=== PATIENT | female | born 1950 | race Caucasian/White ===

== ENCOUNTER 2020-02-28 17:50 | Emergency (ER) | payer MEDICARE, SELFPAY ==
[2020-02-28 18:06] VITALS: BP 105/68; BP 92/70; PULSE 104; PULSE 94; RESP 16; TEMP 37.1; O2SAT 96; O2SAT 97; BMI 28.8
--- NOTE | 2020-02-28 18:33 | CT_ITS ---
EXAMINATION: CT ABDOMEN AND PELVIS WITHOUT CONTRAST CLINICAL INFORMATION: Upper abdominal pain, question etiology. COMPARISON: Abdominal ultrasound 12/02/2014 TECHNIQUE: Multidetector volumetric imaging was performed from the superior aspect of the liver through the pubic symphysis. Sagittal and coronal reformatted images were obtained on the technologist's workstation. This CT examination was performed using dose optimization techniques as appropriate, variously including the following: *Automated exposure control *Adjustment of mA and/or kV according to patient size (this includes techniques or standardized protocols for targeted exams where dose is matched to indication/reason for exam; i.e. extremities or head) *Use of iterative reconstruction technique DLP: 596 mGy-cm FINDINGS: LUNG BASES: Minimal atelectasis in lung bases. LIVER, GALLBLADDER, AND BILIARY TREE: The liver is normal in size, shape, and attenuation. No focal hepatic lesion or biliary ductal dilatation is present. The gallbladder is unremarkable with no evidence of radiopaque gallstones, gallbladder wall thickening, or obvious pericholecystic inflammatory changes. PANCREAS: Unremarkable. SPLEEN: Unremarkable. ADRENAL GLANDS: Unremarkable. KIDNEYS AND URETERS: There is renal cortical thinning in both kidneys. There is a nonobstructing 4 mm calculus in the midpole of the left kidney. No hydronephrosis. BLADDER: The bladder is decompressed which limits evaluation. GASTROINTESTINAL TRACT: Small hiatal hernia. No bowel obstruction. Appendix is normal. No pericolonic inflammatory change. ABDOMINAL WALL: No significant hernia is appreciated. LYMPH NODES: Normal. VASCULAR: Mild atherosclerotic disease in the abdominal aorta. PELVIC VISCERA: The uterus and adnexa are unremarkable. OSSEOUS STRUCTURES: Grade 1 anterolisthesis of L5 on S1. CT/CT abdomen pelvis wo con IMPRESSION: 1. No acute abnormality in the abdomen or pelvis. 2. Nonobstructing 4 mm calculus in the midpole of the left kidney. Mild renal cortical atrophy. 3. Small hiatal hernia. 4. Grade 1 anterolisthesis of L5 on S1.
--- NOTE | 2020-02-28 18:39 | ED.GENADULT ---
HPI - General Adult General Chief complaint: General Medical Stated complaint: ams lethargic Time Seen by Provider: 02/28/20 18:16 Source: patient and EMS Mode of arrival: EMS Limitations: no limitations History of Present Illness HPI narrative: patient feeling weak lethargic for last 4- 5 days unable to eat or drink much complaining of upper abdominal pain whenever she eats associated with nausea vomited 1 time. Patient denied prior history of similar pain in the past. No fever no abdominal distension normal bowel movement Related Data Home Medications Medication Instructions Recorded Confirmed Lasix 20 mg PO 02/28/20 Previous Rx's Medication Instructions Recorded omeprazole 40 mg PO DAILY 28 Days #28 cap 02/28/20 sucralfate [Carafate] 1 g PO BID #60 tab 02/28/20 Allergies Allergy/AdvReac Type Severity Reaction Status Date / Time Sulfa (Sulfonamide Allergy Unknown UNKNOWN, Unverified 01/20/20 15:12 Antibiotics) rash [SULFA (SULFONAMIDE ANTIBIOTICS)] PMFSH Past Medical History Medical History (Updated 02/28/20 @ 23:34 by Adrian Barron MD) HTN (hypertension) Hypothyroid Social History Social History Alcohol intake: never Smoking Status: Never smoker Smoked in Last 30 Days: No Use of substances other than those prescribed or required for medical reasons: No Advance Directives: No Advance Directives Information Provided: Yes Physical Exam Vital Signs: Vital Signs: Vital Signs Temp Pulse Resp BP Pulse Ox 02/28/20 23:08 97.8 F 73 16 110/56 L 97 02/28/20 21:53 98.1 F 69 20 120/53 L 99 02/28/20 19:45 68 18 137/61 99 02/28/20 18:06 98.8 F 94 16 105/68 97 Body Mass Index 28.8 Course Course Course Narrative: patient has stable labs no signs of significant dehydration CT scan abdomen negative for any acute pathology patient taking p.o. fluids will discharge home Medical Decision Making Lab Data Result diagrams: 02/28/20 19:35 02/28/20 19:35 Labs: Lab Results 02/28/20 02/28/20 Range/Units 19:35 19:35 WBC 10.2 (4.8-10.8) X10*3/uL RBC 4.16 L (4.20-5.50) X10*6/uL Hgb 12.9 (12.0-16.0) g/dl Hct 37.9 (37-47) % MCV 91.1 (80-98) fL MCH 31.0 (27.0-33.0) pg MCHC 34.0 (31.0-35.0) g/dl RDW 14.7 (11.0-16.0) % Plt Count 239 (160-400) X10*3/uL MPV 9.1 L (9.4-12.3) fL Immature Gran % (Auto) 0.4 (0.0-0.4) % Neut % (Auto) 84.8 H (45-73) % Lymph % (Auto) 8.9 L (20-40) % [place] % (Auto) 5.1 (2-11) % Eos % (Auto) 0.6 (0-4) % Baso % (Auto) 0.2 (0-2) % Lymph # (Auto) 0.9 L (1.2-4.9) X10*3/uL [place] # (Auto) 0.5 (0.1-1.2) X10*3/uL Eos # (Auto) 0.1 (0.0-0.4) X10*3/uL Baso # (Auto) 0.0 (0.0-0.2) X10*3/uL Abs Immat Gran (auto) 0.04 H (0.00-0.03) X10*3/uL Absolute Neuts (auto) 8.7 H (2.0-8.3) X10*3/uL Absolute Nucleated RBC 0.000 (0.0-0.012) X10*3/uL Nucleated RBC % (auto) 0.0 (0.0-0.2) /100WBC Sodium 135 (135-145) mmol/L Potassium 3.8 (3.3-5.1) mmol/l Chloride 104 (96-108) mmol/L Carbon Dioxide 18 L (22-29) mmol/L Anion Gap 17 (12-20) BUN 10 (9-16) mg/dL Creatinine 1.01 (0.5-1.4) mg/dL Estim Creat Clear Calc 42.9 Estimated GFR 54 Random Glucose 98 (60-115) mg/dL Calcium 8.0 L (8.4-10.2) mg/dL Total Bilirubin 0.5 (0.0-1.0) mg/dL AST 8 (5-31) U/L ALT < 6 (0-31) U/L Alkaline Phosphatase 70 (39-117) U/L Total Protein 6.3 L (6.5-8.0) g/dL Albumin 3.0 L (3.5-5.0) g/dL Lipase 15 (8-78) U/L Discharge Plan Discharge Clinical Impression: Gastritis Qualifiers: Gastritis type: unspecified gastritis Chronicity: acute Gastritis bleeding: without bleeding Qualified Code(s): K29.00 - Acute gastritis without bleeding Patient Disposition: Home, Self-Care Instructions: Gastritis (ED) Additional Instructions: drink plenty of fluids and take medication as prescribed Prescriptions: New omeprazole 40 mg capsule,delayed release(DR/EC) 40 mg PO DAILY 28 Days Qty: 28 RF: 0 sucralfate [Carafate] 1 gram tablet 1 g PO BID Qty: 60 RF: 0 No Action Lasix 20 mg PO RF: 0 Interventions: ED Discharge Assessment Last Done: 02/28/20 23:48
[2020-02-28] MEDS: ondansetron HCL 4 MG/2 ML VIAL IVPUSH (19:38)
[2020-02-28 19:39] LABS: MANUAL DIFF FLAG NO
[2020-02-28] MEDS: Famotidine/PF 20 MG/2 ML VIAL IVPUSH (19:39)
[2020-02-28 19:41] LABS: Basophils Percent Auto 0.2 % (0-2); Eosinophils Absolute Auto 0.1 X10*3/uL (0.0-0.4); Eosinophils Percent Auto 0.6 % (0-4); Hematocrit 37.9 % (37-47); Hemoglobin 12.9 g/dl (12.0-16.0); Imm Gran Abs Auto 0.04 X10*3/uL (0.00-0.03); Imm Gran Pct Auto 0.4 % (0.0-0.4); Lymphocytes Absolute Auto 0.9 X10*3/uL (1.2-4.9); Lymphocytes Percent Auto 8.9 % (20-40); Mean Corpuscular Volume 91.1 fL (80-98); Mean Platelet Volume 9.1 fL (9.4-12.3); Monocytes Absolute Auto 0.5 X10*3/uL (0.1-1.2); Monocytes Percent Auto 5.1 % (2-11); Neutrophils Absolute Auto 8.7 X10*3/uL (2.0-8.3); Neutrophils Percent Auto 84.8 % (45-73); Platelet Count 239 X10*3/uL (160-400); Red Blood Count 4.16 X10*6/uL (4.20-5.50); Red Cell Distribution Width 14.7 % (11.0-16.0); White Blood Count 10.2 X10*3/uL (4.8-10.8)
[2020-02-28] MEDS: 0.9 % Sodium Chloride 1,000 ML 999 ML IVCONT (19:42)
[2020-02-28 19:45] VITALS: BP 137/61; PULSE 68; RESP 18; O2SAT 99
[2020-02-28 20:03] LABS: Alanine Aminotransferase < 6 U/L (0-31); Alkaline Phosphatase 70 U/L (39-117); Anion Gap 17 (12-20); Aspartate Amino Transferase 8 U/L (5-31); Bilirubin Total 0.5 mg/dL (0.0-1.0); Blood Urea Nitrogen 10 mg/dL (9-16); Carbon Dioxide 18 mmol/L (22-29); Chloride 104 mmol/L (96-108); Creatinine Clr Calc Pharmacy 42.9; Estimated Glomerular Filt Rate 54; Glucose Random 98 mg/dL (60-115); Lipase 15 U/L (8-78); Potassium 3.8 mmol/l (3.3-5.1); Sodium 135 mmol/L (135-145); Total Protein 6.3 g/dL (6.5-8.0)
[2020-02-28 21:53] VITALS: BP 120/53; PULSE 69; RESP 20; TEMP 36.7; O2SAT 99
--- NOTE | 2020-02-28 22:59 | PC.NURSE ---
pt unable to give a urine sample. pt has been given gingerale and greta with no n/v/d.
[2020-02-28 23:08] VITALS: BP 110/56; PULSE 73; RESP 16; TEMP 36.6; O2SAT 97
--- NOTE | 2020-02-29 00:02 | PC.NURSE ---
calling pt home phone and no answer. pt states they are asleep. pt doesnt remember any other phone numbers
--- NOTE | 2020-02-29 04:25 | PC.NURSE ---
PT LEFT WITH EMS.
== END 2020-02-29 01:07 | disposition home or self-care (01) ==
PROVIDERS: Emergency Provider Internal Medicine; PCP Internal Medicine
DX: K29.00 Acute gastritis without bleeding (principal); R10.13 Epigastric pain; R11.2 Nausea with vomiting, unspecified; Z79.899 Other long term (current) drug therapy
CPT/HCPCS: 36415; 74176; 80053; 83690; 85025; 96361; 96374; 96375; 99284; J2405

== ENCOUNTER 2020-03-22 15:41 | Inpatient (IN) | payer MEDICARE, SELFPAY ==
[2020-03-22 15:52] VITALS: BP 103/62; BP 124/70; PULSE 100; PULSE 110; RESP 18; TEMP 36.6; O2SAT 97; O2SAT 99; BMI 25.8
--- NOTE | 2020-03-22 16:13 | ECG_ITS ---
Test Reason : FALL Blood Pressure : / mmHG Vent. Rate : 103 BPM Atrial Rate : 103 BPM P-R Int : 154 ms QRS Dur : 076 ms QT Int : 390 ms P-R-T Axes : 057 -53 159 degrees QTc Int : 510 ms Sinus tachycardia Left axis deviation ST & T wave abnormality, consider anterolateral ischemia ST depression in Inferior leads Abnormal ECG When compared with ECG of 30-MAY-2019 22:55, Heart rate has increased ST more depressed Inferior leads Anterolateral leads Referred By: Jesika King Electronically Signed By:LMIA NGUYỄN MD
--- NOTE | 2020-03-22 16:13 | XR_ITS ---
EXAMINATION: XR CHEST CLINICAL INFORMATION: Syncope. COMPARISON: 05/30/2019 chest radiograph. TECHNIQUE: Frontal view of the chest was obtained. FINDINGS: Mild linear markings are seen in the left lower lung. The left upper lung field and right lung are clear. The heart and mediastinal structures are unremarkable. Mild superior thoracic dextro scoliosis is noted. XR/XR chest 1V IMPRESSION: Mild linear atelectasis versus scarring in the left lower lung. No CHF or pneumonia.
--- NOTE | 2020-03-22 16:13 | CT_ITS ---
EXAMINATION: CT HEAD WITHOUT CONTRAST CLINICAL INFORMATION: Syncope COMPARISON: MRI brain 05/31/2019, CT head 03/27/2015 TECHNIQUE: Contiguous axial imaging was performed from the skull base to vertex without intravenous administration of contrast. Coronal and sagittal reformatted images are performed at the CT scanner This CT examination was performed using dose optimization techniques as appropriate, variously including the following: *Automated exposure control *Adjustment of mA and/or kV according to patient size (this includes techniques or standardized protocols for targeted exams where dose is matched to indication/reason for exam; i.e. extremities or head) *Use of iterative reconstruction technique DLP: 671 mGy-cm FINDINGS: There is no evidence of acute intracranial hemorrhage or acute territorial infarction. There are small lacunar infarcts in the bilateral basal ganglia. No abnormal mass effect or midline shift is seen. Elder to white matter differentiation is well preserved. No extra-axial fluid collections are identified. There is atrophy with prominence of the ventricles and the sulci and hypodensity of the periventricular white matter due to chronic small vessel ischemic disease. There are vascular calcifications of the internal carotid arteries bilaterally. The osseous structures and soft tissues are normal. The mastoid air cells and visualized portions of the paranasal sinuses are well aerated. CT/CT head/brain wo con IMPRESSION: No acute intracranial pathology.
--- NOTE | 2020-03-22 16:29 | ED.FEMALEGU ---
HPI - Female Genitourinary General Chief complaint: Urogenital-Female Stated complaint: failure to thrive Time Seen by Provider: 03/22/20 16:13 Source: patient and EMS Mode of arrival: EMS Limitations: no limitations History of Present Illness HPI Narrative: 68-year-old female brought in by ambulance initial triage nurse stated that the patient had frequency urination with blood in the urine, patient stated that she fell and lost consciousness remained on the floor for 3 hours and family found the patient on the floor that is why they called the ambulance and patient brought into the hospital, Patient's story: Patient lost consciousness fell on the floor remained for 3 hours positive head injury, patient did recall full story of falling, patient now is awake and oriented, complaining of no pain or headache. Patient also was complaining of frequency urination and blood in the urine. Related Data Home Medications Medication Instructions Recorded Confirmed furosemide 20 mg PO DAILY 02/28/20 03/22/20 Previous Rx's Medication Instructions Recorded omeprazole 40 mg PO DAILY 28 Days #28 cap 02/28/20 sucralfate [Carafate] 1 g PO BID #60 tab 02/28/20 Allergies Allergy/AdvReac Type Severity Reaction Status Date / Time Sulfa (Sulfonamide Allergy Unknown UNKNOWN, Unverified 01/20/20 15:12 Antibiotics) rash [SULFA (SULFONAMIDE ANTIBIOTICS)] Review of Systems Review of Systems: All other systems are reviewed and are negative Constitutional: Reports as per HPI and Reports no additional constitutional complaints Eyes: Reports as per HPI and Reports no additional eye complaints Reports system reviewed and no additional complaints, except as documented Cardiovascular: Reports as per HPI and Reports no additional cardiovascular complaints Respiratory: Reports as per HPI and Reports no additional respiratory complaints Gastrointestinal: Reports as per HPI and Reports no additional gastrointestinal complaints Genitourinary: Reports no additional female genitourinary complaints Musculoskeletal: Reports no additional musculoskeletal complaints Skin/Breast: Reports system reviewed and no additional complaints, except as docu Psychiatric: Reports no additional psychiatric complaints Endocrine: Reports no additional endocrine complaints Hematologic/Lymphatic: Reports no additional hematologic/lymphatic complaints Allergic/Immunologic: Reports no additional allergic/immunologic complaints Reports system reviewed and no additional complaints, except as documented and Reports Abnormal speech present PMFSH Past Medical History Medical History (Updated 03/22/20 @ 21:34 by Jake Black MD) HTN (hypertension) Hypothyroid Social History Social History Alcohol intake: never Smoking Status: Never smoker Use of substances other than those prescribed or required for medical reasons: No Advance Directives: No Advance Directives Information Provided: Yes Physical Exam Vital Signs: Vital Signs: Last Vital Signs Temp 97.8 F 03/22/20 15:52 Pulse 96 03/23/20 00:54 Resp 16 03/23/20 00:54 BP 123/55 L 03/23/20 00:54 Pulse Ox 99 03/23/20 00:54 Body Mass Index 25.8 Vital signs have been reviewed as normal and appeared to be correct. Blood pressure normal. Heart rate rapid. Respiration rate normal. Temperature normal. Oxygen saturation normal. Appearance: Alert. Oriented X3. No acute distress. Head: Normal external exam. Normocephalic. Atraumatic. No Herrera signs noted. No raccoon eyes noted Eyes: PERRLA. EOMI. Conjunctiva and sclera normal. Eyelids normal. ENT: EAC normal. TM's Normal. Pharynx normal. Uvula midline. Moist mucous membranes. No trismus noted. No drooling noted. No muffled voice noted. Neck: Normal inspection. Neck supple. FROM. No adenopathy. Thyroid Normal. No meningeal signs. No neck mass noted. CVS: Normal heart rate and rhythm. Heart sound normal. No murmurs noted. Pulses normal throughout. Respiratory: No respiratory distress. Painless inspiration. Breath sounds normal. No wheezes/rales/rhonchi noted. Chest nontender. No accessory muscle usage noted or decreased air movement noted. Abdomen: Soft and nontender. Bowel sounds normal in all 4 quadrants. No distention noted. No organomegaly noted. No visible injury noted. Back: No CVA tenderness. Full range of motion noted. Skin: Skin warm and dry. Normal skin color. Normal skin turgor. No rashes/lesions/lacerations noted. Extremities: No lower extremity edema. Extremities exhibit normal range of motion. Extremities nontender. Neuro: Oriented X 3. No motor deficit. No sensory deficit. Reflexes normal. MDM - Female Genitourinary MDM Narrative Medical decision making narrative: Assessment and plan. A 70 years old female brought in by ambulance after was found on the floor by family for unknown time patient reported maybe hours, patient do not recall the whole story falling down. 1. ST depression in the lateral leads on the EKG, was unremarkable troponin patient declined chest pain, however patient is complaining of vague left-sided abdominal pain which found nonsignificant on the physical exam. The case discussed with Dr. Garcia manager utilities on-call who recommended to admit the patient for serial troponin trend an echocardiogram as an inpatient in the a.m. 2. Neuro exam is intact and head CT is unremarkable. 3. Hypokalemia will replete potassium. 4. Patient also had concern of vaginal bleed had a CT of the abdomen pelvis 2 weeks ago for that purpose and was unremarkable. While the admitting will obtain OB consult as an inpatient. Await for UA Lab Data Result diagrams: 03/22/20 16:37 03/22/20 18:27 Labs: Lab Results 03/22/20 03/22/20 03/22/20 Range/Units 16:37 16:37 16:37 WBC 11.0 H (4.8-10.8) X10*3/uL RBC 4.50 (4.20-5.50) X10*6/uL Hgb 13.5 (12.0-16.0) g/dl Hct 39.6 (37-47) % MCV 88.0 (80-98) fL MCH 30.0 (27.0-33.0) pg MCHC 34.1 (31.0-35.0) g/dl RDW 15.5 (11.0-16.0) % Plt Count 235 (160-400) X10*3/uL MPV 9.4 (9.4-12.3) fL Immature Gran % (Auto) 0.5 H (0.0-0.4) % Neut % (Auto) 82.7 H (45-73) % Lymph % (Auto) 10.6 L (20-40) % [place] % (Auto) 5.0 (2-11) % Eos % (Auto) 0.9 (0-4) % Baso % (Auto) 0.3 (0-2) % Lymph # (Auto) 1.2 (1.2-4.9) X10*3/uL [place] # (Auto) 0.6 (0.1-1.2) X10*3/uL Eos # (Auto) 0.1 (0.0-0.4) X10*3/uL Baso # (Auto) 0.0 (0.0-0.2) X10*3/uL Abs Immat Gran (auto) 0.06 H (0.00-0.03) X10*3/uL Absolute Neuts (auto) 9.1 H (2.0-8.3) X10*3/uL Absolute Nucleated RBC 0.000 (0.0-0.012) X10*3/uL Nucleated RBC % (auto) 0.0 (0.0-0.2) /100WBC Sodium Cancelled Potassium Cancelled Chloride Cancelled Carbon Dioxide Cancelled Anion Gap Cancelled BUN Cancelled Creatinine Cancelled Estim Creat Clear Calc Cancelled Estimated GFR Cancelled Random Glucose Cancelled Lactic Acid (0.5-2.0) mmol/L Lactic Acid Fup @ 2Hr (0.5-2.0) mmol/L Calcium Cancelled Total Bilirubin Cancelled Direct Bilirubin Cancelled AST Cancelled ALT Cancelled Alkaline Phosphatase Cancelled Total Creatine Kinase Cancelled Troponin I High Sens 5.1 (<3.5-17.0) ng/L B-Natriuretic Peptide 11 (<100) pg/mL Total Protein Cancelled Albumin Cancelled Lipase Cancelled COVID-19 ([facility]) (Negative) COVID-19 Clin Com 03/22/20 03/22/20 03/22/20 Range/Units 16:45 16:55 17:45 WBC (4.8-10.8) X10*3/uL RBC (4.20-5.50) X10*6/uL Hgb (12.0-16.0) g/dl Hct (37-47) % MCV (80-98) fL MCH (27.0-33.0) pg MCHC (31.0-35.0) g/dl RDW (11.0-16.0) % Plt Count (160-400) X10*3/uL MPV (9.4-12.3) fL Immature Gran % (Auto) (0.0-0.4) % Neut % (Auto) (45-73) % Lymph % (Auto) (20-40) % [place] % (Auto) (2-11) % Eos % (Auto) (0-4) % Baso % (Auto) (0-2) % Lymph # (Auto) (1.2-4.9) X10*3/uL [place] # (Auto) (0.1-1.2) X10*3/uL Eos # (Auto) (0.0-0.4) X10*3/uL Baso # (Auto) (0.0-0.2) X10*3/uL Abs Immat Gran (auto) (0.00-0.03) X10*3/uL Absolute Neuts (auto) (2.0-8.3) X10*3/uL Absolute Nucleated RBC (0.0-0.012) X10*3/uL Nucleated RBC % (auto) (0.0-0.2) /100WBC Sodium Cancelled Potassium Cancelled Chloride Cancelled Carbon Dioxide Cancelled Anion Gap Cancelled BUN Cancelled Creatinine Cancelled Estim Creat Clear Calc Cancelled Estimated GFR Cancelled Random Glucose Cancelled Lactic Acid 2.1 H* (0.5-2.0) mmol/L Lactic Acid Fup @ 2Hr (0.5-2.0) mmol/L Calcium Cancelled Total Bilirubin Cancelled Direct Bilirubin Cancelled AST Cancelled ALT Cancelled Alkaline Phosphatase Cancelled Total Creatine Kinase Cancelled Troponin I High Sens (<3.5-17.0) ng/L B-Natriuretic Peptide (<100) pg/mL Total Protein Cancelled Albumin Cancelled Lipase Cancelled COVID-19 ([facility]) Negative (Negative) COVID-19 Clin Com See Note 03/22/20 03/22/20 03/22/20 Range/Units 18:27 21:43 21:43 WBC (4.8-10.8) X10*3/uL RBC (4.20-5.50) X10*6/uL Hgb (12.0-16.0) g/dl Hct (37-47) % MCV (80-98) fL MCH (27.0-33.0) pg MCHC (31.0-35.0) g/dl RDW (11.0-16.0) % Plt Count (160-400) X10*3/uL MPV (9.4-12.3) fL Immature Gran % (Auto) (0.0-0.4) % Neut % (Auto) (45-73) % Lymph % (Auto) (20-40) % [place] % (Auto) (2-11) % Eos % (Auto) (0-4) % Baso % (Auto) (0-2) % Lymph # (Auto) (1.2-4.9) X10*3/uL [place] # (Auto) (0.1-1.2) X10*3/uL Eos # (Auto) (0.0-0.4) X10*3/uL Baso # (Auto) (0.0-0.2) X10*3/uL Abs Immat Gran (auto) (0.00-0.03) X10*3/uL Absolute Neuts (auto) (2.0-8.3) X10*3/uL Absolute Nucleated RBC (0.0-0.012) X10*3/uL Nucleated RBC % (auto) (0.0-0.2) /100WBC Sodium 136 Potassium 2.9 L D Chloride 99 Carbon Dioxide 21 L Anion Gap 19 BUN 13 Creatinine 0.93 Estim Creat Clear Calc 46.2 Estimated GFR 59 Random Glucose 102 Lactic Acid (0.5-2.0) mmol/L Lactic Acid Fup @ 2Hr 3.1 H* (0.5-2.0) mmol/L Calcium 8.6 D Total Bilirubin 1.2 H Direct Bilirubin 0.8 H AST 12 D ALT 6 Alkaline Phosphatase 91 D Total Creatine Kinase 23 L Troponin I High Sens 6.1 (<3.5-17.0) ng/L B-Natriuretic Peptide (<100) pg/mL Total Protein 7.3 Albumin 3.5 Lipase COVID-19 ([facility]) (Negative) COVID-19 Clin Com Imaging Data Chest x-ray: Radiologist's impression: Mild linear atelectasis versus scarring in the left lower lung. No CHF or pneumona. CT scan - head: Radiologist's impression: No acute intracranial pathology. ECG Data Interpretation: Sinus tachycardia at 103 beats per minutes, normal interval, left axis deviation, ST depression in V3, V4, V5, V6. Discharge Plan Discharge Clinical Impression: Hypokalemia Syncope Qualifiers: Syncope type: unspecified Qualified Code(s): R55 - Syncope and collapse Patient Disposition: Admitted As Inpatient
[2020-03-22 16:46] LABS: MANUAL DIFF FLAG NO
[2020-03-22 16:48] LABS: Basophils Percent Auto 0.3 % (0-2); Eosinophils Absolute Auto 0.1 X10*3/uL (0.0-0.4); Eosinophils Percent Auto 0.9 % (0-4); Hematocrit 39.6 % (37-47); Hemoglobin 13.5 g/dl (12.0-16.0); Imm Gran Abs Auto 0.06 X10*3/uL (0.00-0.03); Imm Gran Pct Auto 0.5 % (0.0-0.4); Lymphocytes Absolute Auto 1.2 X10*3/uL (1.2-4.9); Lymphocytes Percent Auto 10.6 % (20-40); Mean Corpuscular HGB Conc 34.1 g/dl (31.0-35.0); Mean Platelet Volume 9.4 fL (9.4-12.3); Monocytes Absolute Auto 0.6 X10*3/uL (0.1-1.2); Neutrophils Absolute Auto 9.1 X10*3/uL (2.0-8.3); Neutrophils Percent Auto 82.7 % (45-73); Platelet Count 235 X10*3/uL (160-400); Red Cell Distribution Width 15.5 % (11.0-16.0)
[2020-03-22] MEDS: 0.9 % Sodium Chloride 500 ML 999 ML IVCONT ×2 (16:51→21:34)
[2020-03-22 16:52] VITALS: BP 108/62; PULSE 107
[2020-03-22 16:53] VITALS: BP 109/68; PULSE 103
[2020-03-22 17:23] LABS: B Type Natriuretic Peptide 11 pg/mL (<100); Troponin-I High Sensitivity 5.1 ng/L (<3.5-17.0)
[2020-03-22 17:25] LABS: COVID-19 Test Negative (Negative); IDNOW Serial# 9DD0AD1C
[2020-03-22 17:48] LABS: Lactic Acid 2.1 mmol/L (0.5-2.0)
[2020-03-22 18:51] LABS: Reflex Lactate? Lactic Acid Added
[2020-03-22 19:19] LABS: Alanine Aminotransferase 6 U/L (0-31); Albumin Level 3.5 g/dL (3.5-5.0); Alkaline Phosphatase 91 U/L (39-117); Anion Gap 19 (12-20); Aspartate Amino Transferase 12 U/L (5-31); Bilirubin Direct 0.8 mg/dL (0.0-0.5); Bilirubin Total 1.2 mg/dL (0.0-1.0); Blood Urea Nitrogen 13 mg/dL (9-16); Calcium 8.6 mg/dL (8.4-10.2); Carbon Dioxide 21 mmol/L (22-29); Chloride 99 mmol/L (96-108); Creatinine Clr Calc Pharmacy 46.2; Estimated Glomerular Filt Rate 59; Glucose Random 102 mg/dL (60-115); Potassium 2.9 mmol/l (3.3-5.1); Sodium 136 mmol/L (135-145); Total Protein 7.3 g/dL (6.5-8.0)
[2020-03-22] MEDS: Potassium Chloride Packet 20 MEQ PACKET PO (20:20)
[2020-03-22] MEDS: Potassium Chloride/H20 10 MEQ/100 ML PIGGYBACK 100 MEQ IV (20:20)
[2020-03-22 20:51] VITALS: BP 113/80; PULSE 89; RESP 18; O2SAT 99
--- NOTE | 2020-03-22 21:20 | P.HPHOSP_ITS ---
History of Present Illness Date of Service: 03/22/20 Chief Complaint: syncope 70 y/o female who presented from home s/p syncope. Event is not very clear and patient is a very poor historian. AAOx2 at the time of evaluation (name and place but not age). Patient reports that loss conciusness at her house yesterday but is not clear about any symptoms prior or after the event. Denies any chest pain, SOB, nausea, vomiting, diarrhea or fever. On presentation patient's vitals are stable, mildly tachycardic, EKG showing sinus tachycardia with anterolateral ST depression and T wave inversion, prolonged QTc 510, K of 2.9, lactate of 2.1. CT head negative. Patient was given KCL IV by Ed attending and decision for ad mission was given. Patient was seen and examine at the bedside, ROS as above otherwise negative. P hysical exam positive for: AAOx2, xerosis of the skin, vitals stable now, no neurologic deficits identified on exam. I reviewed patient's records which shows patient has had multiple admissions in the past for syncope in which the circumstances are unclear. Last admission was on May of current year, work up during that admission unremarkable. Past medical history: Dementia, depression, hypothyroidism, hypertension, syncope Past surgical history: None Toxic habits: Smoker, Alcohol abuse, no hx of IVDA Review of Systems Neurologic: Reports other (syncope) [facility] Medical History HTN (hypertension) Hypothyroid Functional capacity: independent ambulation Family history: reviewed and not pertinent Social History Alcohol intake: never Smoking Status: Never smoker Use of substances other than those prescribed or required for medical reasons: No Advance Directives: No Advance Directives Information Provided: Yes Meds Allergies Allergy/AdvReac Type Severity Reaction Status Date / Time Sulfa (Sulfonamide Allergy Unknown UNKNOWN, Unverified 01/20/20 15:12 Antibiotics) rash [SULFA (SULFONAMIDE ANTIBIOTICS)] Home Medications Medication Instructions Recorded Confirmed Type furosemide 20 mg PO DAILY 02/28/20 03/22/20 History Physical Exam Vital Signs and Narrative: Vital Signs: Last Vital Signs Temp 97.8 F 03/22/20 15:52 Pulse 89 03/22/20 20:51 Resp 18 03/22/20 20:51 BP 113/80 03/22/20 20:51 Pulse Ox 99 03/22/20 20:51 Body Mass Index 25.8 Const: General: cooperative, comfortable and no acute distress Orientation/consciousness: oriented to person and oriented to place HENMT: Head: Yes normal to inspection Eyes: General: appearance normal, both eyes and all related structures Neck: Yes normal visual inspection Chest: Chest palpation & inspection: normal inspection of the chest Resp: Effort & Inspection: normal respiratory effort Cardio: Jugular venous distension: no JVD Rate: regular rate Rhythm: regular rhythm Heart sounds: S1 normal heart sound present and S2 normal heart sound present GI: Inspection: Yes normal to inspection Skin: General skin exam: other (xerosis) Neuro: General: oriented to person and oriented to place Extrem: General: Yes normal to inspection Results Labs CBC and Chem 7: 03/22/20 16:37 03/22/20 18:27 Labs: Laboratory Results - last 24 hr 03/22/20 03/22/20 03/22/20 16:37 16:37 16:37 MCV 88.0 MCH 30.0 MCHC 34.1 RDW 15.5 Plt Count 235 MPV 9.4 Immature Gran % (Auto) 0.5 H Neut % (Auto) 82.7 H Lymph % (Auto) 10.6 L [place] % (Auto) 5.0 Eos % (Auto) 0.9 Baso % (Auto) 0.3 Lymph # (Auto) 1.2 [place] # (Auto) 0.6 Eos # (Auto) 0.1 Baso # (Auto) 0.0 Abs Immat Gran (auto) 0.06 H Absolute Neuts (auto) 9.1 H Absolute Nucleated RBC 0.000 Nucleated RBC % (auto) 0.0 Anion Gap Cancelled Estim Creat Clear Calc Cancelled Estimated GFR Cancelled Random Glucose Cancelled Lactic Acid Calcium Cancelled Total Bilirubin Cancelled Direct Bilirubin Cancelled AST Cancelled ALT Cancelled Alkaline Phosphatase Cancelled Total Creatine Kinase Cancelled Troponin I High Sens 5.1 B-Natriuretic Peptide 11 Total Protein Cancelled Albumin Cancelled Lipase Cancelled COVID-19 (D[facility]NELL) COVID-19 Clin Com 03/22/20 03/22/20 03/22/20 16:45 16:55 17:45 MCV MCH MCHC RDW Plt Count MPV Immature Gran % (Auto) Neut % (Auto) Lymph % (Auto) [place] % (Auto) Eos % (Auto) Baso % (Auto) Lymph # (Auto) [place] # (Auto) Eos # (Auto) Baso # (Auto) Abs Immat Gran (auto) Absolute Neuts (auto) Absolute Nucleated RBC Nucleated RBC % (auto) Anion Gap Cancelled Estim Creat Clear Calc Cancelled Estimated GFR Cancelled Random Glucose Cancelled Lactic Acid 2.1 H* Calcium Cancelled Total Bilirubin Cancelled Direct Bilirubin Cancelled AST Cancelled ALT Cancelled Alkaline Phosphatase Cancelled Total Creatine Kinase Cancelled Troponin I High Sens B-Natriuretic Peptide Total Protein Cancelled Albumin Cancelled Lipase Cancelled COVID-19 (DARNELL) Negative COVID-19 Clin Com See Note 03/22/20 18:27 MCV MCH MCHC RDW Plt Count MPV Immature Gran % (Auto) Neut % (Auto) Lymph % (Auto) [place] % (Auto) Eos % (Auto) Baso % (Auto) Lymph # (Auto) [place] # (Auto) Eos # (Auto) Baso # (Auto) Abs Immat Gran (auto) Absolute Neuts (auto) Absolute Nucleated RBC Nucleated RBC % (auto) Anion Gap 19 Estim Creat Clear Calc 46.2 Estimated GFR 59 Random Glucose 102 Lactic Acid Calcium 8.6 D Total Bilirubin 1.2 H Direct Bilirubin 0.8 H AST 12 D ALT 6 Alkaline Phosphatase 91 D Total Creatine Kinase 23 L Troponin I High Sens B-Natriuretic Peptide Total Protein 7.3 Albumin 3.5 Lipase COVID-19 (DARNELL) COVID-19 Clin Com Imaging Radiologist's Impressions: Impressions Chest X-Ray 03/22/20 16:13 IMPRESSION: Mild linear atelectasis versus scarring in the left lower lung. No CHF or pneumonia. Head CT 03/22/20 16:13 IMPRESSION: No acute intracranial pathology. Assessment and Plan (1) Syncope: Qualifiers: Syncope type: unspecified Qualified Code(s): R55 - Syncope and collapse Status: Acute cardiogenic vs neurogenic Tele monitor as of now CT head negative EKG showing T wave inversion in anterolateral leads with ST depression. Initial troponin negative and patient asymptomatic Follow up second troponin STAT Monitor vitals closely Neurology consult in the am Cardiology consult in the am (2) Hypokalemia: Status: Acute 2.9 on presentation s/p supplementation in the ED Follow up repeat BMP now STAT Prolongation of QTC of 510 likely due to hypokalemia 1 g of Mag to be given now as well (3) HTN (hypertension): Status: Acute Hold BP meds for now given borderline BP likely due to dehydration (4) Hypothyroid: Status: Acute not on meds at present per reconciliation
--- NOTE | 2020-03-22 21:44 | PC.NURSE ---
pt wanted to lay back and once she did she began to vomit. labs being drawn at this time.
[2020-03-22] MEDS: Magnesium Sulfate/D5W 1 GM/100 ML PIGGYBACK IV (22:00)
[2020-03-22 22:40] LABS: Troponin-I High Sensitivity 6.1 ng/L (<3.5-17.0)
--- NOTE | 2020-03-22 22:44 | PC.NURSE ---
lactic 3.1 reported to covering rn and provider
[2020-03-22 22:45] LABS: ~Lactic Acid-LAB USE ONLY 3.1 mmol/L (0.5-2.0)
[2020-03-22 23:47] LABS: Reflex Lactate? 2 Y
[2020-03-23] VITALS (8 sets, daily range): BP systolic 123–147; BP diastolic 52–95; PULSE 72–109; RESP 15–20; TEMP 36.4–36.7; O2SAT 96–99
--- NOTE | 2020-03-23 | ECG_ITS ---
Test Reason : SYNCOPE Blood Pressure : / mmHG Vent. Rate : 095 BPM Atrial Rate : 095 BPM P-R Int : 164 ms QRS Dur : 076 ms QT Int : 358 ms P-R-T Axes : 057 -31 206 degrees QTc Int : 449 ms Normal sinus rhythm Left axis deviation Inferior infarct (cited on or before 22-MAR-2020) ST & T wave abnormality, consider anterolateral ischemia Abnormal ECG When compared with ECG of 22-MAR-2020 16:46, ST more depressed Anterolateral leads Referred By: Geraldo Osborne Electronically Signed By:LIMA NGUYỄN MD
--- NOTE | 2020-03-23 01:15 | PC.NURSE ---
PT CLEANED FOR BROWN VOMIT AND EUNICE CARE. PT BUTTOCKS IS RED, OLD BLOOD NOTED WITH CLOTS PRESENT. PT VITALS STABLE, NEEDS MET, BARRIOR CREAM APPLIED TO BUTTOCKS. PT HAS RECEIVED IVF AND VITALS ARE STABLE AT THIS TIME.
--- NOTE | 2020-03-23 03:44 | PC.NURSE ---
LACTIC DRAWN LATE DUE TO CODE GOING ON IN ANOTHER ROOM. BEING DRAWN AT THIS TIME.
[2020-03-23 04:18] LABS: ~Lactic Acid-LAB USE ONLY 1.3 mmol/L (0.5-2.0)
--- NOTE | 2020-03-23 05:18 | PC.NURSE ---
pt repositioned and pad checked for scant bleeding. pad at this time is still usable no clots seen and no active bleeding seen.
--- NOTE | 2020-03-23 07:29 | PC.NURSE ---
REPORT FROM EZEQUIEL LIND PT IS COMFORTABLY, WAITING FOR ADMISSION
--- NOTE | 2020-03-23 10:15 | PC.NURSE ---
mastic man at bedside for consult
--- NOTE | 2020-03-23 10:39 | PC.NURSE ---
PT REPOSITIONED, FOR COMFORT, FAIR AMOUNT OF BRIGHT RED BLEEDING NOTED
[2020-03-23] MEDS: Sucralfate 1 GM TABLET PO ×2 (10:46→21:32)
--- NOTE | 2020-03-23 10:50 | PC.NURSE ---
[place] [facility] [place]
--- NOTE | 2020-03-23 11:10 | PM.CNCAR ---
History of Present Illness History of Present Illness Date of Consult: March 23, 2020 Chief complaint: syncope Narrative: This is a cardiology consultation regarding an abnormal EKG. Patient herself does not seem to be a good historian. Not entirely clear if she has any significant dementia. According to the H and P and per the ER doctor, she had loss of consciousness event S today but denied any chest pain. However when I questioned her she states that she was having chest pain yesterday starting in the morning. Around 14:00 or so she had a dizzy episode and probably passed out but details are not very clear. This then led to the hospitalization. EKG was abnormal with ST-T changes but her potassium was also low at 2.9. Otherwise patient denies any previous cardiac issues. Currently, she denies any chest pain. Per the nurse taking care of the patient, she has been having vaginal bleeding since she came to the ER. Review of Systems Review of Systems: Cardiac- positive for chest pain. Positive for syncopal episodes. Negative for shortness of breath or palpitations. Yes all other systems are reviewed and are negative Neurologic: Reports other (syncope) [facility] Past Medical History Medical History Dementia HTN (hypertension) Hypothyroid Functional capacity: independent ambulation Family History Pertinent family history: Patient not able to give any clear history about family. Family history: reviewed and not pertinent Social History Social History Alcohol intake: never Smoking Status: Never smoker Use of substances other than those prescribed or required for medical reasons: No Advance Directives: No Advance Directives Information Provided: Yes Meds Allergies Allergy/AdvReac Type Severity Reaction Status Date / Time Sulfa (Sulfonamide Allergy Unknown UNKNOWN, Unverified 01/20/20 15:12 Antibiotics) rash [SULFA (SULFONAMIDE ANTIBIOTICS)] Home Medications Medication Instructions Recorded Confirmed Type furosemide 20 mg PO DAILY 02/28/20 03/22/20 History Physical Exam Vital Signs: Vital Signs: Last Vital Signs Temp 97.9 F 03/23/20 10:14 Pulse 85 03/23/20 10:14 Resp 16 03/23/20 10:14 BP 125/95 H 03/23/20 10:14 Pulse Ox 99 03/23/20 03:51 Body Mass Index 25.8 Comfortable, no distress No pallor, icterus or cyanosis HEENT -unremarkable JVD- normal Cardiac- normal heart sounds, no murmurs, gallops or rubs, normal PMI Respiratory-normal breath sounds bilaterally, no crackles, no wheeze Abdomen- soft, nontender Neuro- alert and oriented Lower extremities- no significant edema, warm well perfused Results Labs and Meds Result diagrams: 03/22/20 16:37 03/22/20 18:27 Lab results: Laboratory Results - last 24 hr 03/22/20 03/22/20 03/22/20 16:37 16:37 16:37 WBC 11.0 H RBC 4.50 Hgb 13.5 Hct 39.6 MCV 88.0 MCH 30.0 MCHC 34.1 RDW 15.5 Plt Count 235 MPV 9.4 Immature Gran % (Auto) 0.5 H Neut % (Auto) 82.7 H Lymph % (Auto) 10.6 L [place] % (Auto) 5.0 Eos % (Auto) 0.9 Baso % (Auto) 0.3 Lymph # (Auto) 1.2 [place] # (Auto) 0.6 Eos # (Auto) 0.1 Baso # (Auto) 0.0 Abs Immat Gran (auto) 0.06 H Absolute Neuts (auto) 9.1 H Absolute Nucleated RBC 0.000 Nucleated RBC % (auto) 0.0 Sodium Cancelled Potassium Cancelled Chloride Cancelled Carbon Dioxide Cancelled Anion Gap Cancelled BUN Cancelled Creatinine Cancelled Estim Creat Clear Calc Cancelled Estimated GFR Cancelled Random Glucose Cancelled Lactic Acid Lactic Acid Fup @ 2Hr Lactic Acid Fup @ 4Hr Calcium Cancelled Total Bilirubin Cancelled Direct Bilirubin Cancelled AST Cancelled ALT Cancelled Alkaline Phosphatase Cancelled Total Creatine Kinase Cancelled Troponin I High Sens 5.1 B-Natriuretic Peptide 11 Total Protein Cancelled Albumin Cancelled Lipase Cancelled COVID-19 (DARNELL) COVID-19 Clin Com 03/22/20 03/22/20 03/22/20 16:45 16:55 17:45 WBC RBC Hgb Hct MCV MCH MCHC RDW Plt Count MPV Immature Gran % (Auto) Neut % (Auto) Lymph % (Auto) [place] % (Auto) Eos % (Auto) Baso % (Auto) Lymph # (Auto) [place] # (Auto) Eos # (Auto) Baso # (Auto) Abs Immat Gran (auto) Absolute Neuts (auto) Absolute Nucleated RBC Nucleated RBC % (auto) Sodium Cancelled Potassium Cancelled Chloride Cancelled Carbon Dioxide Cancelled Anion Gap Cancelled BUN Cancelled Creatinine Cancelled Estim Creat Clear Calc Cancelled Estimated GFR Cancelled Random Glucose Cancelled Lactic Acid 2.1 H* Lactic Acid Fup @ 2Hr Lactic Acid Fup @ 4Hr Calcium Cancelled Total Bilirubin Cancelled Direct Bilirubin Cancelled AST Cancelled ALT Cancelled Alkaline Phosphatase Cancelled Total Creatine Kinase Cancelled Troponin I High Sens B-Natriuretic Peptide Total Protein Cancelled Albumin Cancelled Lipase Cancelled COVID-19 (D[facility]NELL) [facility] See Note 03/22/20 03/22/20 03/22/20 18:27 21:43 21:43 WBC RBC Hgb Hct MCV MCH MCHC RDW Plt Count MPV Immature Gran % (Auto) Neut % (Auto) Lymph % (Auto) [place] % (Auto) Eos % (Auto) Baso % (Auto) Lymph # (Auto) [place] # (Auto) Eos # (Auto) Baso # (Auto) Abs Immat Gran (auto) Absolute Neuts (auto) Absolute Nucleated RBC Nucleated RBC % (auto) Sodium 136 Potassium 2.9 L D Chloride 99 Carbon Dioxide 21 L Anion Gap 19 BUN 13 Creatinine 0.93 Estim Creat Clear Calc 46.2 Estimated GFR 59 Random Glucose 102 Lactic Acid Lactic Acid Fup @ 2Hr 3.1 H* Lactic Acid Fup @ 4Hr Calcium 8.6 D Total Bilirubin 1.2 H Direct Bilirubin 0.8 H AST 12 D ALT 6 Alkaline Phosphatase 91 D Total Creatine Kinase 23 L Troponin I High Sens 6.1 B-Natriuretic Peptide Total Protein 7.3 Albumin 3.5 Lipase COVID-19 (DARNELL) COVID-Finalta 03/23/20 03:58 WBC RBC Hgb Hct MCV MCH MCHC RDW Plt Count MPV Immature Gran % (Auto) Neut % (Auto) Lymph % (Auto) [place] % (Auto) Eos % (Auto) Baso % (Auto) Lymph # (Auto) [place] # (Auto) Eos # (Auto) Baso # (Auto) Abs Immat Gran (auto) Absolute Neuts (auto) Absolute Nucleated RBC Nucleated RBC % (auto) Sodium Potassium Chloride Carbon Dioxide Anion Gap BUN Creatinine Estim Creat Clear Calc Estimated GFR Random Glucose Lactic Acid Lactic Acid Fup @ 2Hr Lactic Acid Fup @ 4Hr 1.3 Calcium Total Bilirubin Direct Bilirubin AST ALT Alkaline Phosphatase Total Creatine Kinase Troponin I High Sens B-Natriuretic Peptide Total Protein Albumin Lipase COVID-19 (DARNELL) COVID-19 Clin Com Assessment and Plan (1) Abnormal EKG: Status: Acute (2) Syncope and collapse: Status: Acute (3) Precordial chest pain: Status: Acute (4) Hypokalemia: Status: Acute (5) Dementia: Status: Acute Her EKG appears ischemic in nature but her potassium is also low on arrival. We need to replete her potassium and then repeat EKG. Need to get an echocardiogram for LV function assessment and wall motion. She is having vaginal bleeding and hence will need to look into that as well. Once the full clinical picture is clear, then can plan on ischemia workup. Procedures Abscess I/D Date of Service: 03/23/20
--- NOTE | 2020-03-23 11:29 | US_ITS ---
EXAMINATION: US PELVIS CLINICAL INFORMATION: 70-year-old female with history of vaginal bleeding. COMPARISON: Pelvic ultrasound from 12/04/2014. TECHNIQUE: Ultrasound of the pelvis is performed using both transabdominal and transvaginal transducers along with Doppler. Transvaginal imaging is performed due to inadequate visualization transabdominally. FINDINGS: Uterus: The anteverted uterus measures approximately 9 cm long, 4.2 cm AP and 5 cm transverse (cervix to fundus longitudinal measurement). The endometrium measures up to approximately 2 cm in maximum AP thickness, compared to 1.6 cm on 12/04/2014. There appears to be mucosal thickening of the endocervix, as well. A subserosal leiomyoma of the anterior right lower uterine body measures 2 x 1.2 x 1.9 cm. Adnexa: Neither ovary is identified. No adnexal mass. No pelvic free fluid. US/US pelvic complete IMPRESSION: The endometrium is chronically thickened. On these transabdominal images, the endometrium measures up to 2 cm maximum AP dimension, compared to 1.6 cm on 12/04/2014. In a postmenopausal female, the diagnosis of exclusion for endometrial thickening is endometrial carcinoma. There appears to be mucosal thickening of the endocervix, as well. No adnexal mass or pelvic free fluid.
--- NOTE | 2020-03-23 12:19 | PM.GYNCN ---
RADIOLOGICAL EQUIPMENT SPECIALIST - CN: HPI Data of Consult Consult date: 03/23/20 Requesting Physician: Jake Black MD Primary Care Provider: Unknown Physician Consult Narrative Narrative: Yessenia Villalta is a 70 year old female who presented to emergency room because of syncopal attack and is complaining of vaginal bleeding over the last few days patient has dementia very difficult historian. cc:: CC: Jake Black MD Meds Allergies Allergy/AdvReac Type Severity Reaction Status Date / Time Sulfa (Sulfonamide Allergy Unknown UNKNOWN, Unverified 01/20/20 15:12 Antibiotics) rash [SULFA (SULFONAMIDE ANTIBIOTICS)] Home Medications Medication Instructions Recorded Confirmed Type furosemide 20 mg PO DAILY 02/28/20 03/22/20 History RADIOLOGICAL EQUIPMENT SPECIALIST - Results Labs CBC & Chem 7: 03/22/20 16:37 03/22/20 18:27 Labs: Short CBC 03/22/20 Range/Units 16:37 WBC 11.0 H (4.8-10.8) X10*3/uL Hgb 13.5 (12.0-16.0) g/dl Hct 39.6 (37-47) % Plt Count 235 (160-400) X10*3/uL BMP 03/22/20 03/22/20 03/22/20 16:37 17:45 18:27 Sodium Cancelled Cancelled 136 Potassium Cancelled Cancelled 2.9 L D Chloride Cancelled Cancelled 99 Carbon Dioxide Cancelled Cancelled 21 L BUN Cancelled Cancelled 13 Creatinine Cancelled Cancelled 0.93 Calcium Cancelled Cancelled 8.6 D Cardiac Enzymes 03/22/20 03/22/20 03/22/20 Range/Units 16:37 17:45 18:27 Total Creatine Kinase Cancelled Cancelled 23 L Liver Function 03/22/20 03/22/20 03/22/20 Range/Units 16:37 17:45 18:27 Total Bilirubin Cancelled Cancelled 1.2 H Direct Bilirubin Cancelled Cancelled 0.8 H AST Cancelled Cancelled 12 D ALT Cancelled Cancelled 6 Alkaline Phosphatase Cancelled Cancelled 91 D Albumin Cancelled Cancelled 3.5 Assessment and Plan (1) Postmenopausal bleeding: Status: Acute Discussed with the patient the differential diagnosis of post menopausal bleeding including but not limited to, endometrial hyperplasia, cancer, polyps and other causes; recommended ultrasound to measure the endometrial stripe; discussed with the patient that if the endometrial thickness is 4 mm or less the negative predictive value of endometrial pathology is 99%, otherwise If endometrial thickness is more than 4 mm will proceed with endometrial sampling versus hysteroscopy D&C polypectomy depending on the ultrasound findings. If the bleeding becomes more active and patient drops her H&H will consider D&C. Plan discussed with Dr. Osborne
--- NOTE | 2020-03-23 12:33 | PC.NURSE ---
VOMITING STOMACH CONTENTS
[2020-03-23 13:16] LABS: Anion Gap 19 (12-20); Blood Urea Nitrogen 12 mg/dL (9-16); Calcium 8.4 mg/dL (8.4-10.2); Carbon Dioxide 20 mmol/L (22-29); Chloride 100 mmol/L (96-108); Creatinine Clr Calc Pharmacy 48.2; Estimated Glomerular Filt Rate > 60; Glucose Random 109 mg/dL (60-115); Potassium 2.9 mmol/l (3.3-5.1); Sodium 136 mmol/L (135-145)
[2020-03-23 13:38] LABS: MANUAL DIFF FLAG NO
[2020-03-23 13:42] LABS: Basophils Percent Auto 0.2 % (0-2); Eosinophils Absolute Auto 0.1 X10*3/uL (0.0-0.4); Eosinophils Percent Auto 0.5 % (0-4); Hematocrit 34.5 % (37-47); Imm Gran Abs Auto 0.04 X10*3/uL (0.00-0.03); Imm Gran Pct Auto 0.4 % (0.0-0.4); Lymphocytes Percent Auto 8.9 % (20-40); Mean Corpuscular HGB Conc 34.8 g/dl (31.0-35.0); Mean Corpuscular Hemoglobin 30.8 pg (27.0-33.0); Mean Corpuscular Volume 88.7 fL (80-98); Mean Platelet Volume 9.2 fL (9.4-12.3); Monocytes Absolute Auto 0.4 X10*3/uL (0.1-1.2); Monocytes Percent Auto 3.9 % (2-11); Neutrophils Absolute Auto 9.7 X10*3/uL (2.0-8.3); Neutrophils Percent Auto 86.1 % (45-73); Platelet Count 216 X10*3/uL (160-400); Red Blood Count 3.89 X10*6/uL (4.20-5.50); Red Cell Distribution Width 15.7 % (11.0-16.0); White Blood Count 11.3 X10*3/uL (4.8-10.8)
[2020-03-23] MEDS: Heparin Sodium,Porcine 5,000 UNIT/ML VIAL 5000 UNIT SUBCUT ×2 (14:05→21:32)
[2020-03-23] MEDS: Potassium Chloride/H20 10 MEQ/100 ML PIGGYBACK 100 MEQ IV ×5 (14:06→21:32)
[2020-03-23] MEDS: 0.9 % Sodium Chloride Flush 3 ML SYRINGE IVFLUSH ×2 (14:06→15:36)
[2020-03-23 14:28] LABS: Anion Gap 21 (12-20); Blood Urea Nitrogen 13 mg/dL (9-16); Calcium 8.3 mg/dL (8.4-10.2); Carbon Dioxide 18 mmol/L (22-29); Chloride 101 mmol/L (96-108); Creatinine Clr Calc Pharmacy 50.5; Estimated Glomerular Filt Rate > 60; Glucose Random 101 mg/dL (60-115); Potassium 2.9 mmol/l (3.3-5.1); Sodium 137 mmol/L (135-145)
[2020-03-23 15:28] LABS: Alanine Aminotransferase < 6 U/L (0-31); Albumin Level 3.3 g/dL (3.5-5.0); Alkaline Phosphatase 86 U/L (39-117); Aspartate Amino Transferase 10 U/L (5-31); Bilirubin Direct 0.7 mg/dL (0.0-0.5); Bilirubin Total 1.2 mg/dL (0.0-1.0); Magnesium 2.2 mg/dL (1.6-2.6); Total Protein 6.9 g/dL (6.5-8.0)
--- NOTE | 2020-03-23 16:44 | HO.PM.IMPN ---
Subjective Subjective Date of Service: 03/23/20 Interval History: Poor appetite, vaginal bleeding, abnormal EKG, hypokalemia. dm with behavioural changes Review of Systems Patient is poor historian, but when I saw the patient patient denying chest pain Answers few simple questions says she has poor appetite. Also noted to have small vaginal bleeding episode this morning. Physical Exam Vital Signs: Vital Signs: Last Vital Signs Temp 97.6 F 03/23/20 15:15 Pulse 72 03/23/20 15:15 Resp 20 03/23/20 15:15 BP 125/95 H 03/23/20 10:14 Pulse Ox 98 03/23/20 15:15 Body Mass Index 25.8 Physical exam: Cvs: rrr, [id number] , no murmur res: clear to auscultation ,no rhonchii or wheezing abd: no rebound or guarding ,nt, bs present. ext pulses present , no cyanosis neuro: nonfocal. Objective Data Current Medications Generic Name Dose Route Start Last Admin Trade Name Freq PRN Reason Stop Dose Admin Bupropion HCl 150 mg 03/24/20 09:00 Bupropion Hcl Xl 150 Mg Tab.Er.24h PO DAILY [facility] Gabapentin 300 mg 03/23/20 21:00 Gabapentin 300 Mg Capsule PO TID [facility] Heparin Sodium (Porcine) 5,000 unit 03/23/20 14:00 03/23/20 14:05 Heparin Sodium,Porcine 5,000 Unit/Ml Vial SUBCUT 5,000 unit Q8H [facility] Administration Potassium Chloride 10 meq in 100 mls @ 100 mls/hr 03/23/20 14:45 03/23/20 16:37 IV 03/23/20 18:44 100 mls/hr Q1H [facility] Infusion Levothyroxine Sodium 25 mcg 03/24/20 06:00 Levothyroxine Sodium 25 Mcg Tablet PO DAILY@0600 [facility] Omeprazole 40 mg 03/23/20 06:30 03/23/20 10:48 Omeprazole 40 Mg Capsule.Dr PO Not Given DAILY@0630 [facility] Potassium Chloride 40 meq 03/24/20 09:00 Potassium Chloride Packet 20 Meq Packet PO DAILY [facility] Potassium Chloride 40 meq 03/24/20 09:00 Potassium Chloride Packet 20 Meq Packet PO DAILY [facility] Risperidone 0.5 mg 03/24/20 09:00 Risperidone 0.5 Mg Tablet PO DAILY [facility] Sodium Chloride 3 ml 03/23/20 13:02 03/23/20 15:36 0.9 % Sodium Chloride Flush 3 Ml Syringe IVFLUSH 3 ml QSHIFT [facility] Administration Sucralfate 1 gm 03/23/20 09:00 03/23/20 10:46 Sucralfate 1 Gm Tablet PO 1 gm BID [facility] Administration Labs CBC & Chem 7: 03/23/20 13:17 03/24/20 05:20 Assessment and Plan (1) Syncope: Status: Acute (2) Abnormal EKG: Status: Acute (3) Dementia: Status: Acute (4) Hypothyroid: Status: Acute (5) HTN (hypertension): Status: Acute (6) Hypokalemia: Status: Acute Assessment and Plan: 1. ? syncope : cardiogenic vs neurogenic Tele monitor as of now CT head negative EKG showing T wave inversion in anterolateral leads with ST depression troponin negative and patient denies chest pain, also spoke to her son who said patient does not have any cardiac history or any complaint of chest pain. ? unclear about syncope issue as per her AID and son . Cardio evaluation noted -? Patient does not have any cardiac history, ? T-wave inversions as described above, tropes negative, echo pending 2 Hypokalemia: Recheck BMP 2.9 Repleted Will follow BMP in the evening also given magnesium and repeated levels -2.2 3 HTN (hypertension): Hold BP meds for now given borderline BP likely due to dehydration 4 Hypothyroid: added levothyroxine. 5. Dementia: Will continue risperidone, bupropion
--- NOTE | 2020-03-23 16:56 | PM.NEUROCN ---
History of Present Illness Data of Consult Service Date: 03/23/20 Primary Care Provider: Unknown Physician 70 years old woman who I was asked to see for syncope. She said that she was here because of dizziness. Otherwise she stated that she was living in [place] and was driving but I was unable to confirm these facts. She was not sure what had happened. Apparently witnesses account was not available. She was not in any distress and not complaining of any pain. She denied any cold or flu-like illness. Review of Systems Review of Systems: Difficult to confirm review of system as she was a poor historian. Neurologic: Reports other (syncope) [facility] Past Medical History Medical History (Updated 03/23/20 @ 17:02 by Danny He MD) Dementia HTN (hypertension) Hypothyroid Psoriasis Functional capacity: independent ambulation Family History Family history: reviewed and not pertinent Social History Social History Household Members: Spouse and Children Housing: House Alcohol intake: never Smoking Status: Never smoker Meds Allergies Allergy/AdvReac Type Severity Reaction Status Date / Time Sulfa (Sulfonamide Allergy Unknown Rash Verified 03/23/20 13:30 Antibiotics) [SULFA (SULFONAMIDE ANTIBIOTICS)] Penicillins Allergy Rash Verified 03/23/20 13:32 Home Medications Medication Instructions Recorded Confirmed Type furosemide 20 mg PO DAILY 02/28/20 03/22/20 History bupropion HCl 150 mg PO QAM 03/23/20 03/23/20 History gabapentin 300 mg PO TID 03/23/20 03/23/20 History levothyroxine 25 mcg PO DAILY 03/23/20 03/23/20 History risperidone 0.5 mg PO DAILY 03/23/20 03/23/20 History Physical Exam Vital Signs: Vital Signs: Last Vital Signs Temp 97.6 F 03/23/20 15:15 Pulse 72 03/23/20 15:15 Resp 20 03/23/20 15:15 BP 125/95 H 03/23/20 10:14 Pulse Ox 98 03/23/20 15:15 Body Mass Index 25.8 Alert and awake with normal attention, she was speaking slowly but able to answer simple questions and follow simple commands. She did not know the details of what had happened. Pupils were round reactive to light. External ocular muscles were intact. Gaze was full dose tear was slightly widened. Face was symmetrical. There was diffuse maculopapular rash on her face. There was no obvious focal arm or leg weakness. Plantars were flat. She was able to move extremities freely. Her past medical history apparently included dementia Results Labs CBC & Chem 7: 03/23/20 13:17 03/23/20 13:17 Labs: Short CBC 03/23/20 03/23/20 Range/Units 13:17 13:17 WBC 11.3 H (4.8-10.8) X10*3/uL Hgb 12.0 Cancelled (12.0-16.0) g/dl Hct 34.5 L Cancelled (37-47) % Plt Count 216 (160-400) X10*3/uL BMP 03/22/20 03/22/20 03/22/20 16:37 17:45 18:27 Sodium Cancelled Cancelled 136 Potassium Cancelled Cancelled 2.9 L D Chloride Cancelled Cancelled 99 Carbon Dioxide Cancelled Cancelled 21 L BUN Cancelled Cancelled 13 Creatinine Cancelled Cancelled 0.93 Calcium Cancelled Cancelled 8.6 D 03/23/20 03/23/20 12:19 13:17 Sodium 136 137 Potassium 2.9 L 2.9 L Chloride 100 101 Carbon Dioxide 20 L 18 L BUN 12 13 Creatinine 0.89 0.85 Calcium 8.4 8.3 L Cardiac Enzymes 03/22/20 03/22/20 03/22/20 Range/Units 16:37 17:45 18:27 Total Creatine Kinase Cancelled Cancelled 23 L Liver Function 03/22/20 03/22/20 03/22/20 Range/Units 16:37 17:45 18:27 Total Bilirubin Cancelled Cancelled 1.2 H Direct Bilirubin Cancelled Cancelled 0.8 H AST Cancelled Cancelled 12 D ALT Cancelled Cancelled 6 Alkaline Phosphatase Cancelled Cancelled 91 D Albumin Cancelled Cancelled 3.5 03/23/20 Range/Units 13:17 Total Bilirubin 1.2 H Direct Bilirubin 0.7 H AST 10 ALT < 6 Alkaline Phosphatase 86 Albumin 3.3 L Assessment and Plan (1) Syncope: Qualifiers: Syncope type: unspecified Qualified Code(s): R55 - Syncope and collapse Status: Acute 70 years old woman with reported syncopal episode. In this age group new multiple possibilities including seizure disorder. There was no obvious sign of infection but her potassium level was low that might have contributed to weakness or falling. In any case I noticed that the syncope was listed as previous medical history to. If that is the case, an EEG is recommended to rule out seizure disorder. 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 At this time no specific medicine is recommended for this. (3) Rash: Status: Acute Etiology of facial rash is unclear. If not clear, I would recommend ruling out scabies. Procedures Abscess I/D Date of Service: 03/23/20
--- NOTE | 2020-03-23 18:33 | PC.NURSE ---
Addendum entered by Tammy Webber RN 03/23/20 18:55: BACK FROM US. PO ORAL 40 MEQ POTASSIUM GIVEN UNSCHEDULED PER MD. Original Note: OFF UNIT TO US
[2020-03-23] MEDS: Potassium Chloride Packet 20 MEQ PACKET 40 MEQ PO (19:00)
--- NOTE | 2020-03-23 19:10 | PC.NURSE ---
PT VOMITTED UP ALL PO POTASSIUM THAT WAS JUST GIVEN. MD NOTIFIED VIA [employer], AWAITING RESPONSE. ONCOMING RN NOTIFIED.
[2020-03-23] MEDS: Gabapentin 300 MG CAPSULE PO (21:32)
[2020-03-23 22:02] LABS: Potassium 4.1 mmol/l (3.3-5.1)
[2020-03-24] VITALS (7 sets, daily range): BP systolic 99–145; BP diastolic 44–79; PULSE 82–98; RESP 16–20; TEMP 36.1–36.7; O2SAT 94–100
[2020-03-24] MEDS: 0.9 % Sodium Chloride Flush 3 ML SYRINGE IVFLUSH ×3 (00:10→16:42)
[2020-03-24] MEDS: Heparin Sodium,Porcine 5,000 UNIT/ML VIAL 5000 UNIT SUBCUT ×3 (05:40→20:57)
[2020-03-24] MEDS: Omeprazole 40 MG CAPSULE.DR PO (05:41)
[2020-03-24] MEDS: Levothyroxine Sodium 25 MCG TABLET PO (05:41)
[2020-03-24 06:47] LABS: Anion Gap 18 (12-20); Blood Urea Nitrogen 12 mg/dL (9-16); Calcium 7.9 mg/dL (8.4-10.2); Carbon Dioxide 17 mmol/L (22-29); Chloride 106 mmol/L (96-108); Creatinine Clr Calc Pharmacy 51.7; Estimated Glomerular Filt Rate > 60; Glucose Random 96 mg/dL (60-115); Sodium 137 mmol/L (135-145)
--- NOTE | 2020-03-24 08:43 | ECG_ITS ---
Test Reason : ST CHANGES Blood Pressure : / mmHG Vent. Rate : 081 BPM Atrial Rate : 081 BPM P-R Int : 156 ms QRS Dur : 080 ms QT Int : 442 ms P-R-T Axes : 045 -14 221 degrees QTc Int : 513 ms Normal sinus rhythm Inferior infarct (cited on or before 23-MAR-2020) ST now depressed in Inferior leads Anterolateral leads Abnormal ECG When compared with ECG of 23-MAR-2020 13:42, T wave inversion less evident in Lateral leads QT has lengthened Referred By: Geraldo Osborne Electronically Signed By:LIMA NGUYỄN MD
[2020-03-24] MEDS: Potassium Chloride Packet 20 MEQ PACKET 40 MEQ PO (09:55)
[2020-03-24] MEDS: Sucralfate 1 GM TABLET PO ×2 (10:01→20:57)
[2020-03-24] MEDS: buPROPion HCl XL 150 MG TAB.ER.24H PO (10:02)
[2020-03-24] MEDS: Gabapentin 300 MG CAPSULE PO ×3 (10:02→20:57)
[2020-03-24] MEDS: risperiDONE 0.5 MG TABLET PO (10:03)
--- NOTE | 2020-03-24 10:18 | P.PNCA_ITS ---
Subjective Subjective Interval history: Patient does not have any chest pain other specific cardiac symptoms. Review of Systems Review of Systems Cardiac- No anginal-type symptoms or shortness of breath or palpitations or dizzy spells. Yes all other systems are reviewed and are negative Reports other (syncope) Physical Exam Vital Signs: Last Vital Signs Temp 97.9 F 03/23/20 10:14 Pulse 85 03/23/20 10:14 Resp 16 03/23/20 10:14 BP 125/95 H 03/23/20 10:14 Pulse Ox 99 03/23/20 03:51 Body Mass Index 25.8 Comfortable, no distress No pallor, icterus or cyanosis HEENT -unremarkable JVD- normal Cardiac- normal heart sounds, no murmurs, gallops or rubs, normal PMI Respiratory-normal breath sounds bilaterally, no crackles, no wheeze Abdomen- soft, nontender Neuro- alert and oriented Lower extremities- no significant edema, warm well perfused Results Labs and Meds Result diagrams: 03/23/20 13:17 03/24/20 05:20 Lab results: Laboratory Results - last 24 hr 03/23/20 03/23/20 03/23/20 12:19 13:17 13:17 WBC 11.3 H RBC 3.89 L Hgb 12.0 Hct 34.5 L MCV 88.7 MCH 30.8 MCHC 34.8 RDW 15.7 Plt Count 216 MPV 9.2 L Immature Gran % (Auto) 0.4 Neut % (Auto) 86.1 H Lymph % (Auto) 8.9 L [place] % (Auto) 3.9 Eos % (Auto) 0.5 Baso % (Auto) 0.2 Lymph # (Auto) 1.0 L [place] # (Auto) 0.4 Eos # (Auto) 0.1 Baso # (Auto) 0.0 Abs Immat Gran (auto) 0.04 H Absolute Neuts (auto) 9.7 H Absolute Nucleated RBC 0.000 Nucleated RBC % (auto) 0.0 Sodium 136 137 Potassium 2.9 L 2.9 L Chloride 100 101 Carbon Dioxide 20 L 18 L Anion Gap 19 21 H BUN 12 13 Creatinine 0.89 0.85 Estim Creat Clear Calc 48.2 50.5 Estimated GFR > 60 > 60 Random Glucose 109 101 Calcium 8.4 8.3 L Magnesium 2.2 Total Bilirubin 1.2 H Direct Bilirubin 0.7 H AST 10 ALT < 6 Alkaline Phosphatase 86 Total Protein 6.9 Albumin 3.3 L Blood Type Antibody Screen 03/23/20 03/23/20 03/23/20 13:17 13:17 21:15 WBC RBC Hgb Cancelled Hct Cancelled MCV MCH MCHC RDW Plt Count MPV Immature Gran % (Auto) Neut % (Auto) Lymph % (Auto) [place] % (Auto) Eos % (Auto) Baso % (Auto) Lymph # (Auto) [place] # (Auto) Eos # (Auto) Baso # (Auto) Abs Immat Gran (auto) Absolute Neuts (auto) Absolute Nucleated RBC Nucleated RBC % (auto) Sodium Potassium 4.1 D Chloride Carbon Dioxide Anion Gap BUN Creatinine Estim Creat Clear Calc Estimated GFR Random Glucose Calcium Magnesium Total Bilirubin Direct Bilirubin AST ALT Alkaline Phosphatase Total Protein Albumin Blood Type A Positive Antibody Screen NEGATIVE 03/24/20 05:20 WBC RBC Hgb Hct MCV MCH MCHC RDW Plt Count MPV Immature Gran % (Auto) Neut % (Auto) Lymph % (Auto) [place] % (Auto) Eos % (Auto) Baso % (Auto) Lymph # (Auto) [place] # (Auto) Eos # (Auto) Baso # (Auto) Abs Immat Gran (auto) Absolute Neuts (auto) Absolute Nucleated RBC Nucleated RBC % (auto) Sodium 137 Potassium 4.0 Chloride 106 Carbon Dioxide 17 L Anion Gap 18 BUN 12 Creatinine 0.83 Estim Creat Clear Calc 51.7 Estimated GFR > 60 Random Glucose 96 Calcium 7.9 L Magnesium Total Bilirubin Direct Bilirubin AST ALT Alkaline Phosphatase Total Protein Albumin Blood Type Antibody Screen Progress Note: A&P Assessment and plan (1) Abnormal EKG: Status: Acute (2) Syncope and collapse: Status: Acute (3) Precordial chest pain: Status: Acute (4) Hypokalemia: Status: Acute (5) Dementia: Status: Acute Assessment and Plan: Potassium has been corrected. Repeat EKG still shows ST-T changes. She could have underlying CAD. However, she also has dementia. Continues to have some vaginal bleeding as well. She is not a candidate for ischemia workup. Can treat for empiric CAD with beta-blockers and statins. Aspirin when able and when the bleeding resolved. Echocardiogram for LV function assessment. Fall Risk Details Current Medications: Current Medications Generic Name Dose Route Start Last Admin Trade Name Freq PRN Reason Stop Dose Admin Bupropion HCl 150 mg 03/24/20 09:00 03/24/20 10:02 Bupropion Hcl Xl 150 Mg Tab.Er.24h PO 150 mg DAILY [facility] Administration Gabapentin 300 mg 03/23/20 21:00 03/24/20 10:02 Gabapentin 300 Mg Capsule PO 300 mg TID [facility] Administration Heparin Sodium (Porcine) 5,000 unit 03/23/20 14:00 03/24/20 05:40 Heparin Sodium,Porcine 5,000 Unit/Ml Vial SUBCUT 5,000 unit Q8H [place] Administration Levothyroxine Sodium 25 mcg 03/24/20 06:00 03/24/20 05:41 Levothyroxine Sodium 25 Mcg Tablet PO 25 mcg DAILY@0600 [facility] Administration Omeprazole 40 mg 03/23/20 06:30 03/24/20 05:41 Omeprazole 40 Mg Capsule.Dr PO 40 mg DAILY@0630 [facility] Administration Potassium Chloride 40 meq 03/24/20 09:00 03/24/20 09:55 Potassium Chloride Packet 20 Meq Packet PO 40 meq DAILY [facility] Administration Potassium Chloride 40 meq 03/24/20 09:00 03/24/20 10:00 Potassium Chloride Packet 20 Meq Packet PO Not Given DAILY [facility] Potassium Chloride 40 meq 03/24/20 09:00 03/24/20 10:00 Potassium Chloride Packet 20 Meq Packet PO Not Given DAILY [facility] Risperidone 0.5 mg 03/24/20 09:00 03/24/20 10:03 Risperidone 0.5 Mg Tablet PO 0.5 mg DAILY [facility] Administration Sodium Chloride 3 ml 03/23/20 13:02 03/24/20 09:56 0.9 % Sodium Chloride Flush 3 Ml Syringe IVFLUSH 3 ml QSHIFT [place] Administration Sucralfate 1 gm 03/23/20 09:00 03/24/20 10:01 Sucralfate 1 Gm Tablet PO 1 gm BID [facility] Administration Time Spent With Patient Time: Total time spent is greater than 50% in coordination of care (as documented) at patient's floor/unit and/or counseling patient: Time with patient: 15 - 24 minutes Procedures Abscess I/D Date of Service: 03/24/20
--- NOTE | 2020-03-24 11:30 | MHC.CLN ---
RE: CONSULT PT WITH POOR PO AND FRAGILE SKIN WILL START ENSURE BID TO INCREASE KCALS FOLLOWING
--- NOTE | 2020-03-24 12:20 | MHC.CM.PN ---
met with p[t who lives with her and son physical therapy is receommending str t/c placed to son message left crao [phone]
--- NOTE | 2020-03-24 12:48 | P.PNIM_ITS ---
Subjective Subjective Date of Service: 03/24/20 Interval History: Dementia with behavioral changes, hypokalemia, but nonbleeding,? Question of syncope which was unclear Review of Systems Patient could say only few questions could not endorse any chest pain or shortness of breath, we encouraged her to eat Physical Exam Vital Signs: Vital Signs: Last Vital Signs Temp 97.2 F 03/24/20 10:55 Pulse 98 03/24/20 11:17 Resp 20 03/24/20 10:55 BP 99/53 L 03/24/20 11:17 Pulse Ox 97 03/24/20 11:17 Body Mass Index 25.8 Physical exam: Cvs: rrr, [id number] , no murmur res: clear to auscultation ,no rhonchii or wheezing abd: no rebound or guarding ,nt, bs present. ext pulses present , no cyanosis neuro: nonfocal. psych : seems dementia , behaviour changes skin:? facial rash -thought to be xerosis ,? unclear etiology Objective Data Current Medications Generic Name Dose Route Start Last Admin Trade Name Lena PRN Reason Stop Dose Admin Bupropion HCl 150 mg 03/24/20 09:00 03/24/20 10:02 Bupropion Hcl Xl 150 Mg Tab.Er.24h PO 150 mg DAILY [facility] Administration Gabapentin 300 mg 03/23/20 21:00 03/24/20 10:02 Gabapentin 300 Mg Capsule PO 300 mg TID [facility] Administration Heparin Sodium (Porcine) 5,000 unit 03/23/20 14:00 03/24/20 05:40 Heparin Sodium,Porcine 5,000 Unit/Ml Vial SUBCUT 5,000 unit Q8H [facility] Administration Levothyroxine Sodium 25 mcg 03/24/20 06:00 03/24/20 05:41 Levothyroxine Sodium 25 Mcg Tablet PO 25 mcg DAILY@0600 [facility] Administration Omeprazole 40 mg 03/23/20 06:30 03/24/20 05:41 Omeprazole 40 Mg Capsule.Dr PO 40 mg DAILY@0630 [facility] Administration Potassium Chloride 40 meq 03/24/20 09:00 03/24/20 09:55 Potassium Chloride Packet 20 Meq Packet PO 40 meq DAILY [facility] Administration Potassium Chloride 40 meq 03/24/20 09:00 03/24/20 10:00 Potassium Chloride Packet 20 Meq Packet PO Not Given DAILY [facility] Potassium Chloride 40 meq 03/24/20 09:00 03/24/20 10:00 Potassium Chloride Packet 20 Meq Packet PO Not Given DAILY [facility] Risperidone 0.5 mg 03/24/20 09:00 03/24/20 10:03 Risperidone 0.5 Mg Tablet PO 0.5 mg DAILY [facility] Administration Sodium Chloride 3 ml 03/23/20 13:02 03/24/20 09:56 0.9 % Sodium Chloride Flush 3 Ml Syringe IVFLUSH 3 ml QSHIFT [place] Administration Sucralfate 1 gm 03/23/20 09:00 03/24/20 10:01 Sucralfate 1 Gm Tablet PO 1 gm BID [facility] Administration Labs CBC & Chem 7: 03/23/20 13:17 03/24/20 05:20 Microbiology Microbiology Results: Microbiology 03/22/20 16:54 Blood - Arterial Blood Culture - Preliminary No growth after 24 hours. 03/22/20 16:45 Blood - Arterial Blood Culture - Preliminary No growth after 24 hours. Assessment and Plan (1) Hypokalemia: Status: Acute (2) Abnormal EKG: Status: Acute (3) Postmenopausal bleeding: Status: Acute (4) Syncope: Status: Acute (5) Dementia: Status: Acute (6) Hypothyroid: Status: Acute (7) HTN (hypertension): Status: Acute Assessment and Plan: 1. ? syncope : cardiogenic vs neurogenic Tele monitor as of now CT head negative EKG showing T wave inversion in anterolateral leads with ST depression troponin negative and patient denies chest pain, also spoke to her son who said patient does not have any cardiac history or any complaint of chest pain. ? unclear about syncope issue as per her AID and son -they said she did not pass out but was generlaly weak. neuro -saw the patient : recomended EEg Cardio evaluation noted -? Patient does not have any cardiac history, ? T-wave inversions as described above, tropes negative, echo pending 2 Hypokalemia: Recheck BMP 2.9 Repleted-improved to 4.1 potassium was today QTC is also Discussed with cardio:Repeat EKG still shows ST-T changes. She could have underlying CAD. However, she also has dementia. Continues to have some vaginal bleeding as well. She is not a candidate for ischemia workup. Can treat for empiric CAD with beta-blockers and statins. Aspirin when able and when the bleeding resolved. Echocardiogram for LV function assessment. Will add statin, blood pressure borderline we will hold off on beta-blockers for today and started once improves. will check with hazardous substances engineer if asa small dose can be added also. 3 HTN (hypertension): Hold BP meds for now given borderline BP likely due to dehydration 4 Hypothyroid: added levothyroxine. 5. Dementia: Will continue risperidone, bupropion. 6. Vaginal bleeding: no further episode of bleeding Pelvic ultrasound-transabdominal images, the endometrium measures up to 2 cm maximum AP dimension, compared to 1.6 cm. Mental Health Worker follow up-may need outpatient workup.
--- NOTE | 2020-03-24 13:02 | CA_ITS ---
Transthoracic Echocardiogram Patient (Last, First, Middle): Yessenia Villalta, Gender: Female Date of : 1950 Age: 70 Procedure Date: 03/24/2020 Procedure Type: Transthoracic [place] [facility] [place]: 154.94 cm Weight: 61.69 kg BSA: 1.60 m2 Heart Rate: bpm BP: 125 / 95 mmHg Pbx Inspector: Referring MD: Jake Black MD Symptoms: syncope Study Quality: Fair ECG Rhythm: Sinus Conclusions: - The left ventricular systolic function is hyperdynamic. The visually estimated ejection fraction is >70%. - No obvious valvular pathology seen on this study. Findings Left Ventricle Normal left ventricular cavity size. There is normal left ventricular wall thickness. The left ventricular systolic function is hyperdynamic. The visually estimated ejection fraction is >70%. There is no evidence of regional wall motion abnormalities. There is no dynamic left ventricular outflow tract obstruction. E/E prime ratio is between 8 and 15 consistent with indeterminate filling pressures. Evidence suggests grade I (mild) diastolic dysfunction. Right Ventricle Normal right ventricular cavity size. There is mildly decreased right ventricular systolic function. Atria The left atrium is normal in size. The right atrium was not well visualized. Aortic Valve There is mild calcification of the aortic valve. There is no aortic valve stenosis. There is no aortic valve regurgitation. Mitral Valve The mitral valve appears normal. There is trace mitral valve regurgitation. There is no mitral valve stenosis. Pulmonic Valve The pulmonic valve was not well visualized. Tricuspid Valve The tricuspid valve was not well visualized. There is trace tricuspid valve regurgitation. The pulmonary artery systolic pressure is normal. Great Vessels The aortic annulus, sinuses of valsalva, and asc aorta are normal in size. Venous The inferior vena cava is normal in size and collapses greater than 50% with inspiration. Pericardium/Pleural There is no evidence of pericardial effusion. Prior Study Comparison No prior study available for comparison. Recommendations, Care & Conclusions No obvious valvular pathology seen on this study. Measurements 2D Linear Measurements RVIDd: 2.58 RVIDd Index: 1.61 IVSd: 0.98 0.6-0.9/0.6-1.0 cm LVIDd: 3.71 3.9-5.3/4.2-5.9 cm LVIDd Index: 2.32 2.4-3.2/2.2-3.1 cm/m2 LVIDs: 2.88 2.0-3.6 cm LVPWd: 1.35 0.7-1.1 cm Ao Root: 2.60 2.1-3.5 cm LA Diam: 3.40 2.7-3.8/3.0-4.0 cm LAIDs Index: 2.13 1.5-2.3 cm/m2 LV Mass: 175.49 67-162/88-224 g LV Mass Index: 109.68 43-95/49-115 g/m2 LVOT Diam: 1.80 3.0+(-)1.3 cm Mitral Valve MV Pk E: 0.58 MV PK A: 0.74 MV Decel Time: 176.00 E/A: 0.80 E'Lateral: 6.09 E'Medial: 4.24 E/E' Med: 13.70 E/E' Lat: 9.50 PHT: 52.00 MVA PHT: 4.23 Decel Chambers: 3.30 Aortic Valve AoV Pk Yemi: 1.51 AoV Mn Yemi: 0.99 AoV VTI: 0.24 AoV Pk Grad: 9.00 Aov Mn Grad: 5.00 RAMONA Cont.VTI: 1.88 LVOT LVOT Pk Yemi: 1.03 LVOT Mn Yemi: 0.70 LVOT VTI: 0.18 LVOT Pk Grad: 4.00 LVOT Mn Grad: 2.00 LVOT Diam: 1.80 LVOT Area: 2.54 Diastolic Function MV Pk E: 0.58 MV Pk A: 0.74 E/A: 0.80 E'Medial: 4.24 E/E' Med: 13.70 E' Laterial: 6.09 E/E' Lat: 9.50 Tricuspid Valve RA Press: 3.00 Great Vessels Aorta Ao Root-2D: 2.60 2.0-3.7 cm Ao Asc: 2.60 2.1-3.4 cm Updated in Other Vendor System with Status of Final Reese Garcia MD electronically signed on 03/24/2020 4:36:47 PM with status of Final
--- NOTE | 2020-03-24 14:15 | P.PNOB_ITS ---
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7 H AST 10 ALT < 6 Alkaline Phosphatase 86 Total Protein 6.9 Albumin 3.3 L Blood Type A Positive Antibody Screen NEGATIVE 03/24/20 05:20 Sodium 137 Potassium 4.0 Chloride 106 Carbon Dioxide 17 L Anion Gap 18 BUN 12 Creatinine 0.83 Estim Creat Clear Calc 51.7 Estimated GFR > 60 Random Glucose 96 Calcium 7.9 L Magnesium Total Bilirubin Direct Bilirubin AST ALT Alkaline Phosphatase Total Protein Albumin Blood Type Antibody Screen [facility] - A/P (1) Hypokalemia: Status: Acute (2) Abnormal EKG: Status: Acute (3) Postmenopausal bleeding: Status: Acute Assessment and Plan: Patient would need endometrial biopsy to rule out endometrial pathology including hyperplasia and cancer. Will ask from the immigration case manager on the floor to set up an appointment through the office for endometrial biopsy in minor surgery is an outpatient (4) Syncope: Status: Acute (5) Dementia: Status: Acute (6) Hypothyroid: Status: Acute (7) HTN (hypertension): Status: Acute Time Spent With Patient Time: Total time spent is greater than 50% in coordination of care (as documented) at patient's floor/unit and/or counseling patient: Time with patient: less than 15 minutes
--- NOTE | 2020-03-24 14:16 | EEG_ITS ---
This is a 16-channel EEG with an EKG lead. The patient is reported awake, confused, and drowsy during the tracing. Background EEG rhythm is mixed theta, beta, low amplitude with no obvious asymmetry or paroxysmal tendency. During later part of the tracing, there was 1 possible left temporal sharp waves followed by slowing. Photic stimulation does not produce any significant abnormality. Hyperventilation was not performed. Cardiac lead does not reveal any significant abnormality. IMPRESSION: This EEG revealed 1 possible left temporal sharp waves suggestive of possible underlying tendency for seizure disorder. I recommend clinical correlation seizure disorder is suspected. I would recommend treatment. In case of doubtful diagnosis, further EEG evaluation is recommended. MD NICKY Cooney/ARVIND / [phone]
--- NOTE | 2020-03-24 15:52 | W.PM.IDCN ---
History of Present Illness Data of Consult Service Date: 03/24/20 Requesting physician: Geraldo Osborne Primary Care Provider: Unknown Physician HPI Reason for consult: rash face She presents with weakness and vaginal bleeding She has not been taking care of herself apparently and has matted hair She has no fever or chills She has papular rash face Review of Systems Review of Systems: Yes Unobtainable due to mental status Neurologic: Reports other (syncope) [facility] Past Medical History Medical History Dementia HTN (hypertension) Hypothyroid Psoriasis Functional capacity: independent ambulation Family History Family history: reviewed and not pertinent Social History Social History Household Members: Unknown / Unable to assess Housing: Unknown / Unable to assess Alcohol intake: never Smoking Status: Never smoker service: No Meds Allergies Allergy/AdvReac Type Severity Reaction Status Date / Time Sulfa (Sulfonamide Allergy Unknown Rash Verified 03/23/20 13:30 Antibiotics) [SULFA (SULFONAMIDE ANTIBIOTICS)] Penicillins Allergy Rash Verified 03/23/20 13:32 Home Medications Medication Instructions Recorded Confirmed Type furosemide 20 mg PO DAILY 02/28/20 03/22/20 History bupropion HCl 150 mg PO QAM 03/23/20 03/23/20 History gabapentin 300 mg PO TID 03/23/20 03/23/20 History levothyroxine 25 mcg PO DAILY 03/23/20 03/23/20 History risperidone 0.5 mg PO DAILY 03/23/20 03/23/20 History Physical Exam Vital Signs: Vital Signs: Last Vital Signs Temp 97.2 F 03/24/20 10:55 Pulse 98 03/24/20 11:17 Resp 20 03/24/20 10:55 BP 99/53 L 03/24/20 11:17 Pulse Ox 97 03/24/20 11:17 Body Mass Index 25.8 Const: General: no acute distress Eyes: General: appearance normal, both eyes and all related structures Resp: Effort & Inspection: normal respiratory effort Cardio: Rate: regular rate Rhythm: regular rhythm GI: Inspection: Yes normal to inspection : General: Yes no CVA tenderness Back/Spine/Pelvis: Back: no CVA tenderness Skin: Other: facial erythema and pustular areas Assessment and Plan (1) Rash: Problem details: Facial rash Seems consistent with folliculitis Status: Acute Would give po Doxycycline one week Westcort cream to face Results Labs CBC & Chem 7: 03/25/20 06:15 03/25/20 06:15 Labs: BMP 03/23/20 03/24/20 21:15 05:20 Sodium 137 Potassium 4.1 D 4.0 Chloride 106 Carbon Dioxide 17 L BUN 12 Creatinine 0.83 Calcium 7.9 L Microbiology Microbiology Results: Microbiology 03/22/20 16:54 Blood - Arterial Blood Culture - Preliminary No growth after 24 hours. 03/22/20 16:45 Blood - Arterial Blood Culture - Preliminary No growth after 24 hours.
--- NOTE | 2020-03-24 15:54 | MHC.CM.PN ---
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 NEHA informed by his office that they will obtain more information from MD on Friday and then call t/w with an appointment.
--- NOTE | 2020-03-24 17:16 | PC.NURSE ---
Shift eval 7a-3p: Patient alert, vague. Cardio following patient, potassium improved. Tolerated diet - ate majority of meals. No N/V. EKG repeated today, viewed by cardio. PT/OT eval done. Held all potassium supplements per Dr Dylon Villarreal 4.1. Echo done today. Results pending. Initial plan to do bedside biopse of endometrium w/ Dr Abbott, but instead plan to do outpatient - made case management aware. Son, healthcare proxy made aware as well about plan of care. Psych initially consulted r/t outbursts, but then patient calmed down through day and psych consult put on hold per Dr Osborne. Plan for discharge tomorrow per Dr Osborne pending electrolyte labs improving.
[2020-03-24] MEDS: Atorvastatin Calcium 40 MG TABLET PO (20:57)
[2020-03-25 02:38] VITALS: BP 108/51; PULSE 75; RESP 16; TEMP 36.2; O2SAT 100
[2020-03-25] MEDS: 0.9 % Sodium Chloride Flush 3 ML SYRINGE IVFLUSH ×4 (02:43→20:52)
[2020-03-25] MEDS: Heparin Sodium,Porcine 5,000 UNIT/ML VIAL 5000 UNIT SUBCUT ×3 (07:10→20:52)
[2020-03-25] MEDS: Levothyroxine Sodium 25 MCG TABLET PO (07:10)
[2020-03-25] MEDS: Omeprazole 40 MG CAPSULE.DR PO (07:10)
[2020-03-25 07:26] VITALS: BP 126/57; PULSE 83; RESP 18; TEMP 36.4; O2SAT 95
[2020-03-25 07:41] LABS: Hematocrit 29.8 % (37-47); Hemoglobin 10.1 g/dl (12.0-16.0); Mean Corpuscular HGB Conc 33.9 g/dl (31.0-35.0); Mean Corpuscular Hemoglobin 30.1 pg (27.0-33.0); Mean Corpuscular Volume 88.7 fL (80-98); Mean Platelet Volume 9.8 fL (9.4-12.3); Platelet Count 162 X10*3/uL (160-400); Red Blood Count 3.36 X10*6/uL (4.20-5.50); Red Cell Distribution Width 15.9 % (11.0-16.0); White Blood Count 7.3 X10*3/uL (4.8-10.8)
[2020-03-25 08:09] LABS: Anion Gap 12 (12-20); Blood Urea Nitrogen 9 mg/dL (9-16); Calcium 8.2 mg/dL (8.4-10.2); Carbon Dioxide 24 mmol/L (22-29); Chloride 102 mmol/L (96-108); Creatinine Clr Calc Pharmacy 51.7; Estimated Glomerular Filt Rate > 60; Glucose Random 85 mg/dL (60-115); Potassium 3.5 mmol/l (3.3-5.1); Sodium 134 mmol/L (135-145)
[2020-03-25] MEDS: Sucralfate 1 GM TABLET PO ×2 (08:18→20:52)
[2020-03-25] MEDS: risperiDONE 0.5 MG TABLET PO (08:18)
[2020-03-25] MEDS: Gabapentin 300 MG CAPSULE PO ×3 (08:19→20:52)
[2020-03-25] MEDS: buPROPion HCl XL 150 MG TAB.ER.24H PO (08:19)
[2020-03-25] MEDS: Aspirin Enteric Coated 81 MG TABLET.DR PO (08:19)
--- NOTE | 2020-03-25 09:45 | HO.PM.IMPN ---
Subjective Subjective Date of Service: 03/25/20 Interval History: Seen in f/u for vaginal bleeding. Small amount of bleeding reported overnight. Non at moment Gen: no fever Resp: no sob, no cough CV: no chest pain GI/: No n/v, no abd pain, vag bleeding Neuro: gen confusion--chronic Physical Exam Vital Signs: Vital Signs: Last Vital Signs Temp 97.6 F 03/25/20 07:26 Pulse 83 03/25/20 07:26 Resp 18 03/25/20 07:26 BP 126/57 L 03/25/20 07:26 Pulse Ox 95 03/25/20 07:26 Body Mass Index 25.8 General: AO to self, no acute distress Resp: CTA bilateral CVS: S1,S2,RRR GI: +BS, NT, no distention : deffered Skin: No rash Neuro: motor grossly intact Psych: flat affect Objective Data Current Medications Generic Name Dose Route Start Last Admin Trade Name Freq PRN Reason Stop Dose Admin Aspirin 81 mg 03/25/20 09:00 03/25/20 08:19 Aspirin Enteric Coated 81 Mg Tablet. PO 81 mg DAILY [place] Administration Atorvastatin Calcium 40 mg 03/24/20 21:00 03/24/20 20:57 Atorvastatin Calcium 40 Mg Tablet PO 40 mg BEDTIME [place] Administration Bupropion HCl 150 mg 03/24/20 09:00 03/25/20 08:19 Bupropion Hcl Xl 150 Mg Tab.Er.24h PO 150 mg DAILY [place] Administration Doxycycline Hyclate 100 mg 03/24/20 18:00 03/25/20 07:10 Doxycycline Hyclate 100 Mg Tablet PO 100 mg Q12H [place] Administration Gabapentin 300 mg 03/23/20 21:00 03/25/20 08:19 Gabapentin 300 Mg Capsule PO 300 mg TID [place] Administration Heparin Sodium (Porcine) 5,000 unit 03/23/20 14:00 03/25/20 07:10 Heparin Sodium,Porcine 5,000 Unit/Ml Vial SUBCUT 5,000 unit Q8H [place] Administration Levothyroxine Sodium 25 mcg 03/24/20 06:00 03/25/20 07:10 Levothyroxine Sodium 25 Mcg Tablet PO 25 mcg DAILY@0600 [place] Administration Omeprazole 40 mg 03/23/20 06:30 03/25/20 07:10 Omeprazole 40 Mg Capsule. PO 40 mg DAILY@0630 [place] Administration Risperidone 0.5 mg 03/24/20 09:00 03/25/20 08:18 Risperidone 0.5 Mg Tablet PO 0.5 mg DAILY [place] Administration Sodium Chloride 3 ml 03/23/20 13:02 03/25/20 08:23 0.9 % Sodium Chloride Flush 3 Ml Syringe IVFLUSH 3 ml QSHIFT [place] Administration Sucralfate 1 gm 03/23/20 09:00 03/25/20 08:18 Sucralfate 1 Gm Tablet PO 1 gm BID [place] Administration Labs CBC & Chem 7: 03/25/20 06:15 03/25/20 06:15 Microbiology Microbiology Results: Microbiology 03/22/20 16:54 Blood - Arterial Blood Culture - Preliminary No growth after 48 hours. 03/22/20 16:45 Blood - Arterial Blood Culture - Preliminary No growth after 48 hours. Assessment and Plan (1) Hypokalemia: Status: Acute (2) Abnormal EKG: Status: Acute (3) Postmenopausal bleeding: Status: Acute (4) Syncope: Status: Acute (5) Dementia: Status: Acute (6) Hypothyroid: Status: Acute (7) HTN (hypertension): Status: Acute Assessment and Plan: 70/F w/ dementia, HTN, hypothyroidism here with postmenopausal vaginal bleeding and syncope 1. Syncope--circumstance not clear and no clear evidence that she passed out. W/u including ECGm CT, trop, echo, cardiac monitoring no arrtythmia, no further testing at this time. Underlying cardiac disease cannot be ruled out, BB, ASA when Bleeding issue resolved 2 Hypokalemia: Corrected now 3.5 3 HTN (hypertension): continue meds 4 Hypothyroid: continue levothyroxine. 5. Dementia: Will continue risperidone, bupropion. 6. Vaginal bleeding/acute blood loss anemia: Bleeeding has decreased considerably, US shows endometrial thickening and will need biopsy on outpatient basis and will follow up with [facility] REPA[employer] 7. Foliculitis of the face--PO Doxy x 1 week PT recommends STR, will discuss with CM
[2020-03-25 11:17] VITALS: BP 111/57; PULSE 85; RESP 18; TEMP 36.7; O2SAT 98
[2020-03-25 15:17] VITALS: BP 127/56; PULSE 81; RESP 18; TEMP 36.7; O2SAT 96
[2020-03-25 20:00] VITALS: BP 94/46; PULSE 91; RESP 20; TEMP 36.6; O2SAT 98
[2020-03-25] MEDS: Atorvastatin Calcium 40 MG TABLET PO (20:52)
[2020-03-26] VITALS (7 sets, daily range): BP systolic 96–114; BP diastolic 48–59; PULSE 72–97; RESP 18–19; TEMP 36.2–36.9; O2SAT 97–100
[2020-03-26] MEDS: Heparin Sodium,Porcine 5,000 UNIT/ML VIAL 5000 UNIT SUBCUT ×2 (05:54→22:04)
[2020-03-26] MEDS: Levothyroxine Sodium 25 MCG TABLET PO (05:55)
[2020-03-26] MEDS: Omeprazole 40 MG CAPSULE.DR PO (05:55)
[2020-03-26] MEDS: risperiDONE 0.5 MG TABLET PO (08:33)
[2020-03-26] MEDS: buPROPion HCl XL 150 MG TAB.ER.24H PO (08:33)
[2020-03-26] MEDS: Sucralfate 1 GM TABLET PO ×2 (08:33→21:12)
[2020-03-26] MEDS: 0.9 % Sodium Chloride Flush 3 ML SYRINGE IVFLUSH ×3 (08:33→22:36)
[2020-03-26] MEDS: Gabapentin 300 MG CAPSULE PO ×3 (08:33→21:12)
[2020-03-26] MEDS: Aspirin Enteric Coated 81 MG TABLET.DR PO (08:33)
--- NOTE | 2020-03-26 10:03 | P.PNIM_ITS ---
Subjective Subjective Date of Service: 03/26/20 Interval History: Seen in f/u for vaginal bleeding. Small amount of bleeding reported this morning Gen: no fever Resp: no sob, no cough CV: no chest pain GI/: No n/v, no abd pain, vag bleeding Neuro: gen confusion--chronic Review of Systems Patient could say only few questions could not endorse any chest pain or shortness of breath, we encouraged her to eat Neurologic Neurologic: Reports other (syncope) Physical Exam Vital Signs: Vital Signs: Last Vital Signs Temp 98.0 F 03/26/20 07:14 Pulse 82 03/26/20 07:14 Resp 18 03/26/20 07:14 BP 110/59 L 03/26/20 07:14 Pulse Ox 98 03/26/20 07:14 Body Mass Index 25.8 Objective Data Current Medications Generic Name Dose Route Start Last Admin Trade Name Freq PRN Reason Stop Dose Admin Aspirin 81 mg 03/25/20 09:00 03/26/20 08:33 Aspirin Enteric Coated 81 Mg Tablet. PO 81 mg DAILY [place] Administration Atorvastatin Calcium 40 mg 03/24/20 21:00 03/25/20 20:52 Atorvastatin Calcium 40 Mg Tablet PO 40 mg BEDTIME [place] Administration Bupropion HCl 150 mg 03/24/20 09:00 03/26/20 08:33 Bupropion Hcl Xl 150 Mg Tab.Er.24h PO 150 mg DAILY [place] Administration Doxycycline Hyclate 100 mg 03/24/20 18:00 03/26/20 05:55 Doxycycline Hyclate 100 Mg Tablet PO 100 mg Q12H [place] Administration Gabapentin 300 mg 03/23/20 21:00 03/26/20 08:33 Gabapentin 300 Mg Capsule PO 300 mg TID [place] Administration Heparin Sodium (Porcine) 5,000 unit 03/23/20 14:00 03/26/20 05:54 Heparin Sodium,Porcine 5,000 Unit/Ml Vial SUBCUT 5,000 unit Q8H [place] Administration Levothyroxine Sodium 25 mcg 03/24/20 06:00 03/26/20 05:55 Levothyroxine Sodium 25 Mcg Tablet PO 25 mcg DAILY@0600 [place] Administration Omeprazole 40 mg 03/23/20 06:30 03/26/20 05:55 Omeprazole 40 Mg Capsule. PO 40 mg DAILY@0630 [place] Administration Risperidone 0.5 mg 03/24/20 09:00 03/26/20 08:33 Risperidone 0.5 Mg Tablet PO 0.5 mg DAILY [place] Administration Sodium Chloride 3 ml 03/23/20 13:02 03/26/20 08:33 0.9 % Sodium Chloride Flush 3 Ml Syringe IVFLUSH 3 ml QSHIFT [place] Administration Sucralfate 1 gm 03/23/20 09:00 03/26/20 08:33 Sucralfate 1 Gm Tablet PO 1 gm BID [place] Administration Labs CBC & Chem 7: 03/25/20 06:15 03/25/20 06:15 Microbiology Microbiology Results: Microbiology 03/22/20 16:54 Blood - Arterial Blood Culture - Preliminary No growth after 48 hours. 03/22/20 16:45 Blood - Arterial Blood Culture - Preliminary No growth after 48 hours. Assessment and Plan (1) Hypokalemia: Status: Acute (2) Abnormal EKG: Status: Acute (3) Postmenopausal bleeding: Status: Acute (4) Syncope: Status: Acute (5) Dementia: Status: Acute (6) Hypothyroid: Status: Acute (7) HTN (hypertension): Status: Acute Assessment and Plan: 70/F w/ dementia, HTN, hypothyroidism here with postmenopausal vaginal bleeding and syncope 1. Syncope--circumstance not clear and no clear evidence that she passed out. W/u including ECGm CT, trop, echo, cardiac monitoring no arrtythmia, no further testing at this time. Underlying cardiac disease cannot be ruled out, BB, ASA when Bleeding issue resolved 2 Hypokalemia: Corrected now 3.5 3 HTN (hypertension): continue meds 4 Hypothyroid: continue levothyroxine. 5. Dementia: Will continue risperidone, bupropion. 6. Vaginal bleeding/acute blood loss anemia: Bleeeding has decreased considerably, US shows endometrial thickening and will need biopsy on outpatient basis and will follow up with [facility] CANDLE [facility]OLDER 7. Foliculitis of the face--PO Doxy x 1 week PT recommends STR, will discuss with CM
[2020-03-26] MEDS: Atorvastatin Calcium 40 MG TABLET PO (21:12)
[2020-03-27] VITALS: BP 103/63; PULSE 78; RESP 19; TEMP 36.5; O2SAT 96
--- NOTE | 2020-03-27 | ECG_ITS ---
Test Reason : CHECK QTC Blood Pressure : / mmHG Vent. 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
[2020-03-27 04:00] VITALS: BP 119/71; PULSE 78; RESP 19; TEMP 36.7; O2SAT 97
[2020-03-27] MEDS: Heparin Sodium,Porcine 5,000 UNIT/ML VIAL 5000 UNIT SUBCUT ×2 (05:39→14:55)
[2020-03-27] MEDS: Omeprazole 40 MG CAPSULE.DR PO (05:39)
[2020-03-27] MEDS: Levothyroxine Sodium 25 MCG TABLET PO (05:39)
[2020-03-27 06:59] VITALS: BP 109/50; PULSE 82; RESP 18; TEMP 36.1; O2SAT 100
[2020-03-27] MEDS: risperiDONE 0.5 MG TABLET PO (08:09)
[2020-03-27] MEDS: buPROPion HCl XL 150 MG TAB.ER.24H PO (08:09)
[2020-03-27] MEDS: Sucralfate 1 GM TABLET PO (08:09)
[2020-03-27] MEDS: Aspirin Enteric Coated 81 MG TABLET.DR PO (08:09)
[2020-03-27] MEDS: Furosemide 20 MG TABLET PO (08:09)
[2020-03-27] MEDS: Gabapentin 300 MG CAPSULE PO ×2 (08:09→14:56)
[2020-03-27] MEDS: 0.9 % Sodium Chloride Flush 3 ML SYRINGE IVFLUSH ×2 (08:10→14:56)
[2020-03-27 11:17] VITALS: BP 109/49; PULSE 80; RESP 18; TEMP 36; O2SAT 99
--- NOTE | 2020-03-27 11:47 | MHC.CM.PN ---
Per MD rounds, pt medically cleared for D/C today. Pt. unable to participate in PT eval. No skill for STR. Daughter hesitant to place [facility]/Hospice for mother. Dr. Silverman called daughter today. Daughter is refusing [facility]Hospice for mother. Daughter wants mother placed at [facility] or [facility](no beds) so PCP Dr. Forrester can follow her. Cost at [facility] prohibitive for family. Daughter to meet with [facility] finance dept at 9am tomorrow to complete paperwork for [employer]( frail elder waiver).
--- NOTE | 2020-03-27 12:37 | MHC.CM.PN ---
Met with pt., however pt's dementia prohibits much information. Per chart, PT recommends STR for pt. pER MD ROUNDS, Pt to be D/C today. No beds avaiable at [facility], [facility], or [facility]. Attemped to call Patrick ( and HCP), but no answer. Referrals placed at [facility], [facility] and [facility]. MD aware. Will continue to attempt to contact Patrick. Will continue to follow for D/C needs.
--- NOTE | 2020-03-27 13:24 | HO.PM.IMPN ---
Subjective Subjective Date of Service: 03/27/20 Interval History: Seen in f/u for vaginal bleeding. No major bleeding Gen: no fever Resp: no sob, no cough CV: no chest pain GI/: No n/v, no abd pain, vag bleeding Neuro: gen confusion--chronic Physical Exam Vital Signs: Vital Signs: Last Vital Signs Temp 96.8 F 03/27/20 11:17 Pulse 80 03/27/20 11:17 Resp 18 03/27/20 11:17 BP 109/49 L 03/27/20 11:17 Pulse Ox 99 03/27/20 11:17 Body Mass Index 25.8 General: AO X 2, no acute distress Resp: CTA bilateral CVS: S1,S2,RRR GI: +BS, NT, no distention Skin: red rash in face consistent with foliculitis Neuro: motor grossly intact Psych: appropriate affect Objective Data Current Medications Generic Name Dose Route Start Last Admin Trade Name Freq PRN Reason Stop Dose Admin Aspirin 81 mg 03/25/20 09:00 03/27/20 08:09 Aspirin Enteric Coated 81 Mg Tablet.Dr PO 81 mg DAILY [place] Administration Atorvastatin Calcium 40 mg 03/24/20 21:00 03/26/20 21:12 Atorvastatin Calcium 40 Mg Tablet PO 40 mg BEDTIME [place] Administration Bupropion HCl 150 mg 03/24/20 09:00 03/27/20 08:09 Bupropion Hcl Xl 150 Mg Tab.Er.24h PO 150 mg DAILY [place] Administration Doxycycline Hyclate 100 mg 03/24/20 18:00 03/27/20 05:39 Doxycycline Hyclate 100 Mg Tablet PO 100 mg Q12H [place] Administration Furosemide 20 mg 03/27/20 09:00 03/27/20 08:09 Furosemide 20 Mg Tablet PO 20 mg DAILY [place] Administration Protocol Gabapentin 300 mg 03/23/20 21:00 03/27/20 08:09 Gabapentin 300 Mg Capsule PO 300 mg TID [place] Administration Heparin Sodium (Porcine) 5,000 unit 03/23/20 14:00 03/27/20 05:39 Heparin Sodium,Porcine 5,000 Unit/Ml Vial SUBCUT 5,000 unit Q8H [place] Administration Levothyroxine Sodium 25 mcg 03/24/20 06:00 03/27/20 05:39 Levothyroxine Sodium 25 Mcg Tablet PO 25 mcg DAILY@0600 [place] Administration Omeprazole 40 mg 03/23/20 06:30 03/27/20 05:39 Omeprazole 40 Mg Capsule.Dr PO 40 mg DAILY@0630 [place] Administration Risperidone 0.5 mg 03/24/20 09:00 03/27/20 08:09 Risperidone 0.5 Mg Tablet PO 0.5 mg DAILY [place] Administration Sodium Chloride 3 ml 03/23/20 13:02 03/27/20 08:10 0.9 % Sodium Chloride Flush 3 Ml Syringe IVFLUSH 3 ml QSHIFT [place] Administration Sucralfate 1 gm 03/23/20 09:00 03/27/20 08:09 Sucralfate 1 Gm Tablet PO 1 gm BID [place] Administration Labs CBC & Chem 7: 03/25/20 06:15 03/25/20 06:15 Microbiology Microbiology Results: Microbiology 03/22/20 16:54 Blood - Arterial Blood Culture - Preliminary No growth after 48 hours. 03/22/20 16:45 Blood - Arterial Blood Culture - Preliminary No growth after 48 hours. Assessment and Plan (1) Hypokalemia: Status: Acute (2) Abnormal EKG: Status: Acute (3) Postmenopausal bleeding: Status: Acute (4) Syncope: Status: Acute (5) Dementia: Status: Acute (6) Hypothyroid: Status: Acute (7) HTN (hypertension): Status: Acute Assessment and Plan: 70/F w/ dementia, HTN, hypothyroidism here with postmenopausal vaginal bleeding and syncope 1. Syncope--circumstance not clear and no clear evidence that she passed out. W/u including ECGm CT, trop, echo, cardiac monitoring no arrtythmia, no further testing at this time. Underlying cardiac disease cannot be ruled out, BB, ASA when Bleeding issue resolved 2 Hypokalemia: Corrected now 3.5 3 HTN (hypertension): continue meds 4 Hypothyroid: continue levothyroxine. 5. Dementia: Will continue risperidone, bupropion. 6. Vaginal bleeding/acute blood loss anemia: Bleeeding has decreased considerably, US shows endometrial thickening and will need biopsy on outpatient basis and will follow up with [employer]ELOPER 7. Foliculitis of the face--PO Doxy x 1 week PT recommends STR,
--- NOTE | 2020-03-27 13:32 | PM.DS ---
DS: Providers Provider Date of admission: 03/22/20 21:18 Primary care physician: Unknown Physician Consults: 03/22/20 21:18 Consult to Neurology Routine Consulting Provider: Neurology Nadira sánchez [facility] Reason for consultation: syncope Has provider been notified: No 03/23/20 07:33 Consult to Cardiology Routine Consulting Provider: Reese Garcia Reason for consultation: SYNCOPE Has provider been notified: No Consult to Neurology Routine Consulting Provider: Neurology Nadira sánchez [facility] Reason for consultation: Syncope Has provider been notified: No 03/23/20 11:29 Consult to Obstetrics / Gynecology Routine Consulting Provider: Brent Abbott Reason for consultation: vaginal bleeding Has provider been notified: No 03/23/20 13:02 Consult to Cardiology Routine Consulting Provider: [facility] Reason for consultation: syncope Has provider been notified: No 03/24/20 09:26 Consult to Psychiatry Routine Consulting Provider: Diamond Noe Reason for consultation: dementia /behavioural changes-having intermittent behaviour bursts Has provider been notified: No 03/24/20 12:55 Consult to Infectious Diseases Routine Consulting Provider: Vee Laws Reason for consultation: facial rash DS: Diagnosis Discharge Diagnosis (1) Hypokalemia: Status: Acute (2) Abnormal EKG: Status: Acute (3) Postmenopausal bleeding: Status: Acute (4) Syncope: Status: Acute (5) Dementia: Status: Acute (6) Hypothyroid: Status: Acute (7) HTN (hypertension): Status: Acute DS: Medications Discharge Medications Home Medications: Home Medications Medication Instructions Recorded Confirmed furosemide 20 mg PO DAILY 02/28/20 03/22/20 bupropion HCl 150 mg PO QAM 03/23/20 03/23/20 gabapentin 300 mg PO TID 03/23/20 03/23/20 levothyroxine 25 mcg PO DAILY 03/23/20 03/23/20 risperidone 0.5 mg PO DAILY 03/23/20 03/23/20 Previous Rx's Medication Instructions Recorded omeprazole 40 mg PO DAILY 28 Days #28 cap 02/28/20 sucralfate [Carafate] 1 g PO BID #60 tab 02/28/20 DS: Summary Hospital Course Hospital Course: Patient presented from home syncope of unclear circumstances and with reported blood in the urine that turned out to be vaginal bleeding. She was admitted to cardiac telemetry floor. CT head showed no acute finding. ECG showed some ST-T changes. She was evaluated by cardiology and deemed not candidate for further investigaton. She did not have arrythmia on quality assurance monitor final. She an echocardiogram showed EF of > 70 and no wall motion abnormalities. She was also seen by Neurology and EEG was subsequently done today. She has not have seizure. She had hyokalemia that has been corrected. Vaginal bleeding was investigated with ultrasound and shows endometrial thickening and will need biopsy on outpatient basis and will follow up with [facility]VIEW[facility] (Dr. Abbott). She has chronic foliculitis of the face, evaluated by Dr. Laws from ID and recommends Doxycyline for 1 week, she has 3 more days to go. Time Spent with Patient Time attestation: Total time spent providing and/or coordinating discharge services: Physical Exam Vital Signs: Vital Signs: Last Vital Signs Temp 96.8 F 03/27/20 11:17 Pulse 80 03/27/20 11:17 Resp 18 03/27/20 11:17 BP 109/49 L 03/27/20 11:17 Pulse Ox 99 03/27/20 11:17 Body Mass Index 25.8 General: AO X 2, no acute distress Resp: CTA bilateral CVS: S1,S2,RRR GI: +BS, NT, no distention Skin: foliculitis rash on face Neuro: motor grossly intact Psych: appropriate affect DS: Data Data Completed and Pending Labs on day of discharge: 03/22/20 16:13 ECG 12 lead EKG Stat EKG Documentation DIRECTED CT head/brain wo con Stat XR chest 1V Stat 03/22/20 16:14 Vital Signs, Orthostatic NOW 03/22/20 16:15 0.9 % Sodium Chloride [Ns] 500 ml IVCONT 999 mls/hr 03/22/20 16:37 B Type Natriuretic Peptide Stat Complete Blood Count Auto Diff Stat Troponin-I High Sensitivity Stat 03/22/20 16:45 Lactic Acid Stat 03/22/20 16:55 COVID-19 ID NOW ([place]) Stat 03/22/20 18:12 Consult Rx Perform Med Rec 1 each MISCELLANE ONCE PRN 03/22/20 18:27 Basic Metabolic Panel Stat CK [Creatine Kinase Total] Stat Liver Panel Stat 03/22/20 19:30 Potassium Chloride Packet [Klor-Con Packet] 20 meq PO ONCE ONE Potassium Chloride/H20 10 meq in 100 ml IV ONCE 03/22/20 21:14 Transfer Order Routine 03/22/20 21:26 0.9 % Sodium Chloride [Ns] 500 ml IVCONT 999 mls/hr 03/22/20 21:36 Magnesium Sulfate/D5W 1 gm in 100 ml IV ONCE 03/22/20 21:43 Troponin-I High Sensitivity Stat ~Lactic Acid-LAB USE ONLY Stat 03/22/20 23:47 ~Lactic Acid-LAB USE ONLY Stat 03/23/20 ECG 12 lead EKG Urgent 03/23/20 Breakfast Cardiac Diet 03/23/20 11:29 US pelvic complete Urgent 03/23/20 12:19 Basic Metabolic Panel Stat 03/23/20 13:02 Potassium Chloride/H20 10 meq in 100 ml IV ONCE 03/23/20 13:02 Cont. Telemetry w/Vital Sign limit Q4HR 03/23/20 13:17 Type and Screen Stat Basic Metabolic Panel Routine Complete Blood Count Auto Diff Routine Liver Panel Routine Magnesium Routine 03/23/20 14:45 Potassium Chloride/H20 10 meq in 100 ml IV Q1H 03/23/20 15:11 Add Laboratory Test Urgent 03/23/20 21:15 Potassium Routine 03/24/20 05:20 Basic Metabolic Panel DAILY 03/24/20 08:43 ECG 12 lead EKG Routine 03/24/20 08:44 EKG Documentation DIRECTED 03/24/20 09:00 Potassium Chloride Packet [Klor-Con Packet] 40 meq PO DAILY Potassium Chloride Packet [Klor-Con Packet] 40 meq PO DAILY Potassium Chloride Packet [Klor-Con Packet] 40 meq PO DAILY 03/24/20 13:02 CA echo transthoracic complete Routine 03/25/20 06:15 Basic Metabolic Panel DAILY@0600 Complete Blood Count no Diff DAILY@0600 03/26/20 18:01 Transfer Order Routine Laboratory Last Values WBC 7.3 X10*3/uL (4.8-10.8) 03/25/20 06:15 RBC 3.36 X10*6/uL (4.20-5.50) L 03/25/20 06:15 Hgb 10.1 g/dl (12.0-16.0) L 03/25/20 06:15 Hct 29.8 % (37-47) L 03/25/20 06:15 MCV 88.7 fL (80-98) 03/25/20 06:15 MCH 30.1 pg (27.0-33.0) 03/25/20 06:15 MCHC 33.9 g/dl (31.0-35.0) 03/25/20 06:15 RDW 15.9 % (11.0-16.0) 03/25/20 06:15 Plt Count 162 X10*3/uL (160-400) 03/25/20 06:15 MPV 9.8 fL (9.4-12.3) 03/25/20 06:15 Immature Gran % (Auto) 0.4 % (0.0-0.4) 03/23/20 13:17 Neut % (Auto) 86.1 % (45-73) H 03/23/20 13:17 Lymph % (Auto) 8.9 % (20-40) L 03/23/20 13:17 [place] % (Auto) 3.9 % (2-11) 03/23/20 13:17 Eos % (Auto) 0.5 % (0-4) 03/23/20 13:17 Baso % (Auto) 0.2 % (0-2) 03/23/20 13:17 Lymph # (Auto) 1.0 X10*3/uL (1.2-4.9) L 03/23/20 13:17 [place] # (Auto) 0.4 X10*3/uL (0.1-1.2) 03/23/20 13:17 Eos # (Auto) 0.1 X10*3/uL (0.0-0.4) 03/23/20 13:17 Baso # (Auto) 0.0 X10*3/uL (0.0-0.2) 03/23/20 13:17 Abs Immat Gran (auto) 0.04 X10*3/uL (0.00-0.03) H 03/23/20 13:17 Absolute Neuts (auto) 9.7 X10*3/uL (2.0-8.3) H 03/23/20 13:17 Absolute Nucleated RBC 0.000 X10*3/uL (0.0-0.012) 03/25/20 06:15 Nucleated RBC % (auto) 0.0 /100WBC (0.0-0.2) 03/25/20 06:15 Sodium 134 mmol/L (135-145) L 03/25/20 06:15 Potassium 3.5 mmol/l (3.3-5.1) 03/25/20 06:15 Chloride 102 mmol/L (96-108) 03/25/20 06:15 Carbon Dioxide 24 mmol/L (22-29) 03/25/20 06:15 Anion Gap 12 (12-20) 03/25/20 06:15 BUN 9 mg/dL (9-16) 03/25/20 06:15 Creatinine 0.83 mg/dL (0.5-1.4) 03/25/20 06:15 Estim Creat Clear Calc 51.7 03/25/20 06:15 Estimated GFR > 60 03/25/20 06:15 Random Glucose 85 mg/dL (60-115) 03/25/20 06:15 Lactic Acid 2.1 mmol/L (0.5-2.0) H* 03/22/20 16:45 Lactic Acid Fup @ 2Hr 3.1 mmol/L (0.5-2.0) H* 03/22/20 21:43 Lactic Acid Fup @ 4Hr 1.3 mmol/L (0.5-2.0) 03/23/20 03:58 Calcium 8.2 mg/dL (8.4-10.2) L 03/25/20 06:15 Magnesium 2.2 mg/dL (1.6-2.6) 03/23/20 13:17 Total Bilirubin 1.2 mg/dL (0.0-1.0) H 03/23/20 13:17 Direct Bilirubin 0.7 mg/dL (0.0-0.5) H 03/23/20 13:17 AST 10 U/L (5-31) 03/23/20 13:17 ALT < 6 U/L (0-31) 03/23/20 13:17 Alkaline Phosphatase 86 U/L (39-117) 03/23/20 13:17 Total Creatine Kinase 23 U/L (26-140) L 03/22/20 18:27 Troponin I High Sens 6.1 ng/L (<3.5-17.0) 03/22/20 21:43 B-Natriuretic Peptide 11 pg/mL (<100) 03/22/20 16:37 Total Protein 6.9 g/dL (6.5-8.0) 03/23/20 13:17 Albumin 3.3 g/dL (3.5-5.0) L 03/23/20 13:17 Lipase Cancelled 03/22/20 17:45 COVID-19 (DARNELL) Negative (Negative) 03/22/20 16:55 COVID-19 Clin Com See Note 03/22/20 16:55 Blood Type A Positive 03/23/20 13:17 Antibody Screen NEGATIVE 03/23/20 13:17 Preliminary micro results at discharge 03/22/20 16:54 Blood Culture - Preliminary Blood - Arterial No growth after 48 hours. 03/22/20 16:45 Blood Culture - Preliminary Blood - Arterial No growth after 48 hours. Discharge Plan Discharge Anticipated Discharge Date/Time: 03/25/20 09:39 Patient Disposition: Xfer SNF Referrals: [facility] [Outside] Mayra Ramos MD [Physician] - Physician,Unknown [Primary Care Provider] - Discharge Medications: New doxycycline hyclate 100 mg Tablet 100 mg PO Q12H Qty: 6 RF: 0 Continued furosemide 20 mg Tablet 20 mg PO DAILY RF: 0 omeprazole 40 mg capsule,delayed release(DR/EC) 40 mg PO DAILY 28 Days Qty: 28 RF: 0 sucralfate [Carafate] 1 gram tablet 1 g PO BID Qty: 60 RF: 0 levothyroxine 25 mcg Tablet 25 mcg PO DAILY RF: 0 gabapentin 300 mg Capsule 300 mg PO TID RF: 0 risperidone 0.5 mg Tablet 0.5 mg PO DAILY RF: 0 bupropion HCl 150 mg Tablet Extended Release 24 Hr 150 mg PO QAM RF: 0 Discharge Orders: Discharge Order (Routine); Ordered 03/27/20 Ordered By: Steve Richardson Diet: advance to usual diet Activity on Discharge: As tolerated Discharge Date/Time: 03/27/20 18:07 Visit Report Forms: Patient Portal Discharge page Care Plan Goals: Figure out cause of vaginal bleeding Health Concerns: Ongoing vaginal bleeding Plan of Treatment: Follow up with Dr. Abbott for further evaluation of vaginal bleeding
--- NOTE | 2020-03-27 14:47 | MHC.CM.PN ---
Deborah sánchez [place] willing to accept patient. Contacted son, Awais ([phone]), who is agreeable to placement. PCP Mayra Antoine. Awaiting rapid COVID. Will then book transportation
[2020-03-27 15:15] VITALS: BP 102/54; PULSE 82; RESP 18; TEMP 36.2; O2SAT 98
[2020-03-27 15:18] LABS: COVID-19 Test Negative (Negative); IDNOW Serial# 9DD0AD1C
--- NOTE | 2020-03-27 16:45 | MHC.CM.PN ---
Pt d/c to [facility]. Ambulance to transport at 6pm. Family aware
== END 2020-03-27 18:07 | disposition skilled nursing facility (03) | DRG 760 ==
LOC: HO.ED 03-23 07:29 → HO.IMC 03-23 10:51 → HO.S3 03-26 19:56
PROVIDERS: Internal Medicine; Admitting Provider Internal Medicine; Emergency Provider Emergency Medicine; Visit Provider Internal Medicine
DX: N95.0 Postmenopausal bleeding (principal); D62 Acute posthemorrhagic anemia; F03.90 Unspecified dementia, unspecified severity, without behavioral disturbance, psychotic disturbance, mood disturbance, and anxiety; I10 Essential (primary) hypertension; L73.9 Follicular disorder, unspecified; E03.9 Hypothyroidism, unspecified; E87.6 Hypokalemia; R94.31 Abnormal electrocardiogram [ECG] [EKG]; Z20.828 Contact with and (suspected) exposure to other viral communicable diseases; Z88.0 Allergy status to penicillin; Z88.2 Allergy status to sulfonamides; Z79.890 Hormone replacement therapy; Z79.899 Other long term (current) drug therapy
CPT/HCPCS: 36415; 70450; 71045; 76856; 80048; 80076; 82550; 83605; 83690; 83735; 83880; 84132; 84484; 85025; 85027; 86850; 86900; 86901; 87040; 87635; 93005; 93306; 95816; 96365; 97162; 99285; J3475

== ENCOUNTER 2021-03-12 12:55 | Inpatient (IN) | payer MEDICARE, OTHER, SELFPAY ==
--- NOTE | ~2021-03-12 | CT_ITS ---
EXAM: CT scan of the chest, abdomen, and pelvis. INDICATION: Trauma COMPARISON: Pelvic ultrasound 03/23/2020, CT abdomen pelvis 02/28/[address] 05/31/2019 TECHNIQUE: Multidetector helical imaging of the chest, abdomen, and pelvis was obtained from the thoracic inlet through the pubic symphysis. Coronal and sagittal reformatted images that were obtained were also reviewed. DLP: 778 mGy-cm FINDINGS: CHEST: Central airways are patent. Lungs are well aerated. Mild emphysematous changes are noted. Mild dependent atelectasis bilaterally. Stable 4 mm pulmonary nodule the left lung base. No new suspicious pulmonary nodules. No pleural effusion or pneumothorax. The heart is normal in size. Coronary artery calcifications are present. There is no pericardial effusion. Normal caliber thoracic aorta. No gross mediastinal lymphadenopathy. No enlarged axillary lymph nodes. ABDOMEN/PELVIS: The liver is normal in size but demonstrates diffusely decreased attenuation suggesting hepatic steatosis. The gallbladder is normal in appearance. The pancreas and spleen are unremarkable. There is mild hypertrophy of the adrenal glands. Stable 4 mm nonobstructing left renal calculus. No right-sided renal calculi. No hydronephrosis bilaterally. Normal caliber loops of small and large bowel. Normal caliber abdominal aorta. The bladder is normal in appearance. There appears to be thickening of the endometrium, poorly visualized. No gross free pelvic fluid. Shotty bilateral inguinal lymph nodes. OSSEOUS STRUCTURES [id number] diffuse degenerative changes of the thoracolumbar spine. Old mild compression deformity of the T12 vertebral body. Moderate anterolisthesis of L5 on S1 secondary to bilateral L5 pars defects. Similar approximately 1 cm peripherally calcified structure within the manubrium, nonspecific. CT/CT abdomen pelvis wo con IMPRESSION: 1. No CT evidence for acute abnormality within the chest, abdomen or pelvis. 2. Stable 4 mm pulmonary nodule. 3. Diffusely decreased liver attenuation suggesting hepatic steatosis. 4. Stable 4 mm left renal calculus. This CT examination was performed using dose optimization techniques as appropriate, variously including the following: *Automated exposure control *Adjustment of mA and/or kV according to patient size (this includes techniques or standardized protocols for targeted exams where dose is matched to indication/reason for exam; i.e. extremities or head) *Use of iterative reconstruction technique
--- NOTE | ~2021-03-12 | CT_ITS ---
EXAMINATION: CT CERVICAL SPINE WITHOUT CONTRAST CLINICAL INFORMATION: Trauma COMPARISON: None TECHNIQUE: Axial images through the cervical spine without contrast. Sagittal and coronal reconstructions on the technologist workstation were performed. This CT examination was performed using dose optimization techniques as appropriate, variously including the following: *Automated exposure control *Adjustment of mA and/or kV according to patient size (this includes techniques or standardized protocols for targeted exams where dose is matched to indication/reason for exam; i.e. extremities or head) *Use of iterative reconstruction technique DLP: 350 mGy-cm FINDINGS: Exam is limited due to motion. There is curvature of the mid cervical spine to the left and lower cervical and upper thoracic spine to the right. There is mild 2 mm posterior subluxation of C5 with respect to C4 and C6. This may be due to facet arthritis. Bone alignment is otherwise normal. No fracture or dislocation is seen. There is multilevel degenerative spondylosis and degenerative disc disease from C3-C3-C4 to C6-C7. There is bilateral multilevel facet arthritis. There is soft tissue ossification posterior to the C5 spinous process likely related to old trauma. Prevertebral soft tissues are normal. Visualized lung apices are clear. CT/CT cervical spine wo con IMPRESSION: Limited exam due to motion. Mild scoliosis and degenerative changes. No fracture seen.
--- NOTE | ~2021-03-12 | CT_ITS ---
EXAMINATION: CT HEAD WITHOUT CONTRAST CLINICAL INFORMATION: Mental status change COMPARISON: Previous head CT March 2020 TECHNIQUE: Contiguous axial imaging was performed from the skull base to vertex without intravenous administration of contrast. This CT examination was performed using dose optimization techniques as appropriate, variously including the following: *Automated exposure control *Adjustment of mA and/or kV according to patient size (this includes techniques or standardized protocols for targeted exams where dose is matched to indication/reason for exam; i.e. extremities or head) *Use of iterative reconstruction technique DLP: 664 mGy-cm FINDINGS: There is no evidence of an extra-axial collection. There is no evidence of intra-axial or extra-axial hemorrhage. The ventricles and extra-axial CSF spaces are prominent suggestive of mild generalized atrophy. There is nonspecific periventricular white matter disease. There are old bilateral basal ganglia lacunar infarcts. No mass, mass effect or acute infarct is seen. Review of bone windows is normal. Paranasal sinuses and mastoid air cells and middle ears are clear. CT/CT head/brain wo con IMPRESSION: Generalized atrophy and nonspecific periventricular white matter disease. Old bilateral basal ganglia lacunar infarcts. No acute findings.
--- NOTE | 2021-03-12 13:23 | ECG_ITS ---
Test Reason : failure to thrive Blood Pressure : / mmHG Vent. Rate : 127 BPM Atrial Rate : 113 BPM P-R Int : 142 ms QRS Dur : 064 ms QT Int : 362 ms P-R-T Axes : 066 031 068 degrees QTc Int : 526 ms Poor data quality Sinus tachycardia Nonspecific ST and T wave abnormality Abnormal ECG ST less depressed in Anterolateral leads Heart rate has increased Referred By: Alecia Pelayo Electronically Signed By:LIMA NGUYỄN MD
--- NOTE | 2021-03-12 13:58 | ED_ITS ---
HPI - Altered Mental Status General Chief Complaint: Failure to Thrive Stated Complaint: FAILURE TO THRIVE Time Seen by Provider: 03/12/21 13:13 History of Present Illness HPI narrative: Patient 71-year-old female long history of ETOH. Found at home. Unable to care for self. Leaning to 1 side. Cover with stool. Unable to move well. Patient being sent in for failure to thrive. Patient denies any chest pain or diaphoresis. No cough and no congestion. Patient lives with elderly which has been recently hospitalized. Patient unable to give detailed history. History is obtained via EMS and from nursing. Question being sent in also for a decubital ulcer. No fever reported by EMS Related Data Home Medications Medication Instructions Recorded Confirmed bupropion HCl 150 mg 24 hr tablet, 150 mg PO QAM 03/23/20 03/23/20 extended release gabapentin 300 mg capsule 300 mg PO TID 03/23/20 03/12/21 risperidone 0.5 mg tablet 0.5 mg PO DAILY 03/23/20 03/12/21 aspirin 81 mg tablet,delayed 81 mg PO DAILY 03/12/21 03/12/21 release bupropion HCl 150 mg 24 hr tablet, 150 mg PO QAM 03/12/21 03/12/21 extended release famotidine 20 mg tablet 20 mg PO BID 03/12/21 03/12/21 Allergies Allergy/AdvReac Type Severity Reaction Status Date / Time Sulfa (Sulfonamide Allergy Unknown Rash Verified 03/23/20 13:30 Antibiotics) [SULFA (SULFONAMIDE ANTIBIOTICS)] Penicillins Allergy Rash Verified 03/23/20 13:32 Review of Systems Review of Systems: Unable to obtain full review systems secondary to patient's condition [facility] Past Medical History Attestation statement: The following information was validated with the patient. Medical History Dementia HTN (hypertension) Hypothyroid Psoriasis Rash Social History Social History Household Members: Unknown / Unable to assess Household Members Other:: and son Awais Housing: Unknown / Unable to assess Do you presently have visiting nurse or other home services: Yes (nurse comes once a week) Unable to assess alcohol history related to: Unknown Alcohol intake: current Alcohol intake frequency: 3 or more drinks per day Alcohol type: wine Patient Tobacco Use Status: Current everyday Tobacco user Use of substances other than those prescribed or required for medical reasons: Yes Substance Use Type: Crack/Cocaine, Heroin and Marijuana Advance Directives: No Advance Directives Information Provided: No service: No Physical Exam Vital Signs: Vital Signs: Last Vital Signs Temp 97.8 F 03/12/21 16:39 Pulse 121 H 03/12/21 16:39 Resp 24 H 03/12/21 16:39 BP 129/100 H 03/12/21 16:39 Pulse Ox 99 03/12/21 14:04 Body Mass Index 19.1 Extremely frail-appearing female looks older than stated age leaning to 1 side totally contracted. Appearance: Alert. Oriented to self and place. But not to time. No acute distress. Eyes: Pupils equal, round and reactive to light. ENT: Pharynx normal. Mucous membrane was dry. There is no malocclusion noted. Neck: Normal inspection. Neck supple. No lymph nodes noted. No crepitus. Trachea was midline. There is no mass palpable. CVS: Normal heart rate and rhythm. Pulses normal. Normal S1 and S2 Respiratory: Diminished breath sounds bilaterally Abdomen: Soft and nontender. No rigidity. No distention. good BS x4 Skin: Multiple decubiti eye ulcer noted to the back. Worse on the left side. Two of the ulcers contain a granulomatous base. Erythematous surrounding. With maggots crawling out of it. Extremities: Contracted cover with feces. Multiple ulcers also noted in bilateral feet. Or erythematous. Broken skin. A few with larger than others. There is positive pressure ulcers in the upper back as well. Please see nursing documentation and nursing photographs Neuro: Oriented self and place. Contracted. No sensory deficit.. No slurred speech MDM - Altered Mental Status MDM Narrative Medical decision making narrative: Patient completely unsafe to be at home with significant ulcers all throughout the entire body. Maggots in her lower back compression ulcers. Patient cultures obtained. Will start antibiotic form. Coverage. Electrolytes are pending. 30 cc/kilos IV fluid started the patient on a slightly elevated lactate. Will repeat after the bolus of fluid. CT scan of the head C-spine chest abdomen pelvis were negative for acute trauma. No acute finding. Patient's ABG showed significant respiratory alkalosis all acute. Tox screen is still pending. Patient's case discussed with the hospitalist team for admission. Medical Records Attestation: I reviewed the patient's medical records. Lab Data Attestation: I reviewed the patient's lab results. Result diagrams: 03/12/21 14:24 03/12/21 14:24 Labs: Lab Results 03/12/21 03/12/21 03/12/21 Range/Units 14:24 14:24 14:25 WBC 12.0 H (4.8-10.8) X10*3/uL RBC 4.66 (4.20-5.50) X10*6/uL Hgb 13.8 (12.0-16.0) g/dl Hct 39.8 (37.0-47.0) % MCV 85.4 (80.0-98.0) fL MCH 29.6 (27.0-33.0) pg MCHC 34.7 (31.0-35.0) g/dl RDW 12.1 (11.0-16.0) % Plt Count 631 H (160-400) X10*3/uL MPV 8.5 L (9.4-12.3) fL Immature Gran % (Auto) 0.4 (0.0-0.4) % Neut % (Auto) 76.9 H (45-73) % Lymph % (Auto) 15.2 L (20-40) % [place] % (Auto) 6.1 (2-11) % Eos % (Auto) 1.2 (0-4) % Baso % (Auto) 0.2 (0-2) % Lymph # (Auto) 1.8 (1.2-4.9) X10*3/uL [place] # (Auto) 0.7 (0.1-1.2) X10*3/uL Eos # (Auto) 0.2 (0.0-0.4) X10*3/uL Baso # (Auto) 0.0 (0.0-0.2) X10*3/uL Abs Immat Gran (auto) 0.05 H (0.00-0.03) X10*3/uL Absolute Neuts (auto) 9.2 H (2.0-8.3) x10*3/uL Absolute Nucleated RBC 0.000 (0.0-0.012) X10*3/uL Nucleated RBC % (auto) 0.0 (0.0-0.2) /100WBC O2 Saturation % ABG pH at Pt Temp (7.35-7.45) ABG pH (Temp Correct) (7.35-7.45) ABG pCO2 at Pt Temp (32-45) mmHg ABG pCO2 (Temp Corrct (32-45) mmHg ABG pO2 at Pt Temp (83-108) mmHg ABG pO2 (Temp Correct (83-108) ABG HCO3 (22-26) mmol/L ABG Base Excess (Actual) mmol/L POC Glucose (60-115) mg/dL Lactic Acid 3.1 H* (0.5-2.0) mmol/L TSH Cancelled Urine Color Urine Appearance Urine pH (5.0-8.0) Ur Specific [place] (1.005-1.025) Urine Protein (NEG-TRACE) MG/DL Urine Glucose (UA) (NEG) MG/DL Urine Ketones (NEG) MG/DL Urine Blood (NEG) Urine Nitrite (NEG) Ur Leukocyte Esterase (NEG) Urine Opiates Screen (Not Detect) Urine Fentanyl Screen (Not Detect) Ur Barbiturates Screen (Not Detect) Ur Phencyclidine Scrn (Not Detect) Ur Amphetamines Screen (Not Detect) U Benzodiazepines Scrn (Not Detect) Urine Cocaine Screen (Not Detect) U Marijuana (THC) Screen (Not Detect) Ethyl Alcohol mg/dL COVID-19 (DARNELL) (Negative) COVID-19 Clin Com 03/12/21 03/12/21 03/12/21 Range/Units 14:25 14:43 15:16 WBC (4.8-10.8) X10*3/uL RBC (4.20-5.50) X10*6/uL Hgb (12.0-16.0) g/dl Hct (37.0-47.0) % MCV (80.0-98.0) fL MCH (27.0-33.0) pg MCHC (31.0-35.0) g/dl RDW (11.0-16.0) % Plt Count (160-400) X10*3/uL MPV (9.4-12.3) fL Immature Gran % (Auto) (0.0-0.4) % Neut % (Auto) (45-73) % Lymph % (Auto) (20-40) % [place] % (Auto) (2-11) % Eos % (Auto) (0-4) % Baso % (Auto) (0-2) % Lymph # (Auto) (1.2-4.9) X10*3/uL [place] # (Auto) (0.1-1.2) X10*3/uL Eos # (Auto) (0.0-0.4) X10*3/uL Baso # (Auto) (0.0-0.2) X10*3/uL Abs Immat Gran (auto) (0.00-0.03) X10*3/uL Absolute Neuts (auto) (2.0-8.3) x10*3/uL Absolute Nucleated RBC (0.0-0.012) X10*3/uL Nucleated RBC % (auto) (0.0-0.2) /100WBC O2 Saturation 99.0 % ABG pH at Pt Temp 7.71 H* (7.35-7.45) ABG pH (Temp Correct) 7.72 H* (7.35-7.45) ABG pCO2 at Pt Temp 11 L* (32-45) mmHg ABG pCO2 (Temp Corrct 11 L* (32-45) mmHg ABG pO2 at Pt Temp 143 H (83-108) mmHg ABG pO2 (Temp Correct 140 H (83-108) ABG HCO3 14 L (22-26) mmol/L ABG Base Excess (Actual) -1.0 mmol/L POC Glucose 96 (60-115) mg/dL Lactic Acid (0.5-2.0) mmol/L TSH Urine Color Urine Appearance Urine pH (5.0-8.0) Ur Specific [place] (1.005-1.025) Urine Protein (NEG-TRACE) MG/DL Urine Glucose (UA) (NEG) MG/DL Urine Ketones (NEG) MG/DL Urine Blood (NEG) Urine Nitrite (NEG) Ur Leukocyte Esterase (NEG) Urine Opiates Screen (Not Detect) Urine Fentanyl Screen (Not Detect) Ur Barbiturates Screen (Not Detect) Ur Phencyclidine Scrn (Not Detect) Ur Amphetamines Screen (Not Detect) U Benzodiazepines Scrn (Not Detect) Urine Cocaine Screen (Not Detect) U Marijuana (THC) Screen (Not Detect) Ethyl Alcohol mg/dL COVID-19 (DARNELL) Negative (Negative) COVID-19 Clin Com See Note 03/12/21 03/12/21 03/12/21 Range/Units 16:27 16:27 16:33 WBC (4.8-10.8) X10*3/uL RBC (4.20-5.50) X10*6/uL Hgb (12.0-16.0) g/dl Hct (37.0-47.0) % MCV (80.0-98.0) fL MCH (27.0-33.0) pg MCHC (31.0-35.0) g/dl RDW (11.0-16.0) % Plt Count (160-400) X10*3/uL MPV (9.4-12.3) fL Immature Gran % (Auto) (0.0-0.4) % Neut % (Auto) (45-73) % Lymph % (Auto) (20-40) % [place] % (Auto) (2-11) % Eos % (Auto) (0-4) % Baso % (Auto) (0-2) % Lymph # (Auto) (1.2-4.9) X10*3/uL [place] # (Auto) (0.1-1.2) X10*3/uL Eos # (Auto) (0.0-0.4) X10*3/uL Baso # (Auto) (0.0-0.2) X10*3/uL Abs Immat Gran (auto) (0.00-0.03) X10*3/uL Absolute Neuts (auto) (2.0-8.3) x10*3/uL Absolute Nucleated RBC (0.0-0.012) X10*3/uL Nucleated RBC % (auto) (0.0-0.2) /100WBC O2 Saturation % ABG pH at Pt Temp (7.35-7.45) ABG pH (Temp Correct) (7.35-7.45) ABG pCO2 at Pt Temp (32-45) mmHg ABG pCO2 (Temp Corrct (32-45) mmHg ABG pO2 at Pt Temp (83-108) mmHg ABG pO2 (Temp Correct (83-108) ABG HCO3 (22-26) mmol/L ABG Base Excess (Actual) mmol/L POC Glucose (60-115) mg/dL Lactic Acid (0.5-2.0) mmol/L TSH Urine Color YELLOW Urine Appearance CLEAR Urine pH 8.5 H (5.0-8.0) Ur Specific [place] 1.010 (1.005-1.025) Urine Protein TRACE (NEG-TRACE) MG/DL Urine Glucose (UA) NEG (NEG) MG/DL Urine Ketones 40 (NEG) MG/DL Urine Blood TRACE (NEG) Urine Nitrite NEG (NEG) Ur Leukocyte Esterase 3+ H (NEG) Urine Opiates Screen Not Detected (Not Detect) Urine Fentanyl Screen Not Detected (Not Detect) Ur Barbiturates Screen Not Detected (Not Detect) Ur Phencyclidine Scrn Not Detected (Not Detect) Ur Amphetamines Screen Not Detected (Not Detect) U Benzodiazepines Scrn Not Detected (Not Detect) Urine Cocaine Screen Not Detected (Not Detect) U Marijuana (THC) Screen Not Detected (Not Detect) Ethyl Alcohol < 10 mg/dL COVID-19 (DARNELL) (Negative) COVID-19 Clin Com Critical Care Time Critical Care Time Critical Care Time: Yes Total Critical Care Time: 40 Attestation: I have personally provided 40 minutes of critical care time exclus dyan of time spent on separately billable procedures. Time includes review of lab data, radiology results, discussion with consultants, and monitoring for potential decompensation. Interventions were performed as documented above Discharge Plan Discharge Clinical Impression: Adult failure to thrive, Decubital ulcer, Acute dehydration Patient Disposition: Admitted As Inpatient
[2021-03-12 14:04] VITALS: BP 107/58; BP 120/78; PULSE 110; PULSE 117; RESP 20; TEMP 36.4; O2SAT 99; BMI 19.1
[2021-03-12] MEDS: 0.9 % Sodium Chloride 500 ML 999 ML IV (14:26)
[2021-03-12 14:30] LABS: MANUAL DIFF FLAG NO
[2021-03-12 14:36] LABS: Basophils Percent Auto 0.2 % (0-2); Eosinophils Absolute Auto 0.2 X10*3/uL (0.0-0.4); Eosinophils Percent Auto 1.2 % (0-4); Hematocrit 39.8 % (37.0-47.0); Hemoglobin 13.8 g/dl (12.0-16.0); Imm Gran Abs Auto 0.05 X10*3/uL (0.00-0.03); Imm Gran Pct Auto 0.4 % (0.0-0.4); Lymphocytes Absolute Auto 1.8 X10*3/uL (1.2-4.9); Lymphocytes Percent Auto 15.2 % (20-40); Mean Corpuscular HGB Conc 34.7 g/dl (31.0-35.0); Mean Corpuscular Hemoglobin 29.6 pg (27.0-33.0); Mean Corpuscular Volume 85.4 fL (80.0-98.0); Mean Platelet Volume 8.5 fL (9.4-12.3); Monocytes Absolute Auto 0.7 X10*3/uL (0.1-1.2); Monocytes Percent Auto 6.1 % (2-11); Neutrophils Absolute Auto 9.2 x10*3/uL (2.0-8.3); Neutrophils Percent Auto 76.9 % (45-73); Platelet Count 631 X10*3/uL (160-400); Red Blood Count 4.66 X10*6/uL (4.20-5.50); Red Cell Distribution Width 12.1 % (11.0-16.0)
[2021-03-12 14:43] LABS: Lactic Acid 3.1 mmol/L (0.5-2.0)
[2021-03-12 14:47] LABS: Glucose, Whole Blood 96 mg/dL (60-115)
[2021-03-12 15:00] LABS: COVID-19 Test Negative (Negative)
--- NOTE | 2021-03-12 15:20 | PHA.MEDREC ---
Pharmacy Consult ? Medication Reconciliation Pharmacy has completed the medication reconciliation. Spoke to Valentina- pts daughter in law, she said that pt did have medications at home, but said pt has dementia and would spit them out.
[2021-03-12 15:22] LABS: ABG HCO3 14 mmol/L (22-26); ABG pCO2 11 mmHg (32-45); ABG pCO2 TC 11 mmHg (32-45); ABG pH 7.71 (7.35-7.45); ABG pH TC 7.72 (7.35-7.45); ABG pO2 143 mmHg (83-108); ABG pO2 TC 140 (83-108)
[2021-03-12 15:24] VITALS: O2SAT 99
--- NOTE | 2021-03-12 15:48 | PC.NURSE ---
PT WOUNDS pt from home where she was found laying in diarrhea - pt reported she has not eaten for several days or drank anything other than wine. pt reports drinking 3bottles of wine a day. pt contracted and stiff reporting pain all over, covered in wounds. wound to L coccyx several wounds to R buttocks - some appears to be old scarring others newer scarring R heel open wound covered with a sponge bandae, R great toe pressure injury pts back is blanching red - covered with barrier cream L top of foot and toes have open wounds
[2021-03-12 16:29] LABS: Reflex Lactate? Lactic Acid Added
[2021-03-12] MEDS: SODIUM CHLORIDE 1377 ML IV (16:37)
[2021-03-12 16:39] VITALS: BP 129/100; PULSE 121; RESP 24; TEMP 36.6
[2021-03-12 16:47] LABS: Appearance Urine CLEAR; Color Urine YELLOW; Glucose Urine UA NEG (NEG); Leukocyte Esterase Urine 3+ (NEG); Nitrite Urine NEG (NEG); PH 8.5 (5.0-8.0); UACC Culture Trigger YES; Urine Blood TRACE (NEG); Urine Ketones 40 MG/DL (NEG); Urine Protein TRACE MG/DL (NEG-TRACE)
[2021-03-12 16:51] LABS: Amphetamine Screen Urine Not Detected (Not Detect); Barbiturates, Urine Not Detected (Not Detect); Benzodiazepines Screen Urine Not Detected (Not Detect); Cannabinoid Screen Urine Not Detected (Not Detect); Cocaine Screen Urine Not Detected (Not Detect); Fentanyl, urine Not Detected (Not Detect); Opiate Screen Urine Not Detected (Not Detect); Phencyclidine Screen Urine Not Detected (Not Detect)
[2021-03-12 16:52] LABS: Ethanol < 10 mg/dL
[2021-03-12 17:00] LABS: Alanine Aminotransferase < 6 U/L (0-31); Albumin Level 3.6 g/dL (3.5-5.0); Alkaline Phosphatase 66 U/L (39-117); Anion Gap 24 (12-20); Aspartate Amino Transferase 9 U/L (5-31); Bilirubin Direct 0.3 mg/dL (0.0-0.5); Bilirubin Total 0.9 mg/dL (0.0-1.0); Blood Urea Nitrogen 10 mg/dL (9-16); Calcium 10.2 mg/dL (8.4-10.2); Carbon Dioxide 13 mmol/L (22-29); Chloride 102 mmol/L (96-108); Creatinine Clr Calc Pharmacy 43.7; Estimated Glomerular Filt Rate > 60; Glucose Random 116 mg/dL (60-115); Magnesium 1.9 mg/dL (1.6-2.6); Potassium 3.8 mmol/L (3.3-5.1); Sodium 135 mmol/L (135-145); Total Protein 7.2 g/dL (6.5-8.0)
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
[2021-03-12] MEDS: cefTRIAXone sodium 1 GM in 0.9 % Sodium Chloride 50 ML IV (17:10)
[2021-03-12 17:16] LABS: TSH reflex Free T4 2.42 uIU/mL (0.32-4.0)
[2021-03-12 17:47] VITALS: BP 145/58; PULSE 104; RESP 18
[2021-03-12 18:08] LABS: RBC Urine 0 /HPF (0); UACC CULT YES
[2021-03-12 18:09] LABS: Amorphous Sediment Urine 2+ /LPF; Triple Phosphate Crystal Urine 4+ /LPF
[2021-03-12] MEDS: Enoxaparin Sodium 40 MG/0.4 ML SYRINGE SUBCUT (18:32)
[2021-03-12 18:40] LABS: ~Lactic Acid-LAB USE ONLY 3.3 mmol/L (0.5-2.0)
[2021-03-12 19:13] LABS: Folate 5.2 ng/mL (> or = 4.0); Vitamin B12 208 pg/mL (200-900)
[2021-03-12] MEDS: Dextrose 5 % and 0.45 % NaCl 1,000 ML 150 ML IVCONT (20:22)
[2021-03-12 20:26] LABS: Reflex Lactate? 2 Y
[2021-03-12] MEDS: Docusate Sodium 100 MG CAPSULE PO (22:23)
[2021-03-12 22:24] LABS: Glucose, Whole Blood 136 mg/dL (60-115)
--- NOTE | 2021-03-12 22:57 | PC.NURSE ---
pt moved into a hospital bed for comfort. pillows used to offset pressure from pts back and pillow placed between her legs to remove pressure from her feet. pt taking PO water and lucy juanita well. she is alert to person and month. pt believes it is 1947 and her son is still 18 years old. pt also believes her is at home (he is in the hopsital and pts son is in his 30's.) pt is otherwise pleasant, rings appropriately but does yell out with slight movement and adjustment.
[2021-03-12 23:25] VITALS: BP 119/62; PULSE 112; RESP 18; O2SAT 96
[2021-03-13 00:18] VITALS: BP 123/46; PULSE 100; RESP 19; O2SAT 96
[2021-03-13] MEDS: Dextrose 5 % and 0.45 % NaCl 1,000 ML 150 ML IVCONT ×2 (03:24→18:10)
[2021-03-13 04:17] VITALS: BP 113/48; PULSE 87; RESP 16; O2SAT 95
--- NOTE | 2021-03-13 08:29 | PC.NURSE ---
rn to rn given to ratna pt aware of plan of care for admission to hosp.
[2021-03-13 08:39] VITALS: BP 110/54; PULSE 85; RESP 14; TEMP 36.6; O2SAT 97
[2021-03-13 09:37] VITALS: BP 102/50; PULSE 102; RESP 18; TEMP 36.1; O2SAT 100
--- NOTE | 2021-03-13 09:53 | MHC.CM.PN ---
CASE MANAGEMENT NAME ON WHITE BOARD AND THIS OCCUPATIONAL MEDICINE SPECIALIST INTRODUCED SELF. WHEN ASKED, PATIENT STATES THAT SHE FEELS SAFE HERE AND IS HAPPY THAT SHE IS GETTING CLEANED UP. SHE DOES ASK THAT NOBODY TOUCH HER HAIR. PATIENT KNOWS THAT THIS OCCUPATIONAL MEDICINE SPECIALIST WILL RETURN AT A LATER TIME DURING DAY. HCP IS ON FILE; HOWEVER PRIMARY AGENT IS INCAPABLE OF MAKING ANY HEALTHCARE DECISIONS FOR PATIENT AND SECOND AGENT IS CURRENTLY INCARCERATED. CASE MANAGEMENT FOLLOWING FOR [facility] [employer] CONTACT. CASE DISCUSSED WITH WASTE P[employer]ER HAMMERMILL OPERATOR. IMM 03/13 IN ROOM ALONG WITH CONTACT CARD FOR THIS OCCUPATIONAL MEDICINE SPECIALIST. ATTEMPTS WILL BE MADE TO FURTHER DISCUSS WITH PATIENT
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
--- NOTE | 2021-03-13 11:33 | PC.NURSE ---
Skin/Wound assessment completed today. Patient has scabs and scratches from scabies on upper and lower back and left hip. Also has Stage 2 pressure ulcers to coccyx, right buttocks and right heel. Triad applied to pressure ulcers and covered with foam dressings. Patient also has fungal redness under bilateral breast-thin layer of Triad applied under bilateral breast. Lotion applied to back and hips. Patient has contracted legs and arms with limited range of motion in right arm. Patient has lice in hair which is severely matted.
--- NOTE | 2021-03-13 11:47 | MHC.CM.PN ---
THIS INSTRUMENT OPERATOR MET WITH PATIENT TO ASSESS FOR POSSIBLE ABILITY TO ASSIGN A HCP AGENT. PATIENT TELLS THIS INSTRUMENT OPERATOR I FORGOT TO TELL YOU; 2.5 TIMES T/W ASKED 2.5 TIMES WHAT? PATIENT STATES 14 . PATIENT THEN BEGINS REPEATING YES, YES, YES . ATTEMPTS AT CONVERSATION NOT SUCCESSFUL AT THIS TIME. RN HAS INFORMATION FROM [facility] CONTACT, JAIRO BYRNES (WHO IS ALSO PATIENT'S SPOUSE'S CONTACT ) @ [phone] X [phone]. JAIRO WILL FOLLOW UP WITH CASE MANAGEMENT
[2021-03-13 11:49] VITALS: BP 125/56; PULSE 129; RESP 18; TEMP 36.1; O2SAT 100
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
[2021-03-13 13:49] VITALS: BMI 19.1
--- NOTE | 2021-03-13 13:53 | P.EN_ITS ---
Event Note Date of Service: 03/13/21 Event Note: The patient has extensively entangled (matted) hair with lice, nit s dirt that will make not permit effective treatment of lice unless cut, it's in fact medically necessary to cut the hair in order to render appropriate medical care at this time, in her limited capacity she has voiced desire for hair to be cut
--- NOTE | 2021-03-13 13:59 | MHC.CLN ---
RE: CONSULT PT IS SEVERELY MALNOURISHED PT EXPERIENCED SIGNIFICANT 26% WT LOSS X 1 YEAR PT APPEARS CACHEXIC AND HAS SEVERE MUSCLE WASTING OF THE TEMPLES PT IS AT INCREASED NUTRITION RISK R/T THREE STAGE II PRESSURE INJURIES RECOMMEND ENSURE SUPPLEMENT TID TO PROVIDE 1050 KCALS AND 60 GRAMS PROTEIN MONITOR PO INTAKE CLOSELY MONITOR SUPPLEMENT ACCEPTANCE
--- NOTE | 2021-03-13 15:45 | MHC.CM.PN ---
CALL TO HCP [facility] INDUSTRIAL TECHNOLOGY TEACHER, HYDRAULIC JACK OPERATOR OSBALDO VALDEZ @ [phone] REQUEST WAS MADE FOR PERMISSION TO TRIM/CUT PATIENT'S HAIR IN ORDER TO EFFECTIVELY TREAT THE PATIENT. IT WAS EXPLAINED THAT ATTEMPTS TO UNTANGLE HAIR HAVE A POTENTIAL TO CAUSE HARM TO THE PATIENT. HYDRAULIC JACK OPERATOR MADE TWO ATTEMPTS TO CONTACT [facility] (WHO IS INCARCERATED) WITH NO SUCCESS. HYDRAULIC JACK OPERATOR WILL VISIT YEN TOMORROW (03/13/2021) AND NOTIFY YEN OF PLAN TO TREAT
[2021-03-13] MEDS: Permethrin 5 % Cream 60 GM TUBE 1 APPL TOPICAL (16:00)
--- NOTE | 2021-03-13 16:30 | PC.NURSE ---
permetherin cream applied with assistance of clinical coordinater. hair cut with cc assistance. ok to cut per md, prepress manager aware. patient states she feels comfortable with mats removed. cream applied to scalp and body. live lice noted to head with large amount of debris present. hair washed prior to permetherin treatment.
--- NOTE | 2021-03-13 16:56 | MHC.SL.SWA ---
Speech Pathologist Impression: Oral Phase Dysphagia Risk of Aspiration Due to: Dysphasia Diet Status: Liquid Consistency and Strategies for Safe Swallow: Liquid Intake Recommendation: Thin Liquid Intake Strategies: Small Sips No Straws Solid Food Consistency: Dietary Recommendations: Grnd/Mech Altered (NDD2) Additional Modifications to Solid Foods: Oral Medication Intake: Crushed with Puree Compensatory Strategies and Precautions to be Taken for Safe Swallow: Supervision While Eating and Drinking for Safe Swallow: Total Supervision (1:1) Foods to Avoid: Note: Pt. unable to sit at 90 deg. Elevate upper body to level that is tolerated (+45 Deg) during meals. Swallowing Recommended Treatments: Recommendation for Speech: Inpatient Speech Therapy Comment: Follow Pt. to reassess swallow, diet safety, possible advancement of diet Frequency/Duration: Date Range for Service Req: Timeline to reassess: Mimeograph Operator Clinican/Clinical Fellow: No Supervisory Statement: I have reviewed and agree with the student/clinical fellow's documentation: Speech Language Pathologist: Valentina Anderson M.A., CCC-PRODUCTION PLANNER
[2021-03-13 17:23] VITALS: BP 144/66; PULSE 102; RESP 20; TEMP 36.6; O2SAT 100
[2021-03-13] MEDS: 0.9 % Sodium Chloride Flush 3 ML SYRINGE IVFLUSH (18:10)
[2021-03-13] MEDS: Enoxaparin Sodium 40 MG/0.4 ML SYRINGE SUBCUT (18:11)
[2021-03-13] MEDS: cefTRIAXone sodium 1 GM in 0.9 % Sodium Chloride 50 ML IV (18:11)
[2021-03-14] VITALS: BP 153/68; PULSE 113; RESP 18; TEMP 36.6; O2SAT 100
[2021-03-14 04:00] VITALS: BP 154/75; PULSE 101; RESP 18; TEMP 37.1; O2SAT 100
[2021-03-14 07:44] VITALS: BP 157/62; PULSE 116; RESP 17; TEMP 36.6; O2SAT 98
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
[2021-03-14 11:22] VITALS: BP 114/69; PULSE 112; RESP 16; TEMP 36.3; O2SAT 98
[2021-03-14] MEDS: Famotidine 20 MG TABLET PO ×2 (11:23→21:48)
[2021-03-14] MEDS: risperiDONE 0.5 MG TABLET PO (11:23)
[2021-03-14] MEDS: buPROPion HCl XL 150 MG TAB.ER.24H PO (11:24)
--- NOTE | 2021-03-14 14:35 | MHC.SL.DTX ---
Dysphagia Diet modifications: Last documented Solid diet consistencies: Grnd/Mech Altered (NDD2) Last documented Liquid consistency: Thin Last documented Medication Administration: crushed in puree Changes made to current diet?: Yes: Downgrade to NDD1 PUREED solids Liquid Consistency and Strategies: Liquid Intake Recommendation: Thin Compensatory Strategies for Safe Swallow: Small Sips No Straws Compensatory Strategies for Safe Swallow(b): Sitting Upright (90 deg) No Straw Liquids from Cup Small Bites and Sips Alternate Liquids/Solids Solid Food Consistency: Dietary Recommendations: Pureed (NDD1) Oral Medication Intake: Crushed with Puree Strategies and Precautions to be Taken for Safe Swallow: Sitting Upright (90 deg) No Straw Liquids from Cup Small Bites and Sips Alternate Liquids/Solids Supervision While Eating and/Drinking: Total Assistance Foods to Avoid: Note: Pt. unable to sit at 90 deg. Elevate upper body to level that is tolerated (+45 Deg) during meals. Swallowing Recommended Treatments: Compens. Strategy Educat. Level of Impact on: Daily activities: Severe Interpersonal interactions: Community: Severe Prognosis for Improvement: Fair Recommendation for Speech: Inpatient Speech Therapy Comment: 03/14: Pt demonstrated significant oral phase dysphagia given a trial of a small ground piece of cracker moistened in puree. Pt demonstrated an anterior, disorganized mastication pattern that was ineffective in managing the bolus. Pt demonstrated a significantly improved oral phase with the intake of pureed solids. Updated with RN re: recommendation to downgrade to NDD1 PUREED solids. Diet updated in [place] by this A/C TECH. Continue with THIN liquids via tsp/cup sips (NO STRAWS), medications crushed in puree, and aspiration precautions. A/C TECH will continue to follow pt to determine the safest and least restrictive diet consistency. Timber Selector Clinican/Clinical Fellow: No Supervisory Statement: I have reviewed and agree with the student/clinical fellow's documentation: N/A Speech Language Pathologist: Charlee Sin M.A., CCC-A/C TECH
[2021-03-14 15:13] VITALS: BP 113/56; PULSE 107; RESP 14; TEMP 37.1; O2SAT 100
[2021-03-14] MEDS: cefTRIAXone sodium 1 GM in 0.9 % Sodium Chloride 50 ML IV (17:11)
[2021-03-14] MEDS: Gabapentin 300 MG CAPSULE PO ×2 (17:12→21:48)
[2021-03-14] MEDS: Enoxaparin Sodium 40 MG/0.4 ML SYRINGE SUBCUT (19:36)
[2021-03-14 20:00] VITALS: BP 122/53; PULSE 94; RESP 14; TEMP 36.4; O2SAT 100
[2021-03-14] MEDS: Docusate Sodium 100 MG CAPSULE PO (21:48)
[2021-03-15] VITALS: BP 116/55; PULSE 96; RESP 17; TEMP 36.4; O2SAT 99
[2021-03-15] MEDS: Dextrose 5 % and 0.45 % NaCl 1,000 ML 150 ML IVCONT ×4 (00:31→15:43)
[2021-03-15 03:20] VITALS: BP 134/61; PULSE 98; RESP 17; TEMP 36.5; O2SAT 96
[2021-03-15 07:19] VITALS: BP 121/60; PULSE 86; RESP 18; TEMP 36.1; O2SAT 100
[2021-03-15] MEDS: Gabapentin 300 MG CAPSULE PO ×3 (09:26→20:00)
[2021-03-15] MEDS: risperiDONE 0.5 MG TABLET PO (09:26)
[2021-03-15] MEDS: buPROPion HCl XL 150 MG TAB.ER.24H PO (09:27)
[2021-03-15] MEDS: Docusate Sodium 100 MG CAPSULE PO ×2 (09:27→20:00)
[2021-03-15] MEDS: Aspirin Enteric Coated 81 MG TABLET.DR PO (09:27)
[2021-03-15] MEDS: Famotidine 20 MG TABLET PO ×2 (09:27→20:00)
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
[2021-03-15 11:49] VITALS: BP 111/52; PULSE 93; RESP 18; TEMP 36.1; O2SAT 100
--- NOTE | 2021-03-15 14:15 | MHC.CLN ---
Addendum entered by Annamarie Best, JOSE 03/15/21 14:22: agree with provider's assessment below Original Note: F/U PT IS AT INCREASED NUTRITION RISK R/T THREE STAGE II PRESSURE INJURIES PT'S DIET WAS DOWNGRADED TO PUREED (NDD1) PO INTAKE DOCUMENTED 50% X 3 MEALS PT RECEIVING ENSURE SUPPLEMENT TID TO PROVIDE 1050 KCALS AND 60 GRAMS PROTEIN MONITOR PO INTAKE CLOSELY
--- NOTE | 2021-03-15 14:18 | MHC.SL.SWA ---
Speech Pathologist Impression: Oral Phase Dysphagia Risk of Aspiration Due to: Dysphasia Diet Status: Liquid Consistency and Strategies for Safe Swallow: Liquid Intake Recommendation: Thin Liquid Intake Strategies: Small Sips No Straws Solid Food Consistency: Dietary Recommendations: Pureed (NDD1) Additional Modifications to Solid Foods: Oral Medication Intake: Crushed with Puree Compensatory Strategies and Precautions to be Taken for Safe Swallow: Sitting Upright (90 deg) No Straw Liquids from Cup Small Bites and Sips Alternate Liquids/Solids Supervision While Eating and Drinking for Safe Swallow: Total Assistance Foods to Avoid: Note: Pt. unable to sit at 90 deg. Elevate upper body to level that is tolerated (+45 Deg) during meals. Swallowing Recommended Treatments: Compens. Strategy Educat. Recommendation for Speech: Inpatient Speech Therapy Comment: 03/15: Pt demonstrating significant improvement in general orientation, communication this morning. Pt was responsive in conversation, oriented to self, home, circumstances prior to hospitalization. Pt unable to name this hospital, with context clues, able to ID her current location. Pt downgraded to Puree diet 03/14, due to delayed oral phase of swallow. Pt reported eating eggs and sausage puree this morning for breakfast. On trial of cup sip liquid, pt was able to transport cup, have adequate lip closure, took small sip with sufficient swallow, no signs of aspiration. Pt self fed and took puree from spoon, mild delay in oral phase, laryngeal phase WNL. Pt reports that she has had dentures in the past, no dentures currently. Continue on current diet consistencies, re-eval for advancement daily. Frequency/Duration: Date Range for Service Req: Timeline to reassess: Electronics Processing Supervisor Clinican/Clinical Fellow: No Supervisory Statement: I have reviewed and agree with the student/clinical fellow's documentation: N/A Speech Language Pathologist: Charlee Sin M.A., CCC-CLERICAL MANAGER
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
[2021-03-15] MEDS: cefTRIAXone sodium 1 GM in 0.9 % Sodium Chloride 50 ML IV (15:44)
[2021-03-15 16:00] VITALS: BP 127/60; PULSE 92; RESP 16; TEMP 36.1; O2SAT 100
[2021-03-15] MEDS: Enoxaparin Sodium 40 MG/0.4 ML SYRINGE SUBCUT (17:35)
[2021-03-15 19:32] VITALS: BP 139/60; PULSE 98; RESP 16; TEMP 36.7; O2SAT 100
[2021-03-16] VITALS: BP 136/63; PULSE 77; RESP 17; TEMP 36.3; O2SAT 98
[2021-03-16 04:00] VITALS: BP 118/51; PULSE 93; RESP 17; TEMP 36.1; O2SAT 99
[2021-03-16 08:00] VITALS: BP 130/63; PULSE 89; RESP 18; TEMP 36.4; O2SAT 99
[2021-03-16] MEDS: Aspirin Enteric Coated 81 MG TABLET.DR PO (09:12)
[2021-03-16] MEDS: Famotidine 20 MG TABLET PO ×2 (09:12→20:16)
[2021-03-16] MEDS: Gabapentin 300 MG CAPSULE PO ×3 (09:12→20:16)
[2021-03-16] MEDS: buPROPion HCl XL 150 MG TAB.ER.24H PO (09:12)
[2021-03-16] MEDS: risperiDONE 0.5 MG TABLET PO (09:12)
[2021-03-16] MEDS: Docusate Sodium 100 MG CAPSULE PO ×2 (09:12→20:16)
[2021-03-16] MEDS: 0.9 % Sodium Chloride Flush 3 ML SYRINGE IVFLUSH ×2 (09:13→16:50)
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
--- NOTE | 2021-03-16 10:41 | MHC.SLORD ---
Speech Language Pathology Order Status: AUTOMOBILE WASHER STEAM arrived to pt's room as she initially stated she wanted PO intake but then pt requested to lay flat due to leg discomfort. This AUTOMOBILE WASHER STEAM explained aspiration precautions and pt was notified that she could not safely eat/drink while laying flat. Pt then stated she would rather lay flat. This AUTOMOBILE WASHER STEAM re-positioned pt's bed per her wishes. Continue with current diet consistency of NDD1 PUREED solids with THIN liquids. AUTOMOBILE WASHER STEAM will continue to follow pt.
[2021-03-16 12:00] VITALS: BP 138/60; PULSE 104; RESP 18; TEMP 36.2; O2SAT 100
--- NOTE | 2021-03-16 13:47 | MHC.CLN ---
F/U DIET=PUREE WITH THIN LIQUIDS. VARIABLE INTAKE, 0-100%. CONTINUE TO FOLLOW DIET CONSISTENCY THROUGH MEDICAL SCHEDULER. PATIENT WITH THREE STAGE II WOUNDS. CONTINUE ENSURE TID. CONTINUE TO FOLLOW INTAKE AND DIET CONSISTENCY.
[2021-03-16 15:15] VITALS: BP 121/58; PULSE 100; RESP 14; TEMP 36.6; O2SAT 98
[2021-03-16] MEDS: cefTRIAXone sodium 1 GM in 0.9 % Sodium Chloride 50 ML IV (16:49)
[2021-03-16] MEDS: Enoxaparin Sodium 40 MG/0.4 ML SYRINGE SUBCUT (17:27)
[2021-03-16 19:24] VITALS: BP 141/62; PULSE 112; RESP 16; TEMP 36.3; O2SAT 98
[2021-03-17] VITALS: BP 120/58; PULSE 101; RESP 16; TEMP 36.7; O2SAT 98
[2021-03-17] MEDS: 0.9 % Sodium Chloride Flush 3 ML SYRINGE IVFLUSH ×2 (01:45→15:52)
[2021-03-17 04:00] VITALS: BP 152/64; PULSE 70; RESP 16; TEMP 36.8; O2SAT 98
[2021-03-17 08:00] VITALS: BP 143/65; PULSE 92; RESP 18; TEMP 36.9; O2SAT 97
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
[2021-03-17] MEDS: risperiDONE 0.5 MG TABLET PO (09:19)
[2021-03-17] MEDS: Aspirin Enteric Coated 81 MG TABLET.DR PO (09:19)
[2021-03-17] MEDS: buPROPion HCl XL 150 MG TAB.ER.24H PO (09:19)
[2021-03-17] MEDS: Famotidine 20 MG TABLET PO ×2 (09:19→20:10)
[2021-03-17] MEDS: Gabapentin 300 MG CAPSULE PO ×3 (09:20→20:10)
[2021-03-17 11:54] VITALS: BP 122/58; PULSE 96; RESP 18; TEMP 36; O2SAT 98
[2021-03-17] MEDS: cefTRIAXone sodium 1 GM in 0.9 % Sodium Chloride 50 ML IV (15:47)
[2021-03-17 15:59] VITALS: BP 133/56; PULSE 95; RESP 17; TEMP 37.1; O2SAT 100
[2021-03-17] MEDS: Enoxaparin Sodium 40 MG/0.4 ML SYRINGE SUBCUT (18:43)
[2021-03-17 19:50] VITALS: BP 118/48; PULSE 98; RESP 17; TEMP 36.3; O2SAT 97
[2021-03-17] MEDS: Docusate Sodium 100 MG CAPSULE PO (20:10)
[2021-03-18] VITALS: BP 126/54; PULSE 90; TEMP 36.7; O2SAT 98
[2021-03-18] MEDS: 0.9 % Sodium Chloride Flush 3 ML SYRINGE IVFLUSH ×4 (00:36→22:21)
[2021-03-18 04:00] VITALS: BP 92/60; PULSE 70; RESP 18; TEMP 37.1; O2SAT 98
[2021-03-18 08:00] VITALS: BP 110/45; PULSE 87; RESP 18; TEMP 36.4; O2SAT 98
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
[2021-03-18] MEDS: buPROPion HCl XL 150 MG TAB.ER.24H PO (09:41)
[2021-03-18] MEDS: risperiDONE 0.5 MG TABLET PO (09:41)
[2021-03-18] MEDS: Famotidine 20 MG TABLET PO ×2 (09:42→22:21)
[2021-03-18] MEDS: Docusate Sodium 100 MG CAPSULE PO ×2 (09:42→22:21)
[2021-03-18] MEDS: Gabapentin 300 MG CAPSULE PO ×3 (09:42→22:21)
[2021-03-18] MEDS: Aspirin Enteric Coated 81 MG TABLET.DR PO (09:42)
[2021-03-18 11:52] VITALS: BP 111/47; PULSE 95; RESP 18; TEMP 36.3; O2SAT 96
[2021-03-18] MEDS: cefTRIAXone sodium 1 GM in 0.9 % Sodium Chloride 50 ML IV (14:56)
[2021-03-18 15:41] VITALS: BP 103/52; PULSE 98; RESP 17; TEMP 36.6; O2SAT 98
[2021-03-18] MEDS: Enoxaparin Sodium 40 MG/0.4 ML SYRINGE SUBCUT (17:23)
[2021-03-18 19:51] VITALS: BP 109/50; PULSE 104; RESP 17; TEMP 37.6; O2SAT 97
[2021-03-19] VITALS: BP 122/49; PULSE 92; RESP 16; TEMP 36.2; O2SAT 98
[2021-03-19 04:00] VITALS: BP 114/52; PULSE 88; RESP 16; TEMP 36.4; O2SAT 97
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
[2021-03-19 08:00] VITALS: BP 128/60; PULSE 89; RESP 18; TEMP 36.6; O2SAT 98
[2021-03-19] MEDS: Aspirin Enteric Coated 81 MG TABLET.DR PO (10:27)
[2021-03-19] MEDS: Famotidine 20 MG TABLET PO ×2 (10:27→20:55)
[2021-03-19] MEDS: Gabapentin 300 MG CAPSULE PO ×3 (10:27→20:55)
[2021-03-19] MEDS: Docusate Sodium 100 MG CAPSULE PO ×2 (10:27→20:55)
[2021-03-19] MEDS: buPROPion HCl XL 150 MG TAB.ER.24H PO (10:27)
[2021-03-19] MEDS: risperiDONE 0.5 MG TABLET PO (10:27)
[2021-03-19] MEDS: 0.9 % Sodium Chloride Flush 3 ML SYRINGE IVFLUSH ×3 (10:27→20:56)
--- NOTE | 2021-03-19 11:23 | MHC.CLN ---
F/U INTAKE APPEARS GOOD WITH MOST MEALS 50-100%. DIET=PUREED WITH ENSURE TID. ENSURE PROVIDES 1050 KCAL AND 48 G PROTEIN. CONTINUE CURRENT DIET AND SUPPLEMENT.
[2021-03-19 11:48] VITALS: BP 131/56; PULSE 94; RESP 18; TEMP 36.6; O2SAT 99
--- NOTE | 2021-03-19 14:50 | MHC.SLORD ---
Speech Language Pathology Order Status: Attempted to see Pt this a.m., nursing was doing wound care and Pt was unavailable for treatment. Will re-attempt tomorrow a.m.
[2021-03-19 15:52] VITALS: BP 141/64; PULSE 100; RESP 17; TEMP 37.2; O2SAT 98
[2021-03-19] MEDS: cefTRIAXone sodium 1 GM in 0.9 % Sodium Chloride 50 ML IV (16:06)
[2021-03-19] MEDS: Enoxaparin Sodium 40 MG/0.4 ML SYRINGE SUBCUT (17:49)
[2021-03-19 19:43] VITALS: BP 139/48; PULSE 92; RESP 17; TEMP 36.2; O2SAT 99
[2021-03-20] VITALS (7 sets, daily range): BP systolic 95–141; BP diastolic 44–63; PULSE 88–99; RESP 16–18; TEMP 36.2–37.1; O2SAT 94–99
[2021-03-20] MEDS: Aspirin Enteric Coated 81 MG TABLET.DR PO (07:57)
[2021-03-20] MEDS: Docusate Sodium 100 MG CAPSULE PO ×2 (07:57→21:22)
[2021-03-20] MEDS: Famotidine 20 MG TABLET PO ×2 (07:57→21:22)
[2021-03-20] MEDS: Gabapentin 300 MG CAPSULE PO ×3 (07:57→21:22)
[2021-03-20] MEDS: buPROPion HCl XL 150 MG TAB.ER.24H PO (07:58)
[2021-03-20] MEDS: 0.9 % Sodium Chloride Flush 3 ML SYRINGE IVFLUSH ×3 (07:58→21:23)
--- NOTE | 2021-03-20 08:51 | MHC.CM.PN ---
DC plan is to snf when the opportunity presents. cm to cont. to follow.
[2021-03-20] MEDS: risperiDONE 0.5 MG TABLET PO (09:54)
[2021-03-20] MEDS: Acetaminophen 325 MG TABLET 650 MG PO (10:18)
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
[2021-03-20] MEDS: cefTRIAXone sodium 1 GM in 0.9 % Sodium Chloride 50 ML IV (15:39)
--- NOTE | 2021-03-20 15:59 | MHC.SL.SWA ---
Speech Pathologist Impression: Oral Phase Dysphagia Risk of Aspiration Due to: Dysphasia Diet Status: Liquid Consistency and Strategies for Safe Swallow: Liquid Intake Recommendation: Thin Liquid Intake Strategies: Small Sips No Straws Solid Food Consistency: Dietary Recommendations: Pureed (NDD1) Additional Modifications to Solid Foods: Oral Medication Intake: Crushed with Puree Compensatory Strategies and Precautions to be Taken for Safe Swallow: Sitting Upright (90 deg) Liquids from Spoon Alternate Liquids/Solids Supervision While Eating and Drinking for Safe Swallow: Total Supervision (1:1) Foods to Avoid: Swallowing Recommended Treatments: Compens. Strategy Educat. Recommendation for Speech: Inpatient Speech Therapy Comment: 03/20: On trials today, pt independently took small sips from cup with no clinical signs of aspiration, and self fed small amount of puree by spoon under close supervision of PROPERTY OFFICER. Additionally Pt took small amount of softened solid in puree. Pt initiated with maladaptive anterior mastication, but then used rotational chew. Recommend continue to asses management of more advanced solid before advancing diet. Frequency/Duration: Date Range for Service Req: Timeline to reassess: Delinquent Tax Collector Clinican/Clinical Fellow: No Supervisory Statement: I have reviewed and agree with the student/clinical fellow's documentation: N/A Speech Language Pathologist: Valentina Anderson M.A., CCC-PROPERTY OFFICER
[2021-03-20] MEDS: Enoxaparin Sodium 40 MG/0.4 ML SYRINGE SUBCUT (18:22)
[2021-03-21 03:42] VITALS: BP 120/54; PULSE 97; RESP 16; TEMP 36.9; O2SAT 99
[2021-03-21 08:00] VITALS: BP 109/49; PULSE 95; RESP 17; TEMP 36.3; O2SAT 97
[2021-03-21] MEDS: 0.9 % Sodium Chloride Flush 3 ML SYRINGE IVFLUSH ×3 (08:00→23:14)
[2021-03-21] MEDS: buPROPion HCl XL 150 MG TAB.ER.24H PO (08:00)
[2021-03-21] MEDS: Docusate Sodium 100 MG CAPSULE PO ×2 (08:00→23:12)
[2021-03-21] MEDS: Gabapentin 300 MG CAPSULE PO ×3 (08:01→23:12)
[2021-03-21] MEDS: Aspirin Enteric Coated 81 MG TABLET.DR PO (08:01)
[2021-03-21] MEDS: Famotidine 20 MG TABLET PO ×2 (08:01→23:12)
[2021-03-21] MEDS: risperiDONE 0.5 MG TABLET PO (08:01)
--- NOTE | 2021-03-21 10:32 | MHC.SL.DTX ---
Dysphagia Diet modifications: Last documented Solid diet consistencies: Pureed (NDD1) Last documented Liquid consistency: Thin Last documented Medication Administration: crushed in puree Changes made to current diet?: No Liquid Consistency and Strategies: Liquid Intake Recommendation: Thin Compensatory Strategies for Safe Swallow: Small Sips No Straws Compensatory Strategies for Safe Swallow(b): Sitting Upright (90 deg) Liquids from Spoon Alternate Liquids/Solids Solid Food Consistency: Dietary Recommendations: Pureed (NDD1) Additional Modifications to Solids: Oral Medication Intake: Crushed with Puree Strategies and Precautions to be Taken for Safe Swallow: Sitting Upright (90 deg) Liquids from Spoon Alternate Liquids/Solids Supervision While Eating and/Drinking: Total Supervision (1:1) Swallowing Recommended Treatments: Compens. Strategy Educat. Level of Impact on: Daily activities: Severe Community: Severe Prognosis for Improvement: Fair Recommendation for Speech: D/C from as of 03/21. Due to sparse dentition in poor condition resulting in difficulty with bolus management, PUREED solids continue to be recommended. Pt not appropriate for an advancement in her diet consistency at this time. ST is no longer warranted; pt to be discharged from this date. Continue with current diet consistency of NDD1 PUREED solids and THIN liquids. RN notified. Please re-refer if indicated. [employer] Clinican/Clinical Fellow: No Supervisory Statement: I have reviewed and agree with the student/clinical fellow's documentation: N/A Speech Language Pathologist: Charlee Sin M.A., CCC-CONTROLS ENGINEER
--- NOTE | 2021-03-21 11:36 | MHC.CM.PN ---
COMPLETED GUARDIANSHIP FORMS ARE NOW WITH [employer]. AT TIME OF THIS NOTE, NO HEARING DATE HAS BEEN SCHEDULED. NO REFERRALS PLACED AND EFFORTS WILL BE MADE TO PLACE PATIENT WITH SPOUSE IN SAME FACILITY. CASE MANAGEMENT CONTINUING TO FOLLOW
[2021-03-21 12:00] VITALS: BP 108/53; PULSE 99; RESP 16; TEMP 36.8; O2SAT 99
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
--- NOTE | 2021-03-21 12:23 | MHC.CLN ---
F/U INTAKE APPEARS GOOD WITH MOST MEALS 50-100%. DIET=PUREED WITH ENSURE TID. ENSURE PROVIDES 1050 KCAL AND 39 G PROTEIN. SKIN: CONTINUES WITH STAGE II WOUNDS TO RIGHT HEEL, RIGHT BUTTOCK, COCCYX. CONTINUE CURRENT DIET AND SUPPLEMENT.
[2021-03-21] MEDS: Permethrin 5 % Cream 60 GM TUBE 1 APPL TOPICAL (13:53)
[2021-03-21 15:33] VITALS: BP 116/48; PULSE 98; RESP 18; TEMP 36.3; O2SAT 98
[2021-03-21] MEDS: Enoxaparin Sodium 40 MG/0.4 ML SYRINGE SUBCUT (16:40)
[2021-03-21 18:53] VITALS: BP 105/47; PULSE 96; RESP 20; TEMP 36.5; O2SAT 98
[2021-03-22] VITALS (7 sets, daily range): BP systolic 98–131; BP diastolic 50–65; PULSE 94–102; RESP 16–18; TEMP 36.1–37.2; O2SAT 96–99
[2021-03-22] MEDS: Gabapentin 300 MG CAPSULE PO ×3 (09:27→21:49)
[2021-03-22] MEDS: Docusate Sodium 100 MG CAPSULE PO ×2 (09:27→21:49)
[2021-03-22] MEDS: Aspirin Enteric Coated 81 MG TABLET.DR PO (09:27)
[2021-03-22] MEDS: buPROPion HCl XL 150 MG TAB.ER.24H PO (09:27)
[2021-03-22] MEDS: 0.9 % Sodium Chloride Flush 3 ML SYRINGE IVFLUSH ×3 (09:27→21:50)
[2021-03-22] MEDS: Famotidine 20 MG TABLET PO ×2 (09:27→21:49)
[2021-03-22] MEDS: risperiDONE 0.5 MG TABLET PO (09:28)
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
[2021-03-22] MEDS: Acetaminophen 325 MG TABLET 650 MG PO (12:42)
[2021-03-22 12:55] LABS: Creatinine Clr Calc Pharmacy 47.8; Estimated Glomerular Filt Rate > 60
--- NOTE | 2021-03-22 15:40 | MHC.CM.PN ---
COMPLETED CLINICIAN'S AFFIDAVIT TO COMPETENCY AND TREATMENT UPLOADED INTO [employer] AND COPY PLACED ON CHART. ORIGINAL LEFT AT [facility] [place] [facility]OB[facility] DESK FOR ARLENE TOLENTINO. REPRODUCTION ARTIST MADE AWARE.
[2021-03-22] MEDS: Enoxaparin Sodium 40 MG/0.4 ML SYRINGE SUBCUT (17:49)
[2021-03-23] VITALS: BP 122/63; PULSE 93; RESP 16; TEMP 37.1; O2SAT 98
[2021-03-23 03:13] VITALS: BP 132/73; PULSE 103; RESP 15; TEMP 37.1; O2SAT 98
[2021-03-23 07:53] VITALS: BP 100/52; PULSE 97; RESP 16; TEMP 36.2; O2SAT 98
[2021-03-23] MEDS: Gabapentin 300 MG CAPSULE PO ×3 (10:30→21:31)
[2021-03-23] MEDS: buPROPion HCl XL 150 MG TAB.ER.24H PO (10:30)
[2021-03-23] MEDS: Aspirin Enteric Coated 81 MG TABLET.DR PO (10:30)
[2021-03-23] MEDS: risperiDONE 0.5 MG TABLET PO (10:30)
[2021-03-23] MEDS: Famotidine 20 MG TABLET PO ×2 (10:30→21:31)
[2021-03-23] MEDS: 0.9 % Sodium Chloride Flush 3 ML SYRINGE IVFLUSH ×2 (10:31→14:33)
[2021-03-23] MEDS: Acetaminophen 325 MG TABLET 650 MG PO (10:53)
[2021-03-23 11:53] VITALS: BP 111/55; PULSE 91; RESP 16; TEMP 36.1; O2SAT 97
--- NOTE | 2021-03-23 13:05 | P.CDIC_ITS ---
CDI Concurrent Query Documentation Clarification: PHYSICIAN'S DOCUMENTATION REQUEST Date of Query: 03/23/21 1306 Patient Name: Yessenia Villalta Admit Date: 03/12/21 Dear Doctor, A review of the medical record indicates additional documentation may be indicated. Please review below and update the documentation accordingly. Clinical Indicators: Risk Factors/Clinical Indicators/Treatments Per H&P 03/12/21: Decub ulcer--wound consult, frequent turning and appropriate bed Seen by wound nurse 03/19/21 Based on the above, could you please provide, in the Progress Notes, further information regarding the ulcer/wound: * Location of the ulcer/wound, including laterality *Source: National Pressure Ulcer Advisory Panel (NPUAP) Use of terms such as suspected, likely, concern for, or probable (associated with a specific diagnosis that is being evaluated, monitored, or treated as if it exists) are acceptable and can be coded in the inpatient setting, when documented at the time of discharge. Thank you, Divya Montes RN Extension: [phone] Please use your independent medical judgment in providing your response. THIS QUERY IS PART OF THE PERMANENT MEDICAL RECORD Provider Response: Other Other Diagnosis: Right heel pressure ulcer Left coccyx wound
--- NOTE | 2021-03-23 13:13 | MHC.CLN ---
F/U CONTINUES WITH AVERAGE INTAKE AT MEALS APPROXIMATELY 50%. DIET=PUREED WITH ENSURE TID. ENSURE PROVIDES 1050 KCAL AND 39 G PROTEIN. SKIN: CONTINUES WITH STAGE II WOUNDS TO RIGHT HEEL, RIGHT BUTTOCK, COCCYX. CONTINUE CURRENT DIET AND SUPPLEMENT.
--- NOTE | 2021-03-23 13:59 | MHC.CM.PN ---
EMR REVIEWED, PT NO LONGER [facility] INPT LEVEL OF CARE, PT UNABLE TO RETURN HOME D/T NOT BEING ABLE TO CARE FOR SELF AND [facility] ATTY'S HAVE PETITIONED THE COURT ON 03/20/21 FOR TEMPORARY GUARDIANSHIP/CONSERVATORSHIP. ANTIC D/C PLAN WILL ULTIMATELY BE TO LTC ONCE PT HAS LTC PAYOR. CM MET W/PT WHO REPORTS SHE'S FEELING BETTER SINCE BEING ADMITTED, PT REPORTS HER CARE PROVIDER EVELYN INGRAM WAS OVERWHELMED AND SHE DID THE BEST SHE COULD, PT STATES, IT DOESN'T MEAN SHE DOESN'T STILL LOVE ME. PT ALSO REPORTS EVELYN HAS COME IN TO VISIT WHICH PT APPEARS HAPPY ABOUT.
[2021-03-23 15:21] VITALS: BP 110/52; PULSE 88; RESP 14; TEMP 36.3; O2SAT 95
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
[2021-03-23] MEDS: Enoxaparin Sodium 40 MG/0.4 ML SYRINGE SUBCUT (18:30)
[2021-03-23 19:28] VITALS: BP 150/91; PULSE 102; RESP 18; TEMP 36.4; O2SAT 97
[2021-03-23] MEDS: Docusate Sodium 100 MG CAPSULE PO (21:31)
[2021-03-24] VITALS (7 sets, daily range): BP systolic 99–122; BP diastolic 47–69; PULSE 82–103; RESP 16–19; TEMP 35.5–37.2; O2SAT 95–98
[2021-03-24] MEDS: 0.9 % Sodium Chloride Flush 3 ML SYRINGE IVFLUSH ×4 (00:16→21:00)
[2021-03-24] MEDS: risperiDONE 0.5 MG TABLET PO (08:51)
[2021-03-24] MEDS: Famotidine 20 MG TABLET PO ×2 (08:51→21:00)
[2021-03-24] MEDS: Gabapentin 300 MG CAPSULE PO ×3 (08:51→21:00)
[2021-03-24] MEDS: Aspirin Enteric Coated 81 MG TABLET.DR PO (08:51)
[2021-03-24] MEDS: Acetaminophen 325 MG TABLET 650 MG PO (08:51)
[2021-03-24] MEDS: buPROPion HCl XL 150 MG TAB.ER.24H PO (08:51)
[2021-03-24] MEDS: Docusate Sodium 100 MG CAPSULE PO ×2 (08:52→21:00)
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
[2021-03-24] MEDS: Enoxaparin Sodium 40 MG/0.4 ML SYRINGE SUBCUT (17:46)
[2021-03-25 04:00] VITALS: BP 102/47; PULSE 93; RESP 18; TEMP 36.2; O2SAT 97
[2021-03-25 07:04] VITALS: BP 104/58; PULSE 96; RESP 20; TEMP 36; O2SAT 97
[2021-03-25] MEDS: Famotidine 20 MG TABLET PO ×2 (09:07→20:49)
[2021-03-25] MEDS: Aspirin Enteric Coated 81 MG TABLET.DR PO (09:07)
[2021-03-25] MEDS: buPROPion HCl XL 150 MG TAB.ER.24H PO (09:07)
[2021-03-25] MEDS: 0.9 % Sodium Chloride Flush 3 ML SYRINGE IVFLUSH ×3 (09:07→22:47)
[2021-03-25] MEDS: risperiDONE 0.5 MG TABLET PO (09:07)
[2021-03-25] MEDS: Gabapentin 300 MG CAPSULE PO ×3 (09:07→20:49)
[2021-03-25] MEDS: Docusate Sodium 100 MG CAPSULE PO ×2 (09:07→20:49)
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
[2021-03-25 11:58] VITALS: BP 106/48; PULSE 95; RESP 20; TEMP 36.4; O2SAT 97
[2021-03-25 15:13] VITALS: BP 104/60; PULSE 84; RESP 15; TEMP 36.6; O2SAT 97
[2021-03-25] MEDS: Enoxaparin Sodium 40 MG/0.4 ML SYRINGE SUBCUT (18:30)
[2021-03-25 19:20] VITALS: BP 113/50; PULSE 97; RESP 18; TEMP 36.3; O2SAT 98
[2021-03-25 23:46] VITALS: BP 128/57; PULSE 88; TEMP 36.3; O2SAT 93
[2021-03-26 03:36] VITALS: BP 123/54; PULSE 93; RESP 18; TEMP 36.6; O2SAT 95
[2021-03-26 07:33] VITALS: BP 103/57; PULSE 93; RESP 18; TEMP 36.1; O2SAT 97
[2021-03-26] MEDS: Famotidine 20 MG TABLET PO ×2 (08:14→20:03)
[2021-03-26] MEDS: Docusate Sodium 100 MG CAPSULE PO ×2 (08:14→20:03)
[2021-03-26] MEDS: risperiDONE 0.5 MG TABLET PO (08:14)
[2021-03-26] MEDS: Gabapentin 300 MG CAPSULE PO ×3 (08:14→20:03)
[2021-03-26] MEDS: Aspirin Enteric Coated 81 MG TABLET.DR PO (08:14)
[2021-03-26] MEDS: buPROPion HCl XL 150 MG TAB.ER.24H PO (08:14)
[2021-03-26] MEDS: 0.9 % Sodium Chloride Flush 3 ML SYRINGE IVFLUSH ×3 (08:15→23:51)
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
--- NOTE | 2021-03-26 09:40 | MHC.CLN ---
F/U CONTINUES WITH STAGE II WOUNDS TO RIGHT HEEL, RIGHT BUTTOCK, COCCYX. INTAKE AT MEALS VARIABLE, WITH MOST 50-100%. ACCEPTS ENSURE SUPPLEMENT. SUPPLEMENT PROVIDES 1050 KCAL, 39 G PROTEIN. CONTINUE CURRENT DIET AND SUPPLEMENT. RD TO FOLLOW WEEKLY.
[2021-03-26 11:49] VITALS: BP 103/61; PULSE 93; RESP 18; TEMP 36.1; O2SAT 97
[2021-03-26 16:09] VITALS: BP 130/60; PULSE 96; RESP 18; TEMP 36.6; O2SAT 94
[2021-03-26] MEDS: Enoxaparin Sodium 40 MG/0.4 ML SYRINGE SUBCUT (17:30)
[2021-03-26 20:00] VITALS: BP 119/52; PULSE 91; RESP 18; TEMP 36.7; O2SAT 97
[2021-03-26 23:53] VITALS: BP 127/58; PULSE 89; RESP 18; TEMP 36.3; O2SAT 97
[2021-03-27 04:00] VITALS: BP 97/53; PULSE 51; RESP 16; TEMP 36.6; O2SAT 95
[2021-03-27 07:34] VITALS: BP 121/58; PULSE 90; RESP 18; TEMP 36.5; O2SAT 97
[2021-03-27] MEDS: Docusate Sodium 100 MG CAPSULE PO ×2 (10:00→19:38)
[2021-03-27] MEDS: buPROPion HCl XL 150 MG TAB.ER.24H PO (10:00)
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
[2021-03-27] MEDS: risperiDONE 0.5 MG TABLET PO (10:01)
[2021-03-27] MEDS: Famotidine 20 MG TABLET PO ×2 (10:01→19:38)
[2021-03-27] MEDS: Aspirin Enteric Coated 81 MG TABLET.DR PO (10:01)
[2021-03-27] MEDS: Gabapentin 300 MG CAPSULE PO ×3 (10:01→19:38)
[2021-03-27] MEDS: 0.9 % Sodium Chloride Flush 3 ML SYRINGE IVFLUSH ×3 (10:02→19:39)
[2021-03-27 11:46] VITALS: BP 112/55; PULSE 91; RESP 20; TEMP 36.6; O2SAT 96
--- NOTE | 2021-03-27 15:03 | MHC.CM.PN ---
OF THIS NOTE, HEARING DATE FOR GUARDIANSHIP MAY BE OBTAINED THIS WEEK. CASE MANAGEMENT FOLLOWING FOR EVENTUAL PLACEMENT AND WILL UPDATE ONCE COURT DATE IS SECURED
[2021-03-27 15:41] VITALS: BP 123/58; PULSE 85; RESP 16; TEMP 36.4; O2SAT 97
[2021-03-27] MEDS: Enoxaparin Sodium 40 MG/0.4 ML SYRINGE SUBCUT (17:14)
[2021-03-27] MEDS: Melatonin 3 MG TABLET 6 MG PO (19:38)
[2021-03-27 20:00] VITALS: BP 121/56; PULSE 86; RESP 18; TEMP 36.2; O2SAT 95
[2021-03-27 23:42] VITALS: BP 124/58; PULSE 87; RESP 18; TEMP 36.4; O2SAT 98
[2021-03-28 04:00] VITALS: BP 155/57; PULSE 93; RESP 18; TEMP 36.4; O2SAT 97
[2021-03-28 07:17] VITALS: BP 114/59; PULSE 85; RESP 20; TEMP 36.5; O2SAT 100
[2021-03-28] MEDS: risperiDONE 0.5 MG TABLET PO (08:44)
[2021-03-28] MEDS: Docusate Sodium 100 MG CAPSULE PO ×2 (08:44→19:43)
[2021-03-28] MEDS: Aspirin Enteric Coated 81 MG TABLET.DR PO (08:44)
[2021-03-28] MEDS: buPROPion HCl XL 150 MG TAB.ER.24H PO (08:44)
[2021-03-28] MEDS: Gabapentin 300 MG CAPSULE PO ×3 (08:44→19:43)
[2021-03-28] MEDS: 0.9 % Sodium Chloride Flush 3 ML SYRINGE IVFLUSH ×3 (08:44→19:44)
[2021-03-28] MEDS: Famotidine 20 MG TABLET PO ×2 (08:45→19:43)
[2021-03-28 11:23] VITALS: BP 130/60; PULSE 87; RESP 16; TEMP 36.9; O2SAT 97
--- NOTE | 2021-03-28 12:28 | MHC.CM.PN ---
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
[2021-03-28 16:00] VITALS: BP 112/52; PULSE 76; TEMP 36.4; O2SAT 96
[2021-03-28] MEDS: Enoxaparin Sodium 40 MG/0.4 ML SYRINGE SUBCUT (17:43)
[2021-03-28] MEDS: Melatonin 3 MG TABLET 6 MG PO (19:43)
[2021-03-28] MEDS: Acetaminophen 325 MG TABLET 650 MG PO (19:43)
[2021-03-28 23:17] VITALS: BP 117/54; PULSE 89; RESP 16; TEMP 36.7; O2SAT 97
[2021-03-29 03:54] VITALS: BP 102/42; PULSE 87; RESP 16; TEMP 37; O2SAT 97
[2021-03-29 07:27] VITALS: BP 102/48; PULSE 88; RESP 18; TEMP 36.9; O2SAT 94
[2021-03-29] MEDS: 0.9 % Sodium Chloride Flush 3 ML SYRINGE IVFLUSH ×3 (07:57→19:24)
[2021-03-29] MEDS: Gabapentin 300 MG CAPSULE PO ×3 (07:57→19:23)
[2021-03-29] MEDS: buPROPion HCl XL 150 MG TAB.ER.24H PO (07:57)
[2021-03-29] MEDS: risperiDONE 0.5 MG TABLET PO (07:57)
[2021-03-29] MEDS: Aspirin Enteric Coated 81 MG TABLET.DR PO (07:57)
[2021-03-29] MEDS: Famotidine 20 MG TABLET PO ×2 (07:57→19:24)
[2021-03-29] MEDS: Docusate Sodium 100 MG CAPSULE PO ×2 (07:57→19:23)
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
[2021-03-29 11:55] VITALS: BP 118/55; PULSE 91; RESP 17; TEMP 36.2; O2SAT 97
[2021-03-29 15:13] VITALS: BP 105/40; PULSE 97; RESP 16; TEMP 37; O2SAT 96
[2021-03-29] MEDS: Enoxaparin Sodium 40 MG/0.4 ML SYRINGE SUBCUT (17:12)
[2021-03-29] MEDS: Melatonin 3 MG TABLET 6 MG PO (19:24)
[2021-03-29 19:36] VITALS: BP 134/52; PULSE 100; RESP 14; TEMP 36.9; O2SAT 98
[2021-03-29 23:46] VITALS: BP 107/55; PULSE 99; RESP 16; TEMP 36.2; O2SAT 98
[2021-03-30 08:00] VITALS: BP 128/69; PULSE 90; RESP 18; TEMP 36; O2SAT 99
[2021-03-30] MEDS: 0.9 % Sodium Chloride Flush 3 ML SYRINGE IVFLUSH ×3 (09:08→23:52)
[2021-03-30] MEDS: Gabapentin 300 MG CAPSULE PO ×3 (09:08→20:21)
[2021-03-30] MEDS: buPROPion HCl XL 150 MG TAB.ER.24H PO (09:08)
[2021-03-30] MEDS: risperiDONE 0.5 MG TABLET PO (09:09)
[2021-03-30] MEDS: Docusate Sodium 100 MG CAPSULE PO ×2 (09:09→20:20)
[2021-03-30] MEDS: Famotidine 20 MG TABLET PO ×2 (09:09→20:20)
[2021-03-30] MEDS: Aspirin Enteric Coated 81 MG TABLET.DR PO (09:09)
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
[2021-03-30 15:29] VITALS: BP 125/58; PULSE 101; RESP 18; TEMP 36.6; O2SAT 97
--- NOTE | 2021-03-30 16:17 | MHC.CM.PN ---
MOTION FOR SHORT ORDER OF NOTICE SERVED TO PATIENT HEARING TO BE HELD APR 06, 2021 @ 11:00 INFO WRITTEN ON WHITE BOARD
[2021-03-30] MEDS: Enoxaparin Sodium 40 MG/0.4 ML SYRINGE SUBCUT (17:44)
[2021-03-30 23:34] VITALS: BP 109/51; PULSE 90; RESP 19; TEMP 36.2; O2SAT 98
[2021-03-31 08:00] VITALS: BP 106/53; PULSE 85; RESP 18; TEMP 36.1; O2SAT 97
[2021-03-31] MEDS: 0.9 % Sodium Chloride Flush 3 ML SYRINGE IVFLUSH ×3 (08:10→20:25)
[2021-03-31] MEDS: Docusate Sodium 100 MG CAPSULE PO ×2 (08:13→20:25)
[2021-03-31] MEDS: Aspirin Enteric Coated 81 MG TABLET.DR PO (08:13)
[2021-03-31] MEDS: risperiDONE 0.5 MG TABLET PO (08:13)
[2021-03-31] MEDS: buPROPion HCl XL 150 MG TAB.ER.24H PO (08:13)
[2021-03-31] MEDS: Gabapentin 300 MG CAPSULE PO ×3 (08:13→20:25)
[2021-03-31] MEDS: Famotidine 20 MG TABLET PO ×2 (08:13→20:25)
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
[2021-03-31 15:37] VITALS: BP 102/47; PULSE 93; RESP 17; TEMP 36.4; O2SAT 98
[2021-03-31] MEDS: Enoxaparin Sodium 40 MG/0.4 ML SYRINGE SUBCUT (17:45)
[2021-03-31 23:19] VITALS: BP 104/47; PULSE 81; RESP 18; TEMP 35.6; O2SAT 96
[2021-04-01] MEDS: Gabapentin 300 MG CAPSULE PO ×3 (07:55→20:01)
[2021-04-01] MEDS: Docusate Sodium 100 MG CAPSULE PO ×2 (07:55→20:01)
[2021-04-01] MEDS: Famotidine 20 MG TABLET PO ×2 (07:55→20:01)
[2021-04-01] MEDS: Aspirin Enteric Coated 81 MG TABLET.DR PO (07:56)
[2021-04-01] MEDS: buPROPion HCl XL 150 MG TAB.ER.24H PO (07:56)
[2021-04-01] MEDS: Acetaminophen 325 MG TABLET 650 MG PO (07:56)
[2021-04-01] MEDS: risperiDONE 0.5 MG TABLET PO (07:56)
[2021-04-01 08:00] VITALS: BP 106/53; PULSE 82; RESP 18; TEMP 36.1; O2SAT 100
[2021-04-01] MEDS: 0.9 % Sodium Chloride Flush 3 ML SYRINGE IVFLUSH ×3 (08:00→20:02)
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
[2021-04-01 15:25] VITALS: BP 128/60; PULSE 84; RESP 17; TEMP 36.6; O2SAT 98
[2021-04-01] MEDS: Enoxaparin Sodium 40 MG/0.4 ML SYRINGE SUBCUT (17:35)
[2021-04-01 23:34] VITALS: BP 129/63; PULSE 90; RESP 16; TEMP 36.1; O2SAT 98
[2021-04-02 07:30] VITALS: BP 115/56; PULSE 79; RESP 18; TEMP 36.2; O2SAT 100
[2021-04-02] MEDS: Aspirin Enteric Coated 81 MG TABLET.DR PO (08:17)
[2021-04-02] MEDS: Docusate Sodium 100 MG CAPSULE PO ×2 (08:17→20:17)
[2021-04-02] MEDS: risperiDONE 0.5 MG TABLET PO (08:17)
[2021-04-02] MEDS: buPROPion HCl XL 150 MG TAB.ER.24H PO (08:17)
[2021-04-02] MEDS: Famotidine 20 MG TABLET PO ×2 (08:17→20:17)
[2021-04-02] MEDS: Gabapentin 300 MG CAPSULE PO ×3 (08:17→20:17)
[2021-04-02] MEDS: 0.9 % Sodium Chloride Flush 3 ML SYRINGE IVFLUSH ×3 (08:18→23:30)
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
[2021-04-02 15:12] VITALS: BP 110/55; PULSE 76; RESP 18; TEMP 36.4; O2SAT 96
[2021-04-02] MEDS: Enoxaparin Sodium 40 MG/0.4 ML SYRINGE SUBCUT (16:16)
[2021-04-02] MEDS: Melatonin 3 MG TABLET 6 MG PO (20:17)
[2021-04-02 23:52] VITALS: BP 123/60; PULSE 88; RESP 16; TEMP 36.6; O2SAT 100
[2021-04-03 07:09] VITALS: BP 107/57; PULSE 88; RESP 18; TEMP 36; O2SAT 98
[2021-04-03] MEDS: Famotidine 20 MG TABLET PO ×2 (08:10→19:57)
[2021-04-03] MEDS: buPROPion HCl XL 150 MG TAB.ER.24H PO (08:10)
[2021-04-03] MEDS: Aspirin Enteric Coated 81 MG TABLET.DR PO (08:10)
[2021-04-03] MEDS: Docusate Sodium 100 MG CAPSULE PO ×2 (08:10→19:57)
[2021-04-03] MEDS: risperiDONE 0.5 MG TABLET PO (08:11)
[2021-04-03] MEDS: Gabapentin 300 MG CAPSULE PO ×3 (08:11→19:57)
[2021-04-03] MEDS: 0.9 % Sodium Chloride Flush 3 ML SYRINGE IVFLUSH ×3 (08:12→19:57)
--- NOTE | 2021-04-03 09:16 | PC.NURSE ---
Skin/Wound assessment completed today. Patient had pressure ulcer to left knee which is now healed. Patient has stage 2 pressure ulcers to bilateral buttocks, right are still opened but healing left are almost healed. Triad applied covered with foam dressing. Scabbing on body from scabies almost all gone.
--- NOTE | 2021-04-03 11:54 | MHC.CM.PN ---
CALL TO DIANA GUEVARA TO DISCUSS CHOICES FOR PLACEMENT. GOAL WOULD BE TO BE ABLE TO PLACE PATIENT WITH HER SPOUSE AND TO A PLACE THAT IS LOCAL TO [place]. ASSISTANT SPA DIRECTOR IS AGREEABLE TO SNF REFERRALS, NOW PLACED. [facility] FOLLOWING AND WILL PROVIDE UPDATES.
[2021-04-03 15:07] VITALS: BP 133/75; PULSE 90; RESP 18; TEMP 36.5; O2SAT 99
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
[2021-04-03] MEDS: Enoxaparin Sodium 40 MG/0.4 ML SYRINGE SUBCUT (18:14)
[2021-04-03] MEDS: Melatonin 3 MG TABLET 6 MG PO (19:57)
[2021-04-03 23:27] VITALS: BP 111/57; PULSE 89; RESP 17; TEMP 36.9; O2SAT 95
[2021-04-04 07:12] VITALS: BP 133/59; PULSE 89; RESP 18; TEMP 36.7; O2SAT 99
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
[2021-04-04] MEDS: Famotidine 20 MG TABLET PO ×2 (08:11→20:24)
[2021-04-04] MEDS: buPROPion HCl XL 150 MG TAB.ER.24H PO (08:12)
[2021-04-04] MEDS: Gabapentin 300 MG CAPSULE PO ×3 (08:12→20:24)
[2021-04-04] MEDS: Aspirin Enteric Coated 81 MG TABLET.DR PO (08:12)
[2021-04-04] MEDS: Docusate Sodium 100 MG CAPSULE PO ×2 (08:12→20:24)
[2021-04-04] MEDS: risperiDONE 0.5 MG TABLET PO (08:13)
[2021-04-04] MEDS: 0.9 % Sodium Chloride Flush 3 ML SYRINGE IVFLUSH ×3 (08:13→20:24)
--- NOTE | 2021-04-04 10:17 | MHC.IC ---
DISCUSSED WITH RN. PT HAS BEEN TREATED X 2 AND RASH IS IMPROVING. OK TO DISCONTINUE ISOLATION.
[2021-04-04 15:25] VITALS: BP 117/56; PULSE 93; RESP 16; TEMP 37; O2SAT 98
[2021-04-04] MEDS: Enoxaparin Sodium 40 MG/0.4 ML SYRINGE SUBCUT (17:40)
[2021-04-04 23:34] VITALS: BP 122/57; PULSE 96; RESP 17; TEMP 37; O2SAT 99
[2021-04-05 07:28] VITALS: BP 112/50; PULSE 90; RESP 18; TEMP 36; O2SAT 96
[2021-04-05] MEDS: buPROPion HCl XL 150 MG TAB.ER.24H PO (07:49)
[2021-04-05] MEDS: Docusate Sodium 100 MG CAPSULE PO ×2 (07:49→19:32)
[2021-04-05] MEDS: Famotidine 20 MG TABLET PO ×2 (07:49→19:29)
[2021-04-05] MEDS: 0.9 % Sodium Chloride Flush 3 ML SYRINGE IVFLUSH ×2 (07:49→15:26)
[2021-04-05] MEDS: Aspirin Enteric Coated 81 MG TABLET.DR PO (07:49)
[2021-04-05] MEDS: Gabapentin 300 MG CAPSULE PO ×3 (07:49→19:29)
[2021-04-05] MEDS: risperiDONE 0.5 MG TABLET PO (07:49)
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
--- NOTE | 2021-04-05 11:14 | MHC.CM.PN ---
[facility] referrals updated. [facility] no bed. Kelley Workman, and Matt love
[2021-04-05 15:40] VITALS: BP 114/51; PULSE 85; RESP 16; TEMP 36.3; O2SAT 99
[2021-04-05] MEDS: Enoxaparin Sodium 40 MG/0.4 ML SYRINGE SUBCUT (17:15)
[2021-04-05 23:21] VITALS: BP 141/63; PULSE 87; RESP 18; TEMP 36.3; O2SAT 98
[2021-04-06 08:00] VITALS: BP 119/55; PULSE 93; RESP 17; TEMP 36.4; O2SAT 95
[2021-04-06] MEDS: Famotidine 20 MG TABLET PO ×2 (09:11→21:01)
[2021-04-06] MEDS: Docusate Sodium 100 MG CAPSULE PO ×2 (09:11→21:01)
[2021-04-06] MEDS: Aspirin Enteric Coated 81 MG TABLET.DR PO (09:11)
[2021-04-06] MEDS: buPROPion HCl XL 150 MG TAB.ER.24H PO (09:11)
[2021-04-06] MEDS: risperiDONE 0.5 MG TABLET PO (09:11)
[2021-04-06] MEDS: Gabapentin 300 MG CAPSULE PO ×3 (09:11→21:01)
--- NOTE | 2021-04-06 09:50 | MHC.CLN ---
Addendum entered by Lydia Velazco RD 04/06/21 10:19: CHANGED FREQUENCY OF SUPPLEMENT TO BID FROM TID. PROVIDES 700 KCAL, 26 G PROTEIN. Original Note: F/U CONTINUES WITH STAGE II WOUNDS TO RIGHT HEEL AND RIGHT BUTTOCK. REDNESS (STAGE I) TO COCCYX PER WOUND ASSESSMENT. INTAKE AT MEALS VARIABLE, WITH MOST 25-100%. USUALLY ACCEPTS ENSURE SUPPLEMENT, BUT HAS SOME IN ROOM THAT HAS NOT CONSUMED. SUPPLEMENT TID PROVIDES 1050 KCAL, 39 G PROTEIN. CONSIDER ALTERNATIVE SUPPLEMENT IF DOES NOT TAKE. CONTINUE CURRENT DIET AND SUPPLEMENT. RD TO FOLLOW WEEKLY.
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
--- NOTE | 2021-04-06 14:12 | MHC.CM.PN ---
Addendum entered by Ansley Braxton 04/06/21 14:39: [facility] WILL REVIEW [employer] PAPERS PRIOR TO ACCEPTING. ONCE THESE ARE MADE AVAILABLE TO CASE MANAGEMENT, THEY WILL BE UPLOADED TO FACILITY Original Note: COURT HEARING TODAY WITH NO OBJECTIONS. CURRENTLY AWAITING DOCUMENTS. [facility] UPDATED (ONLY FOLLOWING FACILITY AT THIS TIME)
[2021-04-06 15:44] VITALS: BP 115/58; PULSE 87; RESP 16; TEMP 36.4; O2SAT 97
[2021-04-06] MEDS: Enoxaparin Sodium 40 MG/0.4 ML SYRINGE SUBCUT (18:51)
[2021-04-06 23:31] VITALS: BP 111/59; PULSE 85; RESP 16; TEMP 36.7; O2SAT 97
[2021-04-07 07:02] VITALS: BP 117/58; PULSE 87; RESP 14; TEMP 36.2; O2SAT 97
[2021-04-07] MEDS: buPROPion HCl XL 150 MG TAB.ER.24H PO (08:13)
[2021-04-07] MEDS: Famotidine 20 MG TABLET PO ×2 (08:13→19:48)
[2021-04-07] MEDS: Gabapentin 300 MG CAPSULE PO ×3 (08:13→19:48)
[2021-04-07] MEDS: risperiDONE 0.5 MG TABLET PO (08:13)
[2021-04-07] MEDS: Docusate Sodium 100 MG CAPSULE PO ×2 (08:13→19:48)
[2021-04-07] MEDS: Aspirin Enteric Coated 81 MG TABLET.DR PO (08:13)
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
[2021-04-07 15:07] VITALS: BP 118/56; PULSE 96; RESP 18; TEMP 36.2; O2SAT 97
[2021-04-07] MEDS: Enoxaparin Sodium 40 MG/0.4 ML SYRINGE SUBCUT (17:02)
[2021-04-07] MEDS: Melatonin 3 MG TABLET 6 MG PO (19:48)
[2021-04-07 23:31] VITALS: BP 143/65; PULSE 92; RESP 16; TEMP 36.4; O2SAT 98
[2021-04-08 07:03] VITALS: BP 137/63; PULSE 91; RESP 18; TEMP 36.2; O2SAT 98
[2021-04-08] MEDS: buPROPion HCl XL 150 MG TAB.ER.24H PO (07:58)
[2021-04-08] MEDS: Aspirin Enteric Coated 81 MG TABLET.DR PO (07:58)
[2021-04-08] MEDS: Gabapentin 300 MG CAPSULE PO ×3 (07:58→21:05)
[2021-04-08] MEDS: Acetaminophen 325 MG TABLET 650 MG PO (07:58)
[2021-04-08] MEDS: Docusate Sodium 100 MG CAPSULE PO ×2 (07:58→21:05)
[2021-04-08] MEDS: risperiDONE 0.5 MG TABLET PO (07:59)
[2021-04-08] MEDS: Famotidine 20 MG TABLET PO ×2 (07:59→21:05)
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
[2021-04-08 15:14] VITALS: BP 105/45; PULSE 67; RESP 18; TEMP 37; O2SAT 96
[2021-04-08] MEDS: Enoxaparin Sodium 40 MG/0.4 ML SYRINGE SUBCUT (17:56)
[2021-04-08 23:15] VITALS: BP 117/58; PULSE 96; RESP 18; TEMP 36.6; O2SAT 99
[2021-04-09 07:15] VITALS: BP 106/55; PULSE 99; RESP 18; TEMP 36.3; O2SAT 96
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
[2021-04-09] MEDS: buPROPion HCl XL 150 MG TAB.ER.24H PO (09:11)
[2021-04-09] MEDS: Famotidine 20 MG TABLET PO ×2 (09:11→20:39)
[2021-04-09] MEDS: Gabapentin 300 MG CAPSULE PO ×3 (09:11→20:39)
[2021-04-09] MEDS: Aspirin Enteric Coated 81 MG TABLET.DR PO (09:12)
[2021-04-09] MEDS: Docusate Sodium 100 MG CAPSULE PO ×2 (09:12→20:39)
[2021-04-09] MEDS: risperiDONE 0.5 MG TABLET PO (09:12)
[2021-04-09] MEDS: Acetaminophen 325 MG TABLET 650 MG PO ×2 (09:15→19:08)
[2021-04-09 15:20] VITALS: BP 105/61; PULSE 105; RESP 18; TEMP 36.4; O2SAT 95
[2021-04-09] MEDS: Enoxaparin Sodium 40 MG/0.4 ML SYRINGE SUBCUT (18:16)
[2021-04-09 23:39] VITALS: BP 105/44; PULSE 70; RESP 17; TEMP 36.9; O2SAT 97
[2021-04-10 07:16] VITALS: BP 138/65; PULSE 93; RESP 18; TEMP 36.4; O2SAT 98
[2021-04-10] MEDS: buPROPion HCl XL 150 MG TAB.ER.24H PO (08:16)
[2021-04-10] MEDS: Famotidine 20 MG TABLET PO ×2 (08:16→20:19)
[2021-04-10] MEDS: Docusate Sodium 100 MG CAPSULE PO ×2 (08:16→20:19)
[2021-04-10] MEDS: Gabapentin 300 MG CAPSULE PO ×3 (08:17→20:19)
[2021-04-10] MEDS: Aspirin Enteric Coated 81 MG TABLET.DR PO (08:17)
[2021-04-10] MEDS: risperiDONE 0.5 MG TABLET PO (08:17)
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
--- NOTE | 2021-04-10 14:20 | MHC.CM.PN ---
CASE MANAGEMENT AWAITING COURT DOCUMENTS TO UPLOAD TO [facility]. WILL UPDATE WITH PROGRESS
[2021-04-10 15:49] VITALS: BP 121/62; PULSE 105; RESP 18; TEMP 36.8; O2SAT 100
--- NOTE | 2021-04-10 16:30 | MHC.CM.PN ---
GUARDIANSHIP/CONSERVATORSHIP FORMS RECEIVED AND UPLOADED INTO [employer]. REQUEST TO [facility] TO REVIEW FOR POSSIBLE BED OFFER
[2021-04-10] MEDS: Enoxaparin Sodium 40 MG/0.4 ML SYRINGE SUBCUT (17:43)
[2021-04-10 23:38] VITALS: BP 110/52; PULSE 95; RESP 18; TEMP 36.7; O2SAT 98
[2021-04-11 07:25] VITALS: BP 114/53; PULSE 93; RESP 18; TEMP 36.1; O2SAT 98
[2021-04-11] MEDS: buPROPion HCl XL 150 MG TAB.ER.24H PO (08:18)
[2021-04-11] MEDS: Docusate Sodium 100 MG CAPSULE PO ×2 (08:18→19:47)
[2021-04-11] MEDS: Aspirin Enteric Coated 81 MG TABLET.DR PO (08:18)
[2021-04-11] MEDS: Gabapentin 300 MG CAPSULE PO ×3 (08:18→19:47)
[2021-04-11] MEDS: risperiDONE 0.5 MG TABLET PO (08:18)
[2021-04-11] MEDS: Famotidine 20 MG TABLET PO ×2 (08:19→19:47)
--- NOTE | 2021-04-11 09:02 | PC.NURSE ---
Skin/Wound assessment completed today. Patient has stage 2 pressure wounds to sacrum, right heel and left lateral knee. The left lateral knee is almost healed and the right heel is looking much better. The sacrum wound beds are pink with granulation. Looking much better than when patient first came in- no yellow or slough present. Triad applied to all wounds and covered with foam. Scabs on body from scabies and scratches are almost all gone. Patient's skin has improved greatly from admission.
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
[2021-04-11 15:20] VITALS: BP 128/69; PULSE 105; RESP 16; TEMP 36.2; O2SAT 98
[2021-04-11] MEDS: Enoxaparin Sodium 40 MG/0.4 ML SYRINGE SUBCUT (18:22)
[2021-04-11] MEDS: Melatonin 3 MG TABLET 6 MG PO (19:47)
[2021-04-11] MEDS: Acetaminophen 325 MG TABLET 650 MG PO (19:47)
[2021-04-12] VITALS: BP 104/54; PULSE 87; RESP 16; TEMP 36.7; O2SAT 98
[2021-04-12 07:16] VITALS: BP 105/54; PULSE 99; RESP 18; TEMP 36.7; O2SAT 99
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
--- NOTE | 2021-04-12 09:39 | MHC.CM.PN ---
Addendum entered by Ansley Braxton 04/12/21 11:27: PATIENT WILL BE VACCINATED HERE AT [facility] ON 2020 BETWEEN [id number]. PATIENT, RN, UNIT, AND SALES CONTRACT ADMINISTRATOR MADE AWARE. EMERGENCY ROOM NURSE WILL ALSO BE MADE AWARE. PLEASE SEE QR CODE IN GREEN FOLDER ON PATIENT'S CHART. Original Note: CALL TO EMERGENCY ROOM NURSE/GUARDIAN DIANA NI ([phone]) SHE HAS NO OBJECTIONS TO PATIENT RECEIVING COVID VACCINATIONS, LONG PATIENT IS AGREEABLE. PATIENT AWARE OF THE COVID PANDEMIC AND AGREES THAT SHE WOULD LIKE TO BE VACCINATED.
[2021-04-12] MEDS: Famotidine 20 MG TABLET PO ×2 (09:57→19:53)
[2021-04-12] MEDS: risperiDONE 0.5 MG TABLET PO (09:57)
[2021-04-12] MEDS: buPROPion HCl XL 150 MG TAB.ER.24H PO (09:57)
[2021-04-12] MEDS: Docusate Sodium 100 MG CAPSULE PO ×2 (09:57→19:53)
[2021-04-12] MEDS: Gabapentin 300 MG CAPSULE PO ×3 (09:58→19:53)
[2021-04-12] MEDS: Aspirin Enteric Coated 81 MG TABLET.DR PO (09:58)
[2021-04-12 15:05] VITALS: BP 134/62; PULSE 93; RESP 18; TEMP 36.4; O2SAT 99
--- NOTE | 2021-04-12 15:06 | MHC.CM.PN ---
FACE SHEET AND COURT DOCUMENTS FAXED TO [facility] [facility] AT [phone]. REQUEST IS FOR ASSISTANCE WITH LTC APPLICATION. [facility] AND [facility] MADE AWARE
[2021-04-12] MEDS: Acetaminophen 325 MG TABLET 650 MG PO (15:25)
[2021-04-12] MEDS: Enoxaparin Sodium 40 MG/0.4 ML SYRINGE SUBCUT (17:51)
[2021-04-12 23:36] VITALS: BP 119/47; PULSE 98; RESP 17; TEMP 36.8; O2SAT 99
[2021-04-13 07:13] VITALS: BP 121/71; PULSE 100; RESP 18; TEMP 36.6; O2SAT 99
[2021-04-13] MEDS: buPROPion HCl XL 150 MG TAB.ER.24H PO (10:09)
[2021-04-13] MEDS: risperiDONE 0.5 MG TABLET PO (10:09)
[2021-04-13] MEDS: Docusate Sodium 100 MG CAPSULE PO (10:09)
[2021-04-13] MEDS: Aspirin Enteric Coated 81 MG TABLET.DR PO (10:09)
[2021-04-13] MEDS: Famotidine 20 MG TABLET PO ×2 (10:09→21:29)
[2021-04-13] MEDS: Gabapentin 300 MG CAPSULE PO ×3 (10:09→21:29)
[2021-04-13] MEDS: Acetaminophen 325 MG TABLET 650 MG PO (10:14)
--- NOTE | 2021-04-13 13:15 | MHC.CLN ---
F/U CONTINUES WITH STAGE II WOUNDS TO RIGHT HEEL, RIGHT BUTTOCK AND COCCYX STAGE II. INTAKE AT MEALS VARIABLE, WITH 100%. DIET=REGULAR, PUREE. SUPPLEMENT ENSURE BID TO PROVIDE 700 KCAL, 26 G PROTEIN. CONTINUE CURRENT DIET AND SUPPLEMENT. RD TO FOLLOW WEEKLY.
[2021-04-13 15:58] VITALS: BP 117/56; PULSE 83; RESP 16; TEMP 36; O2SAT 97
[2021-04-13] MEDS: Enoxaparin Sodium 40 MG/0.4 ML SYRINGE SUBCUT (18:25)
[2021-04-14] VITALS: BP 122/59; PULSE 70; RESP 16; TEMP 36.1; O2SAT 98
[2021-04-14 07:40] VITALS: BP 128/55; PULSE 87; RESP 18; TEMP 36.2; O2SAT 100
[2021-04-14] MEDS: Gabapentin 300 MG CAPSULE PO ×3 (08:50→20:34)
[2021-04-14] MEDS: Aspirin Enteric Coated 81 MG TABLET.DR PO (08:50)
[2021-04-14] MEDS: Famotidine 20 MG TABLET PO ×2 (08:50→20:34)
[2021-04-14] MEDS: Docusate Sodium 100 MG CAPSULE PO ×2 (08:50→20:34)
[2021-04-14] MEDS: buPROPion HCl XL 150 MG TAB.ER.24H PO (08:50)
[2021-04-14] MEDS: risperiDONE 0.5 MG TABLET PO (08:50)
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
[2021-04-14 15:20] VITALS: BP 99/63; PULSE 96; RESP 16; TEMP 36.7; O2SAT 99
[2021-04-14] MEDS: Enoxaparin Sodium 40 MG/0.4 ML SYRINGE SUBCUT (18:45)
[2021-04-14 23:17] VITALS: BP 116/56; PULSE 98; RESP 18; TEMP 36; O2SAT 100
[2021-04-15 08:00] VITALS: BP 124/58; PULSE 102; RESP 18; TEMP 36.2; O2SAT 98
[2021-04-15] MEDS: risperiDONE 0.5 MG TABLET PO (08:09)
[2021-04-15] MEDS: Gabapentin 300 MG CAPSULE PO ×3 (08:09→19:45)
[2021-04-15] MEDS: Acetaminophen 325 MG TABLET 650 MG PO (08:10)
[2021-04-15] MEDS: Aspirin Enteric Coated 81 MG TABLET.DR PO (08:10)
[2021-04-15] MEDS: Docusate Sodium 100 MG CAPSULE PO ×2 (08:10→19:45)
[2021-04-15] MEDS: buPROPion HCl XL 150 MG TAB.ER.24H PO (08:10)
[2021-04-15] MEDS: Famotidine 20 MG TABLET PO ×2 (08:10→19:45)
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
[2021-04-15 15:11] VITALS: BP 111/57; PULSE 97; RESP 18; TEMP 36.2; O2SAT 97
[2021-04-15] MEDS: Enoxaparin Sodium 40 MG/0.4 ML SYRINGE SUBCUT (17:46)
[2021-04-15 23:33] VITALS: BP 127/60; PULSE 98; RESP 16; TEMP 36.5; O2SAT 97
[2021-04-16 07:19] VITALS: BP 117/56; PULSE 94; RESP 18; TEMP 36.2; O2SAT 97
[2021-04-16] MEDS: Famotidine 20 MG TABLET PO ×2 (08:20→21:21)
[2021-04-16] MEDS: risperiDONE 0.5 MG TABLET PO (08:20)
[2021-04-16] MEDS: Docusate Sodium 100 MG CAPSULE PO ×2 (08:20→21:21)
[2021-04-16] MEDS: Gabapentin 300 MG CAPSULE PO ×3 (08:20→21:21)
[2021-04-16] MEDS: Aspirin Enteric Coated 81 MG TABLET.DR PO (08:20)
[2021-04-16] MEDS: buPROPion HCl XL 150 MG TAB.ER.24H PO (08:20)
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
--- NOTE | 2021-04-16 11:48 | PC.NURSE ---
Wound assessment completed. Patient has 2 small pressure ulcers to left buttock. Wounds she had previously on right buttocks, right heel, left knee and scabs to back are all healed. Heelbos are placed on both feet and pillow between knees. Patient is turned and repositioned q 2 h.
[2021-04-16 15:20] VITALS: BP 136/64; PULSE 90; RESP 17; TEMP 36.3; O2SAT 96
[2021-04-16] MEDS: Enoxaparin Sodium 40 MG/0.4 ML SYRINGE SUBCUT (17:51)
[2021-04-16] MEDS: Acetaminophen 325 MG TABLET 650 MG PO (21:21)
[2021-04-16] MEDS: Melatonin 3 MG TABLET 6 MG PO (21:21)
[2021-04-16 23:52] VITALS: BP 110/52; PULSE 85; RESP 18; TEMP 36.1; O2SAT 97
[2021-04-17 07:19] VITALS: BP 111/55; PULSE 91; RESP 17; TEMP 36.1; O2SAT 98
[2021-04-17] MEDS: Docusate Sodium 100 MG CAPSULE PO ×2 (09:59→19:55)
[2021-04-17] MEDS: Gabapentin 300 MG CAPSULE PO ×3 (09:59→19:55)
[2021-04-17] MEDS: risperiDONE 0.5 MG TABLET PO (10:00)
[2021-04-17] MEDS: Famotidine 20 MG TABLET PO ×2 (10:00→19:55)
[2021-04-17] MEDS: Aspirin Enteric Coated 81 MG TABLET.DR PO (10:00)
[2021-04-17] MEDS: buPROPion HCl XL 150 MG TAB.ER.24H PO (10:00)
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
[2021-04-17 15:29] VITALS: BP 115/57; PULSE 88; RESP 16; TEMP 36.4; O2SAT 99
[2021-04-17] MEDS: Enoxaparin Sodium 40 MG/0.4 ML SYRINGE SUBCUT (17:53)
[2021-04-18] VITALS: BP 138/74; PULSE 96; RESP 18; TEMP 36.6; O2SAT 96
[2021-04-18 07:47] VITALS: BP 109/55; PULSE 97; RESP 17; TEMP 36.1; O2SAT 100
[2021-04-18] MEDS: Famotidine 20 MG TABLET PO ×2 (09:36→19:57)
[2021-04-18] MEDS: buPROPion HCl XL 150 MG TAB.ER.24H PO (09:36)
[2021-04-18] MEDS: risperiDONE 0.5 MG TABLET PO (09:36)
[2021-04-18] MEDS: Docusate Sodium 100 MG CAPSULE PO ×2 (09:36→19:57)
[2021-04-18] MEDS: Gabapentin 300 MG CAPSULE PO ×3 (09:36→19:57)
[2021-04-18] MEDS: Aspirin Enteric Coated 81 MG TABLET.DR PO (09:37)
--- NOTE | 2021-04-18 11:24 | MHC.CM.PN ---
LTC remains the goal for dc; CM Administration is involved with financial barriers(needs [facility]) to dc. CM will follow.
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
[2021-04-18 15:28] VITALS: BP 122/67; PULSE 106; RESP 16; TEMP 37.3; O2SAT 97
[2021-04-18] MEDS: Enoxaparin Sodium 40 MG/0.4 ML SYRINGE SUBCUT (19:56)
[2021-04-18 23:21] VITALS: BP 124/58; PULSE 106; RESP 18; TEMP 37.2; O2SAT 98
[2021-04-19 07:16] VITALS: BP 100/52; PULSE 102; RESP 17; TEMP 36.5; O2SAT 98
[2021-04-19] MEDS: buPROPion HCl XL 150 MG TAB.ER.24H PO (09:32)
[2021-04-19] MEDS: Famotidine 20 MG TABLET PO ×2 (09:32→20:41)
[2021-04-19] MEDS: Gabapentin 300 MG CAPSULE PO ×3 (09:33→20:41)
[2021-04-19] MEDS: Docusate Sodium 100 MG CAPSULE PO ×2 (09:33→20:41)
[2021-04-19] MEDS: risperiDONE 0.5 MG TABLET PO (09:33)
[2021-04-19] MEDS: Aspirin Enteric Coated 81 MG TABLET.DR PO (09:33)
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
[2021-04-19 15:23] VITALS: BP 102/46; PULSE 99; RESP 18; TEMP 38.3; O2SAT 99
[2021-04-19] MEDS: Acetaminophen 325 MG TABLET 650 MG PO (16:17)
[2021-04-19 17:07] LABS: Hematocrit 30.7 % (37.0-47.0); Hemoglobin 10.2 g/dl (12.0-16.0); Mean Corpuscular HGB Conc 33.2 g/dl (31.0-35.0); Mean Corpuscular Hemoglobin 30.7 pg (27.0-33.0); Mean Corpuscular Volume 92.5 fL (80.0-98.0); Mean Platelet Volume 8.8 fL (9.4-12.3); Platelet Count 281 X10*3/uL (160-400); Red Blood Count 3.32 X10*6/uL (4.20-5.50); Red Cell Distribution Width 15.8 % (11.0-16.0); White Blood Count 10.6 X10*3/uL (4.8-10.8)
[2021-04-19 17:29] LABS: Anion Gap 15 (12-20); Blood Urea Nitrogen 17 mg/dL (9-16); Calcium 9.3 mg/dL (8.4-10.2); Carbon Dioxide 23 mmol/L (22-29); Chloride 101 mmol/L (96-108); Creatinine Clr Calc Pharmacy 32.6; Estimated Glomerular Filt Rate 48; Glucose Random 148 mg/dL (60-115); Potassium 4.3 mmol/L (3.3-5.1); Sodium 135 mmol/L (135-145)
[2021-04-19] MEDS: 0.9 % Sodium Chloride 1,000 ML 100 ML IVCONT (17:51)
[2021-04-19 17:57] LABS: Adenovirus PCR Not Detected (Not Detect.); Bordetella parapertussis PCR Not Detected (Not Detect.); Bordetella pertussis PCR Not Detected (Not Detect.); Chlamydia pneumoniae PCR Not Detected (Not Detect.); Coronavirus 229E PCR Not Detected (Not Detect.); Coronavirus HKU1 PCR Not Detected (Not Detect.); Coronavirus NL63 PCR Not Detected (Not Detect.); Coronavirus OC43 PCR Not Detected (Not Detect.); Human metapneumovirus PCR Not Detected (Not Detect.); Influenza A PCR Not Detected (Not Detect.); Influenza B PCR Not Detected (Not Detect.); Mycoplasma pneumoniae PCR Not Detected (Not Detect.); Parainfluenza 1 PCR Not Detected (Not Detect.); Parainfluenza 2 PCR Not Detected (Not Detect.); Parainfluenza 3 PCR Not Detected (Not Detect.); Parainfluenza 4 PCR Not Detected (Not Detect.); RSV PCR Not Detected (Not Detect.); Rhino/Enterovirus PCR Not Detected (Not Detect.); SARS-CoV-2 PCR Not Detected (Not Detect.)
[2021-04-19 18:01] LABS: Appearance Urine HAZY; Color Urine YELLOW; Glucose Urine UA NEG (NEG); Leukocyte Esterase Urine 3+ (NEG); Nitrite Urine POS (NEG); Specific Gravity - Urine 1.015 (1.005-1.025); Urine Blood 3+ (NEG); Urine Ketones NEG (NEG); Urine Protein 1+ MG/DL (NEG-TRACE)
[2021-04-19 18:09] LABS: Bacteria Urine 2+ /LPF; Squamous Epithelial Cell Urine 1+ /LPF; WBC Urine 50-75 /HPF (0-4)
[2021-04-19] MEDS: Enoxaparin Sodium 40 MG/0.4 ML SYRINGE SUBCUT (18:35)
[2021-04-19 18:49] LABS: Lactic Acid 2.9 mmol/L (0.5-2.0)
[2021-04-19] MEDS: SODIUM CHLORIDE 1377 ML IV (19:28)
[2021-04-19 20:13] LABS: Reflex Lactate? Lactic Acid Added
[2021-04-19] MEDS: cefTRIAXone sodium 1 GM in 0.9 % Sodium Chloride 50 ML IV (20:41)
[2021-04-19 20:46] LABS: ~Lactic Acid-LAB USE ONLY 0.7 mmol/L (0.5-2.0)
[2021-04-20] VITALS: BP 100/45; PULSE 106; RESP 18; TEMP 38.4; O2SAT 99
[2021-04-20] MEDS: Acetaminophen 325 MG TABLET 650 MG PO ×2 (01:49→18:07)
[2021-04-20 04:01] VITALS: BP 98/50; PULSE 97; RESP 16; TEMP 37.1; O2SAT 95
[2021-04-20] MEDS: 0.9 % Sodium Chloride 1,000 ML 100 ML IVCONT ×3 (04:22→22:32)
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
[2021-04-20 08:00] VITALS: BP 118/58; PULSE 91; RESP 17; TEMP 37.4; O2SAT 95
[2021-04-20] MEDS: Docusate Sodium 100 MG CAPSULE PO ×2 (10:34→19:39)
[2021-04-20] MEDS: Aspirin Enteric Coated 81 MG TABLET.DR PO (10:34)
[2021-04-20] MEDS: Gabapentin 300 MG CAPSULE PO ×3 (10:34→19:39)
[2021-04-20] MEDS: risperiDONE 0.5 MG TABLET PO (10:34)
[2021-04-20] MEDS: Famotidine 20 MG TABLET PO ×2 (10:35→19:39)
[2021-04-20] MEDS: buPROPion HCl XL 150 MG TAB.ER.24H PO (10:35)
--- NOTE | 2021-04-20 14:09 | MHC.CLN ---
F/U TWO SMALL STAGE II WOUNDS TO LEFT BUTTOCK. OTHER WOUNDS HEALED. INTAKE AT MEALS VARIABLE, 25-100%. DIET=REGULAR, PUREE. SUPPLEMENT ENSURE BID TO PROVIDE 700 KCAL, 26 G PROTEIN. CONTINUE CURRENT DIET AND SUPPLEMENT. RD TO FOLLOW WEEKLY.
[2021-04-20 15:10] VITALS: BP 107/73; PULSE 95; RESP 17; TEMP 37.1; O2SAT 96
[2021-04-20] MEDS: Enoxaparin Sodium 40 MG/0.4 ML SYRINGE SUBCUT (18:08)
[2021-04-20] MEDS: cefTRIAXone sodium 1 GM in 0.9 % Sodium Chloride 50 ML IV (18:13)
[2021-04-20 23:32] VITALS: BP 139/64; PULSE 93; RESP 18; TEMP 36.8; O2SAT 99
[2021-04-21 06:58] VITALS: BP 118/58; PULSE 92; RESP 18; TEMP 37.1; O2SAT 97
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
[2021-04-21] MEDS: buPROPion HCl XL 150 MG TAB.ER.24H PO (12:07)
[2021-04-21] MEDS: Aspirin Enteric Coated 81 MG TABLET.DR PO (12:07)
[2021-04-21] MEDS: risperiDONE 0.5 MG TABLET PO (12:07)
[2021-04-21] MEDS: Docusate Sodium 100 MG CAPSULE PO ×2 (12:07→23:07)
[2021-04-21] MEDS: Gabapentin 300 MG CAPSULE PO ×2 (12:07→23:07)
[2021-04-21] MEDS: Famotidine 20 MG TABLET PO ×2 (12:07→23:07)
[2021-04-21] MEDS: 0.9 % Sodium Chloride 1,000 ML 100 ML IVCONT ×2 (12:07→23:06)
[2021-04-21 14:52] VITALS: BP 143/61; PULSE 106; RESP 16; TEMP 36.3; O2SAT 97
[2021-04-21] MEDS: 0.9 % Sodium Chloride Flush 3 ML SYRINGE IVFLUSH (17:11)
[2021-04-21] MEDS: cefTRIAXone sodium 1 GM in 0.9 % Sodium Chloride 50 ML IV (18:11)
[2021-04-21] MEDS: Enoxaparin Sodium 40 MG/0.4 ML SYRINGE SUBCUT (18:12)
[2021-04-21] MEDS: Melatonin 3 MG TABLET 6 MG PO (23:07)
[2021-04-21] MEDS: Acetaminophen 325 MG TABLET 650 MG PO (23:07)
[2021-04-21 23:24] VITALS: BP 142/65; PULSE 87; RESP 18; TEMP 37.1; O2SAT 100
[2021-04-22 07:31] VITALS: BP 149/66; PULSE 82; RESP 18; TEMP 36.3; O2SAT 99
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
[2021-04-22 08:22] LABS: Anion Gap 11 (12-20); Blood Urea Nitrogen 5 mg/dL (9-16); Calcium 8.9 mg/dL (8.4-10.2); Carbon Dioxide 23 mmol/L (22-29); Chloride 112 mmol/L (96-108); Creatinine Clr Calc Pharmacy 54.1; Estimated Glomerular Filt Rate > 60; Glucose Random 113 mg/dL (60-115); Potassium 3.4 mmol/L (3.3-5.1); Sodium 143 mmol/L (135-145)
[2021-04-22] MEDS: risperiDONE 0.5 MG TABLET PO (08:32)
[2021-04-22] MEDS: Aspirin Enteric Coated 81 MG TABLET.DR PO (08:32)
[2021-04-22] MEDS: Famotidine 20 MG TABLET PO ×2 (08:32→20:17)
[2021-04-22] MEDS: Docusate Sodium 100 MG CAPSULE PO ×2 (08:32→20:16)
[2021-04-22] MEDS: Gabapentin 300 MG CAPSULE PO ×3 (08:32→20:17)
[2021-04-22] MEDS: buPROPion HCl XL 150 MG TAB.ER.24H PO (08:32)
[2021-04-22] MEDS: 0.9 % Sodium Chloride 1,000 ML 100 ML IVCONT (11:55)
--- NOTE | 2021-04-22 15:33 | MHC.CM.PN ---
PLAN IS FOR COVID VACCINE TOMORROW NECESSARY PAPERWORK IS ON CHART
[2021-04-22 15:51] VITALS: BP 144/60; PULSE 69; RESP 19; TEMP 37.1; O2SAT 98
[2021-04-22] MEDS: Enoxaparin Sodium 40 MG/0.4 ML SYRINGE SUBCUT (18:22)
[2021-04-22] MEDS: cefTRIAXone sodium 1 GM in 0.9 % Sodium Chloride 50 ML IV (18:22)
[2021-04-22 23:47] VITALS: BP 133/62; PULSE 89; RESP 18; TEMP 36.8; O2SAT 100
[2021-04-23] MEDS: Gabapentin 300 MG CAPSULE PO ×3 (07:35→20:49)
[2021-04-23] MEDS: Famotidine 20 MG TABLET PO ×2 (07:35→20:49)
[2021-04-23] MEDS: Aspirin Enteric Coated 81 MG TABLET.DR PO (07:35)
[2021-04-23] MEDS: buPROPion HCl XL 150 MG TAB.ER.24H PO (07:36)
[2021-04-23] MEDS: risperiDONE 0.5 MG TABLET PO (07:36)
[2021-04-23] MEDS: Docusate Sodium 100 MG CAPSULE PO ×2 (07:36→20:49)
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
[2021-04-23] MEDS: 0.9 % Sodium Chloride Flush 3 ML SYRINGE IVFLUSH ×3 (07:53→20:49)
[2021-04-23 08:00] VITALS: BP 143/94; PULSE 109; RESP 18; TEMP 36.6; O2SAT 98
--- NOTE | 2021-04-23 12:19 | PC.NURSE ---
[facility] of Public Health ([facility]) her to give Covid Vaccine. Received Pfizer. Second dose is due May 21 2021. If still inpatient please call [phone] to set up time for vaccine. If patient discharged to LTC before please send information with them.
--- NOTE | 2021-04-23 15:25 | MHC.CM.PN ---
EMR REVIEWED, PT NO LONGER MEETING CRITERIA FOR INPT LOC, PT RECEIVED 1ST PFIZER VACCINE TODAY AND DETAILS IN NOTE TO ARRANGE FOR 2ND DOSE THAT IS DUE May, CM STILL AWAITING FOR GUARDIAN/CONSERVATOR TO RESOLVE FINANCIALS AND COMPLETE [facility] FOR LTC FORM, SNF 'S DECLINING TO TAKE PT UNTIL LTC PAYOR IN PLACE.
[2021-04-23 15:26] VITALS: BP 169/71; PULSE 102; RESP 16; TEMP 36.6; O2SAT 100
[2021-04-23] MEDS: Enoxaparin Sodium 40 MG/0.4 ML SYRINGE SUBCUT (17:51)
[2021-04-23] MEDS: cefTRIAXone sodium 1 GM in 0.9 % Sodium Chloride 50 ML IV (17:51)
[2021-04-23 23:17] VITALS: BP 139/63; PULSE 94; RESP 18; TEMP 36.6; O2SAT 94
[2021-04-24 08:00] VITALS: BP 131/50; PULSE 113; RESP 18; TEMP 37.4; O2SAT 97
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
[2021-04-24] MEDS: Gabapentin 300 MG CAPSULE PO ×3 (10:23→21:17)
[2021-04-24] MEDS: Famotidine 20 MG TABLET PO ×2 (10:23→21:17)
[2021-04-24] MEDS: 0.9 % Sodium Chloride Flush 3 ML SYRINGE IVFLUSH ×2 (10:23→15:31)
[2021-04-24] MEDS: risperiDONE 0.5 MG TABLET PO (10:24)
[2021-04-24] MEDS: buPROPion HCl XL 150 MG TAB.ER.24H PO (10:24)
[2021-04-24] MEDS: Docusate Sodium 100 MG CAPSULE PO ×2 (10:24→21:16)
[2021-04-24] MEDS: Aspirin Enteric Coated 81 MG TABLET.DR PO (10:24)
[2021-04-24 15:34] VITALS: BP 119/58; PULSE 96; RESP 18; TEMP 36.9; O2SAT 99
[2021-04-24] MEDS: Enoxaparin Sodium 40 MG/0.4 ML SYRINGE SUBCUT (19:20)
[2021-04-24] MEDS: cefTRIAXone sodium 1 GM in 0.9 % Sodium Chloride 50 ML IV (19:21)
[2021-04-24 23:21] VITALS: BP 124/49; PULSE 97; RESP 18; TEMP 36.7; O2SAT 99
[2021-04-25] MEDS: 0.9 % Sodium Chloride Flush 3 ML SYRINGE IVFLUSH ×3 (01:56→15:27)
[2021-04-25 07:06] VITALS: BP 100/42; PULSE 92; RESP 16; TEMP 36.1; O2SAT 98
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
[2021-04-25] MEDS: Gabapentin 300 MG CAPSULE PO ×3 (10:40→20:25)
[2021-04-25] MEDS: Aspirin Enteric Coated 81 MG TABLET.DR PO (10:41)
[2021-04-25] MEDS: Docusate Sodium 100 MG CAPSULE PO ×2 (10:41→20:26)
[2021-04-25] MEDS: risperiDONE 0.5 MG TABLET PO (10:41)
[2021-04-25] MEDS: buPROPion HCl XL 150 MG TAB.ER.24H PO (10:42)
[2021-04-25] MEDS: Famotidine 20 MG TABLET PO ×2 (10:42→20:25)
--- NOTE | 2021-04-25 12:45 | MHC.CM.PN ---
EMR REVIEWED, PT NOT [facility] INP LOC, PT REPORTS TO THIS CM SHE HAS HAD NO SIDE AFFECTS OR RX TO THE FIRST PFIZER VACCINE SHE HAD ON 04/23/21 AND STATES I FEEL FINE. CM IS STILL AWAITING FINANCIALS AND Ornicept LY=TC [facility] TO BE COMPLETE, PLAN CONT'S TO BE LTC ONCE PAYOR IS IN PLACE.
[2021-04-25 15:15] VITALS: BP 117/56; PULSE 93; RESP 18; TEMP 36.5; O2SAT 98
[2021-04-25] MEDS: Enoxaparin Sodium 40 MG/0.4 ML SYRINGE SUBCUT (18:22)
[2021-04-25] MEDS: cefTRIAXone sodium 1 GM in 0.9 % Sodium Chloride 50 ML IV (18:23)
[2021-04-25 23:26] VITALS: BP 121/57; PULSE 93; RESP 18; TEMP 36.2; O2SAT 98
[2021-04-26] MEDS: 0.9 % Sodium Chloride Flush 3 ML SYRINGE IVFLUSH ×4 (00:10→21:16)
[2021-04-26 07:02] VITALS: BP 117/56; PULSE 96; RESP 15; TEMP 36.4; O2SAT 97
[2021-04-26] MEDS: Acetaminophen 325 MG TABLET 650 MG PO (08:43)
[2021-04-26] MEDS: risperiDONE 0.5 MG TABLET PO (08:44)
[2021-04-26] MEDS: Famotidine 20 MG TABLET PO ×2 (08:44→21:15)
[2021-04-26] MEDS: buPROPion HCl XL 150 MG TAB.ER.24H PO (08:44)
[2021-04-26] MEDS: Gabapentin 300 MG CAPSULE PO ×3 (08:44→21:16)
[2021-04-26] MEDS: Docusate Sodium 100 MG CAPSULE PO ×2 (08:44→21:15)
[2021-04-26] MEDS: Aspirin Enteric Coated 81 MG TABLET.DR PO (08:44)
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
[2021-04-26 11:27] VITALS: BP 140/66; PULSE 101; RESP 18; TEMP 36.2; O2SAT 96
[2021-04-26 15:21] VITALS: BP 111/53; PULSE 91; RESP 18; TEMP 36.4; O2SAT 98
[2021-04-26] MEDS: Enoxaparin Sodium 40 MG/0.4 ML SYRINGE SUBCUT (17:47)
[2021-04-26] MEDS: cefTRIAXone sodium 1 GM in 0.9 % Sodium Chloride 50 ML IV (17:47)
[2021-04-26 23:31] VITALS: BP 137/61; PULSE 99; RESP 18; TEMP 36.2; O2SAT 98
[2021-04-27 07:30] VITALS: BP 118/58; PULSE 85; RESP 18; TEMP 36.2; O2SAT 97
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
[2021-04-27] MEDS: Aspirin Enteric Coated 81 MG TABLET.DR PO (09:10)
[2021-04-27] MEDS: risperiDONE 0.5 MG TABLET PO (09:10)
[2021-04-27] MEDS: Gabapentin 300 MG CAPSULE PO ×3 (09:10→22:52)
[2021-04-27] MEDS: 0.9 % Sodium Chloride Flush 3 ML SYRINGE IVFLUSH ×3 (09:10→23:08)
[2021-04-27] MEDS: buPROPion HCl XL 150 MG TAB.ER.24H PO (09:10)
[2021-04-27] MEDS: Docusate Sodium 100 MG CAPSULE PO ×2 (09:10→22:52)
[2021-04-27] MEDS: Famotidine 20 MG TABLET PO ×2 (09:10→22:52)
--- NOTE | 2021-04-27 12:18 | MHC.CLN ---
F/U STAGE II WOUND TO LEFT BUTTOCK. OTHER WOUNDS HEALED. INTAKE AT MEALS VARIABLE, 25-100%. DIET=REGULAR, PUREE. SUPPLEMENT ENSURE BID TO PROVIDE 700 KCAL, 26 G PROTEIN. CONTINUE CURRENT DIET AND SUPPLEMENT. RD TO FOLLOW WEEKLY.
[2021-04-27 14:59] VITALS: BP 126/60; PULSE 69; RESP 20; TEMP 36.1; O2SAT 99
[2021-04-27] MEDS: Enoxaparin Sodium 40 MG/0.4 ML SYRINGE SUBCUT (17:25)
[2021-04-27 18:56] VITALS: BP 125/60; PULSE 100; RESP 20; TEMP 36.7; O2SAT 100
[2021-04-27] MEDS: Acetaminophen 325 MG TABLET 650 MG PO (22:52)
[2021-04-27] MEDS: Melatonin 3 MG TABLET 6 MG PO (22:52)
[2021-04-28] VITALS: BP 115/53; PULSE 86; RESP 17; TEMP 36.7; O2SAT 100
[2021-04-28 07:11] VITALS: BP 125/57; PULSE 90; RESP 16; TEMP 36.4; O2SAT 98
[2021-04-28] MEDS: Gabapentin 300 MG CAPSULE PO ×3 (07:47→19:57)
[2021-04-28] MEDS: Aspirin Enteric Coated 81 MG TABLET.DR PO (07:47)
[2021-04-28] MEDS: Docusate Sodium 100 MG CAPSULE PO ×2 (07:47→19:57)
[2021-04-28] MEDS: risperiDONE 0.5 MG TABLET PO (07:47)
[2021-04-28] MEDS: Famotidine 20 MG TABLET PO ×2 (07:47→19:57)
[2021-04-28] MEDS: buPROPion HCl XL 150 MG TAB.ER.24H PO (07:47)
[2021-04-28] MEDS: 0.9 % Sodium Chloride Flush 3 ML SYRINGE IVFLUSH ×3 (07:48→19:57)
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
[2021-04-28 15:09] VITALS: BP 125/59; PULSE 96; RESP 18; TEMP 36.4; O2SAT 99
[2021-04-28] MEDS: Enoxaparin Sodium 40 MG/0.4 ML SYRINGE SUBCUT (18:41)
[2021-04-29] VITALS: BP 108/58; PULSE 91; RESP 18; TEMP 36.4; O2SAT 97
[2021-04-29 07:15] LABS: Hematocrit 33.7 % (37.0-47.0); Mean Corpuscular HGB Conc 32.6 g/dl (31.0-35.0); Mean Corpuscular Hemoglobin 30.3 pg (27.0-33.0); Mean Corpuscular Volume 92.8 fL (80.0-98.0); Mean Platelet Volume 8.5 fL (9.4-12.3); Platelet Count 567 X10*3/uL (160-400); Red Blood Count 3.63 X10*6/uL (4.20-5.50); White Blood Count 6.7 X10*3/uL (4.8-10.8)
[2021-04-29 07:19] LABS: Anion Gap 12 (12-20); Blood Urea Nitrogen 11 mg/dL (9-16); Calcium 10.2 mg/dL (8.4-10.2); Carbon Dioxide 27 mmol/L (22-29); Chloride 101 mmol/L (96-108); Creatinine Clr Calc Pharmacy 44.8; Estimated Glomerular Filt Rate > 60; Glucose Random 107 mg/dL (60-115); Potassium 4.2 mmol/L (3.3-5.1); Sodium 136 mmol/L (135-145)
[2021-04-29 07:33] VITALS: BP 117/57; PULSE 98; RESP 18; TEMP 36.4; O2SAT 97
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
[2021-04-29] MEDS: Docusate Sodium 100 MG CAPSULE PO ×2 (10:36→20:08)
[2021-04-29] MEDS: 0.9 % Sodium Chloride Flush 3 ML SYRINGE IVFLUSH ×3 (10:36→20:08)
[2021-04-29] MEDS: Aspirin Enteric Coated 81 MG TABLET.DR PO (10:36)
[2021-04-29] MEDS: Famotidine 20 MG TABLET PO ×2 (10:36→20:08)
[2021-04-29] MEDS: buPROPion HCl XL 150 MG TAB.ER.24H PO (10:36)
[2021-04-29] MEDS: risperiDONE 0.5 MG TABLET PO (10:36)
[2021-04-29] MEDS: Gabapentin 300 MG CAPSULE PO ×3 (10:36→20:08)
--- NOTE | 2021-04-29 13:36 | MHC.CM.PN ---
CASE MANAGEMENT AWAITING TO HEAR IF FINANCIALS ARE COMPLETED FOR PATIENT TO DC TO LTC
[2021-04-29 15:30] VITALS: BP 137/64; PULSE 91; RESP 16; TEMP 36.5; O2SAT 98
[2021-04-29] MEDS: Enoxaparin Sodium 40 MG/0.4 ML SYRINGE SUBCUT (18:03)
[2021-04-29 23:38] VITALS: BP 137/63; PULSE 88; RESP 18; TEMP 36.3; O2SAT 99
[2021-04-30 07:11] VITALS: BP 116/56; PULSE 87; RESP 16; TEMP 36.1; O2SAT 99
[2021-04-30] MEDS: Aspirin Enteric Coated 81 MG TABLET.DR PO (09:43)
[2021-04-30] MEDS: risperiDONE 0.5 MG TABLET PO (09:43)
[2021-04-30] MEDS: buPROPion HCl XL 150 MG TAB.ER.24H PO (09:43)
[2021-04-30] MEDS: Docusate Sodium 100 MG CAPSULE PO ×2 (09:43→21:13)
[2021-04-30] MEDS: Gabapentin 300 MG CAPSULE PO ×3 (09:43→21:13)
[2021-04-30] MEDS: 0.9 % Sodium Chloride Flush 3 ML SYRINGE IVFLUSH ×2 (09:44→14:39)
[2021-04-30] MEDS: Famotidine 20 MG TABLET PO ×2 (09:44→21:13)
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
--- NOTE | 2021-04-30 14:23 | MHC.CM.PN ---
AUGUSTUS REVIEWED, PT REMAINS MEDICALLY STABLE, CM STILL AWAITING FINANCIALS AND [facility] TO BE COMPLETE, PLAN CONT'S TO BE LTC ONCE PAYOR IS IN PLACE.
[2021-04-30 15:07] VITALS: BP 113/61; PULSE 100; RESP 17; TEMP 36.8; O2SAT 98
[2021-04-30] MEDS: Enoxaparin Sodium 40 MG/0.4 ML SYRINGE SUBCUT (17:27)
[2021-04-30 23:26] VITALS: BP 124/58; PULSE 93; RESP 18; TEMP 36.3; O2SAT 98
[2021-05-01 07:31] VITALS: BP 138/62; PULSE 87; RESP 17; TEMP 36.2; O2SAT 99
[2021-05-01] MEDS: risperiDONE 0.5 MG TABLET PO (08:54)
[2021-05-01] MEDS: Famotidine 20 MG TABLET PO ×2 (08:54→19:12)
[2021-05-01] MEDS: buPROPion HCl XL 150 MG TAB.ER.24H PO (08:54)
[2021-05-01] MEDS: Gabapentin 300 MG CAPSULE PO ×3 (08:54→19:12)
[2021-05-01] MEDS: Docusate Sodium 100 MG CAPSULE PO ×2 (08:54→19:12)
[2021-05-01] MEDS: Aspirin Enteric Coated 81 MG TABLET.DR PO (08:54)
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
[2021-05-01] MEDS: 0.9 % Sodium Chloride Flush 3 ML SYRINGE IVFLUSH ×3 (11:49→19:13)
[2021-05-01 14:54] VITALS: BP 110/55; PULSE 92; RESP 16; TEMP 36.8; O2SAT 99
--- NOTE | 2021-05-01 15:29 | PC.NURSE ---
Skin assessment completed today. Patient has a healing stage 2 to left buttocks-Puracol collagen applied to wound bed covered with foam dressing. Barrier cream applied to coccyx/sacrum area and abiola area. Small dry stage 2 ulcer to left ankle covered with foam. Both feet have heelbos. Patient is repositioned every 2 hours.
[2021-05-01] MEDS: Enoxaparin Sodium 40 MG/0.4 ML SYRINGE SUBCUT (16:44)
[2021-05-01] MEDS: Melatonin 3 MG TABLET 6 MG PO (19:12)
[2021-05-01 23:30] VITALS: BP 119/53; PULSE 18; RESP 18; TEMP 36.9; O2SAT 98
[2021-05-02 07:44] VITALS: BP 126/57; PULSE 80; RESP 16; TEMP 36.2; O2SAT 100
[2021-05-02] MEDS: 0.9 % Sodium Chloride Flush 3 ML SYRINGE IVFLUSH ×3 (08:30→19:28)
[2021-05-02] MEDS: buPROPion HCl XL 150 MG TAB.ER.24H PO (08:30)
[2021-05-02] MEDS: Aspirin Enteric Coated 81 MG TABLET.DR PO (08:30)
[2021-05-02] MEDS: Gabapentin 300 MG CAPSULE PO ×3 (08:30→19:28)
[2021-05-02] MEDS: Docusate Sodium 100 MG CAPSULE PO ×2 (08:30→19:28)
[2021-05-02] MEDS: Famotidine 20 MG TABLET PO ×2 (08:30→19:28)
[2021-05-02] MEDS: risperiDONE 0.5 MG TABLET PO (08:30)
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
--- NOTE | 2021-05-02 14:44 | MHC.CM.PN ---
EMR REVIEWED, CM ATTEMPTED TO CALL PTS GUARDIAN/CONSERVATOR QASIM DENNEY AT 2:35PM [phone] TO CHECK IN ON STATUS OF FINANCIALS/[facility] HOWEVER PER MESSAGE MABLE DENNEY IS OUT OF OFFICE W/A MEDICAL ISSUE UNTIL 05/08/21, CM WILL FOLLOW-UP W/MABLE DENNEY NEXT WEEK.
[2021-05-02 14:57] VITALS: BP 111/57; PULSE 97; RESP 16; TEMP 36.4; O2SAT 99
[2021-05-02] MEDS: Enoxaparin Sodium 40 MG/0.4 ML SYRINGE SUBCUT (17:22)
[2021-05-02] MEDS: Melatonin 3 MG TABLET 6 MG PO (19:28)
[2021-05-02 23:39] VITALS: BP 117/51; PULSE 88; RESP 15; TEMP 36.5; O2SAT 100
[2021-05-03] MEDS: Docusate Sodium 100 MG CAPSULE PO ×2 (07:51→20:24)
[2021-05-03] MEDS: Aspirin Enteric Coated 81 MG TABLET.DR PO (07:51)
[2021-05-03] MEDS: Famotidine 20 MG TABLET PO ×2 (07:51→20:25)
[2021-05-03] MEDS: 0.9 % Sodium Chloride Flush 3 ML SYRINGE IVFLUSH ×3 (07:51→23:24)
[2021-05-03] MEDS: buPROPion HCl XL 150 MG TAB.ER.24H PO (07:51)
[2021-05-03] MEDS: Gabapentin 300 MG CAPSULE PO ×3 (07:51→20:24)
[2021-05-03] MEDS: risperiDONE 0.5 MG TABLET PO (07:51)
[2021-05-03 08:00] VITALS: BP 106/58; PULSE 81; RESP 18; TEMP 36.4; O2SAT 99
[2021-05-03 15:03] VITALS: BP 116/59; PULSE 92; RESP 16; TEMP 36.3; O2SAT 98
[2021-05-03] MEDS: Enoxaparin Sodium 40 MG/0.4 ML SYRINGE SUBCUT (17:08)
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
[2021-05-04] VITALS: BP 121/58; PULSE 82; RESP 18; TEMP 36.1; O2SAT 100
[2021-05-04 07:09] VITALS: BP 117/57; PULSE 82; RESP 16; TEMP 36.3; O2SAT 98
[2021-05-04] MEDS: 0.9 % Sodium Chloride Flush 3 ML SYRINGE IVFLUSH ×3 (07:29→19:35)
[2021-05-04] MEDS: Famotidine 20 MG TABLET PO ×2 (07:29→19:35)
[2021-05-04] MEDS: risperiDONE 0.5 MG TABLET PO (07:29)
[2021-05-04] MEDS: buPROPion HCl XL 150 MG TAB.ER.24H PO (07:29)
[2021-05-04] MEDS: Aspirin Enteric Coated 81 MG TABLET.DR PO (07:29)
[2021-05-04] MEDS: Gabapentin 300 MG CAPSULE PO ×3 (07:29→19:35)
[2021-05-04] MEDS: Docusate Sodium 100 MG CAPSULE PO ×2 (07:29→19:35)
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
--- NOTE | 2021-05-04 13:05 | MHC.CLN ---
F/U PER WOUND RN NOTE, HEALING STAGE II TO LEFT BUTTOCK AND SMALL, DRY STAGE II TO LEFT OUTER ANKLE. INTAKE CONTINUES VARIABLE AT MEALS, 25-100%. DIET=REGULAR, PUREE. SUPPLEMENT ENSURE BID TO PROVIDE 700 KCAL, 26 G PROTEIN. CONTINUE CURRENT DIET AND SUPPLEMENT. RD TO FOLLOW WEEKLY.
[2021-05-04 15:36] VITALS: BP 123/58; PULSE 91; RESP 18; TEMP 36.9; O2SAT 96
[2021-05-04] MEDS: Enoxaparin Sodium 40 MG/0.4 ML SYRINGE SUBCUT (16:24)
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
[2021-05-05] VITALS: BP 108/49; PULSE 86; RESP 20; TEMP 36.6; O2SAT 99
[2021-05-05 08:00] VITALS: BP 112/56; PULSE 86; RESP 18; TEMP 36.2; O2SAT 99
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
[2021-05-05] MEDS: Gabapentin 300 MG CAPSULE PO ×3 (11:19→20:51)
[2021-05-05] MEDS: Aspirin Enteric Coated 81 MG TABLET.DR PO (11:20)
[2021-05-05] MEDS: Docusate Sodium 100 MG CAPSULE PO ×2 (11:20→20:51)
[2021-05-05] MEDS: risperiDONE 0.5 MG TABLET PO (11:20)
[2021-05-05] MEDS: buPROPion HCl XL 150 MG TAB.ER.24H PO (11:20)
[2021-05-05] MEDS: Famotidine 20 MG TABLET PO ×2 (11:20→20:51)
[2021-05-05 16:00] VITALS: RESP 16
[2021-05-05] MEDS: 0.9 % Sodium Chloride Flush 3 ML SYRINGE IVFLUSH ×2 (17:18→20:51)
[2021-05-05] MEDS: Enoxaparin Sodium 40 MG/0.4 ML SYRINGE SUBCUT (17:18)
[2021-05-05 23:37] VITALS: BP 119/56; PULSE 89; RESP 18; TEMP 36.5; O2SAT 98
[2021-05-06 08:00] VITALS: BP 109/52; PULSE 84; RESP 16; TEMP 36.4; O2SAT 98
[2021-05-06] MEDS: 0.9 % Sodium Chloride Flush 3 ML SYRINGE IVFLUSH ×3 (09:17→20:31)
[2021-05-06] MEDS: buPROPion HCl XL 150 MG TAB.ER.24H PO (09:17)
[2021-05-06] MEDS: Famotidine 20 MG TABLET PO ×2 (09:17→20:31)
[2021-05-06] MEDS: Gabapentin 300 MG CAPSULE PO ×3 (09:17→20:31)
[2021-05-06] MEDS: risperiDONE 0.5 MG TABLET PO (09:17)
[2021-05-06] MEDS: Docusate Sodium 100 MG CAPSULE PO ×2 (09:17→20:31)
[2021-05-06] MEDS: Aspirin Enteric Coated 81 MG TABLET.DR PO (09:17)
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
[2021-05-06 15:18] VITALS: BP 114/57; PULSE 94; RESP 18; TEMP 37.1; O2SAT 92
[2021-05-06] MEDS: Enoxaparin Sodium 40 MG/0.4 ML SYRINGE SUBCUT (16:48)
[2021-05-07] VITALS: BP 143/66; PULSE 72; RESP 16; TEMP 36.9; O2SAT 100
[2021-05-07 07:16] VITALS: BP 122/52; PULSE 77; RESP 18; TEMP 35.8; O2SAT 99
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
[2021-05-07] MEDS: Famotidine 20 MG TABLET PO ×2 (10:06→21:57)
[2021-05-07] MEDS: buPROPion HCl XL 150 MG TAB.ER.24H PO (10:07)
[2021-05-07] MEDS: 0.9 % Sodium Chloride Flush 3 ML SYRINGE IVFLUSH ×3 (10:07→22:00)
[2021-05-07] MEDS: Aspirin Enteric Coated 81 MG TABLET.DR PO (10:07)
[2021-05-07] MEDS: Docusate Sodium 100 MG CAPSULE PO ×2 (10:07→21:57)
[2021-05-07] MEDS: risperiDONE 0.5 MG TABLET PO (10:07)
[2021-05-07] MEDS: Gabapentin 300 MG CAPSULE PO ×3 (10:07→21:57)
[2021-05-07 15:23] VITALS: BP 118/57; PULSE 90; RESP 17; TEMP 37.1; O2SAT 100
[2021-05-07] MEDS: Enoxaparin Sodium 40 MG/0.4 ML SYRINGE SUBCUT (17:59)
[2021-05-07 23:31] VITALS: BP 119/55; PULSE 76; RESP 17; TEMP 36.2; O2SAT 100
[2021-05-08 07:07] VITALS: BP 129/58; PULSE 78; RESP 17; TEMP 36.5; O2SAT 98
[2021-05-08] MEDS: Docusate Sodium 100 MG CAPSULE PO ×2 (07:41→19:53)
[2021-05-08] MEDS: risperiDONE 0.5 MG TABLET PO (07:41)
[2021-05-08] MEDS: Aspirin Enteric Coated 81 MG TABLET.DR PO (07:41)
[2021-05-08] MEDS: buPROPion HCl XL 150 MG TAB.ER.24H PO (07:41)
[2021-05-08] MEDS: Gabapentin 300 MG CAPSULE PO ×3 (07:41→19:53)
[2021-05-08] MEDS: Famotidine 20 MG TABLET PO ×2 (07:42→19:53)
[2021-05-08] MEDS: 0.9 % Sodium Chloride Flush 3 ML SYRINGE IVFLUSH (07:42)
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
[2021-05-08 15:16] VITALS: BP 128/58; PULSE 95; RESP 17; TEMP 36.6; O2SAT 99
--- NOTE | 2021-05-08 16:08 | MHC.CM.PN ---
FACE SHEET, INSURANCE INFO, AND SOCIAL SECURITY NUMBER FAXED TO ATTY [employer]NA [employer] AT [phone] PER REQUEST. ATTY. IS STARTING THE PRELIMINARY APPLICATION FOR PATIENT. SHE IS AWARE THAT CASE MANAGEMENT IS HOPING TO DISCHARGE PATIENT TO THE NEXT LEVEL OF CARE.
[2021-05-08] MEDS: Enoxaparin Sodium 40 MG/0.4 ML SYRINGE SUBCUT (18:09)
[2021-05-08] MEDS: Melatonin 3 MG TABLET 6 MG PO (19:53)
[2021-05-08 23:37] VITALS: BP 110/53; PULSE 91; RESP 18; TEMP 36.7; O2SAT 100
[2021-05-09 07:07] VITALS: BP 114/59; PULSE 82; RESP 17; TEMP 36.1; O2SAT 100
[2021-05-09] MEDS: Docusate Sodium 100 MG CAPSULE PO ×2 (09:28→20:25)
[2021-05-09] MEDS: Famotidine 20 MG TABLET PO ×2 (09:29→20:25)
[2021-05-09] MEDS: buPROPion HCl XL 150 MG TAB.ER.24H PO (09:29)
[2021-05-09] MEDS: risperiDONE 0.5 MG TABLET PO (09:29)
[2021-05-09] MEDS: Gabapentin 300 MG CAPSULE PO ×3 (09:30→20:25)
[2021-05-09] MEDS: Aspirin Enteric Coated 81 MG TABLET.DR PO (09:30)
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
--- NOTE | 2021-05-09 15:59 | MHC.CM.PN ---
PER CONVERSATION WITH JOE OF THE [facility], PATIENT IS SCHEDULED FOR SECOND PFIZER DOSE ON MAY 14, 2021 BETWEEN THE HOURS OF [id number]. PATIENT, RN, AND UNIT MADE AWARE. SNF REFERRALS UPDATED
[2021-05-09 16:00] VITALS: BP 133/60; PULSE 98; RESP 18; TEMP 36.9; O2SAT 99
[2021-05-09] MEDS: Enoxaparin Sodium 40 MG/0.4 ML SYRINGE SUBCUT (17:38)
[2021-05-09 23:08] VITALS: BP 113/50; PULSE 87; RESP 18; TEMP 36.3; O2SAT 98
[2021-05-10 07:45] VITALS: BP 108/45; PULSE 78; RESP 17; TEMP 36.4; O2SAT 100
[2021-05-10] MEDS: Famotidine 20 MG TABLET PO ×2 (08:53→20:54)
[2021-05-10] MEDS: buPROPion HCl XL 150 MG TAB.ER.24H PO (08:53)
[2021-05-10] MEDS: Aspirin Enteric Coated 81 MG TABLET.DR PO (08:53)
[2021-05-10] MEDS: Docusate Sodium 100 MG CAPSULE PO ×2 (08:53→20:54)
[2021-05-10] MEDS: Gabapentin 300 MG CAPSULE PO ×3 (08:53→20:54)
[2021-05-10] MEDS: risperiDONE 0.5 MG TABLET PO (08:53)
[2021-05-10] MEDS: 0.9 % Sodium Chloride Flush 3 ML SYRINGE IVFLUSH (08:54)
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
--- NOTE | 2021-05-10 13:33 | MHC.CM.PN ---
CM MET W/LIAISON FROM [place] [facility], CM DISCUSSED PLAN TO SEND PT AND PT'S TO SAME SNF FOR LTC, REFERRAL PLACED IN [place].
[2021-05-10 15:11] VITALS: BP 127/51; PULSE 90; RESP 18; O2SAT 100
[2021-05-10] MEDS: Enoxaparin Sodium 40 MG/0.4 ML SYRINGE SUBCUT (18:46)
[2021-05-10 23:06] VITALS: BP 115/54; PULSE 90; RESP 18; TEMP 36.6; O2SAT 98
[2021-05-11 08:00] VITALS: BP 100/55; PULSE 75; RESP 17; TEMP 36.4; O2SAT 99
--- NOTE | 2021-05-11 09:36 | MHC.CLN ---
F/U DIET=REGULAR, PUREE. SUPPLEMENT ENSURE BID (PROVIDES 700 KCAL, 40 G PROTEIN) TO PROMOTE WOUND HEALING.. SKIN: STAGE II TO LEFT BUTTOCK; STAGE II TO RIGHT HEEL. INTAKE AT MEALS CONTINUES VARIABLE, 25-100%, WITH MOST MEALS 50-100%. CONTINUE CURRENT DIET AND SUPPLEMENT. RD TO FOLLOW WEEKLY.
[2021-05-11] MEDS: Gabapentin 300 MG CAPSULE PO ×3 (10:23→20:23)
[2021-05-11] MEDS: Docusate Sodium 100 MG CAPSULE PO ×2 (10:23→20:23)
[2021-05-11] MEDS: risperiDONE 0.5 MG TABLET PO (10:23)
[2021-05-11] MEDS: buPROPion HCl XL 150 MG TAB.ER.24H PO (10:24)
[2021-05-11] MEDS: Aspirin Enteric Coated 81 MG TABLET.DR PO (10:24)
[2021-05-11] MEDS: Famotidine 20 MG TABLET PO ×2 (10:24→20:23)
[2021-05-11 15:31] VITALS: BP 122/47; PULSE 84; RESP 18; TEMP 37; O2SAT 99
--- NOTE | 2021-05-11 15:44 | MHC.CM.PN ---
EMR REVIEWED, PT REMAINS MEDICALLY CLEARED, CM RECEIVED MESSAGE FROM [place] [facility] IN [place] AND THEY ARE REVIEWING AND WILL GET BACK TO CM, [employer] CONT'S TO WORK ON [employer]. CM WILL CONT TO FOLLOW D/C NEEDS.
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
[2021-05-11] MEDS: Enoxaparin Sodium 40 MG/0.4 ML SYRINGE SUBCUT (18:07)
[2021-05-12] VITALS: BP 100/49; PULSE 81; RESP 18; TEMP 36.2; O2SAT 97
[2021-05-12 08:00] VITALS: BP 128/61; PULSE 78; RESP 20; TEMP 36.3; O2SAT 96
[2021-05-12] MEDS: Gabapentin 300 MG CAPSULE PO ×3 (09:41→21:24)
[2021-05-12] MEDS: risperiDONE 0.5 MG TABLET PO (09:41)
[2021-05-12] MEDS: Famotidine 20 MG TABLET PO ×2 (09:41→21:24)
[2021-05-12] MEDS: Aspirin Enteric Coated 81 MG TABLET.DR PO (09:41)
[2021-05-12] MEDS: buPROPion HCl XL 150 MG TAB.ER.24H PO (09:41)
[2021-05-12] MEDS: Docusate Sodium 100 MG CAPSULE PO ×2 (09:41→21:24)
--- NOTE | 2021-05-12 10:06 | MHC.SL.SWA ---
Speech Pathologist Impression: Oral Phase Dysphagia Pharyngeal Dysphagia Risk of Aspiration Due to: Reduced Cognition Dysphasia Diet Status: Liquid Consistency and Strategies for Safe Swallow: Liquid Intake Recommendation: Thin Liquid Intake Strategies: Small Sips Solid Food Consistency: Dietary Recommendations: Pureed (NDD1) Additional Modifications to Solid Foods: If needed, complete oral check and prompt for double swallow if lingual residue is observed. Oral Medication Intake: Crushed with Puree Compensatory Strategies and Precautions to be Taken for Safe Swallow: Sitting Upright (90 deg) Liquids from Spoon or straw Alternate Liquids/Solids Small Bites/Sips Supervision While Eating and Drinking for Safe Swallow: Intermittent Supervision Foods to Avoid: Dry, sticky, or very crunchy foods. Swallowing Recommended Treatments: Compens. Strategy Educat. Recommendation for Speech: Inpatient Speech Therapy Comment: 05/12/21: Patient able to take meds crushed in pureed with good oral clearance and no difficulty. Patient tolerated ground/mech altered NDD2 solids with minimal-moderate oral residue remaining on tongue, which she independently double swallowed to clear. Minimal lingual residue remained. As a result, pureed solids recommended for adequate clearance. No overt s/s of aspiration noted with thin liquids via cup sip or straw. Supervision recommended to provide oral checks and prompts for double swallow as needed. VETERANS' COORDINATOR will continue to follow during inpatient stay M-F as needed to ensure tolerance. Frequency/Duration: Date Range for Service Req: Timeline to reassess: Group Therapist Clinican/Clinical Fellow: No Supervisory Statement: I have reviewed and agree with the student/clinical fellow's documentation: N/A Speech Language Pathologist: mAy Mendez M.A., [facility]-VETERANS' COORDINATOR
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
[2021-05-12 16:00] VITALS: BP 139/62; PULSE 105; RESP 17; TEMP 37.2; O2SAT 96
[2021-05-12] MEDS: Enoxaparin Sodium 40 MG/0.4 ML SYRINGE SUBCUT (17:45)
[2021-05-12 23:52] VITALS: BP 136/72; PULSE 103; RESP 17; TEMP 36.7; O2SAT 97
[2021-05-13 08:00] VITALS: BP 177/74; PULSE 89; RESP 20; TEMP 36.4; O2SAT 100
[2021-05-13] MEDS: Docusate Sodium 100 MG CAPSULE PO ×2 (09:20→20:33)
[2021-05-13] MEDS: buPROPion HCl XL 150 MG TAB.ER.24H PO (09:20)
[2021-05-13] MEDS: Gabapentin 300 MG CAPSULE PO ×3 (09:20→20:33)
[2021-05-13] MEDS: Aspirin Enteric Coated 81 MG TABLET.DR PO (09:20)
[2021-05-13] MEDS: Famotidine 20 MG TABLET PO ×2 (09:20→20:33)
[2021-05-13] MEDS: risperiDONE 0.5 MG TABLET PO (09:20)
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
[2021-05-13 16:00] VITALS: BP 141/61; PULSE 99; RESP 18; TEMP 36.2; O2SAT 96
[2021-05-13] MEDS: Enoxaparin Sodium 40 MG/0.4 ML SYRINGE SUBCUT (16:56)
[2021-05-13] MEDS: Acetaminophen 325 MG TABLET 650 MG PO (18:23)
[2021-05-13] MEDS: Melatonin 3 MG TABLET 6 MG PO (20:34)
[2021-05-14] VITALS: BP 120/58; PULSE 80; RESP 17; TEMP 36.4; O2SAT 97
[2021-05-14 07:08] VITALS: BP 123/70; PULSE 93; RESP 18; TEMP 36.1; O2SAT 97
[2021-05-14] MEDS: Famotidine 20 MG TABLET PO ×2 (09:22→21:29)
[2021-05-14] MEDS: Docusate Sodium 100 MG CAPSULE PO ×2 (09:22→21:29)
[2021-05-14] MEDS: buPROPion HCl XL 150 MG TAB.ER.24H PO (09:22)
[2021-05-14] MEDS: Aspirin Enteric Coated 81 MG TABLET.DR PO (09:22)
[2021-05-14] MEDS: risperiDONE 0.5 MG TABLET PO (09:23)
[2021-05-14] MEDS: Gabapentin 300 MG CAPSULE PO ×3 (09:24→21:29)
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
[2021-05-14 16:00] VITALS: BP 116/51; PULSE 89; RESP 17; TEMP 36.6; O2SAT 96
[2021-05-14] MEDS: Enoxaparin Sodium 40 MG/0.4 ML SYRINGE SUBCUT (17:48)
[2021-05-14] MEDS: Melatonin 3 MG TABLET 6 MG PO (21:29)
[2021-05-14 23:49] VITALS: BP 106/55; PULSE 87; RESP 17; TEMP 36.6; O2SAT 97
[2021-05-15 07:57] VITALS: BP 102/47; PULSE 91; RESP 18; TEMP 36; O2SAT 97
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
[2021-05-15] MEDS: Famotidine 20 MG TABLET PO ×2 (11:28→20:57)
[2021-05-15] MEDS: Gabapentin 300 MG CAPSULE PO ×3 (11:28→20:57)
[2021-05-15] MEDS: buPROPion HCl XL 150 MG TAB.ER.24H PO (11:28)
[2021-05-15] MEDS: Docusate Sodium 100 MG CAPSULE PO ×2 (11:28→20:57)
[2021-05-15] MEDS: risperiDONE 0.5 MG TABLET PO (11:29)
[2021-05-15] MEDS: Aspirin Enteric Coated 81 MG TABLET.DR PO (11:29)
[2021-05-15] MEDS: Enoxaparin Sodium 40 MG/0.4 ML SYRINGE SUBCUT (18:25)
[2021-05-16] VITALS: BP 122/56; PULSE 91; RESP 18; TEMP 37; O2SAT 96
[2021-05-16 08:00] VITALS: BP 116/53; PULSE 92; RESP 18; TEMP 36.5; O2SAT 95
[2021-05-16] MEDS: Docusate Sodium 100 MG CAPSULE PO ×2 (08:35→21:34)
[2021-05-16] MEDS: Aspirin Enteric Coated 81 MG TABLET.DR PO (08:36)
[2021-05-16] MEDS: Famotidine 20 MG TABLET PO ×2 (08:36→21:34)
[2021-05-16] MEDS: buPROPion HCl XL 150 MG TAB.ER.24H PO (08:36)
[2021-05-16] MEDS: risperiDONE 0.5 MG TABLET PO (08:36)
[2021-05-16] MEDS: Gabapentin 300 MG CAPSULE PO ×3 (08:36→21:34)
--- NOTE | 2021-05-16 10:12 | MHC.CM.PN ---
GUARDIAN/CONSERVATOR, FOUNDER DIANA NI, PREFERS PATIENT TO BE TRANSFERRED TO A LOCAL FACILITY IF POSSIBLE. SHE IS AWARE THAT CASE MANAGEMENT ATTEMPTS ARE CURRENTLY ON [facility].
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
[2021-05-16 15:28] VITALS: BP 100/55; PULSE 85; RESP 16; TEMP 37.1; O2SAT 99
[2021-05-16 16:24] VITALS: BP 116/56; PULSE 92; RESP 15; TEMP 36.7; O2SAT 97
[2021-05-16] MEDS: Enoxaparin Sodium 40 MG/0.4 ML SYRINGE SUBCUT (16:41)
[2021-05-16 23:28] VITALS: BP 105/55; PULSE 77; RESP 18; TEMP 36.9; O2SAT 94
[2021-05-17 07:59] VITALS: BP 127/52; PULSE 66; RESP 18; TEMP 36.8; O2SAT 98
[2021-05-17] MEDS: Aspirin Enteric Coated 81 MG TABLET.DR PO (08:47)
[2021-05-17] MEDS: Famotidine 20 MG TABLET PO ×2 (08:48→20:53)
[2021-05-17] MEDS: buPROPion HCl XL 150 MG TAB.ER.24H PO (08:48)
[2021-05-17] MEDS: Docusate Sodium 100 MG CAPSULE PO ×2 (08:48→20:53)
[2021-05-17] MEDS: risperiDONE 0.5 MG TABLET PO (08:48)
[2021-05-17] MEDS: Gabapentin 300 MG CAPSULE PO ×3 (08:48→20:53)
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
[2021-05-17 16:00] VITALS: BP 113/65; PULSE 94; RESP 15; TEMP 36.8; O2SAT 97
[2021-05-17] MEDS: Enoxaparin Sodium 40 MG/0.4 ML SYRINGE SUBCUT (16:05)
[2021-05-18] VITALS: BP 125/61; PULSE 79; RESP 16; TEMP 36.1; O2SAT 98
[2021-05-18 08:00] VITALS: BP 122/57; PULSE 84; RESP 18; TEMP 36.5; O2SAT 97
[2021-05-18] MEDS: Aspirin Enteric Coated 81 MG TABLET.DR PO (08:51)
[2021-05-18] MEDS: risperiDONE 0.5 MG TABLET PO (08:51)
[2021-05-18] MEDS: buPROPion HCl XL 150 MG TAB.ER.24H PO (08:51)
[2021-05-18] MEDS: Gabapentin 300 MG CAPSULE PO ×3 (08:51→20:14)
[2021-05-18] MEDS: Docusate Sodium 100 MG CAPSULE PO ×2 (08:51→20:14)
[2021-05-18] MEDS: Famotidine 20 MG TABLET PO ×2 (08:51→20:14)
--- NOTE | 2021-05-18 08:56 | MHC.CM.PN ---
MESSAGE LEFT FOR GUARDIAN/CONSERVATOR, OVEN PRESS TENDER LAST AT [phone] [facility] IS FOLLOWING AND ACTIVELY RESPONDING GUARDIAN PREFERS A LOCAL FACILITY. GUARDIAN CAN REACH OUT TO [facility] TO ASSIST WITH FACILITATING A TRANSISTION
--- NOTE | 2021-05-18 09:11 | MHC.CLN ---
F/U DIET=REGULAR, PUREE. SUPPLEMENT ENSURE BID (PROVIDES 700 KCAL, 26 G PROTEIN) TO PROMOTE WOUND HEALING.. SKIN: STAGE II TO LEFT BUTTOCK; STAGE II TO RIGHT HEEL. INTAKE AT MEALS CONTINUES VARIABLE, 25-100%, WITH MOST MEALS GREATER THAN 50%. CONTINUE CURRENT DIET AND SUPPLEMENT. RD TO FOLLOW WEEKLY.
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
[2021-05-18 15:24] VITALS: BP 121/59; PULSE 92; RESP 17; TEMP 36.9; O2SAT 98
[2021-05-18] MEDS: Enoxaparin Sodium 40 MG/0.4 ML SYRINGE SUBCUT (16:16)
[2021-05-19] VITALS: BP 112/48; PULSE 75; RESP 18; TEMP 36.4; O2SAT 97
[2021-05-19 07:18] VITALS: BP 156/70; PULSE 73; RESP 19; TEMP 36.6; O2SAT 96
[2021-05-19] MEDS: Docusate Sodium 100 MG CAPSULE PO ×2 (09:57→19:33)
[2021-05-19] MEDS: buPROPion HCl XL 150 MG TAB.ER.24H PO (09:57)
[2021-05-19] MEDS: Gabapentin 300 MG CAPSULE PO ×3 (09:57→19:33)
[2021-05-19] MEDS: Aspirin Enteric Coated 81 MG TABLET.DR PO (09:57)
[2021-05-19] MEDS: risperiDONE 0.5 MG TABLET PO (09:57)
[2021-05-19] MEDS: Famotidine 20 MG TABLET PO ×2 (09:57→19:33)
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
[2021-05-19 16:00] VITALS: BP 137/61; PULSE 98; RESP 18; TEMP 36.6; O2SAT 98
[2021-05-19] MEDS: Enoxaparin Sodium 40 MG/0.4 ML SYRINGE SUBCUT (17:02)
[2021-05-19] MEDS: 0.9 % Sodium Chloride Flush 3 ML SYRINGE IVFLUSH (19:34)
[2021-05-20] VITALS: BP 105/52; PULSE 82; RESP 17; TEMP 36.2; O2SAT 99
[2021-05-20 07:08] VITALS: BP 113/66; PULSE 84; RESP 20; TEMP 36.1; O2SAT 96
[2021-05-20] MEDS: Docusate Sodium 100 MG CAPSULE PO ×2 (09:48→20:30)
[2021-05-20] MEDS: Famotidine 20 MG TABLET PO ×2 (09:48→20:30)
[2021-05-20] MEDS: Gabapentin 300 MG CAPSULE PO ×3 (09:48→20:30)
[2021-05-20] MEDS: buPROPion HCl XL 150 MG TAB.ER.24H PO (09:49)
[2021-05-20] MEDS: risperiDONE 0.5 MG TABLET PO (09:49)
[2021-05-20] MEDS: Acetaminophen 325 MG TABLET 650 MG PO (09:49)
[2021-05-20] MEDS: Aspirin Enteric Coated 81 MG TABLET.DR PO (09:49)
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
[2021-05-20 15:50] VITALS: BP 118/58; PULSE 77; RESP 18; TEMP 36.2; O2SAT 100
[2021-05-20] MEDS: Enoxaparin Sodium 40 MG/0.4 ML SYRINGE SUBCUT (17:26)
[2021-05-21] VITALS: BP 124/57; PULSE 80; RESP 18; TEMP 36.1; O2SAT 99
[2021-05-21 07:49] VITALS: BP 119/60; PULSE 78; RESP 18; TEMP 36.1; O2SAT 99
[2021-05-21] MEDS: Docusate Sodium 100 MG CAPSULE PO ×2 (10:18→20:06)
[2021-05-21] MEDS: buPROPion HCl XL 150 MG TAB.ER.24H PO (10:18)
[2021-05-21] MEDS: risperiDONE 0.5 MG TABLET PO (10:18)
[2021-05-21] MEDS: Gabapentin 300 MG CAPSULE PO ×3 (10:18→20:06)
[2021-05-21] MEDS: Famotidine 20 MG TABLET PO ×2 (10:18→20:06)
[2021-05-21] MEDS: Aspirin Enteric Coated 81 MG TABLET.DR PO (10:18)
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
--- NOTE | 2021-05-21 14:03 | MHC.CM.PN ---
[facility] is the goal pending resolution of financial issues. CM will follow.
[2021-05-21 16:00] VITALS: BP 118/71; PULSE 77; RESP 18; TEMP 36.4; O2SAT 98
[2021-05-21] MEDS: Enoxaparin Sodium 40 MG/0.4 ML SYRINGE SUBCUT (17:48)
[2021-05-21] MEDS: Acetaminophen 325 MG TABLET 650 MG PO (20:07)
[2021-05-22] VITALS: BP 96/48; PULSE 90; RESP 18; TEMP 36.3; O2SAT 98
[2021-05-22 08:00] VITALS: BP 130/61; PULSE 78; RESP 16; TEMP 36.3; O2SAT 98
[2021-05-22] MEDS: buPROPion HCl XL 150 MG TAB.ER.24H PO (09:45)
[2021-05-22] MEDS: Docusate Sodium 100 MG CAPSULE PO ×2 (09:45→20:22)
[2021-05-22] MEDS: Famotidine 20 MG TABLET PO ×2 (09:45→20:22)
[2021-05-22] MEDS: risperiDONE 0.5 MG TABLET PO (09:45)
[2021-05-22] MEDS: Aspirin Enteric Coated 81 MG TABLET.DR PO (09:45)
[2021-05-22] MEDS: Gabapentin 300 MG CAPSULE PO ×3 (09:45→20:22)
--- NOTE | 2021-05-22 09:55 | PC.NURSE ---
Skin/wound assessment completed. All patients wounds are healed. Continuing to apply Triad to bilateral buttocks as a prevention for reopening.
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
[2021-05-22 15:57] VITALS: BP 133/58; PULSE 106; RESP 18; TEMP 37; O2SAT 98
[2021-05-22] MEDS: Enoxaparin Sodium 40 MG/0.4 ML SYRINGE SUBCUT (17:22)
[2021-05-22 23:49] VITALS: BP 130/59; PULSE 92; RESP 16; TEMP 37; O2SAT 100
[2021-05-23 07:35] VITALS: BP 134/63; PULSE 95; RESP 17; TEMP 36.3; O2SAT 98
[2021-05-23] MEDS: risperiDONE 0.5 MG TABLET PO (09:54)
[2021-05-23] MEDS: Gabapentin 300 MG CAPSULE PO ×3 (09:54→21:11)
[2021-05-23] MEDS: Famotidine 20 MG TABLET PO ×2 (09:54→21:11)
[2021-05-23] MEDS: Docusate Sodium 100 MG CAPSULE PO ×2 (09:54→21:11)
[2021-05-23] MEDS: Aspirin Enteric Coated 81 MG TABLET.DR PO (09:54)
[2021-05-23] MEDS: buPROPion HCl XL 150 MG TAB.ER.24H PO (09:58)
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
--- NOTE | 2021-05-23 14:48 | MHC.CM.PN ---
EMR REVIEWED, PT REMAINS MEDICALLY CLEARED, PT RECEIVED 2ND PFIZER VACCINE ON 05/14/21, PER PT NO SIDE EFFECTS, GUARDIAN/CONSERVATOR CONT'S TO WORK ON RESOLVING FINANCIALS FOR [facility], PER FS [facility] DOES IS NOT FOR LTC, [facility] FOLLOWING, CM WILL CONT TO FOLLOW D/C NEEDS.
[2021-05-23 15:47] VITALS: BP 122/60; PULSE 98; RESP 16; TEMP 37.2; O2SAT 97
[2021-05-23] MEDS: Enoxaparin Sodium 40 MG/0.4 ML SYRINGE SUBCUT (17:52)
[2021-05-24 00:06] VITALS: BP 101/48; PULSE 93; RESP 16; TEMP 37.1; O2SAT 95
[2021-05-24 08:20] VITALS: BP 116/59; PULSE 85; RESP 17; TEMP 36.8; O2SAT 98
[2021-05-24] MEDS: buPROPion HCl XL 150 MG TAB.ER.24H PO (10:23)
[2021-05-24] MEDS: Aspirin Enteric Coated 81 MG TABLET.DR PO (10:23)
[2021-05-24] MEDS: Famotidine 20 MG TABLET PO ×2 (10:23→21:38)
[2021-05-24] MEDS: Docusate Sodium 100 MG CAPSULE PO ×2 (10:23→21:38)
[2021-05-24] MEDS: risperiDONE 0.5 MG TABLET PO (10:23)
[2021-05-24] MEDS: Gabapentin 300 MG CAPSULE PO ×3 (10:24→21:38)
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
[2021-05-24 16:00] VITALS: BP 112/53; PULSE 88; RESP 15; TEMP 37.3; O2SAT 96
[2021-05-24] MEDS: Enoxaparin Sodium 40 MG/0.4 ML SYRINGE SUBCUT (18:03)
[2021-05-25] VITALS: BP 104/51; PULSE 84; RESP 18; TEMP 36.3; O2SAT 97
[2021-05-25 08:00] VITALS: BP 131/61; PULSE 78; RESP 19; TEMP 37.2; O2SAT 95
[2021-05-25 08:14] LABS: COVID-19 Test Negative (Negative)
[2021-05-25] MEDS: Docusate Sodium 100 MG CAPSULE PO ×2 (09:08→20:15)
[2021-05-25] MEDS: Famotidine 20 MG TABLET PO ×2 (09:08→20:15)
[2021-05-25] MEDS: Aspirin Enteric Coated 81 MG TABLET.DR PO (09:08)
[2021-05-25] MEDS: Gabapentin 300 MG CAPSULE PO ×3 (09:08→20:15)
[2021-05-25] MEDS: buPROPion HCl XL 150 MG TAB.ER.24H PO (09:08)
[2021-05-25] MEDS: risperiDONE 0.5 MG TABLET PO (09:08)
--- NOTE | 2021-05-25 10:11 | MHC.CLN ---
F/U DIET=REGULAR, PUREE. SUPPLEMENT ENSURE BID (PROVIDES 700 KCAL, 26-49 G PROTEIN). PER 05/22 WOUND NURSE NOTE, ALL SKIN AREAS HEALED. INTAKE AT MEALS CONTINUES VARIABLE, WITH MOST 50-100%. QUALIFIES MALNOURISHED, CONTINUE SUPPLEMENT. RD TO FOLLOW WEEKLY.
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
[2021-05-25 15:23] VITALS: BP 110/52; PULSE 88; RESP 18; TEMP 36.4; O2SAT 97
[2021-05-25] MEDS: Enoxaparin Sodium 40 MG/0.4 ML SYRINGE SUBCUT (15:45)
[2021-05-25 17:35] LABS: Influenza A PCR NEGATIVE (Negative); Influenza B PCR NEGATIVE (Negative); Resp Syncy Virus RNA Qual PCR NEGATIVE (Negative); SARS COV2 PCR INHOUSE NEGATIVE (Negative)
[2021-05-26] VITALS: BP 106/51; PULSE 83; RESP 18; TEMP 36.2; O2SAT 97
[2021-05-26 08:00] VITALS: BP 128/60; PULSE 79; RESP 18; TEMP 36.3; O2SAT 98
[2021-05-26] MEDS: Famotidine 20 MG TABLET PO ×2 (10:18→20:05)
[2021-05-26] MEDS: Aspirin Enteric Coated 81 MG TABLET.DR PO (10:19)
[2021-05-26] MEDS: Gabapentin 300 MG CAPSULE PO ×3 (10:19→20:05)
[2021-05-26] MEDS: Docusate Sodium 100 MG CAPSULE PO ×2 (10:19→20:05)
[2021-05-26] MEDS: buPROPion HCl XL 150 MG TAB.ER.24H PO (10:19)
[2021-05-26] MEDS: risperiDONE 0.5 MG TABLET PO (10:19)
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
[2021-05-26 16:00] VITALS: BP 136/66; PULSE 88; RESP 17; TEMP 37; O2SAT 98
[2021-05-26] MEDS: Enoxaparin Sodium 40 MG/0.4 ML SYRINGE SUBCUT (18:04)
[2021-05-26 23:18] VITALS: BP 110/53; PULSE 80; RESP 19; TEMP 36.3; O2SAT 95
[2021-05-27 08:00] VITALS: BP 139/63; PULSE 78; RESP 18; TEMP 36; O2SAT 99
[2021-05-27] MEDS: Famotidine 20 MG TABLET PO ×2 (09:51→21:24)
[2021-05-27] MEDS: Docusate Sodium 100 MG CAPSULE PO ×2 (09:51→21:24)
[2021-05-27] MEDS: Gabapentin 300 MG CAPSULE PO ×3 (09:52→21:24)
[2021-05-27] MEDS: buPROPion HCl XL 150 MG TAB.ER.24H PO (09:52)
[2021-05-27] MEDS: Aspirin Enteric Coated 81 MG TABLET.DR PO (09:52)
[2021-05-27] MEDS: risperiDONE 0.5 MG TABLET PO (09:52)
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
[2021-05-27] MEDS: 0.9 % Sodium Chloride Flush 3 ML SYRINGE IVFLUSH (15:12)
[2021-05-27 15:32] VITALS: BP 134/61; PULSE 89; RESP 18; TEMP 36.6; O2SAT 98
[2021-05-27] MEDS: Enoxaparin Sodium 40 MG/0.4 ML SYRINGE SUBCUT (17:38)
[2021-05-27 23:21] VITALS: BP 121/56; PULSE 72; RESP 18; TEMP 36.6; O2SAT 99
[2021-05-28 08:00] VITALS: BP 125/58; PULSE 74; RESP 20; TEMP 36.2; O2SAT 100
--- NOTE | 2021-05-28 08:54 | MHC.CM.PN ---
[facility] UPDATED. TIGER MESSAGE LEFT FOR FINANCIAL COUNSELORS TO INQUIRE OF [place] STATUS
[2021-05-28] MEDS: risperiDONE 0.5 MG TABLET PO (09:36)
[2021-05-28] MEDS: buPROPion HCl XL 150 MG TAB.ER.24H PO (09:36)
[2021-05-28] MEDS: Famotidine 20 MG TABLET PO ×2 (09:36→22:14)
[2021-05-28] MEDS: Aspirin Enteric Coated 81 MG TABLET.DR PO (09:36)
[2021-05-28] MEDS: Docusate Sodium 100 MG CAPSULE PO ×2 (09:36→22:14)
[2021-05-28] MEDS: Gabapentin 300 MG CAPSULE PO ×3 (09:36→22:14)
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
[2021-05-28 16:00] VITALS: BP 125/65; PULSE 81; RESP 18; TEMP 36.4; O2SAT 100
[2021-05-28 16:56] LABS: COVID-19 Test Negative (Negative); IDNOW Serial# 55D5AD1C
[2021-05-28] MEDS: Enoxaparin Sodium 40 MG/0.4 ML SYRINGE SUBCUT (18:46)
[2021-05-28 23:55] VITALS: BP 103/50; PULSE 90; RESP 16; TEMP 36.8; O2SAT 99
[2021-05-29 06:58] VITALS: BP 128/56; PULSE 77; RESP 16; TEMP 36.1; O2SAT 100
[2021-05-29] MEDS: Gabapentin 300 MG CAPSULE PO ×3 (08:34→19:39)
[2021-05-29] MEDS: Aspirin Enteric Coated 81 MG TABLET.DR PO (08:34)
[2021-05-29] MEDS: risperiDONE 0.5 MG TABLET PO (08:35)
[2021-05-29] MEDS: buPROPion HCl XL 150 MG TAB.ER.24H PO (08:35)
[2021-05-29] MEDS: Famotidine 20 MG TABLET PO ×2 (08:35→19:39)
[2021-05-29] MEDS: Docusate Sodium 100 MG CAPSULE PO ×2 (08:35→19:39)
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
[2021-05-29 16:00] VITALS: BP 127/66; PULSE 100; RESP 18; TEMP 36.7; O2SAT 97
[2021-05-29] MEDS: Enoxaparin Sodium 40 MG/0.4 ML SYRINGE SUBCUT (17:22)
[2021-05-29] MEDS: Melatonin 3 MG TABLET 6 MG PO (19:39)
[2021-05-29 23:21] VITALS: BP 118/59; PULSE 76; RESP 18; TEMP 36.3; O2SAT 100
[2021-05-30 07:07] VITALS: BP 107/57; PULSE 77; RESP 16; TEMP 35.5; O2SAT 100
[2021-05-30] MEDS: Gabapentin 300 MG CAPSULE PO ×3 (07:34→19:29)
[2021-05-30] MEDS: Docusate Sodium 100 MG CAPSULE PO ×2 (07:34→19:29)
[2021-05-30] MEDS: Aspirin Enteric Coated 81 MG TABLET.DR PO (07:34)
[2021-05-30] MEDS: risperiDONE 0.5 MG TABLET PO (07:34)
[2021-05-30] MEDS: buPROPion HCl XL 150 MG TAB.ER.24H PO (07:34)
[2021-05-30] MEDS: Famotidine 20 MG TABLET PO ×2 (07:34→19:29)
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
[2021-05-30 15:24] VITALS: BP 113/57; PULSE 78; RESP 18; TEMP 36.4; O2SAT 98
--- NOTE | 2021-05-30 16:24 | MHC.CM.PN ---
EMR REVIEWED, PT REMAINS MEDICALLY STABLE, CM STILL AWAITING FINANCIALS AND [employer] [facility] TO BE COMPLETE, CM HAS NOT RECEIVED UPDATE FROM FS REGARDING STATUS OF MH ROSALBA AT TIME OF THIS NOTE, CM WILL CONT TO FOLLOW D/C NEEDS.
[2021-05-30] MEDS: Enoxaparin Sodium 40 MG/0.4 ML SYRINGE SUBCUT (17:25)
[2021-05-30] MEDS: Acetaminophen 325 MG TABLET 650 MG PO (19:28)
[2021-05-30] MEDS: Melatonin 3 MG TABLET 6 MG PO (19:29)
[2021-05-31] VITALS: BP 130/58; PULSE 79; RESP 18; TEMP 37; O2SAT 100
[2021-05-31 08:00] VITALS: BP 115/57; PULSE 80; RESP 18; TEMP 36; O2SAT 100
[2021-05-31] MEDS: Gabapentin 300 MG CAPSULE PO ×3 (08:49→20:44)
[2021-05-31] MEDS: risperiDONE 0.5 MG TABLET PO (08:49)
[2021-05-31] MEDS: Famotidine 20 MG TABLET PO ×2 (08:49→20:44)
[2021-05-31] MEDS: Aspirin Enteric Coated 81 MG TABLET.DR PO (08:49)
[2021-05-31] MEDS: buPROPion HCl XL 150 MG TAB.ER.24H PO (08:49)
[2021-05-31] MEDS: Docusate Sodium 100 MG CAPSULE PO ×2 (08:49→20:44)
--- NOTE | 2021-05-31 11:14 | MHC.SL.SWA ---
Speech Pathologist Impression: Oral Phase Dysphagia Pharyngeal Dysphagia Risk of Aspiration Due to: Reduced Cognition Dysphasia Diet Status: Upgrade Liquid Consistency and Strategies for Safe Swallow: Liquid Intake Recommendation: Thin Liquid Intake Strategies: Small Sips Solid Food Consistency: Dietary Recommendations: Grnd/Mech Altered (NDD2) Additional Modifications to Solid Foods: Recommend UPGRADE to GROUND/MECH ALTERED (NDD2) solids and maintain THIN liquids. Patient reportedly tolerates pills whole with liquid. Continue aspiration precautions. Diet order updated by [facility]INNER. Oral Medication Intake: Whole with Liquid Compensatory Strategies and Precautions to be Taken for Safe Swallow: Sitting Upright (90 deg) Small Bites and Sips Alternate Liquids/Solids Rate of Ingestion Change Supervision While Eating and Drinking for Safe Swallow: Intermittent Supervision Foods to Avoid: Dry, sticky, or very crunchy foods. Swallowing Recommended Treatments: Compens. Strategy Educat. Recommendation for Speech: d/c Seismograph Operator Clinican/Clinical Fellow: No Supervisory Statement: I have reviewed and agree with the student/clinical fellow's documentation: N/A Speech Language Pathologist: Shantelle Mederos M.A., CCC-[facility]NER
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
[2021-05-31 15:40] VITALS: BP 136/68; PULSE 95; RESP 18; TEMP 36.6; O2SAT 99
[2021-05-31] MEDS: Enoxaparin Sodium 40 MG/0.4 ML SYRINGE SUBCUT (16:55)
[2021-05-31] MEDS: Melatonin 3 MG TABLET 6 MG PO (20:44)
[2021-06-01] VITALS: BP 116/57; PULSE 80; RESP 16; TEMP 36; O2SAT 99
[2021-06-01 07:30] VITALS: BP 117/52; PULSE 75; RESP 18; TEMP 36.2; O2SAT 97
[2021-06-01] MEDS: Acetaminophen 325 MG TABLET 650 MG PO (10:06)
[2021-06-01] MEDS: Docusate Sodium 100 MG CAPSULE PO ×2 (10:07→22:34)
[2021-06-01] MEDS: Aspirin Enteric Coated 81 MG TABLET.DR PO (10:07)
[2021-06-01] MEDS: Famotidine 20 MG TABLET PO ×2 (10:07→22:33)
[2021-06-01] MEDS: risperiDONE 0.5 MG TABLET PO (10:07)
[2021-06-01] MEDS: Gabapentin 300 MG CAPSULE PO ×3 (10:07→22:33)
[2021-06-01] MEDS: buPROPion HCl XL 150 MG TAB.ER.24H PO (10:07)
[2021-06-01 11:12] VITALS: BP 111/47; PULSE 84; RESP 18; TEMP 36.4; O2SAT 98
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
[2021-06-01 16:00] VITALS: BP 117/62; PULSE 101; RESP 17; TEMP 36.8; O2SAT 99
--- NOTE | 2021-06-01 16:02 | MHC.CLN ---
F/U PATIENT SEEN BY [employer] LEAD WITH DIET UPGRADE FROM NDD1 TO NDD2. DIET=REGULAR, NDD2. SUPPLEMENT ENSURE BID TO PROVIDE 700 KCAL, 40 G PROTEIN. PER 05/22 WOUND NURSE NOTE, ALL SKIN AREAS HEALED. SHIFT RISK REPORT SHOW PRESSURE INJURY TO COCCYX AND RIGHT HEEL. CONTINUE TO FOLLOW SKIN INTEGRITY. INTAKE AT MEALS CONTINUES VARIABLE, WITH MOST 50-100%. QUALIFIES MALNOURISHED, CONTINUE SUPPLEMENT. RD TO FOLLOW WEEKLY.
[2021-06-01] MEDS: Enoxaparin Sodium 40 MG/0.4 ML SYRINGE SUBCUT (18:32)
[2021-06-01] MEDS: Melatonin 3 MG TABLET 6 MG PO (22:33)
[2021-06-02] VITALS: BP 112/53; PULSE 85; RESP 14; TEMP 36.2; O2SAT 99
[2021-06-02 07:23] VITALS: BP 120/60; PULSE 68; RESP 18; TEMP 36.1; O2SAT 96
[2021-06-02] MEDS: Gabapentin 300 MG CAPSULE PO ×3 (09:41→20:14)
[2021-06-02] MEDS: Aspirin Enteric Coated 81 MG TABLET.DR PO (09:41)
[2021-06-02] MEDS: Famotidine 20 MG TABLET PO ×2 (09:41→20:14)
[2021-06-02] MEDS: risperiDONE 0.5 MG TABLET PO (09:41)
[2021-06-02] MEDS: buPROPion HCl XL 150 MG TAB.ER.24H PO (09:41)
[2021-06-02] MEDS: Docusate Sodium 100 MG CAPSULE PO ×2 (09:41→20:14)
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
[2021-06-02 15:48] VITALS: BP 119/54; PULSE 92; RESP 18; TEMP 36.5; O2SAT 98
[2021-06-02] MEDS: Enoxaparin Sodium 40 MG/0.4 ML SYRINGE SUBCUT (18:24)
[2021-06-02 23:41] VITALS: BP 114/53; PULSE 81; RESP 17; TEMP 36.2; O2SAT 98
[2021-06-03 07:14] VITALS: BP 158/74; PULSE 87; RESP 18; TEMP 36; O2SAT 98
[2021-06-03] MEDS: Gabapentin 300 MG CAPSULE PO ×3 (09:46→23:07)
[2021-06-03] MEDS: buPROPion HCl XL 150 MG TAB.ER.24H PO (09:46)
[2021-06-03] MEDS: Famotidine 20 MG TABLET PO ×2 (09:46→23:05)
[2021-06-03] MEDS: Docusate Sodium 100 MG CAPSULE PO ×2 (09:47→23:05)
[2021-06-03] MEDS: Aspirin Enteric Coated 81 MG TABLET.DR PO (09:47)
[2021-06-03] MEDS: risperiDONE 0.5 MG TABLET PO (09:47)
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
[2021-06-03 16:00] VITALS: BP 144/68; PULSE 89; RESP 18; TEMP 36.4; O2SAT 100
[2021-06-03] MEDS: Enoxaparin Sodium 40 MG/0.4 ML SYRINGE SUBCUT (17:50)
[2021-06-04] VITALS: BP 134/62; PULSE 82; RESP 18; TEMP 36.4; O2SAT 100
[2021-06-04 07:50] VITALS: BP 132/62; PULSE 81; RESP 18; TEMP 36; O2SAT 98
[2021-06-04 09:19] LABS: Hematocrit 40.2 % (37.0-47.0); Hemoglobin 12.8 g/dl (12.0-16.0); Mean Corpuscular HGB Conc 31.8 g/dl (31.0-35.0); Mean Corpuscular Hemoglobin 30.6 pg (27.0-33.0); Mean Corpuscular Volume 96.2 fL (80.0-98.0); Mean Platelet Volume 9.4 fL (9.4-12.3); Platelet Count 366 X10*3/uL (160-400); Red Blood Count 4.18 X10*6/uL (4.20-5.50); Red Cell Distribution Width 14.6 % (11.0-16.0); White Blood Count 7.2 X10*3/uL (4.8-10.8)
[2021-06-04 09:37] LABS: Anion Gap 16 (12-20); Blood Urea Nitrogen 24 mg/dL (9-16); Calcium 10.8 mg/dL (8.4-10.2); Carbon Dioxide 26 mmol/L (22-29); Chloride 104 mmol/L (96-108); Creatinine Clr Calc Pharmacy 37.4; Estimated Glomerular Filt Rate 56; Glucose Random 151 mg/dL (60-115); Potassium 4.3 mmol/L (3.3-5.1); Sodium 142 mmol/L (135-145)
[2021-06-04] MEDS: Famotidine 20 MG TABLET PO ×2 (10:18→21:45)
[2021-06-04] MEDS: Docusate Sodium 100 MG CAPSULE PO ×2 (10:18→21:45)
[2021-06-04] MEDS: Gabapentin 300 MG CAPSULE PO ×3 (10:18→21:45)
[2021-06-04] MEDS: risperiDONE 0.5 MG TABLET PO (10:18)
[2021-06-04] MEDS: Aspirin Enteric Coated 81 MG TABLET.DR PO (10:18)
[2021-06-04] MEDS: buPROPion HCl XL 150 MG TAB.ER.24H PO (10:18)
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
[2021-06-04 15:33] VITALS: BP 119/54; PULSE 95; RESP 16; TEMP 36.8; O2SAT 97
[2021-06-04] MEDS: Enoxaparin Sodium 40 MG/0.4 ML SYRINGE SUBCUT (17:14)
[2021-06-05] VITALS: BP 114/57; PULSE 86; RESP 17; TEMP 36; O2SAT 97
[2021-06-05 07:51] VITALS: BP 99/51; PULSE 90; RESP 18; TEMP 36.2; O2SAT 97
[2021-06-05] MEDS: Aspirin Enteric Coated 81 MG TABLET.DR PO (08:10)
[2021-06-05] MEDS: Famotidine 20 MG TABLET PO ×2 (08:10→20:47)
[2021-06-05] MEDS: risperiDONE 0.5 MG TABLET PO (08:10)
[2021-06-05] MEDS: Gabapentin 300 MG CAPSULE PO ×3 (08:10→20:47)
[2021-06-05] MEDS: Docusate Sodium 100 MG CAPSULE PO ×2 (08:10→20:47)
[2021-06-05] MEDS: buPROPion HCl XL 150 MG TAB.ER.24H PO (08:10)
--- NOTE | 2021-06-05 08:20 | PC.NURSE ---
Skin assessment completed. Patients wounds are all healed. She has some pinkness to her sacrum but no open wounds. Patient is turned q 2 h and barrier cream applied to area. Patient has redness to her left lateral foot with no open wounds. Heelbos applied.
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
[2021-06-05 16:00] VITALS: BP 124/59; PULSE 78; RESP 18; TEMP 36.6; O2SAT 100
[2021-06-05] MEDS: Enoxaparin Sodium 40 MG/0.4 ML SYRINGE SUBCUT (17:13)
[2021-06-05] MEDS: Melatonin 3 MG TABLET 6 MG PO (20:47)
[2021-06-05 23:24] VITALS: BP 115/58; PULSE 78; RESP 18; TEMP 36.6; O2SAT 98
[2021-06-06 07:49] VITALS: BP 125/54; PULSE 79; RESP 18; TEMP 36.5; O2SAT 99
[2021-06-06] MEDS: Aspirin Enteric Coated 81 MG TABLET.DR PO (07:57)
[2021-06-06] MEDS: buPROPion HCl XL 150 MG TAB.ER.24H PO (07:57)
[2021-06-06] MEDS: Famotidine 20 MG TABLET PO ×2 (07:57→19:30)
[2021-06-06] MEDS: Gabapentin 300 MG CAPSULE PO ×3 (07:57→19:30)
[2021-06-06] MEDS: Docusate Sodium 100 MG CAPSULE PO ×2 (07:57→19:30)
[2021-06-06] MEDS: risperiDONE 0.5 MG TABLET PO (07:57)
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
[2021-06-06 15:09] VITALS: BP 121/60; PULSE 96; RESP 18; O2SAT 98
[2021-06-06] MEDS: Enoxaparin Sodium 40 MG/0.4 ML SYRINGE SUBCUT (17:40)
[2021-06-06] MEDS: Melatonin 3 MG TABLET 6 MG PO (19:30)
[2021-06-06 23:23] VITALS: BP 114/48; PULSE 87; RESP 18; TEMP 36.5; O2SAT 96
[2021-06-07 08:00] VITALS: BP 112/47; PULSE 80; RESP 18; TEMP 36.7; O2SAT 100
[2021-06-07] MEDS: risperiDONE 0.5 MG TABLET PO (08:30)
[2021-06-07] MEDS: Docusate Sodium 100 MG CAPSULE PO ×2 (08:30→20:11)
[2021-06-07] MEDS: buPROPion HCl XL 150 MG TAB.ER.24H PO (08:30)
[2021-06-07] MEDS: Gabapentin 300 MG CAPSULE PO ×3 (08:30→20:11)
[2021-06-07] MEDS: Famotidine 20 MG TABLET PO ×2 (08:30→20:10)
[2021-06-07] MEDS: Aspirin Enteric Coated 81 MG TABLET.DR PO (08:30)
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
[2021-06-07 16:00] VITALS: BP 131/60; PULSE 96; RESP 18; TEMP 36.2; O2SAT 99
[2021-06-07] MEDS: Enoxaparin Sodium 40 MG/0.4 ML SYRINGE SUBCUT (17:12)
[2021-06-07] MEDS: Melatonin 3 MG TABLET 6 MG PO (20:10)
[2021-06-07 23:42] VITALS: BP 99/49; PULSE 85; RESP 14; TEMP 37; O2SAT 97
[2021-06-08 08:00] VITALS: BP 111/57; PULSE 74; RESP 18; TEMP 36.6; O2SAT 96
[2021-06-08] MEDS: Aspirin Enteric Coated 81 MG TABLET.DR PO (08:20)
[2021-06-08] MEDS: Docusate Sodium 100 MG CAPSULE PO ×2 (08:20→20:23)
[2021-06-08] MEDS: Gabapentin 300 MG CAPSULE PO ×3 (08:20→20:23)
[2021-06-08] MEDS: Famotidine 20 MG TABLET PO ×2 (08:20→20:22)
[2021-06-08] MEDS: buPROPion HCl XL 150 MG TAB.ER.24H PO (08:20)
[2021-06-08] MEDS: risperiDONE 0.5 MG TABLET PO (08:21)
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
--- NOTE | 2021-06-08 14:41 | MHC.CLN ---
F/U DIET=REGULAR, NDD2. SUPPLEMENT ENSURE BID TO PROVIDE 700 KCAL, 40 G PROTEIN. PER 06/05 WOUND NURSE NOTE, ALL SKIN AREAS HEALED; REDNESS TO LEFT FOOT AND PINK SACRUM. CONTINUE TO FOLLOW SKIN INTEGRITY. INTAKE AT MEALS CONTINUES VARIABLE, WITH MOST 50-100%. QUALIFIES MALNOURISHED, CONTINUE SUPPLEMENT. RD TO FOLLOW WEEKLY.
[2021-06-08 15:34] VITALS: BP 110/62; PULSE 96; RESP 18; TEMP 37; O2SAT 97
[2021-06-08] MEDS: Enoxaparin Sodium 40 MG/0.4 ML SYRINGE SUBCUT (17:51)
[2021-06-09] VITALS: BP 108/62; PULSE 82; RESP 16; TEMP 36.7; O2SAT 98
[2021-06-09] MEDS: Aspirin Enteric Coated 81 MG TABLET.DR PO (07:31)
[2021-06-09] MEDS: Docusate Sodium 100 MG CAPSULE PO ×2 (07:31→20:01)
[2021-06-09] MEDS: Gabapentin 300 MG CAPSULE PO ×3 (07:31→20:01)
[2021-06-09] MEDS: risperiDONE 0.5 MG TABLET PO (07:31)
[2021-06-09] MEDS: buPROPion HCl XL 150 MG TAB.ER.24H PO (07:31)
[2021-06-09] MEDS: Famotidine 20 MG TABLET PO ×2 (07:31→20:01)
[2021-06-09 08:00] VITALS: BP 121/56; PULSE 88; RESP 18; TEMP 36.9; O2SAT 97
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
[2021-06-09 15:44] VITALS: BP 124/56; PULSE 85; RESP 16; TEMP 37.1; O2SAT 97
[2021-06-09] MEDS: Enoxaparin Sodium 40 MG/0.4 ML SYRINGE SUBCUT (16:16)
[2021-06-10] VITALS: BP 118/56; PULSE 85; RESP 17; TEMP 36; O2SAT 97
[2021-06-10] MEDS: Acetaminophen 325 MG TABLET 650 MG PO (03:01)
[2021-06-10 08:00] VITALS: BP 122/59; PULSE 81; RESP 18; TEMP 36.7; O2SAT 98
[2021-06-10] MEDS: Famotidine 20 MG TABLET PO ×2 (08:36→19:23)
[2021-06-10] MEDS: Gabapentin 300 MG CAPSULE PO ×3 (08:36→19:23)
[2021-06-10] MEDS: Aspirin Enteric Coated 81 MG TABLET.DR PO (08:37)
[2021-06-10] MEDS: Docusate Sodium 100 MG CAPSULE PO ×2 (08:37→19:23)
[2021-06-10] MEDS: buPROPion HCl XL 150 MG TAB.ER.24H PO (08:37)
[2021-06-10] MEDS: risperiDONE 0.5 MG TABLET PO (08:37)
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
[2021-06-10 15:30] VITALS: BP 117/54; PULSE 89; RESP 16; TEMP 36.9; O2SAT 95
[2021-06-10 15:57] VITALS: BP 100/49; PULSE 83; RESP 18; TEMP 36.6; O2SAT 96
[2021-06-10] MEDS: Enoxaparin Sodium 40 MG/0.4 ML SYRINGE SUBCUT (17:03)
[2021-06-10 23:39] VITALS: BP 110/51; PULSE 89; RESP 16; TEMP 36.6; O2SAT 95
[2021-06-11 07:55] VITALS: BP 102/67; PULSE 87; RESP 18; TEMP 36.4; O2SAT 94
[2021-06-11] MEDS: Famotidine 20 MG TABLET PO (08:18)
[2021-06-11] MEDS: Aspirin Enteric Coated 81 MG TABLET.DR PO (08:18)
[2021-06-11] MEDS: Gabapentin 300 MG CAPSULE PO (08:18)
[2021-06-11] MEDS: buPROPion HCl XL 150 MG TAB.ER.24H PO (08:18)
[2021-06-11] MEDS: risperiDONE 0.5 MG TABLET PO (08:18)
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
[2021-06-11 15:29] VITALS: BP 149/53; PULSE 106; RESP 18; TEMP 36.4; O2SAT 97
[2021-06-11 23:42] VITALS: BP 128/60; PULSE 82; RESP 16; TEMP 36.9; O2SAT 96
[2021-06-12 08:00] VITALS: BP 136/62; PULSE 84; RESP 18; TEMP 36.8; O2SAT 97
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
[2021-06-12 15:31] VITALS: BP 116/66; PULSE 101; RESP 16; TEMP 37.6; O2SAT 99
[2021-06-12] MEDS: Gabapentin 300 MG CAPSULE PO (19:30)
[2021-06-12] MEDS: Melatonin 3 MG TABLET 6 MG PO (19:30)
[2021-06-12] MEDS: Enoxaparin Sodium 40 MG/0.4 ML SYRINGE SUBCUT (19:30)
[2021-06-12] MEDS: Docusate Sodium 100 MG CAPSULE PO (19:31)
[2021-06-12] MEDS: Famotidine 20 MG TABLET PO (19:31)
[2021-06-12] MEDS: Acetaminophen 325 MG TABLET 650 MG PO (19:31)
[2021-06-12 23:37] VITALS: BP 120/58; PULSE 80; RESP 18; TEMP 36.6; O2SAT 96
[2021-06-13 08:00] VITALS: BP 113/53; PULSE 83; RESP 18; TEMP 36.2; O2SAT 98
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
[2021-06-13] MEDS: buPROPion HCl XL 150 MG TAB.ER.24H PO (10:03)
[2021-06-13] MEDS: Docusate Sodium 100 MG CAPSULE PO ×2 (10:03→19:58)
[2021-06-13] MEDS: Famotidine 20 MG TABLET PO ×2 (10:03→19:58)
[2021-06-13] MEDS: Aspirin Enteric Coated 81 MG TABLET.DR PO (10:04)
[2021-06-13] MEDS: Gabapentin 300 MG CAPSULE PO ×3 (10:04→19:58)
[2021-06-13] MEDS: risperiDONE 0.5 MG TABLET PO (10:05)
[2021-06-13 15:40] VITALS: BP 101/58; PULSE 93; RESP 16; TEMP 36.4; O2SAT 97
[2021-06-13] MEDS: Enoxaparin Sodium 40 MG/0.4 ML SYRINGE SUBCUT (19:58)
[2021-06-13 23:28] VITALS: BP 132/75; PULSE 66; RESP 18; TEMP 36.3; O2SAT 96
[2021-06-14 07:40] VITALS: BP 134/60; PULSE 82; RESP 18; TEMP 36.2; O2SAT 98
[2021-06-14] MEDS: Docusate Sodium 100 MG CAPSULE PO ×2 (09:52→19:49)
[2021-06-14] MEDS: Famotidine 20 MG TABLET PO ×2 (09:52→19:49)
[2021-06-14] MEDS: buPROPion HCl XL 150 MG TAB.ER.24H PO (09:53)
[2021-06-14] MEDS: Gabapentin 300 MG CAPSULE PO ×3 (09:53→19:48)
[2021-06-14] MEDS: Aspirin Enteric Coated 81 MG TABLET.DR PO (09:53)
[2021-06-14] MEDS: risperiDONE 0.5 MG TABLET PO (09:53)
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
[2021-06-14 16:00] VITALS: BP 120/56; PULSE 84; RESP 15; TEMP 36.5; O2SAT 100
[2021-06-14] MEDS: Enoxaparin Sodium 40 MG/0.4 ML SYRINGE SUBCUT (19:49)
[2021-06-14 23:41] VITALS: BP 116/51; PULSE 85; RESP 17; TEMP 36.2; O2SAT 97
[2021-06-15 07:45] VITALS: BP 122/58; PULSE 79; RESP 19; TEMP 36.1; O2SAT 100
[2021-06-15] MEDS: buPROPion HCl XL 150 MG TAB.ER.24H PO (08:09)
[2021-06-15] MEDS: Docusate Sodium 100 MG CAPSULE PO ×2 (08:09→21:39)
[2021-06-15] MEDS: Aspirin Enteric Coated 81 MG TABLET.DR PO (08:09)
[2021-06-15] MEDS: Gabapentin 300 MG CAPSULE PO ×3 (08:09→21:39)
[2021-06-15] MEDS: risperiDONE 0.5 MG TABLET PO (08:09)
[2021-06-15] MEDS: Famotidine 20 MG TABLET PO ×2 (08:09→21:39)
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
--- NOTE | 2021-06-15 12:58 | MHC.CLN ---
F/U DIET=REGULAR, NDD2. SUPPLEMENT ENSURE BID TO PROVIDE 700 KCAL, 40 G PROTEIN. SIN WITH NO OPEN AREAS. PINK SACRUM AND REDNESS TO LEFT FOOT. INTAKE APPEARS GOOD MOST MEALS. QUALIFIES MALNOURISHED; CONTINUE SUPPLEMENT. RD TO FOLLOW WEEKLY.
[2021-06-15 15:57] VITALS: BP 124/58; PULSE 98; RESP 18; TEMP 36.7; O2SAT 97
[2021-06-15] MEDS: Enoxaparin Sodium 40 MG/0.4 ML SYRINGE SUBCUT (21:39)
[2021-06-16] VITALS: BP 100/51; PULSE 77; RESP 14; TEMP 36; O2SAT 98
[2021-06-16 08:00] VITALS: BP 126/58; PULSE 79; RESP 20; TEMP 36.1; O2SAT 96
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
[2021-06-16] MEDS: Famotidine 20 MG TABLET PO ×2 (09:01→19:25)
[2021-06-16] MEDS: Docusate Sodium 100 MG CAPSULE PO ×2 (09:01→19:25)
[2021-06-16] MEDS: risperiDONE 0.5 MG TABLET PO (09:02)
[2021-06-16] MEDS: Gabapentin 300 MG CAPSULE PO ×3 (09:02→19:25)
[2021-06-16] MEDS: Aspirin Enteric Coated 81 MG TABLET.DR PO (09:02)
[2021-06-16] MEDS: buPROPion HCl XL 150 MG TAB.ER.24H PO (09:02)
[2021-06-16 15:46] VITALS: BP 127/58; PULSE 96; RESP 18; TEMP 37; O2SAT 98
[2021-06-16] MEDS: Enoxaparin Sodium 40 MG/0.4 ML SYRINGE SUBCUT (19:25)
[2021-06-17] VITALS: BP 98/46; PULSE 94; RESP 17; TEMP 36; O2SAT 96
[2021-06-17 07:58] VITALS: BP 130/58; PULSE 94; RESP 18; TEMP 36.3; O2SAT 95
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
[2021-06-17] MEDS: buPROPion HCl XL 150 MG TAB.ER.24H PO (09:49)
[2021-06-17] MEDS: Aspirin Enteric Coated 81 MG TABLET.DR PO (09:49)
[2021-06-17] MEDS: Famotidine 20 MG TABLET PO ×2 (09:49→20:29)
[2021-06-17] MEDS: risperiDONE 0.5 MG TABLET PO (09:50)
[2021-06-17] MEDS: Docusate Sodium 100 MG CAPSULE PO ×2 (09:50→20:29)
[2021-06-17] MEDS: Gabapentin 300 MG CAPSULE PO ×3 (09:50→20:29)
[2021-06-17 15:15] VITALS: BP 108/50; PULSE 103; RESP 18; TEMP 36.4; O2SAT 96
[2021-06-17 19:15] VITALS: BP 113/50; PULSE 98; RESP 15; TEMP 36.1; O2SAT 96
[2021-06-17] MEDS: Enoxaparin Sodium 40 MG/0.4 ML SYRINGE SUBCUT (20:29)
[2021-06-17 23:38] VITALS: BP 110/64; PULSE 72; RESP 16; TEMP 36.1; O2SAT 97
[2021-06-18 07:29] VITALS: BP 107/58; PULSE 77; RESP 18; TEMP 36.1; O2SAT 96
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
[2021-06-18] MEDS: risperiDONE 0.5 MG TABLET PO (09:02)
[2021-06-18] MEDS: Gabapentin 300 MG CAPSULE PO ×3 (09:02→20:58)
[2021-06-18] MEDS: buPROPion HCl XL 150 MG TAB.ER.24H PO (09:02)
[2021-06-18] MEDS: Famotidine 20 MG TABLET PO ×2 (09:02→20:58)
[2021-06-18] MEDS: Docusate Sodium 100 MG CAPSULE PO ×2 (09:02→20:58)
[2021-06-18] MEDS: Aspirin Enteric Coated 81 MG TABLET.DR PO (09:02)
[2021-06-18 16:00] VITALS: BP 124/59; PULSE 98; RESP 16; TEMP 36.7; O2SAT 97
[2021-06-18] MEDS: Melatonin 3 MG TABLET 6 MG PO (20:58)
[2021-06-18] MEDS: Enoxaparin Sodium 40 MG/0.4 ML SYRINGE SUBCUT (20:59)
[2021-06-19] VITALS: BP 105/54; PULSE 82; RESP 18; TEMP 36.2; O2SAT 97
[2021-06-19 07:25] VITALS: BP 129/61; PULSE 78; RESP 20; TEMP 36.2; O2SAT 98
[2021-06-19] MEDS: Aspirin Enteric Coated 81 MG TABLET.DR PO (08:29)
[2021-06-19] MEDS: risperiDONE 0.5 MG TABLET PO (08:30)
[2021-06-19] MEDS: Famotidine 20 MG TABLET PO ×2 (08:30→19:41)
[2021-06-19] MEDS: buPROPion HCl XL 150 MG TAB.ER.24H PO (08:30)
[2021-06-19] MEDS: Gabapentin 300 MG CAPSULE PO ×3 (08:30→19:41)
[2021-06-19] MEDS: Docusate Sodium 100 MG CAPSULE PO ×2 (08:31→19:41)
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
--- NOTE | 2021-06-19 12:52 | MHC.CM.PN ---
NURSE CASE MNAGER NOTE CUSTOMER SERVICE AGENT NOT ELECTRONIC MEDICAL RECORD REVIEWED ALONG WITH CASE DISUCSSED ON MULTIPLE DISICPLINARY ROUNDS ,CUSTOMER SERVICE AGENT TO CONTINUE TO FOLLOW,CASE DISCUSSED WITH CASE MANGEMENT DIRECTOR ) [employer] OT CONTINUE OT FOLLOW PATIENT HAS RECIVED COVID VACCINATIONS 04/15/21 AND 05/14/2021 BOTH [employer]. CUSTOMER SERVICE AGENT TO CONTINUE TO FOLLOW
[2021-06-19 15:55] VITALS: BP 135/64; PULSE 95; RESP 15; TEMP 37; O2SAT 98
[2021-06-19] MEDS: Enoxaparin Sodium 40 MG/0.4 ML SYRINGE SUBCUT (19:41)
[2021-06-19 23:31] VITALS: BP 107/53; PULSE 88; RESP 16; TEMP 36.9; O2SAT 97
[2021-06-20 07:17] VITALS: BP 115/52; PULSE 83; RESP 16; TEMP 36.6; O2SAT 96
[2021-06-20] MEDS: buPROPion HCl XL 150 MG TAB.ER.24H PO (09:11)
[2021-06-20] MEDS: Gabapentin 300 MG CAPSULE PO ×3 (09:12→22:23)
[2021-06-20] MEDS: Famotidine 20 MG TABLET PO ×2 (09:12→22:23)
[2021-06-20] MEDS: Aspirin Enteric Coated 81 MG TABLET.DR PO (09:12)
[2021-06-20] MEDS: Docusate Sodium 100 MG CAPSULE PO ×2 (09:12→22:23)
[2021-06-20] MEDS: risperiDONE 0.5 MG TABLET PO (09:13)
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
--- NOTE | 2021-06-20 13:16 | MHC.CM.PN ---
cm continuing to follow pending [facility] status
[2021-06-20 15:12] VITALS: BP 123/69; PULSE 95; RESP 18; TEMP 37; O2SAT 97
[2021-06-20] MEDS: Enoxaparin Sodium 40 MG/0.4 ML SYRINGE SUBCUT (22:23)
[2021-06-20 23:20] VITALS: BP 118/47; PULSE 96; RESP 16; TEMP 36.2; O2SAT 95
[2021-06-21 07:49] VITALS: BP 140/66; PULSE 84; RESP 16; TEMP 36.6; O2SAT 95
[2021-06-21] MEDS: Famotidine 20 MG TABLET PO ×2 (08:54→20:09)
[2021-06-21] MEDS: buPROPion HCl XL 150 MG TAB.ER.24H PO (08:54)
[2021-06-21] MEDS: risperiDONE 0.5 MG TABLET PO (08:54)
[2021-06-21] MEDS: Aspirin Enteric Coated 81 MG TABLET.DR PO (08:54)
[2021-06-21] MEDS: Gabapentin 300 MG CAPSULE PO ×3 (08:54→20:09)
[2021-06-21] MEDS: Docusate Sodium 100 MG CAPSULE PO ×2 (08:54→20:09)
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
[2021-06-21 15:42] VITALS: BP 95/53; PULSE 82; RESP 18; TEMP 36.8; O2SAT 100
[2021-06-21] MEDS: Enoxaparin Sodium 40 MG/0.4 ML SYRINGE SUBCUT (20:09)
[2021-06-22] VITALS: BP 114/54; PULSE 94; RESP 16; TEMP 36.9; O2SAT 94
[2021-06-22 08:00] VITALS: BP 118/57; PULSE 78; RESP 20; TEMP 36.4; O2SAT 98
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
[2021-06-22] MEDS: Acetaminophen 325 MG TABLET 650 MG PO (09:56)
[2021-06-22] MEDS: Aspirin Enteric Coated 81 MG TABLET.DR PO (09:58)
[2021-06-22] MEDS: buPROPion HCl XL 150 MG TAB.ER.24H PO (09:58)
[2021-06-22] MEDS: Famotidine 20 MG TABLET PO ×2 (09:58→19:59)
[2021-06-22] MEDS: Gabapentin 300 MG CAPSULE PO ×3 (09:59→19:59)
[2021-06-22] MEDS: Docusate Sodium 100 MG CAPSULE PO ×2 (09:59→19:59)
[2021-06-22] MEDS: risperiDONE 0.5 MG TABLET PO (09:59)
--- NOTE | 2021-06-22 11:38 | MHC.CM.PN ---
[facility] DRY MILL WORKER NOTE ELECTRONIC MEDICAL RECORD REVIEWED , [employer] PAP[employer]ERWORK REQUIRED FOR COMPLETION OF PATIENTS [facility] APPLICATION NEEDED BEFORE TRANSFER OR ACCEPTANCE AT [facility] DRY MILL WORKER TO CHECK IN WITH [facility] ON FRIDAY FOR FURTHER UPDATES
--- NOTE | 2021-06-22 13:22 | MHC.CLN ---
F/U DIET=REGULAR, NDD2. SUPPLEMENT ENSURE BID TO PROVIDE 700 KCAL, 40 G PROTEIN. SKIN WITH NO OPEN AREAS. INTAKE APPEARS GOOD MOST MEALS. PATIENT REPORTS THAT DRINKS SUPPLEMENT. CONTINUE CURRENT DIET AND SUPPLEMENT. RD TO FOLLOW WEEKLY
[2021-06-22 13:36] VITALS: BMI 25.9
[2021-06-22 15:38] VITALS: BP 110/73; PULSE 85; RESP 20; TEMP 36.6; O2SAT 97
[2021-06-22 15:39] VITALS: BP 124/57; PULSE 90; RESP 18; TEMP 36.8; O2SAT 96
[2021-06-22] MEDS: Enoxaparin Sodium 40 MG/0.4 ML SYRINGE SUBCUT (20:00)
[2021-06-22 23:43] VITALS: BP 127/60; PULSE 93; RESP 16; TEMP 36.7; O2SAT 98
[2021-06-23 08:00] VITALS: BP 110/51; PULSE 85; RESP 18; TEMP 36.3; O2SAT 97
[2021-06-23] MEDS: buPROPion HCl XL 150 MG TAB.ER.24H PO (08:26)
[2021-06-23] MEDS: Aspirin Enteric Coated 81 MG TABLET.DR PO (08:26)
[2021-06-23] MEDS: Famotidine 20 MG TABLET PO ×2 (08:27→20:10)
[2021-06-23] MEDS: Docusate Sodium 100 MG CAPSULE PO ×2 (08:27→20:10)
[2021-06-23] MEDS: risperiDONE 0.5 MG TABLET PO (08:27)
[2021-06-23] MEDS: Gabapentin 300 MG CAPSULE PO ×3 (08:27→20:10)
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
[2021-06-23 15:47] VITALS: BP 133/65; PULSE 90; RESP 18; TEMP 36.6; O2SAT 98
[2021-06-23] MEDS: Enoxaparin Sodium 40 MG/0.4 ML SYRINGE SUBCUT (20:10)
[2021-06-23 23:42] VITALS: BP 112/72; PULSE 92; RESP 12; TEMP 36.1; O2SAT 96
[2021-06-24 08:00] VITALS: BP 121/56; PULSE 82; RESP 15; TEMP 36.3; O2SAT 99
[2021-06-24] MEDS: Aspirin Enteric Coated 81 MG TABLET.DR PO (08:29)
[2021-06-24] MEDS: Gabapentin 300 MG CAPSULE PO ×3 (08:29→20:01)
[2021-06-24] MEDS: risperiDONE 0.5 MG TABLET PO (08:29)
[2021-06-24] MEDS: Famotidine 20 MG TABLET PO ×2 (08:29→20:01)
[2021-06-24] MEDS: buPROPion HCl XL 150 MG TAB.ER.24H PO (08:29)
[2021-06-24] MEDS: Docusate Sodium 100 MG CAPSULE PO ×2 (08:29→20:01)
[2021-06-24] MEDS: Acetaminophen 325 MG TABLET 650 MG PO (09:16)
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
[2021-06-24 15:25] VITALS: BP 125/56; PULSE 94; RESP 18; TEMP 36.8; O2SAT 97
[2021-06-24] MEDS: Enoxaparin Sodium 40 MG/0.4 ML SYRINGE SUBCUT (20:01)
[2021-06-24 23:30] VITALS: BP 114/57; PULSE 96; RESP 16; TEMP 37.1
[2021-06-24 23:33] VITALS: BP 114/57; PULSE 95; RESP 16; TEMP 37.1; O2SAT 95
[2021-06-25 07:46] VITALS: BP 137/63; PULSE 76; RESP 18; TEMP 36.6; O2SAT 96
[2021-06-25] MEDS: buPROPion HCl XL 150 MG TAB.ER.24H PO (08:52)
[2021-06-25] MEDS: Gabapentin 300 MG CAPSULE PO ×3 (08:52→20:57)
[2021-06-25] MEDS: Aspirin Enteric Coated 81 MG TABLET.DR PO (08:52)
[2021-06-25] MEDS: Docusate Sodium 100 MG CAPSULE PO ×2 (08:52→20:57)
[2021-06-25] MEDS: risperiDONE 0.5 MG TABLET PO (08:52)
[2021-06-25] MEDS: Famotidine 20 MG TABLET PO ×2 (08:52→20:57)
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
--- NOTE | 2021-06-25 12:12 | MHC.CLN ---
F/U PATIENT WITH SIGNIFICANT AND DESIRABLE WEIGHT GAIN X 90 DAYS; WEIGHT GAIN +36% WITH BMI=26.0. DIET=REGULAR, NDD2. SUPPLEMENT ENSURE BID TO PROVIDE 700 KCAL, 40 G PROTEIN. SKIN WITH NO OPEN AREAS. INTAKE APPEARS GOOD MOST MEALS. PATIENT REPORTS THAT DRINKS SUPPLEMENT. CONTINUE CURRENT DIET AND SUPPLEMENT. RD TO FOLLOW WEEKLY.
[2021-06-25] MEDS: Enoxaparin Sodium 40 MG/0.4 ML SYRINGE SUBCUT (20:56)
[2021-06-25 23:16] VITALS: BP 109/52; PULSE 80; RESP 16; TEMP 36.5; O2SAT 97
[2021-06-26 07:52] VITALS: BP 120/58; PULSE 75; RESP 18; TEMP 36.2; O2SAT 96
--- NOTE | 2021-06-26 08:25 | MHC.CM.PN ---
nurse pillowcase sewer note patient ith dementia , failure to thrieve evaluated by psych deemed unabke to make medicare decisions or care for herself court appointed guardian and concervator , financial papaer work submitted awaiting completion of all financialmrecords to be obtained and sent to [facility] by patients guardian. 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 nimisha [phone] (guardian is soley working oin [employer] [facility] finanical paperworkto be submitted per [facility]
[2021-06-26 08:51] LABS: Hematocrit 38.3 % (37.0-47.0); Hemoglobin 12.8 g/dl (12.0-16.0); Mean Corpuscular HGB Conc 33.4 g/dl (31.0-35.0); Mean Corpuscular Hemoglobin 31.2 pg (27.0-33.0); Mean Corpuscular Volume 93.4 fL (80.0-98.0); Mean Platelet Volume 9.3 fL (9.4-12.3); Platelet Count 289 X10*3/uL (160-400); Red Cell Distribution Width 13.3 % (11.0-16.0); White Blood Count 6.5 X10*3/uL (4.8-10.8)
[2021-06-26 09:15] LABS: Alanine Aminotransferase 6 U/L (0-31); Albumin Level 3.8 g/dL (3.5-5.0); Alkaline Phosphatase 54 U/L (39-117); Anion Gap 10 (12-20); Aspartate Amino Transferase 11 U/L (5-31); Bilirubin Direct < 0.2 mg/dL (0.0-0.5); Bilirubin Total 0.2 mg/dL (0.0-1.0); Blood Urea Nitrogen 33 mg/dL (9-16); Calcium 10.2 mg/dL (8.4-10.2); Carbon Dioxide 27 mmol/L (22-29); Chloride 107 mmol/L (96-108); Creatinine Clr Calc Pharmacy 48.1; Estimated Glomerular Filt Rate > 60; Glucose Random 94 mg/dL (60-115); Potassium 4.4 mmol/L (3.3-5.1); Sodium 140 mmol/L (135-145); Total Protein 7.2 g/dL (6.5-8.0)
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
[2021-06-26] MEDS: Docusate Sodium 100 MG CAPSULE PO ×2 (11:28→21:13)
[2021-06-26] MEDS: Gabapentin 300 MG CAPSULE PO ×3 (11:28→21:13)
[2021-06-26] MEDS: buPROPion HCl XL 150 MG TAB.ER.24H PO (11:29)
[2021-06-26] MEDS: Aspirin Enteric Coated 81 MG TABLET.DR PO (11:29)
[2021-06-26] MEDS: Famotidine 20 MG TABLET PO ×2 (11:29→21:13)
[2021-06-26] MEDS: risperiDONE 0.5 MG TABLET PO (11:29)
[2021-06-26] MEDS: Acetaminophen 325 MG TABLET 650 MG PO (11:30)
[2021-06-26 15:17] VITALS: BP 100/58; PULSE 84; RESP 14; TEMP 36.7; O2SAT 99
[2021-06-26] MEDS: Enoxaparin Sodium 40 MG/0.4 ML SYRINGE SUBCUT (21:12)
[2021-06-26 23:18] VITALS: BP 102/46; PULSE 80; RESP 16; TEMP 35.9; O2SAT 96
[2021-06-27 07:01] VITALS: BP 135/66; PULSE 77; RESP 19; TEMP 36.1; O2SAT 99
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
[2021-06-27] MEDS: buPROPion HCl XL 150 MG TAB.ER.24H PO (09:34)
[2021-06-27] MEDS: risperiDONE 0.5 MG TABLET PO (09:35)
[2021-06-27] MEDS: Docusate Sodium 100 MG CAPSULE PO ×2 (09:35→20:05)
[2021-06-27] MEDS: Famotidine 20 MG TABLET PO ×2 (09:35→20:05)
[2021-06-27] MEDS: Gabapentin 300 MG CAPSULE PO ×3 (09:35→20:05)
[2021-06-27] MEDS: Aspirin Enteric Coated 81 MG TABLET.DR PO (09:35)
[2021-06-27] MEDS: Acetaminophen 325 MG TABLET 650 MG PO (14:06)
[2021-06-27 16:00] VITALS: BP 104/50; PULSE 85; RESP 18; TEMP 36.9; O2SAT 91
[2021-06-27] MEDS: Enoxaparin Sodium 40 MG/0.4 ML SYRINGE SUBCUT (20:05)
[2021-06-27 23:27] VITALS: BP 105/49; PULSE 82; RESP 17; TEMP 36.2; O2SAT 98
[2021-06-28 07:53] VITALS: BP 110/56; PULSE 75; RESP 14; TEMP 36.4; O2SAT 99
[2021-06-28] MEDS: risperiDONE 0.5 MG TABLET PO (10:20)
[2021-06-28] MEDS: buPROPion HCl XL 150 MG TAB.ER.24H PO (10:20)
[2021-06-28] MEDS: Famotidine 20 MG TABLET PO ×2 (10:21→19:21)
[2021-06-28] MEDS: Gabapentin 300 MG CAPSULE PO ×3 (10:21→19:21)
[2021-06-28] MEDS: Aspirin Enteric Coated 81 MG TABLET.DR PO (10:21)
[2021-06-28] MEDS: Docusate Sodium 100 MG CAPSULE PO ×2 (10:21→19:21)
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
[2021-06-28 15:23] VITALS: BP 130/44; PULSE 86; RESP 14; TEMP 36.6; O2SAT 99
[2021-06-28] MEDS: Enoxaparin Sodium 40 MG/0.4 ML SYRINGE SUBCUT (19:20)
[2021-06-28] MEDS: Acetaminophen 325 MG TABLET 650 MG PO (19:21)
[2021-06-28] MEDS: Melatonin 3 MG TABLET 6 MG PO (19:21)
[2021-06-28 23:59] VITALS: BP 109/59; PULSE 81; RESP 16; TEMP 36; O2SAT 97
[2021-06-29 07:52] VITALS: BP 112/52; PULSE 80; RESP 18; TEMP 36.2; O2SAT 98
[2021-06-29] MEDS: risperiDONE 0.5 MG TABLET PO (10:32)
[2021-06-29] MEDS: Aspirin Enteric Coated 81 MG TABLET.DR PO (10:32)
[2021-06-29] MEDS: buPROPion HCl XL 150 MG TAB.ER.24H PO (10:32)
[2021-06-29] MEDS: Docusate Sodium 100 MG CAPSULE PO ×2 (10:32→22:32)
[2021-06-29] MEDS: Famotidine 20 MG TABLET PO ×2 (10:32→22:32)
[2021-06-29] MEDS: Gabapentin 300 MG CAPSULE PO ×3 (10:32→22:32)
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
[2021-06-29 15:17] VITALS: BP 121/55; PULSE 93; RESP 17; TEMP 36.6; O2SAT 99
[2021-06-29] MEDS: Enoxaparin Sodium 40 MG/0.4 ML SYRINGE SUBCUT (22:33)
[2021-06-29 23:35] VITALS: BP 141/63; PULSE 80; RESP 16; TEMP 36.7; O2SAT 100
[2021-06-30 08:00] VITALS: BP 112/67; PULSE 78; RESP 14; TEMP 36.2; O2SAT 97
[2021-06-30] MEDS: Famotidine 20 MG TABLET PO ×2 (10:53→19:26)
[2021-06-30] MEDS: Gabapentin 300 MG CAPSULE PO ×3 (10:53→19:26)
[2021-06-30] MEDS: risperiDONE 0.5 MG TABLET PO (10:53)
[2021-06-30] MEDS: Aspirin Enteric Coated 81 MG TABLET.DR PO (10:53)
[2021-06-30] MEDS: buPROPion HCl XL 150 MG TAB.ER.24H PO (10:53)
[2021-06-30] MEDS: Docusate Sodium 100 MG CAPSULE PO ×2 (10:53→19:26)
[2021-06-30] MEDS: Acetaminophen 325 MG TABLET 650 MG PO (11:00)
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
[2021-06-30 15:19] VITALS: BP 102/55; PULSE 96; RESP 18; TEMP 37.1; O2SAT 98
[2021-06-30] MEDS: Enoxaparin Sodium 40 MG/0.4 ML SYRINGE SUBCUT (19:27)
[2021-06-30 23:39] VITALS: BP 113/52; PULSE 93; RESP 17; TEMP 36.2; O2SAT 97
[2021-07-01 07:51] VITALS: BP 137/63; PULSE 101; RESP 15; TEMP 36.2; O2SAT 95
[2021-07-01] MEDS: Famotidine 20 MG TABLET PO ×2 (08:06→20:21)
[2021-07-01] MEDS: buPROPion HCl XL 150 MG TAB.ER.24H PO (08:06)
[2021-07-01] MEDS: Gabapentin 300 MG CAPSULE PO ×3 (08:06→20:21)
[2021-07-01] MEDS: Docusate Sodium 100 MG CAPSULE PO ×2 (08:06→20:21)
[2021-07-01] MEDS: risperiDONE 0.5 MG TABLET PO (08:06)
[2021-07-01] MEDS: Aspirin Enteric Coated 81 MG TABLET.DR PO (08:06)
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
[2021-07-01 15:36] VITALS: BP 106/51; PULSE 95; RESP 18; TEMP 36.7; O2SAT 96
[2021-07-01] MEDS: Acetaminophen 325 MG TABLET 650 MG PO (17:19)
[2021-07-01] MEDS: Enoxaparin Sodium 40 MG/0.4 ML SYRINGE SUBCUT (20:21)
[2021-07-01 23:28] VITALS: BP 108/46; PULSE 77; RESP 16; TEMP 36.2; O2SAT 96
[2021-07-02 07:36] VITALS: BP 117/58; PULSE 79; RESP 18; TEMP 36.7; O2SAT 92
[2021-07-02] MEDS: Famotidine 20 MG TABLET PO ×2 (10:22→20:07)
[2021-07-02] MEDS: Aspirin Enteric Coated 81 MG TABLET.DR PO (10:22)
[2021-07-02] MEDS: buPROPion HCl XL 150 MG TAB.ER.24H PO (10:22)
[2021-07-02] MEDS: risperiDONE 0.5 MG TABLET PO (10:23)
[2021-07-02] MEDS: Gabapentin 300 MG CAPSULE PO ×3 (10:23→20:07)
[2021-07-02] MEDS: Docusate Sodium 100 MG CAPSULE PO ×2 (10:23→20:07)
[2021-07-02] MEDS: polyethylene glycoL 3350 17 GM POWD.PACK PO (10:23)
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
[2021-07-02 15:28] VITALS: BP 125/60; PULSE 90; RESP 14; TEMP 37; O2SAT 97
[2021-07-02] MEDS: Enoxaparin Sodium 40 MG/0.4 ML SYRINGE SUBCUT (20:07)
[2021-07-02 23:46] VITALS: BP 121/48; PULSE 91; RESP 14; TEMP 36.4; O2SAT 97
[2021-07-03 07:49] VITALS: BP 142/63; PULSE 77; RESP 15; TEMP 36; O2SAT 98
[2021-07-03] MEDS: Famotidine 20 MG TABLET PO ×2 (08:29→20:20)
[2021-07-03] MEDS: Aspirin Enteric Coated 81 MG TABLET.DR PO (08:29)
[2021-07-03] MEDS: buPROPion HCl XL 150 MG TAB.ER.24H PO (08:29)
[2021-07-03] MEDS: risperiDONE 0.5 MG TABLET PO (08:29)
[2021-07-03] MEDS: Gabapentin 300 MG CAPSULE PO ×3 (08:29→20:20)
[2021-07-03] MEDS: Docusate Sodium 100 MG CAPSULE PO ×2 (08:30→20:20)
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
[2021-07-03 15:39] VITALS: BP 135/55; PULSE 100; RESP 18; TEMP 36.8; O2SAT 97
[2021-07-03] MEDS: Enoxaparin Sodium 40 MG/0.4 ML SYRINGE SUBCUT (20:20)
[2021-07-04] VITALS: BP 116/55; PULSE 87; RESP 16; TEMP 36.6; O2SAT 95
[2021-07-04 07:08] VITALS: BP 116/60; PULSE 74; RESP 18; TEMP 36; O2SAT 97
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
[2021-07-04] MEDS: Docusate Sodium 100 MG CAPSULE PO ×2 (09:52→20:23)
[2021-07-04] MEDS: Acetaminophen 325 MG TABLET 650 MG PO (09:52)
[2021-07-04] MEDS: Famotidine 20 MG TABLET PO ×2 (09:52→20:23)
[2021-07-04] MEDS: Aspirin Enteric Coated 81 MG TABLET.DR PO (09:52)
[2021-07-04] MEDS: Gabapentin 300 MG CAPSULE PO ×3 (09:52→20:23)
[2021-07-04] MEDS: buPROPion HCl XL 150 MG TAB.ER.24H PO (09:52)
[2021-07-04] MEDS: risperiDONE 0.5 MG TABLET PO (09:54)
[2021-07-04 16:00] VITALS: BP 116/46; PULSE 96; RESP 18; TEMP 35.8; O2SAT 96
[2021-07-04] MEDS: Enoxaparin Sodium 40 MG/0.4 ML SYRINGE SUBCUT (20:26)
[2021-07-04 23:27] VITALS: BP 118/56; PULSE 95; RESP 14; TEMP 36.2; O2SAT 97
[2021-07-05] MEDS: Melatonin 3 MG TABLET 6 MG PO (01:26)
[2021-07-05] MEDS: Acetaminophen 325 MG TABLET 650 MG PO (04:46)
[2021-07-05 07:02] VITALS: BP 150/59; PULSE 90; RESP 18; TEMP 36.6; O2SAT 96
[2021-07-05] MEDS: risperiDONE 0.5 MG TABLET PO (08:41)
[2021-07-05] MEDS: Gabapentin 300 MG CAPSULE PO ×3 (08:41→20:03)
[2021-07-05] MEDS: Famotidine 20 MG TABLET PO ×2 (08:41→20:03)
[2021-07-05] MEDS: Docusate Sodium 100 MG CAPSULE PO ×2 (08:41→20:03)
[2021-07-05] MEDS: buPROPion HCl XL 150 MG TAB.ER.24H PO (08:41)
[2021-07-05] MEDS: Aspirin Enteric Coated 81 MG TABLET.DR PO (08:42)
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
--- NOTE | 2021-07-05 13:33 | PC.NURSE ---
Skin assessment completed today. Patient has redness to bilateral buttocks and left heel. No open wounds are seen. Patient is turned and repositioned q 2 h and skin is washed and lotioned daily.
[2021-07-05 15:42] VITALS: BP 145/64; PULSE 87; RESP 18; TEMP 36.6; O2SAT 97
[2021-07-05 19:37] VITALS: BP 140/62; PULSE 99; RESP 16; TEMP 36.7; O2SAT 95
[2021-07-05] MEDS: Enoxaparin Sodium 40 MG/0.4 ML SYRINGE SUBCUT (20:03)
[2021-07-05 23:42] VITALS: BP 136/63; PULSE 86; RESP 16; TEMP 36.3; O2SAT 95
[2021-07-06 07:05] VITALS: BP 104/45; PULSE 84; RESP 20; TEMP 36.6; O2SAT 97
[2021-07-06] MEDS: Docusate Sodium 100 MG CAPSULE PO ×2 (08:30→20:15)
[2021-07-06] MEDS: Gabapentin 300 MG CAPSULE PO ×3 (08:30→20:15)
[2021-07-06] MEDS: risperiDONE 0.5 MG TABLET PO (08:31)
[2021-07-06] MEDS: Famotidine 20 MG TABLET PO ×2 (08:31→20:15)
[2021-07-06] MEDS: Aspirin Enteric Coated 81 MG TABLET.DR PO (08:31)
[2021-07-06] MEDS: buPROPion HCl XL 150 MG TAB.ER.24H PO (08:31)
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
[2021-07-06 15:56] VITALS: BP 110/72; PULSE 85; RESP 20; TEMP 37.2; O2SAT 98
--- NOTE | 2021-07-06 16:31 | MHC.CM.PN ---
NURSE CASK MAKER NOTE M ELECTRONIC MEDICAL REORD REVIEWED ALONG WITH CASE DISCUSSED WITH HOSPITALIST , PATIENT WAITING FOR POULTRY FIELD SERVICE TECHNICIAN PLACEMENT ( GUARDIAN WORKING ON FINALIZING ALL PAPERWORK TO BE SUNBMITTED TO [facility] FOR ELIGEBILITY) PATIENT WAS SEEN BY THE WOUND NURSE FOR FOLLOW UP; ( Patient has redness to bilateral buttocks and left heel. No open wounds are seen. Patient is turned and repositioned q 2 h and skin is washed and lotioned daily. _) DISCHARGE PLAN POULTRY FIELD SERVICE TECHNICIAN PLACEMENT HAS CONSERVATOR AND GUARDIAN
[2021-07-06] MEDS: Enoxaparin Sodium 40 MG/0.4 ML SYRINGE SUBCUT (20:15)
[2021-07-07] VITALS: BP 116/56; PULSE 93; RESP 18; TEMP 36.2; O2SAT 97
[2021-07-07 06:50] VITALS: BP 129/65; PULSE 90; RESP 18; TEMP 36.2; O2SAT 99
[2021-07-07] MEDS: Famotidine 20 MG TABLET PO ×2 (09:26→19:50)
[2021-07-07] MEDS: Aspirin Enteric Coated 81 MG TABLET.DR PO (09:26)
[2021-07-07] MEDS: Docusate Sodium 100 MG CAPSULE PO ×2 (09:26→19:50)
[2021-07-07] MEDS: risperiDONE 0.5 MG TABLET PO (09:26)
[2021-07-07] MEDS: Gabapentin 300 MG CAPSULE PO ×3 (09:26→19:50)
[2021-07-07] MEDS: buPROPion HCl XL 150 MG TAB.ER.24H PO (09:26)
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
[2021-07-07 15:31] VITALS: BP 133/60; PULSE 94; RESP 18; TEMP 36.8; O2SAT 90
[2021-07-07] MEDS: Acetaminophen 325 MG TABLET 650 MG PO (19:49)
[2021-07-07] MEDS: Enoxaparin Sodium 40 MG/0.4 ML SYRINGE SUBCUT (19:50)
[2021-07-07 23:44] VITALS: BP 136/67; PULSE 87; RESP 18; TEMP 36.4; O2SAT 98
[2021-07-08 06:24] LABS: Hematocrit 38.2 % (37.0-47.0); Hemoglobin 12.8 g/dl (12.0-16.0); Mean Corpuscular HGB Conc 33.5 g/dl (31.0-35.0); Mean Corpuscular Hemoglobin 31.1 pg (27.0-33.0); Mean Corpuscular Volume 92.7 fL (80.0-98.0); Mean Platelet Volume 9.4 fL (9.4-12.3); Platelet Count 284 X10*3/uL (160-400); Red Blood Count 4.12 X10*6/uL (4.20-5.50); Red Cell Distribution Width 13.4 % (11.0-16.0)
[2021-07-08 07:07] LABS: Anion Gap 14 (12-20); Blood Urea Nitrogen 28 mg/dL (9-16); Calcium 10.1 mg/dL (8.4-10.2); Carbon Dioxide 24 mmol/L (22-29); Chloride 103 mmol/L (96-108); Creatinine Clr Calc Pharmacy 51.7; Estimated Glomerular Filt Rate > 60; Glucose Random 94 mg/dL (60-115); Potassium 4.3 mmol/L (3.3-5.1); Sodium 137 mmol/L (135-145)
[2021-07-08 07:41] VITALS: BP 127/62; PULSE 93; RESP 18; TEMP 36.5; O2SAT 95
[2021-07-08] MEDS: Gabapentin 300 MG CAPSULE PO ×3 (08:36→20:52)
[2021-07-08] MEDS: risperiDONE 0.5 MG TABLET PO (08:36)
[2021-07-08] MEDS: Aspirin Enteric Coated 81 MG TABLET.DR PO (08:36)
[2021-07-08] MEDS: buPROPion HCl XL 150 MG TAB.ER.24H PO (08:36)
[2021-07-08] MEDS: Docusate Sodium 100 MG CAPSULE PO ×2 (08:36→20:52)
[2021-07-08] MEDS: Famotidine 20 MG TABLET PO ×2 (08:36→20:51)
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
[2021-07-08] MEDS: Acetaminophen 325 MG TABLET 650 MG PO ×2 (15:32→20:51)
[2021-07-08 15:46] VITALS: BP 138/63; PULSE 96; RESP 17; TEMP 36.5; O2SAT 99
[2021-07-08] MEDS: Enoxaparin Sodium 40 MG/0.4 ML SYRINGE SUBCUT (20:51)
[2021-07-08] MEDS: Melatonin 3 MG TABLET 6 MG PO (20:51)
[2021-07-08 23:33] VITALS: BP 112/55; PULSE 89; RESP 14; TEMP 36.1; O2SAT 96
[2021-07-09 08:00] VITALS: BP 148/74; PULSE 101; RESP 18; TEMP 36.3; O2SAT 96
[2021-07-09] MEDS: Aspirin Enteric Coated 81 MG TABLET.DR PO (08:59)
[2021-07-09] MEDS: Famotidine 20 MG TABLET PO ×2 (08:59→20:24)
[2021-07-09] MEDS: risperiDONE 0.5 MG TABLET PO (08:59)
[2021-07-09] MEDS: Docusate Sodium 100 MG CAPSULE PO ×2 (08:59→20:23)
[2021-07-09] MEDS: buPROPion HCl XL 150 MG TAB.ER.24H PO (08:59)
[2021-07-09] MEDS: Gabapentin 300 MG CAPSULE PO ×3 (08:59→20:23)
[2021-07-09] MEDS: Acetaminophen 325 MG TABLET 650 MG PO ×2 (09:51→16:33)
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
--- NOTE | 2021-07-09 13:09 | MHC.CM.PN ---
EMR REVIEWED, PT REMAINS MEDICALLY CLEARED FOR D/C, CM ATTEMPTED TO CONTACT PT'S GUARDIAN/CONSERVATOR DIANA QUINTANAAracelisBHANUITALIA [phone], NO ANSWER AND MESSAGE LEFT W/REQUEST FOR UPDATE ON STATUS ON MH [facility] AND CM'S FAX NUMBER SO WE CAN SEND [facility] TO FACILITY ONCE ONE IS WILLING TO ACCEPT PT, CONSERVATOR/GUARDIAN DOES REQUEST WE KEEP PT AND TOGETHER IF POSSIBLE AND CLOSE TO [facility], CM WILL CONT TO FOLLOW D/C NEEDS.
[2021-07-09 16:00] VITALS: BP 163/84; PULSE 111; RESP 17; TEMP 36.9; O2SAT 96
[2021-07-09 19:17] VITALS: BP 122/59; PULSE 116; RESP 18; TEMP 36.1; O2SAT 95
[2021-07-09] MEDS: Enoxaparin Sodium 40 MG/0.4 ML SYRINGE SUBCUT (20:23)
[2021-07-09] MEDS: Melatonin 3 MG TABLET 6 MG PO (20:23)
[2021-07-09 23:13] VITALS: BP 118/56; PULSE 106; RESP 18; TEMP 36.2; O2SAT 94
[2021-07-10 07:45] VITALS: BP 128/60; PULSE 99; RESP 20; TEMP 36.4; O2SAT 98
[2021-07-10] MEDS: Aspirin Enteric Coated 81 MG TABLET.DR PO (08:37)
[2021-07-10] MEDS: Acetaminophen 325 MG TABLET 650 MG PO ×2 (08:37→19:37)
[2021-07-10] MEDS: Docusate Sodium 100 MG CAPSULE PO ×2 (08:38→19:37)
[2021-07-10] MEDS: Gabapentin 300 MG CAPSULE PO ×3 (08:38→19:37)
[2021-07-10] MEDS: buPROPion HCl XL 150 MG TAB.ER.24H PO (08:38)
[2021-07-10] MEDS: risperiDONE 0.5 MG TABLET PO (08:39)
[2021-07-10] MEDS: Famotidine 20 MG TABLET PO ×2 (08:39→19:37)
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
[2021-07-10 15:11] VITALS: BP 126/60; PULSE 109; RESP 18; TEMP 36.9; O2SAT 97
[2021-07-10] MEDS: Enoxaparin Sodium 40 MG/0.4 ML SYRINGE SUBCUT (19:37)
[2021-07-11] VITALS: BP 125/58; PULSE 108; RESP 18; TEMP 36.6; O2SAT 96
[2021-07-11 07:45] VITALS: BP 120/58; PULSE 103; RESP 15; TEMP 36.4; O2SAT 93
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
--- NOTE | 2021-07-11 08:59 | MHC.CM.PN ---
CM RECEIVED MESSAGE FROM PT'S GUARDIAN/CONSERVATOR REPORTING HER [facility] HAS BEEN APPROVED, SNF REFERRALS UPDATED AND AWAITING BED OFFERS.
[2021-07-11] MEDS: risperiDONE 0.5 MG TABLET PO (09:25)
[2021-07-11] MEDS: Docusate Sodium 100 MG CAPSULE PO ×2 (09:25→19:48)
[2021-07-11] MEDS: Gabapentin 300 MG CAPSULE PO ×3 (09:25→19:48)
[2021-07-11] MEDS: Aspirin Enteric Coated 81 MG TABLET.DR PO (09:25)
[2021-07-11] MEDS: buPROPion HCl XL 150 MG TAB.ER.24H PO (09:25)
[2021-07-11] MEDS: Famotidine 20 MG TABLET PO ×2 (09:26→19:48)
[2021-07-11 15:07] VITALS: BP 145/64; PULSE 106; RESP 18; TEMP 37.1; O2SAT 97
[2021-07-11] MEDS: Enoxaparin Sodium 40 MG/0.4 ML SYRINGE SUBCUT (19:48)
[2021-07-11 23:18] VITALS: BP 112/55; PULSE 100; RESP 16; TEMP 37; O2SAT 99
[2021-07-12 08:00] VITALS: BP 135/62; PULSE 98; RESP 20; TEMP 36.3; O2SAT 97
[2021-07-12] MEDS: Acetaminophen 325 MG TABLET 650 MG PO ×2 (08:33→21:35)
[2021-07-12] MEDS: buPROPion HCl XL 150 MG TAB.ER.24H PO (08:34)
[2021-07-12] MEDS: Gabapentin 300 MG CAPSULE PO ×3 (08:34→20:10)
[2021-07-12] MEDS: Aspirin Enteric Coated 81 MG TABLET.DR PO (08:34)
[2021-07-12] MEDS: Docusate Sodium 100 MG CAPSULE PO ×2 (08:34→20:10)
[2021-07-12] MEDS: risperiDONE 0.5 MG TABLET PO (08:34)
[2021-07-12] MEDS: Famotidine 20 MG TABLET PO ×2 (08:34→20:10)
--- NOTE | 2021-07-12 15:04 | MHC.CM.PN ---
EMR REVIEWED, CM RECEIVED MESSAGE FROM [employer] [employer] REPORTING THAT PT'S MH IS ACTUALLY THE ONE THAT'S INCOMPLETE NOT PT'S , CM HAS UPDATED [facility] [employer].
[2021-07-12 15:43] VITALS: BP 123/57; PULSE 102; RESP 20; TEMP 36.2; O2SAT 97
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
[2021-07-12] MEDS: Melatonin 3 MG TABLET 6 MG PO (20:09)
[2021-07-12] MEDS: Enoxaparin Sodium 40 MG/0.4 ML SYRINGE SUBCUT (20:10)
[2021-07-12 20:36] VITALS: BP 125/52; PULSE 103; RESP 16; TEMP 36.7; O2SAT 96
[2021-07-13 07:57] VITALS: BP 114/51; PULSE 93; RESP 18; TEMP 36.3; O2SAT 97
[2021-07-13] MEDS: risperiDONE 0.5 MG TABLET PO (09:06)
[2021-07-13] MEDS: Docusate Sodium 100 MG CAPSULE PO ×2 (09:06→20:57)
[2021-07-13] MEDS: Aspirin Enteric Coated 81 MG TABLET.DR PO (09:06)
[2021-07-13] MEDS: Gabapentin 300 MG CAPSULE PO ×3 (09:06→20:57)
[2021-07-13] MEDS: Famotidine 20 MG TABLET PO ×2 (09:06→20:57)
[2021-07-13] MEDS: buPROPion HCl XL 150 MG TAB.ER.24H PO (09:06)
[2021-07-13 15:45] VITALS: BMI 25.9
[2021-07-13 16:00] VITALS: BP 123/58; PULSE 95; RESP 17; TEMP 37.1; O2SAT 98
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
[2021-07-13] MEDS: Enoxaparin Sodium 40 MG/0.4 ML SYRINGE SUBCUT (20:57)
[2021-07-13 23:09] VITALS: BP 144/65; PULSE 99; RESP 14; TEMP 36.5; O2SAT 97
[2021-07-14 07:33] VITALS: BP 142/68; PULSE 105; RESP 18; TEMP 36.7; O2SAT 100
[2021-07-14] MEDS: Gabapentin 300 MG CAPSULE PO ×3 (08:19→19:19)
[2021-07-14] MEDS: risperiDONE 0.5 MG TABLET PO (08:19)
[2021-07-14] MEDS: Acetaminophen 325 MG TABLET 650 MG PO (08:19)
[2021-07-14] MEDS: Famotidine 20 MG TABLET PO ×2 (08:19→19:19)
[2021-07-14] MEDS: buPROPion HCl XL 150 MG TAB.ER.24H PO (08:19)
[2021-07-14] MEDS: Docusate Sodium 100 MG CAPSULE PO ×2 (08:19→19:19)
[2021-07-14] MEDS: Aspirin Enteric Coated 81 MG TABLET.DR PO (08:19)
[2021-07-14 15:14] VITALS: BP 148/67; PULSE 101; RESP 17; TEMP 36.3; O2SAT 98
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
[2021-07-14] MEDS: Enoxaparin Sodium 40 MG/0.4 ML SYRINGE SUBCUT (19:19)
[2021-07-14 23:22] VITALS: BP 124/58; PULSE 88; RESP 17; TEMP 36.3; O2SAT 100
[2021-07-15 08:00] VITALS: BP 137/66; PULSE 80; RESP 18; TEMP 36.3; O2SAT 98
[2021-07-15] MEDS: Famotidine 20 MG TABLET PO ×2 (09:48→20:37)
[2021-07-15] MEDS: Docusate Sodium 100 MG CAPSULE PO ×2 (09:48→20:37)
[2021-07-15] MEDS: Acetaminophen 325 MG TABLET 650 MG PO (09:49)
[2021-07-15] MEDS: buPROPion HCl XL 150 MG TAB.ER.24H PO (09:49)
[2021-07-15] MEDS: risperiDONE 0.5 MG TABLET PO (09:49)
[2021-07-15] MEDS: Aspirin Enteric Coated 81 MG TABLET.DR PO (09:49)
[2021-07-15] MEDS: Gabapentin 300 MG CAPSULE PO ×3 (09:49→20:37)
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
[2021-07-15 15:49] VITALS: BP 148/71; PULSE 96; RESP 18; TEMP 36.5; O2SAT 99
[2021-07-15] MEDS: Enoxaparin Sodium 40 MG/0.4 ML SYRINGE SUBCUT (20:37)
[2021-07-15 23:49] VITALS: BP 127/58; PULSE 99; RESP 17; TEMP 36.9; O2SAT 97
[2021-07-16 05:58] LABS: Hematocrit 38.7 % (37.0-47.0); Hemoglobin 12.1 g/dl (12.0-16.0); Mean Corpuscular HGB Conc 31.3 g/dl (31.0-35.0); Mean Corpuscular Hemoglobin 29.7 pg (27.0-33.0); Mean Corpuscular Volume 95.1 fL (80.0-98.0); Mean Platelet Volume 9.1 fL (9.4-12.3); Platelet Count 392 X10*3/uL (160-400); Red Blood Count 4.07 X10*6/uL (4.20-5.50); Red Cell Distribution Width 12.8 % (11.0-16.0); White Blood Count 7.4 X10*3/uL (4.8-10.8)
[2021-07-16 06:08] LABS: Anion Gap 14 (12-20); Blood Urea Nitrogen 26 mg/dL (9-16); Calcium 10.2 mg/dL (8.4-10.2); Carbon Dioxide 26 mmol/L (22-29); Chloride 105 mmol/L (96-108); Creatinine Clr Calc Pharmacy 48.7; Estimated Glomerular Filt Rate > 60; Glucose Random 89 mg/dL (60-115); Potassium 4.2 mmol/L (3.3-5.1); Sodium 141 mmol/L (135-145)
[2021-07-16 07:31] VITALS: BP 100/50; PULSE 93; RESP 15; TEMP 36.6; O2SAT 98
[2021-07-16] MEDS: Docusate Sodium 100 MG CAPSULE PO ×2 (10:22→20:02)
[2021-07-16] MEDS: risperiDONE 0.5 MG TABLET PO (10:22)
[2021-07-16] MEDS: Gabapentin 300 MG CAPSULE PO ×3 (10:22→20:02)
[2021-07-16] MEDS: Aspirin Enteric Coated 81 MG TABLET.DR PO (10:22)
[2021-07-16] MEDS: buPROPion HCl XL 150 MG TAB.ER.24H PO (10:22)
[2021-07-16] MEDS: Famotidine 20 MG TABLET PO ×2 (10:22→20:02)
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
--- NOTE | 2021-07-16 15:07 | MHC.CM.PN ---
Addendum entered by Mala Norwood 07/16/21 15:24: [facility] COUNSELOR INFORMED ME THAT PATIENT ;(, Stefanie Alcantara was given Premium Assistance with [employer]. Her ID: [id number]. I contacted Atty. Delmy Parra and explained what was needed. She is working on it. 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
[2021-07-16 15:21] VITALS: BP 116/57; PULSE 97; RESP 18; TEMP 37; O2SAT 97
[2021-07-16] MEDS: Enoxaparin Sodium 40 MG/0.4 ML SYRINGE SUBCUT (20:02)
[2021-07-16 23:38] VITALS: BP 118/57; PULSE 94; RESP 16; TEMP 36.4; O2SAT 99
[2021-07-17 06:48] VITALS: BP 146/63; PULSE 94; RESP 18; TEMP 36; O2SAT 96
[2021-07-17] MEDS: buPROPion HCl XL 150 MG TAB.ER.24H PO (11:01)
[2021-07-17] MEDS: Famotidine 20 MG TABLET PO ×2 (11:01→19:13)
[2021-07-17] MEDS: risperiDONE 0.5 MG TABLET PO (11:01)
[2021-07-17] MEDS: Gabapentin 300 MG CAPSULE PO ×3 (11:02→19:13)
[2021-07-17] MEDS: Aspirin Enteric Coated 81 MG TABLET.DR PO (11:02)
[2021-07-17] MEDS: Docusate Sodium 100 MG CAPSULE PO ×2 (11:02→19:13)
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
[2021-07-17 15:29] VITALS: BP 123/56; PULSE 93; RESP 16; TEMP 36.2; O2SAT 100
--- NOTE | 2021-07-17 16:57 | MHC.CM.PN ---
( TEXTED RECEIVED FROM [employer]ANCIAL [employer]SEL[employer] /CONSERVATOR ) SUBMITS THE LTC SUPPLEMENT AND PROOF OF SPEND-DOWN OR TRANSFER OF THE LIFE INSURANCE POLICY TO A HOME WITHIN 30 DAYS (BY 08/01/21), [facility] LAW PROFESSOR WILL PROCESS THE REST OF THE APPLICATION AND THEY WILL PROBABLY BE APPROVED. THEY ALSO NEED THE SC-1 AND SCREENING FORMS FROM [facility]. THEY SHOULD FAX THEM TO [phone], ATTN: [facility] 11:43 AM
[2021-07-17] MEDS: Enoxaparin Sodium 40 MG/0.4 ML SYRINGE SUBCUT (19:13)
[2021-07-17] MEDS: Acetaminophen 325 MG TABLET 650 MG PO (23:42)
[2021-07-17 23:54] VITALS: BP 143/69; PULSE 102; RESP 18; TEMP 36.2; O2SAT 99
[2021-07-18 08:00] VITALS: BP 123/58; PULSE 93; RESP 18; TEMP 36.8; O2SAT 98
[2021-07-18] MEDS: Aspirin Enteric Coated 81 MG TABLET.DR PO (08:59)
[2021-07-18] MEDS: Docusate Sodium 100 MG CAPSULE PO ×2 (08:59→20:02)
[2021-07-18] MEDS: buPROPion HCl XL 150 MG TAB.ER.24H PO (08:59)
[2021-07-18] MEDS: Gabapentin 300 MG CAPSULE PO ×3 (08:59→20:02)
[2021-07-18] MEDS: Famotidine 20 MG TABLET PO ×2 (08:59→20:02)
[2021-07-18] MEDS: risperiDONE 0.5 MG TABLET PO (09:00)
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
[2021-07-18 15:54] VITALS: BP 130/63; PULSE 90; RESP 18; TEMP 37; O2SAT 95
[2021-07-18] MEDS: Enoxaparin Sodium 40 MG/0.4 ML SYRINGE SUBCUT (20:02)
[2021-07-18 23:57] VITALS: BP 133/68; PULSE 104; RESP 14; TEMP 36.9; O2SAT 91
[2021-07-19 07:55] VITALS: BP 124/56; PULSE 77; RESP 15; TEMP 36.2; O2SAT 98
[2021-07-19] MEDS: buPROPion HCl XL 150 MG TAB.ER.24H PO (08:25)
[2021-07-19] MEDS: Gabapentin 300 MG CAPSULE PO ×3 (08:25→20:16)
[2021-07-19] MEDS: Famotidine 20 MG TABLET PO ×2 (08:25→20:16)
[2021-07-19] MEDS: Docusate Sodium 100 MG CAPSULE PO ×2 (08:25→20:16)
[2021-07-19] MEDS: Aspirin Enteric Coated 81 MG TABLET.DR PO (08:25)
[2021-07-19] MEDS: risperiDONE 0.5 MG TABLET PO (08:26)
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
[2021-07-19 16:00] VITALS: BP 123/59; PULSE 90; RESP 18; TEMP 36.3; O2SAT 98
[2021-07-19] MEDS: Enoxaparin Sodium 40 MG/0.4 ML SYRINGE SUBCUT (20:15)
[2021-07-19 23:49] VITALS: BP 151/58; PULSE 89; RESP 17; TEMP 36.6; O2SAT 100
[2021-07-20 06:52] VITALS: BP 133/65; PULSE 90; RESP 18; TEMP 36.6; O2SAT 96
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
[2021-07-20] MEDS: Gabapentin 300 MG CAPSULE PO ×3 (10:06→20:14)
[2021-07-20] MEDS: buPROPion HCl XL 150 MG TAB.ER.24H PO (10:06)
[2021-07-20] MEDS: Aspirin Enteric Coated 81 MG TABLET.DR PO (10:06)
[2021-07-20] MEDS: risperiDONE 0.5 MG TABLET PO (10:06)
[2021-07-20] MEDS: Docusate Sodium 100 MG CAPSULE PO ×2 (10:06→20:14)
[2021-07-20] MEDS: Famotidine 20 MG TABLET PO ×2 (10:07→20:14)
[2021-07-20 15:27] VITALS: BP 144/67; PULSE 109; RESP 18; TEMP 36.4; O2SAT 97
[2021-07-20] MEDS: Acetaminophen 325 MG TABLET 650 MG PO (18:42)
[2021-07-20] MEDS: Enoxaparin Sodium 40 MG/0.4 ML SYRINGE SUBCUT (20:14)
[2021-07-20 23:30] VITALS: BP 130/80; PULSE 84; RESP 18; TEMP 36.6; O2SAT 97
[2021-07-21 08:00] VITALS: BP 119/55; PULSE 92; RESP 18; TEMP 36.5; O2SAT 97
[2021-07-21] MEDS: Docusate Sodium 100 MG CAPSULE PO ×2 (09:31→21:27)
[2021-07-21] MEDS: Famotidine 20 MG TABLET PO ×2 (09:31→21:27)
[2021-07-21] MEDS: buPROPion HCl XL 150 MG TAB.ER.24H PO (09:31)
[2021-07-21] MEDS: Gabapentin 300 MG CAPSULE PO ×3 (09:31→21:27)
[2021-07-21] MEDS: HYDROcodone Bit/Acetam 5/325 TABLET 1 TAB PO (09:31)
[2021-07-21] MEDS: risperiDONE 0.5 MG TABLET PO (09:31)
[2021-07-21] MEDS: Aspirin Enteric Coated 81 MG TABLET.DR PO (09:31)
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
[2021-07-21 15:16] VITALS: BP 118/58; PULSE 97; RESP 18; TEMP 36.6; O2SAT 93
[2021-07-21] MEDS: Enoxaparin Sodium 40 MG/0.4 ML SYRINGE SUBCUT (21:27)
[2021-07-21 23:53] VITALS: BP 111/56; PULSE 100; RESP 16; TEMP 36.3; O2SAT 97
[2021-07-22 07:19] VITALS: BP 134/63; PULSE 86; RESP 17; TEMP 36.4; O2SAT 98
[2021-07-22] MEDS: buPROPion HCl XL 150 MG TAB.ER.24H PO (10:23)
[2021-07-22] MEDS: Famotidine 20 MG TABLET PO ×2 (10:23→19:32)
[2021-07-22] MEDS: Docusate Sodium 100 MG CAPSULE PO ×2 (10:23→19:32)
[2021-07-22] MEDS: risperiDONE 0.5 MG TABLET PO (10:23)
[2021-07-22] MEDS: Aspirin Enteric Coated 81 MG TABLET.DR PO (10:23)
[2021-07-22] MEDS: Gabapentin 300 MG CAPSULE PO ×3 (10:24→19:32)
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
[2021-07-22 15:42] VITALS: BP 130/58; PULSE 94; RESP 18; TEMP 36.5; O2SAT 96
[2021-07-22] MEDS: Enoxaparin Sodium 40 MG/0.4 ML SYRINGE SUBCUT (19:32)
[2021-07-22 23:56] VITALS: BP 137/46; PULSE 95; RESP 14; TEMP 36.8; O2SAT 97
[2021-07-23 08:00] VITALS: BP 135/64; PULSE 54; RESP 15; TEMP 36.3; O2SAT 95
[2021-07-23] MEDS: Famotidine 20 MG TABLET PO ×2 (08:06→21:24)
[2021-07-23] MEDS: risperiDONE 0.5 MG TABLET PO (08:06)
[2021-07-23] MEDS: Aspirin Enteric Coated 81 MG TABLET.DR PO (08:06)
[2021-07-23] MEDS: Docusate Sodium 100 MG CAPSULE PO ×2 (08:06→21:24)
[2021-07-23] MEDS: buPROPion HCl XL 150 MG TAB.ER.24H PO (08:06)
[2021-07-23] MEDS: Gabapentin 300 MG CAPSULE PO ×3 (08:06→21:24)
[2021-07-23] MEDS: Acetaminophen 325 MG TABLET 650 MG PO (08:08)
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
[2021-07-23 15:09] VITALS: BP 136/64; PULSE 94; RESP 18; TEMP 36.9; O2SAT 95
--- NOTE | 2021-07-23 15:54 | MHC.CM.PN ---
EMR REVIEWED, CM CONACTED PTS GUARDIAN/CONSERVATOR ATTY DIANA BERGER AT 3:36PM, ATTY CELINE REPORTED SHE SUBMITTED FINAL DOCUMENTS TO LAST WEEK, [facility] UPDATED VIA [employer], ANTIC PT WILL D/C ONCE MH IS VERIFIED. CM WILL CONT TO FOLLOW D/C NEEDS.
[2021-07-23] MEDS: Enoxaparin Sodium 40 MG/0.4 ML SYRINGE SUBCUT (21:24)
[2021-07-23] MEDS: Melatonin 3 MG TABLET 6 MG PO (21:24)
[2021-07-23 23:07] VITALS: BP 123/58; PULSE 84; RESP 18; TEMP 36.4; O2SAT 97
[2021-07-24] VITALS: BP 123/58; PULSE 84; RESP 18; TEMP 36.4; O2SAT 97
[2021-07-24 08:00] VITALS: BP 137/63; PULSE 87; RESP 16; TEMP 36.4; O2SAT 97
[2021-07-24] MEDS: buPROPion HCl XL 150 MG TAB.ER.24H PO (08:43)
[2021-07-24] MEDS: Famotidine 20 MG TABLET PO ×2 (08:43→20:06)
[2021-07-24] MEDS: Aspirin Enteric Coated 81 MG TABLET.DR PO (08:43)
[2021-07-24] MEDS: risperiDONE 0.5 MG TABLET PO (08:43)
[2021-07-24] MEDS: Docusate Sodium 100 MG CAPSULE PO ×2 (08:43→20:06)
[2021-07-24] MEDS: Gabapentin 300 MG CAPSULE PO ×3 (08:43→20:06)
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
[2021-07-24 15:33] VITALS: BP 119/58; PULSE 87; RESP 17; TEMP 36.4; O2SAT 95
[2021-07-24] MEDS: Enoxaparin Sodium 40 MG/0.4 ML SYRINGE SUBCUT (20:05)
[2021-07-24] MEDS: Melatonin 3 MG TABLET 6 MG PO (20:06)
[2021-07-24] MEDS: Acetaminophen 325 MG TABLET 650 MG PO (20:07)
[2021-07-24 23:22] VITALS: BP 139/60; PULSE 85; RESP 18; TEMP 36.6; O2SAT 98
[2021-07-25 07:46] VITALS: BP 142/65; PULSE 80; RESP 17; TEMP 36.5; O2SAT 97
[2021-07-25] MEDS: Aspirin Enteric Coated 81 MG TABLET.DR PO (08:39)
[2021-07-25] MEDS: Gabapentin 300 MG CAPSULE PO ×3 (08:39→20:35)
[2021-07-25] MEDS: Docusate Sodium 100 MG CAPSULE PO ×2 (08:39→20:35)
[2021-07-25] MEDS: risperiDONE 0.5 MG TABLET PO (08:39)
[2021-07-25] MEDS: Famotidine 20 MG TABLET PO ×2 (08:39→20:35)
[2021-07-25] MEDS: buPROPion HCl XL 150 MG TAB.ER.24H PO (08:39)
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
[2021-07-25 15:26] VITALS: BP 116/58; PULSE 93; RESP 17; TEMP 36.8; O2SAT 98
[2021-07-25] MEDS: Enoxaparin Sodium 40 MG/0.4 ML SYRINGE SUBCUT (20:35)
[2021-07-25] MEDS: Melatonin 3 MG TABLET 6 MG PO (20:35)
[2021-07-25] MEDS: Acetaminophen 325 MG TABLET 650 MG PO (20:37)
[2021-07-26] VITALS: BP 118/46; PULSE 84; RESP 18; TEMP 36.5; O2SAT 98
[2021-07-26 07:55] VITALS: BP 110/43; PULSE 88; RESP 16; TEMP 36.4; O2SAT 98
[2021-07-26] MEDS: buPROPion HCl XL 150 MG TAB.ER.24H PO (08:23)
[2021-07-26] MEDS: Docusate Sodium 100 MG CAPSULE PO ×2 (08:23→20:10)
[2021-07-26] MEDS: Gabapentin 300 MG CAPSULE PO ×3 (08:23→20:10)
[2021-07-26] MEDS: Famotidine 20 MG TABLET PO ×2 (08:23→20:10)
[2021-07-26] MEDS: Aspirin Enteric Coated 81 MG TABLET.DR PO (08:24)
[2021-07-26] MEDS: risperiDONE 0.5 MG TABLET PO (08:24)
--- NOTE | 2021-07-26 10:14 | MHC.CM.PN ---
Addendum entered by Valentina Aguilera RN 07/26/21 13:18: CM ATTEMPTED TO CONTACT ADMISSIONS LIAISON MARY BOYD [phone], NO ANSWER AND MESSAGE LEFT W/CM CONTATCT INFO. Original Note: EMR REVIEWED, PT REMAINS MEDICALLY CLEARED FOR D/C, REFERRAL FOR [facility] UPDATED AND THIS CM WILL FOLLOW-UP W/LIAISON.
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
[2021-07-26 15:47] VITALS: BP 125/64; PULSE 92; RESP 18; TEMP 36.4; O2SAT 98
[2021-07-26] MEDS: Enoxaparin Sodium 40 MG/0.4 ML SYRINGE SUBCUT (20:10)
[2021-07-27] VITALS: BP 126/61; PULSE 70; RESP 18; TEMP 36.2; O2SAT 98
[2021-07-27 07:56] VITALS: BP 161/73; PULSE 77; RESP 18; TEMP 36.1; O2SAT 98
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
[2021-07-27] MEDS: Docusate Sodium 100 MG CAPSULE PO ×2 (08:15→20:15)
[2021-07-27] MEDS: buPROPion HCl XL 150 MG TAB.ER.24H PO (08:15)
[2021-07-27] MEDS: Famotidine 20 MG TABLET PO ×2 (08:15→20:15)
[2021-07-27] MEDS: Gabapentin 300 MG CAPSULE PO ×3 (08:15→20:15)
[2021-07-27] MEDS: Aspirin Enteric Coated 81 MG TABLET.DR PO (08:15)
[2021-07-27] MEDS: risperiDONE 0.5 MG TABLET PO (08:15)
--- NOTE | 2021-07-27 13:59 | MHC.CM.PN ---
nurse day care center director note electronic medical review along with case disucssed with hospitlaist checked with [facility] [place] financial counselors confirmed sirena cevallos has sent in individual [employer] application . await confirmation and approval several nursing homes lta sent out but no one will accept until [employer] approved
[2021-07-27 15:25] VITALS: BP 129/60; PULSE 81; RESP 17; TEMP 36.7; O2SAT 97
[2021-07-27] MEDS: Melatonin 3 MG TABLET 6 MG PO (20:15)
[2021-07-27] MEDS: Acetaminophen 325 MG TABLET 650 MG PO (20:15)
[2021-07-27] MEDS: Enoxaparin Sodium 40 MG/0.4 ML SYRINGE SUBCUT (20:18)
[2021-07-27 23:40] VITALS: BP 114/57; PULSE 90; RESP 17; TEMP 36.3; O2SAT 97
[2021-07-28 07:34] VITALS: BP 124/54; PULSE 98; RESP 17; TEMP 36.2; O2SAT 96
[2021-07-28] MEDS: Docusate Sodium 100 MG CAPSULE PO ×2 (08:19→21:20)
[2021-07-28] MEDS: Acetaminophen 325 MG TABLET 650 MG PO (08:19)
[2021-07-28] MEDS: risperiDONE 0.5 MG TABLET PO (08:19)
[2021-07-28] MEDS: Gabapentin 300 MG CAPSULE PO ×3 (08:19→21:20)
[2021-07-28] MEDS: Famotidine 20 MG TABLET PO ×2 (08:19→21:20)
[2021-07-28] MEDS: Aspirin Enteric Coated 81 MG TABLET.DR PO (08:19)
[2021-07-28] MEDS: buPROPion HCl XL 150 MG TAB.ER.24H PO (08:22)
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
[2021-07-28 15:12] VITALS: BP 128/58; PULSE 78; RESP 14; TEMP 36.7; O2SAT 100
[2021-07-28] MEDS: Enoxaparin Sodium 40 MG/0.4 ML SYRINGE SUBCUT (21:20)
[2021-07-28 23:52] VITALS: BP 148/61; PULSE 86; RESP 18; TEMP 36.9; O2SAT 99
[2021-07-29 07:28] VITALS: BP 145/56; PULSE 91; RESP 20; TEMP 36.8; O2SAT 99
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
[2021-07-29] MEDS: Docusate Sodium 100 MG CAPSULE PO ×2 (09:51→19:24)
[2021-07-29] MEDS: Gabapentin 300 MG CAPSULE PO ×3 (09:51→19:24)
[2021-07-29] MEDS: Aspirin Enteric Coated 81 MG TABLET.DR PO (09:51)
[2021-07-29] MEDS: Famotidine 20 MG TABLET PO ×2 (09:51→19:24)
[2021-07-29] MEDS: risperiDONE 0.5 MG TABLET PO (09:52)
[2021-07-29] MEDS: buPROPion HCl XL 150 MG TAB.ER.24H PO (09:52)
[2021-07-29] MEDS: Acetaminophen 325 MG TABLET 650 MG PO (09:54)
[2021-07-29 16:00] VITALS: BP 119/56; PULSE 98; RESP 17; TEMP 36.9; O2SAT 96
[2021-07-29] MEDS: Enoxaparin Sodium 40 MG/0.4 ML SYRINGE SUBCUT (19:24)
[2021-07-29 23:44] VITALS: BP 109/50; PULSE 76; RESP 19; TEMP 36.7; O2SAT 96
[2021-07-30] MEDS: Aspirin Enteric Coated 81 MG TABLET.DR PO (07:36)
[2021-07-30] MEDS: Famotidine 20 MG TABLET PO ×2 (07:36→20:29)
[2021-07-30] MEDS: risperiDONE 0.5 MG TABLET PO (07:36)
[2021-07-30] MEDS: buPROPion HCl XL 150 MG TAB.ER.24H PO (07:37)
[2021-07-30] MEDS: Docusate Sodium 100 MG CAPSULE PO ×2 (07:37→20:29)
[2021-07-30] MEDS: Gabapentin 300 MG CAPSULE PO ×3 (07:37→20:29)
[2021-07-30 07:54] VITALS: BP 125/59; PULSE 74; RESP 18; TEMP 36.5; O2SAT 98
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
[2021-07-30 15:15] VITALS: BP 147/63; PULSE 103; RESP 18; TEMP 37; O2SAT 97
[2021-07-30 19:09] VITALS: BP 140/64; PULSE 102; RESP 15; TEMP 36.6; O2SAT 96
[2021-07-30] MEDS: Enoxaparin Sodium 40 MG/0.4 ML SYRINGE SUBCUT (20:29)
[2021-07-30 23:37] VITALS: BP 98/50; PULSE 86; RESP 14; TEMP 36.3; O2SAT 97
[2021-07-31 08:00] VITALS: BP 111/49; PULSE 88; RESP 18; TEMP 36.6; O2SAT 97
[2021-07-31] MEDS: Famotidine 20 MG TABLET PO ×2 (09:18→23:11)
[2021-07-31] MEDS: Docusate Sodium 100 MG CAPSULE PO ×2 (09:18→23:11)
[2021-07-31] MEDS: Aspirin Enteric Coated 81 MG TABLET.DR PO (09:18)
[2021-07-31] MEDS: risperiDONE 0.5 MG TABLET PO (09:18)
[2021-07-31] MEDS: buPROPion HCl XL 150 MG TAB.ER.24H PO (09:18)
[2021-07-31] MEDS: Gabapentin 300 MG CAPSULE PO ×3 (09:18→23:11)
--- NOTE | 2021-07-31 11:48 | MHC.CM.PN ---
NURSE NUCLEAR RADIOLOGIST NOTE ELECTRONIC MEDICAL RECORD REVIEWED. ALONG WITH CASE DISCUSSED WITH STAFF NURSE AND HOSPITALIST, CONTINUES TO BE FOLLOWED BY THE WOUND NURSE AND DIETITIAN. 1. LEGAL GUARDIAN/CONSERVATOR ATTY , DIANA SOW ([phone]) INDIVIDUAL [email or web address] [facility] APPLICATION RE-SUBMITTED LAST WEEK BY THE GUARDIAN, AND NOW IN PROCESS, PENDING APPROVAL 2. T/C TO [place] [employer] COUNSELORS THEY ARE UNABLE TO ACCESS [facility] FOR THIS PATIENT THEY ARE NOT INVOLVED 3/ FINANCIAL COUSELORS RECOMMENDED I CALL GUARDIAN AND HAVE HER CHECK INTO THE [facility] PROCESSING, AND CONTACT [facility] ENGINEER OSBALDO MIRELES .[phone] 4. T/C TO GUARDIAN/CONSERVATOR ORAL AND MAXILLOFACIAL SURGERY RESIDENT DIANA ORTEGA. 

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
[2021-07-31 15:32] VITALS: BP 146/63; PULSE 94; RESP 18; TEMP 37; O2SAT 98
[2021-07-31] MEDS: Enoxaparin Sodium 40 MG/0.4 ML SYRINGE SUBCUT (23:11)
[2021-08-01] VITALS: BP 117/55; PULSE 89; RESP 16; TEMP 37.1; O2SAT 97
[2021-08-01 07:38] VITALS: BP 119/56; PULSE 74; RESP 18; TEMP 36; O2SAT 97
[2021-08-01] MEDS: Docusate Sodium 100 MG CAPSULE PO ×2 (08:20→19:15)
[2021-08-01] MEDS: Aspirin Enteric Coated 81 MG TABLET.DR PO (08:21)
[2021-08-01] MEDS: risperiDONE 0.5 MG TABLET PO (08:21)
[2021-08-01] MEDS: Famotidine 20 MG TABLET PO ×2 (08:21→19:15)
[2021-08-01] MEDS: Gabapentin 300 MG CAPSULE PO ×3 (08:21→19:15)
[2021-08-01] MEDS: buPROPion HCl XL 150 MG TAB.ER.24H PO (08:21)
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
[2021-08-01 15:07] VITALS: BP 125/52; PULSE 90; RESP 17; TEMP 36.7; O2SAT 98
[2021-08-01] MEDS: Enoxaparin Sodium 40 MG/0.4 ML SYRINGE SUBCUT (19:14)
[2021-08-01] MEDS: Melatonin 3 MG TABLET 6 MG PO (19:15)
[2021-08-01 23:20] VITALS: BP 109/50; PULSE 79; RESP 16; TEMP 36.6; O2SAT 96
[2021-08-02 08:05] VITALS: BP 126/52; PULSE 84; RESP 18; TEMP 36.7; O2SAT 98
[2021-08-02] MEDS: Famotidine 20 MG TABLET PO ×2 (09:04→21:03)
[2021-08-02] MEDS: Docusate Sodium 100 MG CAPSULE PO ×2 (09:04→21:03)
[2021-08-02] MEDS: Gabapentin 300 MG CAPSULE PO ×3 (09:04→21:03)
[2021-08-02] MEDS: buPROPion HCl XL 150 MG TAB.ER.24H PO (09:04)
[2021-08-02] MEDS: Aspirin Enteric Coated 81 MG TABLET.DR PO (09:04)
[2021-08-02] MEDS: risperiDONE 0.5 MG TABLET PO (09:04)
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
[2021-08-02 15:38] VITALS: BP 113/43; PULSE 84; RESP 18; TEMP 36.4; O2SAT 98
[2021-08-02] MEDS: Enoxaparin Sodium 40 MG/0.4 ML SYRINGE SUBCUT (21:03)
[2021-08-02 23:43] VITALS: BP 120/58; PULSE 93; RESP 14; TEMP 36.3; O2SAT 96
[2021-08-03 07:23] VITALS: BP 101/40; PULSE 79; RESP 20; TEMP 37.2; O2SAT 96
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
[2021-08-03] MEDS: Gabapentin 300 MG CAPSULE PO ×3 (09:45→20:13)
[2021-08-03] MEDS: Acetaminophen 325 MG TABLET 650 MG PO (09:45)
[2021-08-03] MEDS: buPROPion HCl XL 150 MG TAB.ER.24H PO (09:45)
[2021-08-03] MEDS: Docusate Sodium 100 MG CAPSULE PO ×2 (09:45→20:13)
[2021-08-03] MEDS: risperiDONE 0.5 MG TABLET PO (09:45)
[2021-08-03] MEDS: Aspirin Enteric Coated 81 MG TABLET.DR PO (09:45)
[2021-08-03 15:51] VITALS: BP 118/58; PULSE 98; RESP 16; TEMP 36.7; O2SAT 98
[2021-08-03] MEDS: Enoxaparin Sodium 40 MG/0.4 ML SYRINGE SUBCUT (20:13)
[2021-08-03] MEDS: Famotidine 20 MG TABLET PO (20:13)
[2021-08-04] VITALS: BP 102/50; PULSE 75; RESP 16; TEMP 36.3; O2SAT 97
[2021-08-04 08:00] VITALS: BP 128/59; PULSE 86; RESP 18; TEMP 36.3; O2SAT 97
[2021-08-04] MEDS: Famotidine 20 MG TABLET PO ×2 (08:34→19:54)
[2021-08-04] MEDS: buPROPion HCl XL 150 MG TAB.ER.24H PO (08:34)
[2021-08-04] MEDS: Aspirin Enteric Coated 81 MG TABLET.DR PO (08:34)
[2021-08-04] MEDS: Docusate Sodium 100 MG CAPSULE PO ×2 (08:34→19:54)
[2021-08-04] MEDS: risperiDONE 0.5 MG TABLET PO (08:34)
[2021-08-04] MEDS: Gabapentin 300 MG CAPSULE PO ×3 (08:34→19:54)
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
[2021-08-04] MEDS: Acetaminophen 325 MG TABLET 650 MG PO (14:36)
[2021-08-04 15:31] VITALS: BP 109/49; PULSE 94; RESP 18; TEMP 36.2; O2SAT 97
[2021-08-04] MEDS: Enoxaparin Sodium 40 MG/0.4 ML SYRINGE SUBCUT (19:55)
[2021-08-05] VITALS: BP 98/46; PULSE 86; RESP 17; TEMP 36.1; O2SAT 95
[2021-08-05 08:00] VITALS: BP 116/56; PULSE 86; RESP 18; TEMP 36.2; O2SAT 98
[2021-08-05] MEDS: Famotidine 20 MG TABLET PO ×2 (09:10→21:25)
[2021-08-05] MEDS: Aspirin Enteric Coated 81 MG TABLET.DR PO (09:10)
[2021-08-05] MEDS: Gabapentin 300 MG CAPSULE PO ×3 (09:10→21:25)
[2021-08-05] MEDS: Docusate Sodium 100 MG CAPSULE PO ×2 (09:10→21:25)
[2021-08-05] MEDS: buPROPion HCl XL 150 MG TAB.ER.24H PO (09:10)
[2021-08-05] MEDS: risperiDONE 0.5 MG TABLET PO (09:11)
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
[2021-08-05 15:57] VITALS: BP 126/59; PULSE 92; RESP 18; TEMP 36.8; O2SAT 96
[2021-08-05] MEDS: Enoxaparin Sodium 40 MG/0.4 ML SYRINGE SUBCUT (21:25)
[2021-08-06] VITALS: BP 117/62; PULSE 88; RESP 20; TEMP 36.2; O2SAT 96
[2021-08-06 07:05] VITALS: BP 122/64; PULSE 82; RESP 19; TEMP 36; O2SAT 96
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
[2021-08-06] MEDS: buPROPion HCl XL 150 MG TAB.ER.24H PO (12:00)
[2021-08-06] MEDS: risperiDONE 0.5 MG TABLET PO (12:00)
[2021-08-06] MEDS: Famotidine 20 MG TABLET PO ×2 (12:00→20:38)
[2021-08-06] MEDS: Aspirin Enteric Coated 81 MG TABLET.DR PO (12:00)
[2021-08-06] MEDS: Docusate Sodium 100 MG CAPSULE PO ×2 (12:00→20:38)
[2021-08-06] MEDS: Gabapentin 300 MG CAPSULE PO ×3 (12:00→20:38)
[2021-08-06] MEDS: Acetaminophen 325 MG TABLET 650 MG PO (12:02)
[2021-08-06 15:49] VITALS: BP 137/69; PULSE 93; RESP 18; TEMP 36.7; O2SAT 98
[2021-08-06 19:53] VITALS: BP 129/58; PULSE 73; RESP 16; TEMP 36.4; O2SAT 95
[2021-08-06] MEDS: Enoxaparin Sodium 40 MG/0.4 ML SYRINGE SUBCUT (20:38)
[2021-08-06 23:17] VITALS: BP 113/53; PULSE 80; RESP 16; TEMP 36.9; O2SAT 97
[2021-08-07 07:07] VITALS: BP 149/60; PULSE 80; RESP 18; TEMP 36.2; O2SAT 97
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
--- NOTE | 2021-08-07 09:40 | MHC.CM.PN ---
[facility] able to speak with her re: status of [facility] rachelle. . Application approved on 07/18, with active date of 08/03. To note- patient and have the same [facility] ID #. Guardian would prefer patient and are placed together in same facility. Case Management continues an active bed search for patient and .
--- NOTE | 2021-08-07 10:10 | MHC.CM.PN ---
Addendum entered by Ansley Braxton 08/07/21 10:12: [place] [id number] Original Note: PATIENT INFO ([facility] [id number] - SAME SPOUSE'S) ADDED TO NEW REFERRAL PER CONVERSATION WITH [facility]ANTAGE LIAKHRIS KAPOOR ([phone]). ANTWON WILL REVIEW FOR BED OFFER LOCALLY CAX 2 2 AND MAY NEED A BOOSTER IF OFFERED A BED.
[2021-08-07] MEDS: buPROPion HCl XL 150 MG TAB.ER.24H PO (10:54)
[2021-08-07] MEDS: risperiDONE 0.5 MG TABLET PO (10:55)
[2021-08-07] MEDS: Gabapentin 300 MG CAPSULE PO ×3 (10:55→22:15)
[2021-08-07] MEDS: Aspirin Enteric Coated 81 MG TABLET.DR PO (10:55)
[2021-08-07] MEDS: Docusate Sodium 100 MG CAPSULE PO ×2 (10:55→22:15)
[2021-08-07] MEDS: Famotidine 20 MG TABLET PO ×2 (10:55→22:15)
--- NOTE | 2021-08-07 14:48 | MHC.CM.PN ---
SPEECH EVAL AND BOOM STORAGE NOTE UPLOADED INTO [facility] VANTAGE LIAISON ATTEMPTING TO SKILL PATIENT IN PRIOR TO CONVERTING TO LTC
[2021-08-07 15:54] VITALS: BP 136/59; PULSE 93; RESP 18; TEMP 36.7; O2SAT 99
[2021-08-07] MEDS: Enoxaparin Sodium 40 MG/0.4 ML SYRINGE SUBCUT (22:14)
[2021-08-07 23:51] VITALS: BP 117/55; PULSE 84; RESP 16; TEMP 36.8; O2SAT 96
[2021-08-08 08:00] VITALS: BP 147/74; PULSE 68; RESP 17; TEMP 36.2; O2SAT 98
[2021-08-08] MEDS: Docusate Sodium 100 MG CAPSULE PO ×2 (11:12→21:47)
[2021-08-08] MEDS: risperiDONE 0.5 MG TABLET PO (11:12)
[2021-08-08] MEDS: Famotidine 20 MG TABLET PO ×2 (11:12→21:47)
[2021-08-08] MEDS: Aspirin Enteric Coated 81 MG TABLET.DR PO (11:12)
[2021-08-08] MEDS: buPROPion HCl XL 150 MG TAB.ER.24H PO (11:12)
[2021-08-08] MEDS: Gabapentin 300 MG CAPSULE PO ×3 (11:13→21:48)
--- NOTE | 2021-08-08 11:42 | MHC.CM.PN ---
Addendum entered by Ansley Braxton 08/08/21 11:59: MESSAGE LEFT AT [phone] ATT; ATTDea NI REQUESTING THAT PATIENT AND SPOUSE [place] APPLICATIONS BE FAXED TO [phone] Original Note: MEGAN WING (ANTWON [phone]) REQUESTING COMPLETE GUARDIANSHIP FORMS BE FAXED TO [phone] FAX SENT LIAISON ALSO REQUESTING THAT COPY OF [place] APPLICATION BE SENT TO THE SAME FAX NUMBER THIS RESTAURANT SHIFT LEADER TO CONTACT GUARDIAN AND REQUEST
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
--- NOTE | 2021-08-08 13:03 | MHC.CLN ---
F/U PER CONVERSATION WITH DINING STAFF, PATIENT'S BEST MEAL IS USUALLY BREAKFAST. TYPICALLY EATS LESS AT LUNCH AND DINNER. CHANGING ENSURE FROM BID TO TID. PROVIDES ADDITIONAL 1050 KCAL, 60 G PROTEIN.
[2021-08-08 15:59] VITALS: BP 139/64; PULSE 95; RESP 18; TEMP 36.8; O2SAT 97
[2021-08-08] MEDS: Acetaminophen 325 MG TABLET 650 MG PO (16:08)
[2021-08-08] MEDS: Enoxaparin Sodium 40 MG/0.4 ML SYRINGE SUBCUT (21:48)
[2021-08-08 23:23] VITALS: BP 104/52; PULSE 83; RESP 18; TEMP 36.6; O2SAT 96
[2021-08-09] MEDS: Acetaminophen 325 MG TABLET 650 MG PO ×2 (05:15→20:28)
[2021-08-09 08:00] VITALS: BP 120/58; PULSE 81; RESP 17; TEMP 36.1; O2SAT 98
[2021-08-09] MEDS: buPROPion HCl XL 150 MG TAB.ER.24H PO (09:34)
[2021-08-09] MEDS: Gabapentin 300 MG CAPSULE PO ×3 (09:34→20:28)
[2021-08-09] MEDS: risperiDONE 0.5 MG TABLET PO (09:34)
[2021-08-09] MEDS: Aspirin Enteric Coated 81 MG TABLET.DR PO (09:35)
[2021-08-09] MEDS: Docusate Sodium 100 MG CAPSULE PO ×2 (09:35→20:28)
[2021-08-09] MEDS: Famotidine 20 MG TABLET PO ×2 (09:35→20:28)
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
[2021-08-09 15:46] VITALS: BP 119/48; PULSE 92; RESP 14; TEMP 36.6; O2SAT 98
[2021-08-09] MEDS: Enoxaparin Sodium 40 MG/0.4 ML SYRINGE SUBCUT (20:28)
[2021-08-09] MEDS: Melatonin 3 MG TABLET 6 MG PO (20:29)
[2021-08-09 23:53] VITALS: BP 98/57; PULSE 84; RESP 19; TEMP 36.4; O2SAT 95
[2021-08-10 07:57] VITALS: BP 134/75; PULSE 60; RESP 17; TEMP 36.6; O2SAT 98
[2021-08-10] MEDS: Famotidine 20 MG TABLET PO ×2 (08:37→20:50)
[2021-08-10] MEDS: Gabapentin 300 MG CAPSULE PO ×3 (08:37→20:50)
[2021-08-10] MEDS: risperiDONE 0.5 MG TABLET PO (08:37)
[2021-08-10] MEDS: Docusate Sodium 100 MG CAPSULE PO ×2 (08:37→20:50)
[2021-08-10] MEDS: Aspirin Enteric Coated 81 MG TABLET.DR PO (08:37)
[2021-08-10] MEDS: buPROPion HCl XL 150 MG TAB.ER.24H PO (08:38)
[2021-08-10 12:05] VITALS: BMI 25.9
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
[2021-08-10 15:42] VITALS: BP 135/53; PULSE 86; RESP 18; TEMP 36.4; O2SAT 100
[2021-08-10] MEDS: Acetaminophen 325 MG TABLET 650 MG PO (20:33)
[2021-08-10] MEDS: Enoxaparin Sodium 40 MG/0.4 ML SYRINGE SUBCUT (20:49)
[2021-08-10] MEDS: Melatonin 3 MG TABLET 6 MG PO (20:50)
[2021-08-10 23:39] VITALS: BP 104/51; PULSE 90; RESP 14; TEMP 36.7; O2SAT 97
[2021-08-11] MEDS: Acetaminophen 325 MG TABLET 650 MG PO (05:03)
[2021-08-11 07:54] VITALS: BP 123/59; PULSE 84; RESP 18; TEMP 36.1; O2SAT 98
[2021-08-11] MEDS: Gabapentin 300 MG CAPSULE PO ×3 (09:32→19:17)
[2021-08-11] MEDS: Docusate Sodium 100 MG CAPSULE PO ×2 (09:32→19:16)
[2021-08-11] MEDS: risperiDONE 0.5 MG TABLET PO (09:32)
[2021-08-11] MEDS: Famotidine 20 MG TABLET PO ×2 (09:32→19:16)
[2021-08-11] MEDS: Aspirin Enteric Coated 81 MG TABLET.DR PO (09:32)
[2021-08-11] MEDS: buPROPion HCl XL 150 MG TAB.ER.24H PO (09:32)
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
[2021-08-11 15:00] VITALS: BP 128/61; PULSE 97; RESP 18; TEMP 36.2; O2SAT 98
[2021-08-11] MEDS: Enoxaparin Sodium 40 MG/0.4 ML SYRINGE SUBCUT (19:17)
[2021-08-11 23:19] VITALS: BP 145/49; PULSE 95; RESP 18; TEMP 37.2; O2SAT 98
[2021-08-12 06:22] VITALS: BP 149/64; PULSE 73; RESP 16; TEMP 36.9; O2SAT 99
[2021-08-12 07:50] VITALS: BP 141/86; PULSE 87; RESP 18; TEMP 36.6; O2SAT 99
[2021-08-12] MEDS: Docusate Sodium 100 MG CAPSULE PO ×2 (09:25→19:45)
[2021-08-12] MEDS: risperiDONE 0.5 MG TABLET PO (09:25)
[2021-08-12] MEDS: Gabapentin 300 MG CAPSULE PO ×3 (09:25→19:45)
[2021-08-12] MEDS: Aspirin Enteric Coated 81 MG TABLET.DR PO (09:25)
[2021-08-12] MEDS: Famotidine 20 MG TABLET PO ×2 (09:25→19:45)
[2021-08-12] MEDS: buPROPion HCl XL 150 MG TAB.ER.24H PO (09:25)
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
[2021-08-12 16:00] VITALS: BP 113/53; PULSE 83; RESP 18; TEMP 36.7; O2SAT 99
[2021-08-12] MEDS: Enoxaparin Sodium 40 MG/0.4 ML SYRINGE SUBCUT (19:45)
[2021-08-12 23:40] VITALS: BP 116/55; PULSE 99; RESP 18; TEMP 36.6; O2SAT 95
[2021-08-13 07:07] VITALS: BP 116/54; PULSE 84; RESP 18; TEMP 37; O2SAT 99
[2021-08-13] MEDS: Gabapentin 300 MG CAPSULE PO ×3 (09:55→20:00)
[2021-08-13] MEDS: Aspirin Enteric Coated 81 MG TABLET.DR PO (09:55)
[2021-08-13] MEDS: Docusate Sodium 100 MG CAPSULE PO ×2 (09:55→20:00)
[2021-08-13] MEDS: buPROPion HCl XL 150 MG TAB.ER.24H PO (09:55)
[2021-08-13] MEDS: risperiDONE 0.5 MG TABLET PO (09:55)
[2021-08-13] MEDS: Famotidine 20 MG TABLET PO ×2 (09:55→20:00)
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
[2021-08-13 15:56] VITALS: BP 130/58; PULSE 95; RESP 17; TEMP 36.9; O2SAT 96
[2021-08-13] MEDS: Enoxaparin Sodium 40 MG/0.4 ML SYRINGE SUBCUT (20:00)
[2021-08-13 23:29] VITALS: BP 111/43; PULSE 94; RESP 18; TEMP 36.7; O2SAT 94
[2021-08-14 07:25] VITALS: BP 137/56; PULSE 86; RESP 17; TEMP 36.4; O2SAT 93
[2021-08-14] MEDS: Famotidine 20 MG TABLET PO ×2 (09:27→21:11)
[2021-08-14] MEDS: Docusate Sodium 100 MG CAPSULE PO ×2 (09:27→21:11)
[2021-08-14] MEDS: Gabapentin 300 MG CAPSULE PO ×3 (09:27→21:10)
[2021-08-14] MEDS: Aspirin Enteric Coated 81 MG TABLET.DR PO (09:27)
[2021-08-14] MEDS: risperiDONE 0.5 MG TABLET PO (09:27)
[2021-08-14] MEDS: buPROPion HCl XL 150 MG TAB.ER.24H PO (09:27)
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
[2021-08-14 15:31] VITALS: BP 102/48; PULSE 90; RESP 18; TEMP 36.4; O2SAT 97
[2021-08-14] MEDS: Enoxaparin Sodium 40 MG/0.4 ML SYRINGE SUBCUT (21:10)
[2021-08-14 23:52] VITALS: BP 137/60; PULSE 97; RESP 17; TEMP 36.4; O2SAT 98
[2021-08-15 07:28] VITALS: BP 119/67; RESP 19; TEMP 36.6; O2SAT 97
[2021-08-15] MEDS: Gabapentin 300 MG CAPSULE PO ×3 (09:06→21:01)
[2021-08-15] MEDS: Famotidine 20 MG TABLET PO ×2 (09:06→21:01)
[2021-08-15] MEDS: risperiDONE 0.5 MG TABLET PO (09:06)
[2021-08-15] MEDS: buPROPion HCl XL 150 MG TAB.ER.24H PO (09:06)
[2021-08-15] MEDS: Docusate Sodium 100 MG CAPSULE PO ×2 (09:06→21:01)
[2021-08-15] MEDS: Aspirin Enteric Coated 81 MG TABLET.DR PO (09:06)
--- NOTE | 2021-08-15 12:59 | MHC.CM.PN ---
16 ACRES AND GUILLERMO MCINOT[facility] REVIEWED BUT ARE UNABLE TO OFFER
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
[2021-08-15 15:16] VITALS: BP 115/56; PULSE 95; RESP 18; TEMP 36.6; O2SAT 97
[2021-08-15] MEDS: Enoxaparin Sodium 40 MG/0.4 ML SYRINGE SUBCUT (21:02)
[2021-08-15 23:37] VITALS: BP 113/56; PULSE 93; RESP 16; TEMP 36.9; O2SAT 96
[2021-08-16 07:22] VITALS: BP 114/64; PULSE 74; RESP 20; TEMP 36.4; O2SAT 97
[2021-08-16] MEDS: risperiDONE 0.5 MG TABLET PO (08:45)
[2021-08-16] MEDS: Aspirin Enteric Coated 81 MG TABLET.DR PO (08:45)
[2021-08-16] MEDS: Famotidine 20 MG TABLET PO ×2 (08:45→20:36)
[2021-08-16] MEDS: Docusate Sodium 100 MG CAPSULE PO ×2 (08:45→20:36)
[2021-08-16] MEDS: Gabapentin 300 MG CAPSULE PO ×3 (08:45→20:36)
[2021-08-16] MEDS: buPROPion HCl XL 150 MG TAB.ER.24H PO (08:45)
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
[2021-08-16 15:21] VITALS: BP 125/58; PULSE 88; RESP 18; TEMP 36.6; O2SAT 99
[2021-08-16] MEDS: Melatonin 3 MG TABLET 6 MG PO (20:35)
[2021-08-16] MEDS: Enoxaparin Sodium 40 MG/0.4 ML SYRINGE SUBCUT (20:36)
[2021-08-16 23:20] VITALS: BP 100/52; PULSE 84; RESP 16; TEMP 36.4; O2SAT 97
[2021-08-17 07:08] VITALS: BP 129/58; PULSE 78; RESP 15; TEMP 36.2; O2SAT 97
[2021-08-17] MEDS: Docusate Sodium 100 MG CAPSULE PO ×2 (09:00→20:13)
[2021-08-17] MEDS: risperiDONE 0.5 MG TABLET PO (09:00)
[2021-08-17] MEDS: Famotidine 20 MG TABLET PO ×2 (09:00→20:13)
[2021-08-17] MEDS: Aspirin Enteric Coated 81 MG TABLET.DR PO (09:00)
[2021-08-17] MEDS: buPROPion HCl XL 150 MG TAB.ER.24H PO (09:00)
[2021-08-17] MEDS: Gabapentin 300 MG CAPSULE PO ×3 (09:00→20:13)
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
[2021-08-17 15:54] VITALS: BP 128/59; PULSE 91; RESP 18; TEMP 36.9; O2SAT 97
[2021-08-17] MEDS: Enoxaparin Sodium 40 MG/0.4 ML SYRINGE SUBCUT (20:14)
[2021-08-17 23:36] VITALS: BP 111/53; PULSE 92; RESP 18; TEMP 36.7; O2SAT 97
[2021-08-18 07:32] VITALS: BP 136/63; PULSE 80; RESP 17; TEMP 36.1; O2SAT 98
[2021-08-18] MEDS: Famotidine 20 MG TABLET PO ×2 (08:25→20:35)
[2021-08-18] MEDS: buPROPion HCl XL 150 MG TAB.ER.24H PO (08:25)
[2021-08-18] MEDS: risperiDONE 0.5 MG TABLET PO (08:25)
[2021-08-18] MEDS: Aspirin Enteric Coated 81 MG TABLET.DR PO (08:25)
[2021-08-18] MEDS: Docusate Sodium 100 MG CAPSULE PO ×2 (08:25→20:34)
[2021-08-18] MEDS: Gabapentin 300 MG CAPSULE PO ×3 (08:25→20:34)
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
[2021-08-18 15:33] VITALS: BP 158/67; PULSE 98; RESP 18; TEMP 36.6; O2SAT 98
[2021-08-18] MEDS: Enoxaparin Sodium 40 MG/0.4 ML SYRINGE SUBCUT (20:35)
[2021-08-19] VITALS: BP 119/57; PULSE 87; RESP 20; TEMP 36.3; O2SAT 97
[2021-08-19 07:00] VITALS: BP 111/56; PULSE 91; RESP 16; TEMP 36; O2SAT 97
[2021-08-19] MEDS: buPROPion HCl XL 150 MG TAB.ER.24H PO (09:52)
[2021-08-19] MEDS: risperiDONE 0.5 MG TABLET PO (09:52)
[2021-08-19] MEDS: Docusate Sodium 100 MG CAPSULE PO ×2 (09:52→20:00)
[2021-08-19] MEDS: Famotidine 20 MG TABLET PO ×2 (09:52→20:00)
[2021-08-19] MEDS: Gabapentin 300 MG CAPSULE PO ×3 (09:52→20:00)
[2021-08-19] MEDS: Aspirin Enteric Coated 81 MG TABLET.DR PO (09:52)
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
[2021-08-19 16:00] VITALS: BP 133/63; PULSE 87; RESP 18; TEMP 36.6; O2SAT 96
[2021-08-19] MEDS: Enoxaparin Sodium 40 MG/0.4 ML SYRINGE SUBCUT (20:00)
[2021-08-19 23:38] VITALS: BP 119/54; PULSE 89; RESP 17; TEMP 36.1; O2SAT 95
[2021-08-20 07:50] VITALS: BP 115/75; PULSE 81; RESP 18; TEMP 36.4; O2SAT 98
[2021-08-20] MEDS: Aspirin Enteric Coated 81 MG TABLET.DR PO (08:34)
[2021-08-20] MEDS: Gabapentin 300 MG CAPSULE PO ×3 (08:34→19:59)
[2021-08-20] MEDS: buPROPion HCl XL 150 MG TAB.ER.24H PO (08:34)
[2021-08-20] MEDS: risperiDONE 0.5 MG TABLET PO (08:34)
[2021-08-20] MEDS: Famotidine 20 MG TABLET PO ×2 (08:34→19:59)
[2021-08-20] MEDS: Docusate Sodium 100 MG CAPSULE PO ×2 (08:34→19:59)
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
[2021-08-20 09:22] LABS: Anion Gap 13 (12-20); Blood Urea Nitrogen 23 mg/dL (9-16); Calcium 10.3 mg/dL (8.4-10.2); Carbon Dioxide 25 mmol/L (22-29); Chloride 104 mmol/L (96-108); Creatinine Clr Calc Pharmacy 48.7; Estimated Glomerular Filt Rate > 60; Glucose Random 86 mg/dL (60-115); Potassium 3.9 mmol/L (3.3-5.1); Sodium 138 mmol/L (135-145)
[2021-08-20] MEDS: Acetaminophen 325 MG TABLET 650 MG PO (09:58)
[2021-08-20 16:00] VITALS: BP 129/60; PULSE 104; RESP 18; TEMP 36.1; O2SAT 97
[2021-08-20] MEDS: Melatonin 3 MG TABLET 6 MG PO (19:59)
[2021-08-20] MEDS: Enoxaparin Sodium 40 MG/0.4 ML SYRINGE SUBCUT (19:59)
[2021-08-20 23:16] VITALS: BP 143/68; PULSE 81; RESP 14; TEMP 37; O2SAT 100
[2021-08-21 07:05] VITALS: BP 139/68; PULSE 84; RESP 16; TEMP 36.4; O2SAT 97
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
[2021-08-21] MEDS: risperiDONE 0.5 MG TABLET PO (10:11)
[2021-08-21] MEDS: Acetaminophen 325 MG TABLET 650 MG PO (10:11)
[2021-08-21] MEDS: Docusate Sodium 100 MG CAPSULE PO ×2 (10:11→19:38)
[2021-08-21] MEDS: Gabapentin 300 MG CAPSULE PO ×3 (10:11→19:38)
[2021-08-21] MEDS: buPROPion HCl XL 150 MG TAB.ER.24H PO (10:11)
[2021-08-21] MEDS: Famotidine 20 MG TABLET PO ×2 (10:12→19:38)
[2021-08-21] MEDS: Aspirin Enteric Coated 81 MG TABLET.DR PO (10:12)
[2021-08-21 15:07] VITALS: BP 116/57; PULSE 88; RESP 14; TEMP 36.5; O2SAT 97
[2021-08-21] MEDS: Enoxaparin Sodium 40 MG/0.4 ML SYRINGE SUBCUT (19:38)
[2021-08-21] MEDS: Melatonin 3 MG TABLET 6 MG PO (19:38)
[2021-08-21 23:12] VITALS: BP 96/52; PULSE 84; RESP 16; TEMP 36.2; O2SAT 99
[2021-08-22 07:32] VITALS: BP 139/61; PULSE 83; RESP 18; TEMP 36.3; O2SAT 98
[2021-08-22] MEDS: buPROPion HCl XL 150 MG TAB.ER.24H PO (10:17)
[2021-08-22] MEDS: Aspirin Enteric Coated 81 MG TABLET.DR PO (10:17)
[2021-08-22] MEDS: Gabapentin 300 MG CAPSULE PO ×3 (10:17→19:50)
[2021-08-22] MEDS: Docusate Sodium 100 MG CAPSULE PO ×2 (10:17→19:50)
[2021-08-22] MEDS: risperiDONE 0.5 MG TABLET PO (10:17)
[2021-08-22] MEDS: Famotidine 20 MG TABLET PO ×2 (10:18→19:49)
[2021-08-22] MEDS: Acetaminophen 325 MG TABLET 650 MG PO ×2 (10:20→20:00)
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
[2021-08-22 15:04] VITALS: BP 141/65; PULSE 100; RESP 18; TEMP 37.2; O2SAT 97
[2021-08-22] MEDS: Enoxaparin Sodium 40 MG/0.4 ML SYRINGE SUBCUT (19:49)
[2021-08-22 23:14] VITALS: BP 103/52; PULSE 100; RESP 17; TEMP 36.8; O2SAT 97
[2021-08-23 07:07] VITALS: BP 128/53; PULSE 84; RESP 16; TEMP 36.7; O2SAT 99
[2021-08-23] MEDS: Aspirin Enteric Coated 81 MG TABLET.DR PO (08:58)
[2021-08-23] MEDS: Docusate Sodium 100 MG CAPSULE PO ×2 (08:58→20:00)
[2021-08-23] MEDS: Gabapentin 300 MG CAPSULE PO ×3 (08:58→20:00)
[2021-08-23] MEDS: risperiDONE 0.5 MG TABLET PO (08:58)
[2021-08-23] MEDS: buPROPion HCl XL 150 MG TAB.ER.24H PO (08:58)
[2021-08-23] MEDS: Famotidine 20 MG TABLET PO ×2 (08:59→20:00)
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
[2021-08-23 15:55] VITALS: BP 113/59; PULSE 88; RESP 16; TEMP 35.8; O2SAT 98
[2021-08-23] MEDS: Enoxaparin Sodium 40 MG/0.4 ML SYRINGE SUBCUT (20:00)
[2021-08-23 23:39] VITALS: BP 128/56; PULSE 100; RESP 16; TEMP 36.6; O2SAT 97
[2021-08-24 07:25] VITALS: BP 124/62; PULSE 85; RESP 20; TEMP 36.2; O2SAT 97
[2021-08-24] MEDS: risperiDONE 0.5 MG TABLET PO (09:16)
[2021-08-24] MEDS: Famotidine 20 MG TABLET PO ×2 (09:16→20:07)
[2021-08-24] MEDS: Gabapentin 300 MG CAPSULE PO ×3 (09:16→20:07)
[2021-08-24] MEDS: Aspirin Enteric Coated 81 MG TABLET.DR PO (09:16)
[2021-08-24] MEDS: buPROPion HCl XL 150 MG TAB.ER.24H PO (09:16)
[2021-08-24] MEDS: Docusate Sodium 100 MG CAPSULE PO ×2 (09:16→20:06)
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
[2021-08-24 15:14] VITALS: BP 155/56; PULSE 94; RESP 18; TEMP 36.4; O2SAT 91
[2021-08-24] MEDS: Enoxaparin Sodium 40 MG/0.4 ML SYRINGE SUBCUT (20:06)
[2021-08-24] MEDS: Acetaminophen 325 MG TABLET 650 MG PO (20:07)
[2021-08-24] MEDS: Melatonin 3 MG TABLET 6 MG PO (20:07)
[2021-08-24 23:33] VITALS: BP 105/57; PULSE 76; RESP 16; TEMP 36.1; O2SAT 97
[2021-08-25 07:40] VITALS: BP 134/63; PULSE 84; RESP 20; TEMP 36.3; O2SAT 99
[2021-08-25] MEDS: Docusate Sodium 100 MG CAPSULE PO ×2 (09:08→21:33)
[2021-08-25] MEDS: Gabapentin 300 MG CAPSULE PO ×3 (09:09→21:33)
[2021-08-25] MEDS: Famotidine 20 MG TABLET PO ×2 (09:09→21:33)
[2021-08-25] MEDS: buPROPion HCl XL 150 MG TAB.ER.24H PO (09:09)
[2021-08-25] MEDS: risperiDONE 0.5 MG TABLET PO (09:09)
[2021-08-25] MEDS: Aspirin Enteric Coated 81 MG TABLET.DR PO (09:15)
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
[2021-08-25 15:43] VITALS: BP 117/50; PULSE 97; RESP 18; TEMP 37.1; O2SAT 97
[2021-08-25] MEDS: Enoxaparin Sodium 40 MG/0.4 ML SYRINGE SUBCUT (21:32)
[2021-08-25] MEDS: Acetaminophen 325 MG TABLET 650 MG PO (21:32)
[2021-08-25] MEDS: Melatonin 3 MG TABLET 6 MG PO (21:33)
[2021-08-25 23:31] VITALS: BP 104/54; PULSE 82; RESP 16; TEMP 36.4; O2SAT 92
[2021-08-26 07:13] VITALS: BP 116/67; PULSE 90; RESP 17; TEMP 36.4; O2SAT 100
[2021-08-26] MEDS: Aspirin Enteric Coated 81 MG TABLET.DR PO (10:24)
[2021-08-26] MEDS: buPROPion HCl XL 150 MG TAB.ER.24H PO (10:25)
[2021-08-26] MEDS: Gabapentin 300 MG CAPSULE PO ×3 (10:25→19:18)
[2021-08-26] MEDS: Famotidine 20 MG TABLET PO ×2 (10:25→19:18)
[2021-08-26] MEDS: Docusate Sodium 100 MG CAPSULE PO ×2 (10:25→19:18)
[2021-08-26] MEDS: risperiDONE 0.5 MG TABLET PO (10:25)
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
[2021-08-26 15:24] VITALS: BP 137/63; PULSE 82; RESP 18; TEMP 36.7; O2SAT 100
[2021-08-26] MEDS: Melatonin 3 MG TABLET 6 MG PO (19:18)
[2021-08-26] MEDS: Enoxaparin Sodium 40 MG/0.4 ML SYRINGE SUBCUT (19:18)
[2021-08-26] MEDS: Acetaminophen 325 MG TABLET 650 MG PO (21:52)
[2021-08-26 23:59] VITALS: BP 115/63; PULSE 90; RESP 18; TEMP 37.1; O2SAT 97
[2021-08-27 08:00] VITALS: BP 126/55; PULSE 82; RESP 18; TEMP 36.1; O2SAT 100
[2021-08-27] MEDS: risperiDONE 0.5 MG TABLET PO (09:02)
[2021-08-27] MEDS: Famotidine 20 MG TABLET PO ×2 (09:02→21:57)
[2021-08-27] MEDS: Aspirin Enteric Coated 81 MG TABLET.DR PO (09:02)
[2021-08-27] MEDS: Gabapentin 300 MG CAPSULE PO ×3 (09:02→21:57)
[2021-08-27] MEDS: Docusate Sodium 100 MG CAPSULE PO ×2 (09:02→21:57)
[2021-08-27] MEDS: buPROPion HCl XL 150 MG TAB.ER.24H PO (09:02)
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
--- NOTE | 2021-08-27 11:50 | MHC.CM.PN ---
Case Management continues to seek LTC bed for patient. Referals out.
[2021-08-27 15:32] VITALS: BP 133/50; PULSE 108; RESP 15; TEMP 36.1; O2SAT 96
[2021-08-27] MEDS: Enoxaparin Sodium 40 MG/0.4 ML SYRINGE SUBCUT (21:57)
[2021-08-27 23:12] VITALS: BP 130/57; PULSE 98; RESP 18; TEMP 36.8; O2SAT 91
[2021-08-28 08:00] VITALS: BP 126/65; PULSE 73; RESP 17; TEMP 36.9; O2SAT 100
--- NOTE | 2021-08-28 09:56 | MHC.CM.PN ---
Referrals updates with MD PN's and copy of [facility]. Additional facilities added to referral. No bed offers to-date.
[2021-08-28] MEDS: Docusate Sodium 100 MG CAPSULE PO ×2 (10:23→20:44)
[2021-08-28] MEDS: Gabapentin 300 MG CAPSULE PO ×3 (10:23→20:44)
[2021-08-28] MEDS: buPROPion HCl XL 150 MG TAB.ER.24H PO (10:23)
[2021-08-28] MEDS: Aspirin Enteric Coated 81 MG TABLET.DR PO (10:24)
[2021-08-28] MEDS: risperiDONE 0.5 MG TABLET PO (10:24)
[2021-08-28] MEDS: Famotidine 20 MG TABLET PO ×2 (10:24→20:44)
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
--- NOTE | 2021-08-28 14:02 | MHC.CM.PN ---
MECCA Walker FROM [facility] AT SHE WILL BE IN AT APPROX 2PM FOR BEDSIDE, TAMIKA REPORTS [facility] DOES NOT HAVE BEDS HOWEVER THEIR SISTER FACILITY IN [place] DOES. CM RECEIVED MESSAGES FROM [email or web address], [facility], [place], , [facility], [facility] THAT THEY DO NOT HAVE LTC BED OR APPROPRIATE BED FOR PT. CM RECEIVED EMAIL FROM [employer]HIGIN[facility] Agrawal/SPECIFIC QUESTIONS RE FINANCIALS, EMAIL FORWARDED TO PT'S GUARDIAN/CONSERVATOR DIANA AMADOR AND RECEIVED CONFIRMATION EMAIL BACK FROM DIANA THAT SHE DID PROVIDE REQUESTED INFORMATION, CM CURRENTLY AWAITING RESPONSE FROM JAIRO.
[2021-08-28 15:24] VITALS: BP 143/54; PULSE 93; RESP 18; TEMP 36.5; O2SAT 98
--- NOTE | 2021-08-28 15:43 | MHC.CM.PN ---
ALIX SHOOKHernán HusainLm CAME AT 2PM FOR BEDSIDE VISIT W/PT, VISIT WENT WELL AND TAMIKA REPORTS SHE WILL PUSH FOR PT AND PT'S SPOUSE TO BE ADMITTED AT ONE OF THEIR SISTER FACILITIES, TAMIKA REPORTS FACILITIES WOULD BE IN THE FOLLOWING ORDER: 1) [facility] WHERE PT'S WOULD BE IN SAME SNF HOWEVER IN DIFFERENT ROOMS, PT DOES REPORT THAT THAT WOULD BE FINE WITH HER. 2) [facility] WHERE PT'S WOULD BE IN ROOM TOGETHER. 3) [place] WHICH PT AND SPOUSE MAY ALSO SHARE A ROOM. TAMIKA REQUESTED GUARDIAN/CONSERVATORS CONTACT INFO W/QUESTIONS, TAMIKA WAS PROVIDED W/DIANA AMADOR PHONE AND EMAIL VIA [employer]. CM CONTACTED PT'S GUARDIAN/CONSERVATOR VIA EMAIL TO LET HER KNOW SHE WILL BE HEARING FROM [facility]ING AND THAT PT AND PT'S SPOUSE WILL BE PLACED IN [facility]. CM WILL CONT TO FOLLOW AND START MDS'S IN AM.
[2021-08-28] MEDS: Enoxaparin Sodium 40 MG/0.4 ML SYRINGE SUBCUT (20:44)
[2021-08-29] VITALS: BP 99/46; PULSE 86; RESP 18; TEMP 36.4; O2SAT 98
[2021-08-29 08:00] VITALS: BP 94/46; PULSE 78; RESP 18; TEMP 36.3; O2SAT 98
[2021-08-29] MEDS: risperiDONE 0.5 MG TABLET PO (09:40)
[2021-08-29] MEDS: buPROPion HCl XL 150 MG TAB.ER.24H PO (09:40)
[2021-08-29] MEDS: Gabapentin 300 MG CAPSULE PO ×3 (09:40→21:54)
[2021-08-29] MEDS: Aspirin Enteric Coated 81 MG TABLET.DR PO (09:40)
[2021-08-29] MEDS: Docusate Sodium 100 MG CAPSULE PO ×2 (09:40→20:49)
[2021-08-29] MEDS: Famotidine 20 MG TABLET PO ×2 (09:40→20:50)
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
[2021-08-29 16:00] VITALS: BP 123/59; PULSE 80; RESP 18; TEMP 36.4; O2SAT 99
[2021-08-29] MEDS: Enoxaparin Sodium 40 MG/0.4 ML SYRINGE SUBCUT (20:50)
[2021-08-30] VITALS: BP 123/56; PULSE 94; RESP 14; TEMP 36.8; O2SAT 96
[2021-08-30 08:00] VITALS: BP 137/61; PULSE 88; RESP 16; TEMP 36.8; O2SAT 96
[2021-08-30] MEDS: Gabapentin 300 MG CAPSULE PO ×3 (09:38→19:50)
[2021-08-30] MEDS: Famotidine 20 MG TABLET PO ×2 (09:38→19:50)
[2021-08-30] MEDS: Docusate Sodium 100 MG CAPSULE PO ×2 (09:38→19:49)
[2021-08-30] MEDS: Aspirin Enteric Coated 81 MG TABLET.DR PO (09:38)
[2021-08-30] MEDS: risperiDONE 0.5 MG TABLET PO (09:39)
[2021-08-30] MEDS: buPROPion HCl XL 150 MG TAB.ER.24H PO (09:39)
[2021-08-30] MEDS: Acetaminophen 325 MG TABLET 650 MG PO (09:41)
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
[2021-08-30 15:36] VITALS: BP 129/48; PULSE 94; RESP 18; TEMP 36.2; O2SAT 91
[2021-08-30 16:00] VITALS: BP 129/40; PULSE 60; TEMP 36.2; O2SAT 98
--- NOTE | 2021-08-30 16:36 | MHC.CM.PN ---
PER [facility] IN [place] HAS BEEN ADDED TO REFERRAL THEY WILL BE REVIEWING AND ASKING QUESTIONS VIA [employer]
[2021-08-30] MEDS: Enoxaparin Sodium 40 MG/0.4 ML SYRINGE SUBCUT (19:50)
[2021-08-30 23:57] VITALS: BP 142/72; PULSE 95; RESP 14; TEMP 36.2; O2SAT 96
[2021-08-31 07:55] VITALS: BP 138/65; PULSE 85; RESP 18; TEMP 36.3; O2SAT 98
[2021-08-31] MEDS: Gabapentin 300 MG CAPSULE PO ×3 (10:22→20:58)
[2021-08-31] MEDS: buPROPion HCl XL 150 MG TAB.ER.24H PO (10:22)
[2021-08-31] MEDS: risperiDONE 0.5 MG TABLET PO (10:22)
[2021-08-31] MEDS: Famotidine 20 MG TABLET PO ×2 (10:22→20:59)
[2021-08-31] MEDS: Docusate Sodium 100 MG CAPSULE PO ×2 (10:22→20:59)
[2021-08-31] MEDS: Acetaminophen 325 MG TABLET 650 MG PO (10:22)
[2021-08-31] MEDS: Aspirin Enteric Coated 81 MG TABLET.DR PO (10:23)
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
--- NOTE | 2021-08-31 12:36 | MHC.CM.PN ---
Addendum entered by Valentina Aguilera RN 08/31/21 13:21: [facility]ATOR CONTACTED VIA EMAIL, CM AWAITING RESPONSE. Original Note: CM RECEIVED MESSAGE THIS MORNING FROM [facility] THEY CAN OFFER PT A BED, CM DISCUSSED W/LIAISON AND PT WILL TRANSFER AT 4PM Friday09/03/21. MDS HAS BEEN COMPLETED AND WILL BE SENT TO SNF VIA [facility] Ratings.
--- NOTE | 2021-08-31 14:57 | MHC.CM.PN ---
Addendum entered by Ansley Braxton 08/31/21 15:15: VISIT TIME [id number] SON LEFT [employer] IN ROOM. GUARDIAN MADE AWARE WITH VOICEMAIL MESSAGE ([phone] - GUARDIAN ATTY. JAGDISH MUNIZ ) Original Note: SON (YEN) AND GIRLFRIEND IN ROOM. THEY TELL THIS TURNER OFF THAT THEY WERE HERE LAST WEEK, BETWEEN [phone]. THIS TURNER OFF INFORMED SON AND GIRLFRIEND THAT NOBODY HAS SEEN THEM, NOR HAS ANYBODY MADE A NOTE THAT FAMILY VISITED. STAFF HAS BEEN NOTIFIED THAT NO INFORMATION IS TO BE GIVEN, SON IS NOT GUARDIAN. [employer] AMBASSADOR MADE AWARE WELL.
[2021-08-31 16:00] VITALS: BP 128/57; PULSE 91; RESP 18; TEMP 36.4; O2SAT 97
--- NOTE | 2021-08-31 16:29 | MHC.CM.PN ---
PT D/C'ING 09/03 AT 4PM TO [facility] FOR LTC, TRANSPORT HAS BEEN SET UP W/[facility], CM RECEIVED APPROVAL FROM GU[facility]IAN VIA EMAIL ON 08/31/21. MDS/MH FORM AND UPDATED CLINICALS SENT TO [facility] VIA [facility]
[2021-08-31] MEDS: Enoxaparin Sodium 40 MG/0.4 ML SYRINGE SUBCUT (20:56)
[2021-09-01] VITALS: RESP 16
[2021-09-01] MEDS: buPROPion HCl XL 150 MG TAB.ER.24H PO (07:52)
[2021-09-01] MEDS: Aspirin Enteric Coated 81 MG TABLET.DR PO (07:52)
[2021-09-01] MEDS: risperiDONE 0.5 MG TABLET PO (07:52)
[2021-09-01] MEDS: Gabapentin 300 MG CAPSULE PO ×3 (07:52→21:06)
[2021-09-01] MEDS: Famotidine 20 MG TABLET PO ×2 (07:52→21:06)
[2021-09-01] MEDS: Docusate Sodium 100 MG CAPSULE PO ×2 (07:52→21:06)
[2021-09-01 08:00] VITALS: BP 119/58; PULSE 97; RESP 18; TEMP 37.4; O2SAT 97
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
[2021-09-01 15:15] VITALS: BP 120/46; PULSE 104; RESP 18; TEMP 37; O2SAT 91
[2021-09-01] MEDS: Enoxaparin Sodium 40 MG/0.4 ML SYRINGE SUBCUT (21:06)
[2021-09-01 23:45] VITALS: BP 102/53; PULSE 90; RESP 18; TEMP 36.4; O2SAT 95
[2021-09-02 08:00] VITALS: BP 131/46; PULSE 79; RESP 16; TEMP 37; O2SAT 98
[2021-09-02] MEDS: Famotidine 20 MG TABLET PO ×2 (10:03→21:01)
[2021-09-02] MEDS: Gabapentin 300 MG CAPSULE PO ×3 (10:03→21:00)
[2021-09-02] MEDS: Docusate Sodium 100 MG CAPSULE PO ×2 (10:03→21:00)
[2021-09-02] MEDS: buPROPion HCl XL 150 MG TAB.ER.24H PO (10:03)
[2021-09-02] MEDS: Aspirin Enteric Coated 81 MG TABLET.DR PO (10:03)
[2021-09-02] MEDS: risperiDONE 0.5 MG TABLET PO (10:03)
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
[2021-09-02 16:00] VITALS: BP 137/62; PULSE 91; RESP 18; TEMP 36.3; O2SAT 98
--- NOTE | 2021-09-02 17:06 | MHC.CM.PN ---
CM MET W/PT TO DISCUSS SCP AND PLACEMENT FOUND, PT WAS AGREEABLE AND ABLE TO VOICE THAT SHE NEEDS 24HR CARE AND THAT HER SON ISN'T ABLE TO CARE FOR HER, PT REPORTING HE DRINKS TOO MUCH AND SHE DOESN'T UNDERSTAND WHY. PT AWARE SHE IS DISCHARGING TOMORROW AFTERNOON HOWEVER D/T DEMENTIA/MEMERY LOSS 5MIN LATER PT DID NOT REMEMBER SHE WAS GOING TO A SNF AND ASKED HOW SHE WAS GETTING HOME. MDS AND MH FORMS UPDATED, MOST RECENT [facility]IP W/JOSÉ MIGUEL AND MED BRYANT DONE AND PLACED IN GREEN D/C ENVELOPE ON CHART, PERMISSION FROM [facility] GIVEN VIA EMAIL 08/31/21. D/C PLAN: [facility] AT 4 09/03 VIA [facility] FOR BLS TRANSPORT
[2021-09-02] MEDS: Enoxaparin Sodium 40 MG/0.4 ML SYRINGE SUBCUT (21:00)
[2021-09-02 23:06] LABS: COVID-19 Test Negative (Negative)
[2021-09-02 23:32] VITALS: BP 131/58; PULSE 104; RESP 16; TEMP 37.2; O2SAT 96
[2021-09-03 08:00] VITALS: BP 94/46; PULSE 98; RESP 18; TEMP 36.6; O2SAT 97
[2021-09-03] MEDS: Gabapentin 300 MG CAPSULE PO ×2 (08:47→14:05)
[2021-09-03] MEDS: Docusate Sodium 100 MG CAPSULE PO (08:47)
[2021-09-03] MEDS: Aspirin Enteric Coated 81 MG TABLET.DR PO (08:47)
[2021-09-03] MEDS: Famotidine 20 MG TABLET PO (08:47)
[2021-09-03] MEDS: buPROPion HCl XL 150 MG TAB.ER.24H PO (08:47)
[2021-09-03] MEDS: risperiDONE 0.5 MG TABLET PO (08:47)
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
[2021-09-03 15:57] VITALS: BP 119/59; PULSE 98; RESP 18; TEMP 36.8; O2SAT 98
--- NOTE | 2021-09-03 16:10 | MHC.CM.PN ---
PT DISCHARGED TO [facility] FOR LTC TODAY VIA BLS MESSAGE LEFT FOR PTS GUARDIAN INFORMING HER OF SUCCESSFUL DC
== END 2021-09-03 16:23 | disposition skilled nursing facility (03) | DRG 872 ==
LOC: HO.ED 16:29 → HO.EDOVER 17:47 → HO.S3 03-13 06:56
PROVIDERS: Hospitalist; Internal Medicine; Nurse Practitioner Acute Care; Physician Assistant Medical; Admitting Provider Internal Medicine; Emergency Provider Emergency Medicine Emergency Medical Services; PCP Internal Medicine; Visit Provider Family Medicine
DX: A41.9 Sepsis, unspecified organism (principal); T74.01XA Adult neglect or abandonment, confirmed, initial encounter; N39.0 Urinary tract infection, site not specified; E44.0 Moderate protein-calorie malnutrition; N17.9 Acute kidney failure, unspecified; Z68.1 Body mass index [BMI] 19.9 or less, adult; R65.20 Severe sepsis without septic shock; R62.7 Adult failure to thrive; E03.9 Hypothyroidism, unspecified; F03.90 Unspecified dementia, unspecified severity, without behavioral disturbance, psychotic disturbance, mood disturbance, and anxiety; L40.9 Psoriasis, unspecified; E86.0 Dehydration; N95.0 Postmenopausal bleeding; B87.1 Wound myiasis; F17.210 Nicotine dependence, cigarettes, uncomplicated; Z71.6 Tobacco abuse counseling; B85.0 Pediculosis due to Pediculus humanus capitis; I10 Essential (primary) hypertension; B86 Scabies; L89.612 Pressure ulcer of right heel, stage 2; L89.152 Pressure ulcer of sacral region, stage 2; R29.6 Repeated falls; L89.322 Pressure ulcer of left buttock, stage 2; G62.9 Polyneuropathy, unspecified; L89.312 Pressure ulcer of right buttock, stage 2; Z91.81 History of falling; Z20.822 Contact with and (suspected) exposure to COVID-19; Z88.0 Allergy status to penicillin; Z88.2 Allergy status to sulfonamides; Z79.82 Long term (current) use of aspirin; Z79.899 Other long term (current) drug therapy
CPT/HCPCS: 0241U; 36415; 70450; 71250; 72125; 74176; 80048; 80076; 80307; 81001; 82077; 82550; 82565; 82607; 82746; 82803; 82947; 83605; 83735; 84443; 85025; 85027; 87040; 87086; 87633; 87635; 92526; 92610; 93005; 96361; 96365; 99285; 99291; C1758; J0696; J1650